=== PATIENT | male | born 1945 | race Caucasian/White ===

== ENCOUNTER 2019-04-15 07:00 | Inpatient (IN) | payer OTHER ==
[2019-04-15] MEDS ORDERED: LEVALBUTEROL 1.25 MG/3 ML NEB ONE (07:37)
[2019-04-15 07:50] LABS: Absolute Lymphocytes (CBC) 0.3 K/uL (0.7-4.9); Basophils % 0.2 % (0-1.3); Hematocrit 35.8 % (39.6-49.0); MPV 11.4 fL (7.6-11.3); RBC Red Blood Cell Count 3.47 M/uL (4.33-5.43)
[2019-04-15 08:03] LABS: BUN Blood Urea Nitrogen 14 mg/dL (7-18); Bicarbonate 27 mmol/L (21-32); Glucose Level 112 mg/dL (74-106); NT PRO-BNP 1660 pg/mL (<450); Potassium 3.6 mmol/L (3.5-5.1); Sodium Level 140 mmol/L (136-145); Troponin (Emerg Dept Use Only) < 0.02 ng/mL (0.0-0.045)
[2019-04-15] MEDS ORDERED: CEFTRIAXONE/SWI 1gm 1 GM/10 ML SYR ONE (08:17)
[2019-04-15] MEDS ORDERED: AZITHROMYCIN IV 500 MG in NA CHLORIDE 0.9% 250 ML IVPB ONE (09:00)
--- NOTE | 2019-04-15 09:56 | EKG ---
Test Date: 2019-04-15 Test Time: 07:06:29 In Flight Technician: LARISSA MEASUREMENT RESULTS: Intervals: Rate: 91 WY: 170 QRSD: 110 QT: 376 QTc: 462 Griffin: P: 75 WY: 170 QRS: 18 T: -17 INTERPRETIVE STATEMENTS: Normal sinus rhythm Inferior infarct, age undetermined T wave abnormality, consider lateral ischemia Abnormal ECG Compared to ECG 04/18/2016 04:13:22 T-wave abnormality now present Sinus tachycardia no longer present ST (T wave) deviation no longer present Myocardial infarct finding still present Possible ischemia still present Electronically Signed On 04-15-19 09:55:59 CDT by Enmanuel Pollard
--- NOTE | 2019-04-15 10:00 | ER ---
Nurse's Notes [facility] Name: Joshua Juarez Age: 74 yrs Sex: Male : 1945 Arrival Date: 04/15/2019 Time: 07:01 Bed 5 Private MD: Óscar Wen V Diagnosis: Dyspnea, unspecified;Pneumonia Presentation: 04/15 07:00 Presenting complaint: Patient states: SOB, cough, chest pain x 5 days ago. Pt also aa5 reports fever up to 101.7 F yesterday. 07:00 Acuity: MARISELA 2 aa5 07:00 Transition of care: patient was not received from another setting of care. Onset of aa5 symptoms was April 2019. Risk Assessment: Do you want to hurt yourself or someone else? Patient reports no desire to harm self or others. Initial Sepsis Screen: Does the patient meet any 2 criteria? No. Patient's initial sepsis screen is negative. Does the patient have a suspected source of infection? No. Patient's initial sepsis screen is negative. Care prior to arrival: None. 07:00 Method Of Arrival: Ambulatory aa5 Triage Assessment: 07:13 General: Appears in no apparent distress. Behavior is calm, cooperative, appropriate tw2 for age. Pain: Denies pain. EENT: No signs and/or symptoms were reported regarding the EENT system. Neuro: Level of Consciousness is awake, alert, obeys commands. Cardiovascular: Heart tones S1 S2 Patient's skin is warm and dry. 07:14 Respiratory: Reports shortness of breath at rest on exertion since 5 days now Onset: tw2 The symptoms/episode began/occurred 5 days ago, the patient has mild shortness of breath. GI: Abdomen is round non-distended, obese, Bowel sounds present X 4 quads. : No signs and/or symptoms were reported regarding the genitourinary system. Derm: No signs and/or symptoms reported regarding the dermatologic system. Skin is intact, is healthy with good turgor, Skin is dry. Musculoskeletal: Range of motion: intact in all extremities. Historical: - Allergies: 07:00 NKDA; aa5 - Home Meds: 07:17 amiodarone 200 mg Oral tab 1 tab 2 times per day [Active]; apixaban Oral 5 mg 2 times tw2 per day [Active]; aspirin 81 mg Oral TbEC 1 tab once daily [Active]; atorvastatin 20 mg Oral tab 1 tab once daily [Active]; buspirone 10 mg Oral tab 1 tab 3 times per day [Active]; Colace 100 mg Oral cap [Active]; colchicine 0.6mg tablet miscellaneous [Active]; digoxin 125 mcg Oral tab 1 tab once daily [Active]; Imdur 30 mg Oral Tb24 [Active]; lisinopril 5 mg Oral tab 1 tab once daily [Active]; metformin 500 mg Oral Tb24 1 tab once daily [Active]; metoprolol tartrate 100 mg Oral tab 1 tab once daily [Active]; [place] 10-325 mg Oral tab 1 tab every 6 hours [Active]; trazodone 100 mg Oral tab 1 tab nightly [Active]; venlafaxine 150 mg Oral cp24 [Active]; - PMHx: 07:00 Depression; Diabetes - NIDDM; Hyperlipidemia; Hypertension; Atrial Fib; aa5 - PSHx: 07:00 CABG; knee replacement; prostate sx; aa5 - Immunization history:: Flu vaccine is up to date. - Social history:: Smoking status: Patient/guardian denies using tobacco. - Ebola Screening: : No symptoms or risks identified at this time. - Family history:: not pertinent. - Hospitalizations: : No recent hospitalization is reported. Screenin:12 Abuse screen: Denies threats or abuse. Nutritional screening: No deficits noted. tw2 Tuberculosis screening: No symptoms or risk factors identified. Fall Risk None identified. Assessment: 07:15 Reassessment: see triage assessment. tw2 07:15 Cardiovascular: Rhythm is sinus rhythm. Respiratory: Airway is patent Respiratory tw2 effort is even, unlabored, Respiratory pattern is regular, symmetrical, Breath sounds are clear bilaterally. 07:43 Reassessment: Patient appears in no apparent distress at this time. No changes from tw2 previously documented assessment. Patient and/or family updated on plan of care and expected duration. Pain level reassessed. 09:43 Reassessment: Patient appears in no apparent distress at this time. No changes from tw2 previously documented assessment. Patient and/or family updated on plan of care and expected duration. Pain level reassessed. Vital Signs: 07:05 BP 125 / 82; Pulse 89; Resp 18 S; Temp 98.7(TE); Pulse Ox 97% on R/A; Weight 83.91 kg aa5 (R); Height 5 ft. 6 in. (167.64 cm) (R); Pain 6/10; 07:42 BP 116 / 70; Pulse 86; Resp 23; Pulse Ox 98% on 2 lpm NC; tw2 08:32 BP 112 / 95; Pulse 87; Resp 19; Pulse Ox 96% on 2 lpm NC; tw2 09:43 BP 124 / 93; Pulse 86; Resp 17; Pulse Ox 97% on R/A; tw2 09:56 Pulse Ox 92% ; rn 10:50 BP 127 / 86; Pulse 88; Resp 16; Pulse Ox 96% on R/A; aj 07:05 Body Mass Index 29.86 (83.91 kg, 167.64 cm) aa5 ED Course: 07:01 Patient arrived in ED. as 07:01 Óscar Wen MD is Private Physician. as 07:04 Arm band placed on. aa5 07:04 Patient placed in an exam room, on a stretcher. aa5 07:05 Sandro Logan MD is Attending Physician. rn 07:05 EKG done, by ED staff, reviewed by Sandro Logan MD. aa5 07:08 Placed in gown. Bed in low position. Call light in reach. nurse monitoring on. Pulse ox tw2 on. NIBP on. 07:10 Triage completed. aa5 07:12 Darlene Zayas RN is Primary Nurse. tw2 07:30 Initial lab(s) drawn, by nd, sent to lab. First set of blood cultures drawn Flu and/or tw2 RSV swab sent to lab. Strep swab sent to lab. Inserted saline lock: 20 gauge in right forearm, using aseptic technique. Blood collected. 07:36 XRAY CXR (1 view) In Process Unspecified. EDMS 09:58 Óscar Wen MD is Hospitalizing Provider. rn 09:59 Report given to GRAY Hogan. tw2 11:22 No provider procedures requiring assistance completed. Patient admitted, IV remains in iw place. Administered Medications: 07:25 Drug: Xopenex 1.25 mg Route: Inhalation; tw2 08:10 Drug: Rocephin - (cefTRIAXone) 1 grams {Note: IVP available only.} Route: IVPB; Infused tw2 Over: 5 mins; Site: right antecubital; 08:15 Follow up: Response: No adverse reaction; IV Status: Completed infusion tw2 08:30 Drug: Zithromax 500 mg Route: IVPB; Infused Over: 1 hrs; Site: right antecubital; tw2 09:42 Follow up: Response: No adverse reaction; IV Status: Completed infusion tw2 Outcome: 09:59 Decision to Hospitalize by Provider. rn 11:22 Admitted to Med/surg iw 11:22 Admitted to Med/surg accompanied by tech, via wheelchair, with oxygen. 11:22 Condition: good 11:22 Discharge instructions given to patient, family, Instructed on discharge instructions, follow up and referral plans. the need for admit, Demonstrated understanding of instructions. 11:23 Patient left the ED. iw Signatures: Dispatcher [employer] EDSamira Abrams RN Lyn Rubio Irene, RN RN iw Nieto, Roman, MD MD rn Calderon, Audri, RN RN aa5 Darlene Zayas RN RN tw2 Corrections: (The following items were deleted from the chart) 07:15 07:13 Cardiovascular: Heart tones S1 S2 Patient's skin is warm and dry. tw2 tw2
--- NOTE | 2019-04-15 10:00 | EDPHYS ---
Physician Documentation [facility] Name: Joshua Juarez Age: 74 yrs Sex: Male : 1945 Arrival Date: 04/15/2019 Time: 07:01 Bed 5 Private MD: Óscar Wen V ED Physician Sandro Logan HPI: 04/15 07:14 This 74 yrs old Male presents to ER via Ambulatory with complaints of rn Shortness Of Breath. 07:14 The patient has shortness of breath at rest, with light activity. rn 07:20 Onset: The symptoms/episode began/occurred 4 day(s) ago. Duration: The symptoms are rn continuous. The patient's shortness of breath is aggravated by exertion, light activity, supine position, talking, walking. Severity of symptoms: At their worst the symptoms were moderate in the emergency department the symptoms are unchanged. The patient has not experienced similar symptoms in the past. The patient has not recently seen a physician. Reports feeling sick for 3-4 days, + non-productive cough, fever to 101, left sided chest pain, no hemoptysis, no leg swelling.. Historical: - Allergies: 07:00 NKDA; aa5 - Home Meds: 07:17 amiodarone 200 mg Oral tab 1 tab 2 times per day [Active]; apixaban Oral 5 mg 2 times tw2 per day [Active]; aspirin 81 mg Oral TbEC 1 tab once daily [Active]; atorvastatin 20 mg Oral tab 1 tab once daily [Active]; buspirone 10 mg Oral tab 1 tab 3 times per day [Active]; Colace 100 mg Oral cap [Active]; colchicine 0.6mg tablet miscellaneous [Active]; digoxin 125 mcg Oral tab 1 tab once daily [Active]; Imdur 30 mg Oral Tb24 [Active]; lisinopril 5 mg Oral tab 1 tab once daily [Active]; metformin 500 mg Oral Tb24 1 tab once daily [Active]; metoprolol tartrate 100 mg Oral tab 1 tab once daily [Active]; [place] 10-325 mg Oral tab 1 tab every 6 hours [Active]; trazodone 100 mg Oral tab 1 tab nightly [Active]; venlafaxine 150 mg Oral cp24 [Active]; - PMHx: 07:00 Depression; Diabetes - NIDDM; Hyperlipidemia; Hypertension; Atrial Fib; aa5 - PSHx: 07:00 CABG; knee replacement; prostate sx; aa5 - Immunization history:: Flu vaccine is up to date. - Social history:: Smoking status: Patient/guardian denies using tobacco. - Ebola Screening: : No symptoms or risks identified at this time. - Family history:: not pertinent. - Hospitalizations: : No recent hospitalization is reported. ROS: 07:20 Constitutional: + fever and chills Eyes: Negative for injury, pain, redness, and buttermaker continuous churn, ENT: Negative for injury, pain, and discharge, Neck: Negative for injury, pain, and swelling, Cardiovascular: Negative for chest pain, palpitations, and edema, Respiratory: Negative for pleuritic chest pain Abdomen/GI: Negative for abdominal pain, nausea, vomiting, diarrhea, and constipation, MS/Extremity: Negative for injury and deformity, Skin: Negative for injury, rash, and discoloration, Neuro: Negative for headache, numbness, tingling, and seizure. Exam: 07:20 Constitutional: This is a well developed, well nourished patient who is awake, alert, rn mild tachypnea Head/Face: Normocephalic, atraumatic. ENT: dry MM, no stridor Neck: Trachea midline, no thyromegaly or masses palpated, and no cervical lymphadenopathy. Supple, full range of motion without nuchal rigidity, or vertebral point tenderness. No Meningismus. Cardiovascular: Regular rate, + moderate systolic murmur Respiratory: + diminished bilateral breath sounds Abdomen/GI: soft, non-tender Skin: Warm, dry MS/ Extremity: Pulses equal, no cyanosis. Neurovascular intact. Full, normal range of motion. Equal circumference. Neuro: Awake and alert, GCS 15, oriented to person, place, time, and situation. Vital Signs: 07:05 BP 125 / 82; Pulse 89; Resp 18 S; Temp 98.7(TE); Pulse Ox 97% on R/A; Weight 83.91 kg aa5 (R); Height 5 ft. 6 in. (167.64 cm) (R); Pain 6/10; 07:42 BP 116 / 70; Pulse 86; Resp 23; Pulse Ox 98% on 2 lpm NC; tw2 08:32 BP 112 / 95; Pulse 87; Resp 19; Pulse Ox 96% on 2 lpm NC; tw2 09:43 BP 124 / 93; Pulse 86; Resp 17; Pulse Ox 97% on R/A; tw2 09:56 Pulse Ox 92% ; rn 10:50 BP 127 / 86; Pulse 88; Resp 16; Pulse Ox 96% on R/A; aj 07:05 Body Mass Index 29.86 (83.91 kg, 167.64 cm) aa5 MDM: 07:08 Patient medically screened. rn 09:57 Differential diagnosis: Bronchitis pneumonia, Pneumothorax pulmonary edema, Sepsis. rn Data reviewed: vital signs, nurses notes, lab test result(s), EKG, radiologic studies, plain films, and as a result, I will admit patient. Counseling: I had a detailed discussion with the patient and/or guardian regarding: the historical points, exam findings, and any diagnostic results supporting the discharge/admit diagnosis, lab results, radiology results, the need for further work-up and treatment in the hospital. Response to treatment: the patient's symptoms have mildly improved after treatment. Admission orders: after a detailed discussion of the patient's condition and case, the admit orders are written by me. ED course: Pt with clinical pneumonia, reports fever to 101, cough, and dyspnea without chronic lung problems, admitted to Dr. Wen. Patient reports still sob with minimal exertion.. 04/15 07:18 Order name: Blood Culture Adult (2) rn 04/15 07:18 Order name: BMP; Complete Time: 08:13 rn 04/15 07:18 Order name: CBC with Diff; Complete Time: 08: rn 04/15 07:18 Order name: NT PRO-BNP; Complete Time: 08: rn 04/15 07:18 Order name: Troponin (emerg Dept Use Only); Complete Time: 08:13 rn 04/15 07:18 Order name: Flu; Complete Time: 08:13 rn 04/15 07:18 Order name: XRAY CXR (1 view) rn 04/15 07:18 Order name: EKG; Complete Time: 07:19 rn 04/15 07:18 Order name: Strep; Complete Time: 08:13 rn 04/15 07:19 Order name: Procalcitonin; Complete Time: 08:13 rn 04/15 08:07 Order name: Throat Culture EDMA 04/15 07:18 Order name: Cardiac monitoring; Complete Time: 07:20 rn 04/15 07:18 Order name: EKG - Nurse/Tech; Complete Time: 07:20 rn 04/15 07:18 Order name: IV Saline Lock; Complete Time: 07:41 rn 04/15 07:18 Order name: Labs collected and sent; Complete Time: 07:41 rn 04/15 07:18 Order name: O2 Per Protocol; Complete Time: 07:20 rn 04/15 07:18 Order name: O2 Sat Monitoring; Complete Time: 07:20 rn Administered Medications: 07:25 Drug: Xopenex 1.25 mg Route: Inhalation; tw2 08:10 Drug: Rocephin - (cefTRIAXone) 1 grams {Note: IVP available only.} Route: IVPB; Infused tw2 Over: 5 mins; Site: right antecubital; 08:15 Follow up: Response: No adverse reaction; IV Status: Completed infusion tw2 08:30 Drug: Zithromax 500 mg Route: IVPB; Infused Over: 1 hrs; Site: right antecubital; tw2 09:42 Follow up: Response: No adverse reaction; IV Status: Completed infusion tw2 Disposition: 04/15/19 09:59 Hospitalization ordered by Óscar Wen for Inpatient Admission. Preliminary diagnosis are Dyspnea, unspecified, Pneumonia. - Bed requested for Telemetry/MedSurg (Inpatient). - Status is Inpatient Admission. iw - Condition is Stable. - Problem is new. - Symptoms have improved. UTI on Admission? No Signatures: Dispatcher [employer] EDGabrielle Hull RN RN iw Sandro Logan MD MD rn Calderon, Audri, RN RN aa5 Darlene Zayas RN RN tw2 Mark Anthony Benz, GRAY RN ja1 Corrections: (The following items were deleted from the chart) 10:49 09:59 Hospitalization Ordered by Óscar Wen MD for Inpatient Admission. Preliminary [email or web address] diagnosis is Dyspnea, unspecified; Pneumonia. Bed requested for Telemetry/MedSurg (Inpatient). Status is Inpatient Admission. Condition is Stable. Problem is new. Symptoms have improved. UTI on Admission? No. rn 11:23 10:49 04/15/2019 09:59 Hospitalization Ordered by Óscar Wen MD for Inpatient iw Admission. Preliminary diagnosis is Dyspnea, unspecified; Pneumonia. Bed requested for Telemetry/MedSurg (Inpatient). Status is Inpatient Admission. Condition is Stable. Problem is new. Symptoms have improved. UTI on Admission? No. ja1
--- NOTE | 2019-04-15 11:38 | RAD REPORT ---
EXAM DESCRIPTION: RAD - Chest Single View - 04/15/2019 7:38 am CLINICAL HISTORY: Cough;Chest pain;Dyspnea Chest pain. COMPARISON: <Comparisons> FINDINGS: Portable technique limits examination quality. Large opacity is present in the inferior right lung compatible with pneumonia. The heart is moderatel y enlarged with changes of a prior CABG. No displaced fractures. IMPRESSION: Opacification in the inferior right hemithorax compatible with pneumonia.
[2019-04-15] MEDS ORDERED: ONDANSETRON 4 MG/2 ML VIAL IV PRN (11:59)
[2019-04-15] MEDS: IPRATROPIUM BROM 0.5MG/2.5ML NEB PRN ×2 (12:49→18:48)
[2019-04-15] MEDS: ALBUTEROL 2.5 MG/3 ML NEB SOL NEB PRN ×2 (12:49→18:48)
--- NOTE | 2019-04-15 17:05 | P.HP ---
Certification for Inpatient Patient admitted to: Inpatient With expected LOS: >2 Midnights Practitioner: I am a practitioner with admitting privileges, knowledge of patient current condition, hospital course, and medical plan of care. Services: Services provided to patient in accordance with Admission requirements found in Title 42 Section 412.3 of the Code of Federal Regulations Patient History Date of Service: 04/15/19 Reason for admission: COUGH History of Present Illness: MR. VALDERRAMA IS A CAD PATIENT SP CABG,WHO COMES TO MY OFFICE OFF AND ON BUT USUALLY GOES TO [place] FOR HIS CARE. HE HAS BEEN COUGHING FOR 4 DAYS AND HAS FEVER FOR ONE DAY. HE IS GENERALLY WEAK. HE DENIES CHEST PAIN. Allergies No Known Drug Allergies Allergy (Verified 03/21/16 08:42) Unknown Home medications list reviewed: Yes Home Medications: Metformin HCl [Glucophage*] 1 tab PO BID 03/21/16 Trazodone HCl [Desyrel] 200 mg PO BEDTIME 03/21/16 Venlafaxine HCl [Venlafaxine HCl ER] 300 mg PO BEDTIME 03/21/16 Amiodarone HCl 200 mg PO DAILY 04/15/19 Apixaban [Eliquis] 10 mg PO DAILY 04/15/19 Atorvastatin Calcium [Lipitor] 1 tab PO BEDTIME 04/15/19 Hydrocodone 7.5/APAP 325 [[place] 7.5/325 mg] 1 tab PO BID 04/15/19 Tamsulosin [Flomax] 0.4 mg PO DAILY 04/15/19 - Past Medical/Surgical History Has patient received pneumonia vaccine in the past: Yes Diabetic: Yes -: SD -: bells palsy -: NIDDM -: HTN -: depression -: anxiety -: neuropathy -: dislocation l shoulder -: fracture r collar bone -: bilateral knee replacement -: l ankle surgery -: l wrist surgery -: tonsillectomy -: r hand carpal tunnel surgery -: double bypass - Family History Mother -: Diabetes Brother -: Heart disease, Diabetes Sister -: Heart disease, Diabetes - Social History Smoking Status: Never smoker Alcohol use: No CD- Drugs: No Caffeine use: Yes Place of Residence: Home Review of Systems 10-point ROS is otherwise unremarkable General: Weakness, Malaise Respiratory: Cough Physical Examination - Vital Signs Temperature: 98.9 F Blood Pressure: 129/78 Pulse: 90 Respirations: 20 Pulse Ox (%): 97 - Physical Exam General: Alert, Mild distress, Obese HEENT: Atraumatic, PERRLA, Mucous membr. moist/pink, EOMI, Sclerae nonicteric Neck: Supple, 2+ carotid pulse no bruit, No LAD, Without JVD or thyroid abnormality Respiratory: Diminished, Crackles/rales (R BASAL) Cardiovascular: Regular rate/rhythm, Normal S1 S2 Gastrointestinal: Normal bowel sounds, No tenderness Musculoskeletal: No tenderness Integumentary: No rashes Neurological: Normal gait, Normal speech, Normal strength at 5/5 x4 extr, Normal tone, Normal affect Lymphatics: No axilla or inguinal lymphadenopathy - Studies Laboratory Data (last 24 hrs) 04/15/19 07:30: WBC 13.8 H, Hgb 11.7 L, Hct 35.8 L, Plt Count 131 L 04/15/19 07:30: Sodium 140, Potassium 3.6, BUN 14, Creatinine 0.75, Glucose 112 H Microbiology Data (last 24 hrs): 04/15/19 07:30 Nasopharnyx Influenza Type A Antigen Screen - Final 04/15/19 07:30 Nasopharnyx Influenza Type B Antigen Screen - Final 04/15/19 07:30 Throat Group A Streptococcus Rapid Screen - Final Assessment and Plan - Problems (Diagnosis) (1) Bacterial pneumonia Current Visit: Yes Status: Acute Plan: IV ROCEPHIN AND ZITHROMAX. NEBS COUGH MEDS. SPUTUM NOT PRODUCED. NO CULTURE CAN BE DONE. (2) CAD (coronary artery disease) Current Visit: Yes Status: Chronic Plan: HE GOES TO [place] FOR HIS CARE. STABLE CURRENTLY. NO ACUTE SS. Qualifiers: Coronary Disease-Associated Artery/Lesion type: bypass graft [place] vs. transplanted heart: [place] heart Associated angina: without angina Qualified Code(s): I25.810 - Atherosclerosis of coronary artery bypass graft(s) without angina pectoris (3) Diabetes Current Visit: Yes Status: Chronic Plan: AC HS CHECK A1C LDL. Qualifiers: Diabetes mellitus type: type 2 (4) A-fib Current Visit: Yes Status: Chronic Plan: ELIQUIS PO BID RATE CONTROLLED. Qualifiers: Atrial fibrillation type: chronic Qualified Code(s): I48.2 - Chronic atrial fibrillation - Advance Directives Does patient have a Living Will: No Does patient have a Durable POA for Healthcare: No - Code Status/Comfort Care Code Status Assessed: Yes Code Status: Full Code Critical Care: No
[2019-04-15] MEDS: ACETAMINOPHEN 500 MG TAB PO PRN (17:13)
[2019-04-15] MEDS: METFORMIN HCL 500 MG TAB PO SCH (17:30)
--- NOTE | 2019-04-15 20:45 | RAD REPORT ---
EXAM DESCRIPTION: CT - Chest For Pe Angio - 04/15/2019 8:28 pm CLINICAL HISTORY: Chest pain. PAIN COMPARISON: Chest For Pe Angio dated 04/11/2016Chest For Pe Angio dated 04/11/2016; Chest Single View da tim 04/15/2019 TECHNIQUE: CT angiogram of the pulmonary arteries was performed with MIP. All CT scans are performed using dose optimization technique as appropriate and may include automated exposure control or mA/KV adjustment according to patient size. FINDINGS: No evidence of pulmonary thromboembolism. No acute aortic finding demonstrated. A large area of lung consolidation is present in the right lower lobe. Mild areas of linear atelectas is are seen in the posterior left lower lobe. Small bilateral pleural effusions are present, slightly larger on the right. No concerning bony finding. IMPRESSION: No evidence of pulmonary thromboembolism. Large area of lung consolidation posterior right lower lobe compatible with pneumonia.
[2019-04-15] MEDS ORDERED: TRAZODONE 150 MG TAB PO SCH (21:00)
[2019-04-15] MEDS ORDERED: VENLAFAXINE HCL 300 MG PO SCH (21:00)
[2019-04-15] MEDS ORDERED: TRAZODONE 50 MG TABLET PO SCH (21:00)
[2019-04-15] MEDS: APIXABAN 5 MG TABLET PO SCH (21:21)
[2019-04-15] MEDS: ATORVASTATIN 40 MG TAB PO SCH (21:22)
[2019-04-15] MEDS: CEFTRIAXONE/SWI 1gm 1 GM/10 ML SYR IV SCH (21:22)
[2019-04-15] MEDS: TRAZODONE 150 MG TAB PO SCH (21:27)
[2019-04-15] MEDS ORDERED: CEFTRIAXONE 1 GM/NS 50 ML 1 GM/50 ML BAG IV SCH (22:00)
[2019-04-15] MEDS: HYDROCODONE/APAP 7.5/325 MG TAB PO SCH (22:10)
[2019-04-16] MEDS: IPRATROPIUM BROM 0.5MG/2.5ML NEB PRN ×4 (01:50→18:05)
[2019-04-16] MEDS: ALBUTEROL 2.5 MG/3 ML NEB SOL NEB PRN ×3 (01:50→13:55)
[2019-04-16] MEDS: ACETAMINOPHEN 500 MG TAB PO PRN ×2 (05:30→14:39)
[2019-04-16 05:53] LABS: Absolute Lymphocytes (CBC) 0.4 K/uL (0.7-4.9); Basophils % 0.1 % (0-1.3); Hematocrit 34.4 % (39.6-49.0); Lymphocytes % 2.8 % (15.3-44.8); MPV 10.9 fL (7.6-11.3); RBC Red Blood Cell Count 3.35 M/uL (4.33-5.43)
[2019-04-16] MEDS: TAMSULOSIN 0.4 MG SR CAP PO SCH (08:01)
[2019-04-16] MEDS: APIXABAN 5 MG TABLET PO SCH ×2 (08:01→21:28)
[2019-04-16] MEDS: HYDROCODONE/APAP 7.5/325 MG TAB PO SCH ×2 (08:02→21:28)
[2019-04-16] MEDS: CEFTRIAXONE/SWI 1gm 1 GM/10 ML SYR IV SCH (08:04)
[2019-04-16] MEDS: METFORMIN HCL 500 MG TAB PO SCH ×2 (08:05→16:25)
[2019-04-16] MEDS ORDERED: AMIODARONE HCL 200 MG TAB PO SCH (09:00)
[2019-04-16] MEDS ORDERED: AZITHROMYCIN IV 250 MG in NA CHLORIDE 0.9% 250 ML IVPB SCH (09:00)
--- NOTE | 2019-04-16 14:51 | P.PN ---
Subjective Date of Service: 04/16/19 Chief Complaint: COUGH, FATIGUE Subjective: No new changes Review of Systems 10-point ROS is otherwise unremarkable General: Weakness, Malaise Physical Examination - Vital Signs Temperature: 100.4 F Blood Pressure: 92/60 Pulse: 90 Respirations: 28 Pulse Ox (%): 94 - Physical Exam General: Alert, Mild distress, Obese HEENT: Atraumatic, PERRLA, EOMI Neck: Supple, JVD not distended Respiratory: Diminished, Crackles/rales Cardiovascular: Regular rate/rhythm, Normal S1 S2 Gastrointestinal: Normal bowel sounds, No tenderness Musculoskeletal: No tenderness Integumentary: No rashes Neurological: Normal speech, Normal tone, Normal affect Lymphatics: No axilla or inguinal lymphadenopathy - Studies Medications List Reviewed: Yes Assessment And Plan - Current Problems (Diagnosis) (1) Bacterial pneumonia Current Visit: Yes Status: Acute Plan: IV ROCEPHIN AND ZITHROMAX. NEBS COUGH MEDS. SPUTUM NOT PRODUCED. NO CULTURE CAN BE DONE. FEVER WHILE ON ROCEPHIN AND ZITHROMAX. WILL MAKE COVERAGE BROADER. CHANGE TO ZOSYN AND VANCOMYCIN HE IS NOT IMPROVING. SPUTUM CS PENDING. (2) CAD (coronary artery disease) Current Visit: Yes Status: Chronic Plan: HE GOES TO [place] FOR HIS CARE. STABLE CURRENTLY. NO ACUTE SS. Qualifiers: Coronary Disease-Associated Artery/Lesion type: bypass graft [place] vs. transplanted heart: [place] heart Associated angina: without angina Qualified Code(s): I25.810 - Atherosclerosis of coronary artery bypass graft(s) without angina pectoris (3) Diabetes Current Visit: Yes Status: Chronic Plan: AC HS CHECK A1C LDL. Qualifiers: Diabetes mellitus type: type 2 (4) A-fib Current Visit: Yes Status: Chronic Plan: ELIQUIS PO BID RATE CONTROLLED. Qualifiers: Atrial fibrillation type: chronic Qualified Code(s): I48.2 - Chronic atrial fibrillation (5) Hypotension Current Visit: Yes Status: Acute Plan: BORDERLINE. WILL FOLLOW PROTOCOL.
[2019-04-16] MEDS: NA CHLORIDE 0.9% 1,000 ML IV SCH (15:50)
[2019-04-16] MEDS ORDERED: VANCOMYCIN 2 GM in NA CHLORIDE 0.9% 500 ML IVPB ONE (16:00)
[2019-04-16] MEDS: PIPER/TAZO/NS 3.375gm 3.375 GM/100 ML BAG IV SCH (18:02)
[2019-04-16] MEDS ORDERED: METOPROLOL TARTRATE 5 MG/5 ML INJ IV STA (19:22)
[2019-04-16] MEDS ORDERED: AMIODARONE HCL 75 MG in D5W 100 ML IV STA ×2 (20:05→20:23)
[2019-04-16] MEDS ORDERED: AMIODARONE HCL 150 MG/3 ML INJ IV ONE ×3 (20:20→20:35)
[2019-04-16] MEDS ORDERED: D5W 100 ML IV ONE (20:21)
[2019-04-16] MEDS ORDERED: AMIODARONE HCL 900 MG in Dextrose 5%-Water 482 ML IV SCH ×2 (20:23→21:00)
[2019-04-16] MEDS ORDERED: VANCOMYCIN 1GM/D5W 200 ML IV SCH (21:00)
[2019-04-16] MEDS: VENLAFAXINE HCL XR 75 MG CAP PO SCH (21:28)
[2019-04-16] MEDS: TRAZODONE 50 MG TABLET PO SCH (21:28)
[2019-04-16] MEDS: TRAZODONE 150 MG TAB PO SCH (21:28)
[2019-04-16] MEDS: ATORVASTATIN 40 MG TAB PO SCH (21:29)
[2019-04-16] MEDS: FENTANYL CITR 100 MCG/2 ML IV PRN (22:30)
[2019-04-16] MEDS: GUAIFENESIN/DM 5 ML UCUP PO PRN (22:39)
[2019-04-17] MEDS: IPRATROPIUM BROM 0.5MG/2.5ML NEB PRN ×5 (00:14→22:00)
--- NOTE | 2019-04-17 00:54 | CON ---
Identification: A 74-year-old man. Chief Complaint: Shortness of breath. Reason For Cardiology Consult: Atrial fibrillation and flutter. History Of Present Illness: Mr. Juarez is a gentleman who had bypass surgery in 2016 for unstable angina. In the immediate postop period, there was AFib, but he has been in normal sinus rhythm for t he past several years, taking amiodarone 200 a day and Eliquis 5 mg b.i.d. He has underlying diabete s and hypertension. Not having chest pain. When he came to the hospital, he was found to have evide nced by CAT scan, chest x-ray, blood tests, and physical exam of pneumonia. His pneumonia appears to be in the inferior part of the right lung. It is a large pneumonia involving most of the inferior p art of the right lung, probably all the inferior lobes. He is being treated with antibiotics, seems to be getting better. When he took an albuterol treatment, he started to have fluttering. Telemetry was done and it showed atrial flutter. His admission EKG showed sinus rhythm. Physical Examination: General: He is 5 feet 6 inches, 185 pounds. Alert, oriented, pleasant, not in distress. Lungs: Not clear. The right lung base has no breath sounds. Heart: Within normal limits except for the heart rate about 150. Abdomen: Soft. Extremities: Normal. Impression: The patient has atrial flutter. We will give amiodarone. Continue Eliquis. If he is s till in atrial flutter tonight or tomorrow morning, we will do a cardioversion. The amiodarone will be intravenous and his baseline dose should probably be increased to 400 once a day, but we will run the drip at least 24 hours past the time he re-establishes sinus rhythm, and perhaps, we can treat his pneumonia without using albuterol. CRISTINE/ORACIO Voice ID: [id number] Report ID: [id number]
[2019-04-17] MEDS: PIPER/TAZO/NS 3.375gm 3.375 GM/100 ML BAG IV SCH ×3 (01:49→17:44)
[2019-04-17] MEDS: FENTANYL CITR 100 MCG/2 ML IV PRN ×2 (04:03→09:30)
[2019-04-17] MEDS ORDERED: MIDAZOLAM HCL 2 MG/2 ML INJ ONE (07:57)
[2019-04-17] MEDS ORDERED: FLUMAZENIL 0.1 MG/ML (5 mL VIAL) IV ONE (08:22)
[2019-04-17] MEDS ORDERED: IBUPROFEN 400 MG TAB PO ONE (09:26)
[2019-04-17] MEDS: METFORMIN HCL 500 MG TAB PO SCH ×3 (09:39→17:44)
[2019-04-17] MEDS: HYDROCODONE/APAP 7.5/325 MG TAB PO SCH ×2 (09:39→21:50)
[2019-04-17] MEDS: LIDOCAINE 5% PATCH TOP SCH (09:40)
[2019-04-17] MEDS: VANCOMYCIN 1.5 GM in NA CHLORIDE 0.9% 500 ML IVPB SCH (09:45)
[2019-04-17] MEDS: TAMSULOSIN 0.4 MG SR CAP PO SCH (09:52)
[2019-04-17] MEDS: APIXABAN 5 MG TABLET PO SCH ×2 (09:52→21:47)
--- NOTE | 2019-04-17 10:52 | EKG ---
Test Date: 2019-04-17 Test Time: 08:20:14 Steam Blocker: KIMBERLY MEASUREMENT RESULTS: Intervals: Rate: 105 PA: 170 QRSD: 106 QT: 352 QTc: 465 [place]: P: 43 PA: 170 QRS: 22 T: 34 INTERPRETIVE STATEMENTS: Sinus tachycardia Low voltage QRS Borderline ECG Compared to ECG 04/15/2019 07:06:29 Low QRS voltage now present Sinus rhythm no longer present Myocardial infarct finding no longer present T-wave abnormality no longer present Possible ischemia no longer present Electronically Signed On 04-17-19 10:52:12 CDT by Enmanuel Pollard
--- NOTE | 2019-04-17 11:44 | RAD REPORT ---
EXAM DESCRIPTION: RAD - Chest Single View - 04/17/2019 11:36 am CLINICAL HISTORY: Picc line placement COMPARISON: Chest Single View dated 04/15/2019; Chest Pa And Lat (2 Views) dated 07/02/2017; Abdomen 1 View (KUB) dated 06/23/2017; Chest Single View dated 04/18/2016 FINDINGS: Portable chest was obtained following placement of a right upper extremity PICC line. The catheter tip projects over the SVC near the junction with the right atrium.
--- NOTE | 2019-04-17 11:45 | RAD REPORT ---
EXAM DESCRIPTION: RAD - Thoracic Spine Ap/Lat - 04/17/2019 11:35 am CLINICAL HISTORY: Upper back pain Radiculopathy COMPARISON: No comparisons FINDINGS: Degenerative spondylosis is seen throughout the thoracic spine with disc thinning and ante rior/posterior osteophytes. An acute compression fracture is not seen. No significant malalignment.
--- NOTE | 2019-04-17 11:49 | RAD REPORT ---
EXAM DESCRIPTION: RAD - Lumbar Spine 3 Views - 04/17/2019 11:36 am CLINICAL HISTORY: Upper Back pain Radiculopathy COMPARISON: No comparisons FINDINGS: Vertebral body heights appear maintained. No compression fracture noted. Moderate degenera tive changes seen at L1-2 with vacuum disc degeneration evident. Mild degenerative anterolisthesis of L4 on 5 and L5 on S1 is seen. Facet hypertrophy is present lower lumbar levels. Aortic atherosclerosis. IMPRESSION: Moderate multilevel lumbar spondylosis. No acute finding suspected.
[2019-04-17] MEDS: LEVALBUTEROL 1.25 MG/3 ML NEB NEB SCH ×2 (14:11→14:27)
--- NOTE | 2019-04-17 15:43 | EKG ---
Test Date: 2019-04-16 Test Time: 18:42:29 Radiation Control Worker: MEASUREMENT RESULTS: Intervals: Rate: 160 [place]: QRSD: 90 QT: 306 QTc: 499 [place]: P: TN: QRS: 34 T: 80 INTERPRETIVE STATEMENTS: Atrial flutter with variable AV block Low voltage QRS Nonspecific ST and T wave abnormality Abnormal ECG Compared to ECG 04/15/2019 07:06:29 Low QRS voltage now present ST (T wave) deviation now present Sinus rhythm no longer present Myocardial infarct finding no longer present T-wave abnormality no longer present Possible ischemia no longer present Electronically Signed On 04-17-19 15:42:36 CDT by Enmanuel Pollard
[2019-04-17] MEDS: NA CHLORIDE 0.9% 1,000 ML IV SCH ×2 (17:40→17:45)
[2019-04-17] MEDS: LEVALBUTEROL 0.63 MG/3 ML NEB NEB PRN ×2 (18:00→22:00)
--- NOTE | 2019-04-17 19:29 | OP ---
Surgeon: Enmanuel Pollard MD Procedure: Direct current cardioversion. Indication: Atrial flutter, rapid response. Procedure In Detail: The patient was fasting. He has been on Eliquis 5 b.i.d. for months, went into atrial fib yesterday about 5 p.m., so he has been in atrial fib less than 24 hours. He was sedated with Versed 5 mg IV. Anterior-posterior paddles were used. A single shock of 200 joules was given. He emerged from that in sinus rhythm. He had some difficulty in respirations, so we reversed the Ve rsed with Romazicon 1 amp. No complications from the procedure. He is in sinus rhythm. CRISTINE/ORACIO Voice ID: [id number] Report ID: [id number]
[2019-04-17] MEDS ORDERED: AMIODARONE HCL 900 MG in Dextrose 5%-Water 482 ML IV SCH (20:00)
[2019-04-17] MEDS: VENLAFAXINE HCL XR 75 MG CAP PO SCH (21:47)
[2019-04-17] MEDS: ATORVASTATIN 40 MG TAB PO SCH (21:48)
[2019-04-17] MEDS: TRAZODONE 50 MG TABLET PO SCH (21:48)
[2019-04-17] MEDS: TRAZODONE 150 MG TAB PO SCH (21:48)
[2019-04-17] MEDS: TIZANIDINE 4 MG TABLET PO PRN (21:52)
[2019-04-18] MEDS: PIPER/TAZO/NS 3.375gm 3.375 GM/100 ML BAG IV SCH ×3 (02:15→16:57)
[2019-04-18] MEDS: LEVALBUTEROL 0.63 MG/3 ML NEB NEB PRN ×3 (03:50→20:24)
[2019-04-18] MEDS: IPRATROPIUM BROM 0.5MG/2.5ML NEB PRN ×3 (03:50→20:24)
[2019-04-18] MEDS: VANCOMYCIN 1.5 GM in NA CHLORIDE 0.9% 500 ML IVPB SCH ×2 (05:09→21:46)
[2019-04-18] MEDS: TIZANIDINE 4 MG TABLET PO PRN ×2 (05:10→20:43)
[2019-04-18] MEDS: NA CHLORIDE 0.9% 1,000 ML IV SCH ×2 (07:00→15:30)
[2019-04-18] MEDS: METFORMIN HCL 500 MG TAB PO SCH ×2 (08:00→16:58)
[2019-04-18] MEDS: HYDROCODONE/APAP 7.5/325 MG TAB PO SCH ×2 (08:54→20:38)
[2019-04-18] MEDS: TAMSULOSIN 0.4 MG SR CAP PO SCH (08:54)
[2019-04-18] MEDS: APIXABAN 5 MG TABLET PO SCH ×2 (08:55→20:37)
[2019-04-18] MEDS: LIDOCAINE 5% PATCH TOP SCH (08:55)
[2019-04-18] MEDS: AMIODARONE HCL 200 MG TAB PO SCH ×2 (12:33→20:36)
--- NOTE | 2019-04-18 12:44 | P.PN ---
Subjective Date of Service: 04/18/19 Chief Complaint: LOT BETTER Subjective: Improving DEREK IS STILL COUGHING BUT A LOT BETTER. HE HAS NO FEVER. HE HAS A FIB AND CONVERSION FOR IT YESTERDAY BY DR. JENSEN. HE IS STABLE. HE IS ON AMIODARONE AND ELIQUIS. Review of Systems 10-point ROS is otherwise unremarkable General: Weakness, Malaise Respiratory: Cough Physical Examination - Vital Signs Temperature: 97.4 F Blood Pressure: 94/71 Pulse: 80 Respirations: 31 Pulse Ox (%): 97 - Physical Exam General: Alert, Mild distress, Comatose HEENT: Atraumatic, PERRLA, EOMI Neck: Supple, JVD not distended Respiratory: Diminished, Expiratory wheezes Cardiovascular: Regular rate/rhythm, Normal S1 S2 Gastrointestinal: Normal bowel sounds, No tenderness Musculoskeletal: No tenderness Integumentary: No rashes Neurological: Normal speech, Normal tone, Normal affect Lymphatics: No axilla or inguinal lymphadenopathy - Studies Microbiology Data (last 24 hrs): 04/15/19 07:30 Throat Culture & Sensitivity - Final NORMAL UPPER RESPIRATORY TAYLOR GROWN. Medications List Reviewed: Yes Assessment And Plan - Current Problems (Diagnosis) (1) Bacterial pneumonia Current Visit: Yes Status: Acute Plan: IV ROCEPHIN AND ZITHROMAX. NEBS COUGH MEDS. SPUTUM NOT PRODUCED. NO CULTURE CAN BE DONE. FEVER WHILE ON ROCEPHIN AND ZITHROMAX. WILL MAKE COVERAGE BROADER. CHANGE TO ZOSYN AND VANCOMYCIN HE IS NOT IMPROVING. SPUTUM CS PENDING. CLINICALLY BETTER. (2) CAD (coronary artery disease) Current Visit: Yes Status: Chronic Plan: HE GOES TO CT FOR HIS CARE. STABLE CURRENTLY. NO ACUTE SS. STABLE. Qualifiers: Coronary Disease-Associated Artery/Lesion type: bypass graft [place] vs. transplanted heart: [place] heart Associated angina: without angina Qualified Code(s): I25.810 - Atherosclerosis of coronary artery bypass graft(s) without angina pectoris (3) Diabetes Current Visit: Yes Status: Chronic Plan: HS CHECK A1C LDL. HE SAYS HE DOES NOT HAVE IT. Qualifiers: Diabetes mellitus type: type 2 (4) A-fib Current Visit: Yes Status: Chronic Plan: ELIQUIS PO BID RATE CONTROLLED. STABLE FOR NOW. Qualifiers: Atrial fibrillation type: chronic Qualified Code(s): I48.2 - Chronic atrial fibrillation (5) Hypotension Current Visit: Yes Status: Acute Plan: BORDERLINE. WILL FOLLOW PROTOCOL.
--- NOTE | 2019-04-18 12:45 | P.PN ---
Subjective Date of Service: 04/18/19 Chief Complaint: HE IS BETTER. DEREK IS STILL COUGHING BUT A LOT BETTER. HE HAS NO FEVER. HE HAS A FIB AND CONVERSION FOR IT YESTERDAY BY DR. JENSEN. HE IS STABLE. HE IS ON AMIODARONE AND ELIQUIS. COUGH DRY. Review of Systems 10-point ROS is otherwise unremarkable General: Weakness, Malaise Respiratory: Cough Physical Examination - Vital Signs Temperature: 97.4 F Blood Pressure: 94/71 Pulse: 80 Respirations: 31 Pulse Ox (%): 97 - Physical Exam General: Alert, Mild distress, Obese HEENT: Atraumatic, PERRLA, EOMI Neck: Supple, JVD not distended Respiratory: Diminished, Expiratory wheezes Cardiovascular: Regular rate/rhythm, Normal S1 S2 Gastrointestinal: Normal bowel sounds, No tenderness Musculoskeletal: No tenderness Integumentary: No rashes Neurological: Normal speech, Normal tone, Normal affect Lymphatics: No axilla or inguinal lymphadenopathy - Studies Microbiology Data (last 24 hrs): 04/15/19 07:30 Throat Culture & Sensitivity - Final NORMAL UPPER RESPIRATORY TAYLOR GROWN. Medications List Reviewed: Yes Assessment And Plan - Current Problems (Diagnosis) (1) Bacterial pneumonia Current Visit: Yes Status: Acute Plan: IV ROCEPHIN AND ZITHROMAX. NEBS COUGH MEDS. SPUTUM NOT PRODUCED. NO CULTURE CAN BE DONE. FEVER WHILE ON ROCEPHIN AND ZITHROMAX. WILL MAKE COVERAGE BROADER. CHANGE TO ZOSYN AND VANCOMYCIN HE IS NOT IMPROVING. SPUTUM CS PENDING. CLINICALLY BETTER. WHEEZES CONTINUE. START SYMBICORT WILL AVOID STERIODS FOR NOW. (2) CAD (coronary artery disease) Current Visit: Yes Status: Chronic Plan: HE GOES TO [facility] FOR HIS CARE. STABLE CURRENTLY. NO ACUTE SS. STABLE. Qualifiers: Coronary Disease-Associated Artery/Lesion type: bypass graft [place] vs. transplanted heart: [place] heart Associated angina: without angina Qualified Code(s): I25.810 - Atherosclerosis of coronary artery bypass graft(s) without angina pectoris (3) Diabetes Current Visit: Yes Status: Chronic Plan: HS CHECK A1C LDL. HE SAYS HE DOES NOT HAVE IT. Qualifiers: Diabetes mellitus type: type 2 (4) A-fib Current Visit: Yes Status: Chronic Plan: ELIQUIS PO BID RATE CONTROLLED. STABLE FOR NOW. Qualifiers: Atrial fibrillation type: chronic Qualified Code(s): I48.2 - Chronic atrial fibrillation (5) Hypotension Current Visit: Yes Status: Acute Plan: BORDERLINE. WILL FOLLOW PROTOCOL.
--- NOTE | 2019-04-18 15:08 | EKG ---
Test Date: 2019-04-17 Test Time: 22:21:02 Automotive Center Manager: RT MEASUREMENT RESULTS: Intervals: Rate: 128 CT: 192 QRSD: 104 QT: 324 QTc: 473 [place]: P: -12 CT: 192 QRS: 20 T: -45 INTERPRETIVE STATEMENTS: Sinus tachycardia with premature atrial complexes Low voltage QRS Nonspecific T wave abnormality Abnormal ECG Compared to ECG 04/17/2019 08:20:14 Atrial premature complex(es) now present T-wave abnormality now present Electronically Signed On 04-18-19 15:05:38 CDT by Denys Moise
[2019-04-18] MEDS: ACETAMINOPHEN 500 MG TAB PO PRN (15:23)
[2019-04-18] MEDS: GUAIFENESIN/DM 5 ML UCUP PO PRN ×2 (15:23→23:11)
--- NOTE | 2019-04-18 16:07 | ECHO ---
HEIGHT: 5 ft 6 in WEIGHT: 194 lb 9.6 oz DATE OF STUDY: 04/18/[address]: Óscar Wen MD 2-DIMENSIONAL: YES M.MODE: YES DOPPLER: YES COLOR FLOW: YES TDS: YES PORTABLE: YES DEFINITY: BUBBLE STUDY: DIAGNOSIS: EDEMA, DYSPNEA CARDIAC HISTORY: CATHERIZATION: YES SURGERY: YES PROSTHETIC VALVE: NO PACEMAKER: NO MEASUREMENTS (cm) DIASTOLIC (NORMALS) SYSTOLIC (NORMALS) IVSd 1.0 (0.6-1.2) LA Diam 5.1 (1.9-4.0) LVEF 72% LVIDd 3.8 (3.5-5.7) LVIDs 2.3 (2.0-3.5) %FS 40% LVPWd 1.1 (0.6-1.2) Ao Diam 3.5 (2.0-3.7) 2 DIMENSIONAL ASSESSMENT: RIGHT ATRIUM: NORMAL LEFT ATRIUM: DILATED RIGHT VENTRICLE: NORMAL LEFT VENTRICLE: NORMAL TRICUSPID VALVE: NORMAL MITRAL VALVE: MITRAL ANNULAR CALCIFICATION PULMONIC VALVE: NORMAL AORTIC VALVE: SCLEROSIS PERICARDIAL EFFUSION: NONE AORTIC ROOT: NORMAL LEFT VENTRICULAR WALL MOTION: NORMAL DOPPLER/COLOR FLOW: MODERATE PULMONARY HYPERTENSION. RIGHT VENTRICULAR SYSTOLIC PRESSURE 57 mmHg. COMMENTS: LEFT ATRIAL ENLARGEMENT. MODERATE PULMONARY HYPERTENSION. AORTIC SCLEROSIS. NORMAL LEFT VENTRICULAR EJECTION FRACTION AND SIZE. MITRAL ANNULAR CALCIFICATION. AORTIC SCLEROSIS NO STENOSIS. TECHNOLOGIST: WILVER SHERIFF
--- NOTE | 2019-04-18 18:08 | PN ---
Date of Progress Note: 04/18/2019 Mr. Juarez had a cardioversion on 04/17/2019 because of atrial fibrillation. He remained in sinus rhythm, on IV amiodarone. He is also on Eliquis. He has a history of hypertension, diabetes, mckeon ry artery disease, status post CABG. He is improving as far as his pneumonia is concerned. We will stop his IV amiodarone and switch him to p.o. 200 mg twice a day for now. We will continue to monito r his rhythm. We will continue to follow. PEDRO/ORACIO Voice ID: [id number] Report ID: [id number]
[2019-04-18] MEDS: ATORVASTATIN 40 MG TAB PO SCH (20:37)
[2019-04-18] MEDS: DULERA 100/5 (MOMETASONE/FORMOTEROL) INHALER IH SCH (20:37)
[2019-04-18] MEDS: VENLAFAXINE HCL XR 75 MG CAP PO SCH (20:37)
[2019-04-18] MEDS ORDERED: MIRTAZAPINE 15 MG TAB PO PRN (22:30)
[2019-04-19] MEDS: PIPER/TAZO/NS 3.375gm 3.375 GM/100 ML BAG IV SCH ×3 (00:17→17:14)
[2019-04-19] MEDS: LEVALBUTEROL 0.63 MG/3 ML NEB NEB PRN ×4 (02:00→19:45)
[2019-04-19] MEDS: IPRATROPIUM BROM 0.5MG/2.5ML NEB PRN ×4 (02:00→19:45)
[2019-04-19] MEDS: NA CHLORIDE 0.9% 1,000 ML IV SCH ×3 (05:28→23:11)
[2019-04-19] MEDS: ACETAMINOPHEN 500 MG TAB PO PRN (06:00)
[2019-04-19] MEDS: TIZANIDINE 4 MG TABLET PO PRN ×2 (06:08→12:34)
[2019-04-19 07:38] LABS: Absolute Lymphocytes (CBC) 0.2 K/uL (0.7-4.9); Basophils % 0.1 % (0-1.3); Hematocrit 29.3 % (39.6-49.0); Lymphocytes % 2.8 % (15.3-44.8); MPV 9.8 fL (7.6-11.3); RBC Red Blood Cell Count 2.84 M/uL (4.33-5.43)
[2019-04-19 07:51] LABS: BUN Blood Urea Nitrogen 13 mg/dL (7-18); Bicarbonate 31 mmol/L (21-32); Glucose Level 99 mg/dL (74-106); Magnesium 2.3 mg/dL (1.8-2.4); Sodium Level 139 mmol/L (136-145)
[2019-04-19] MEDS: METFORMIN HCL 500 MG TAB PO SCH ×2 (08:00→17:00)
--- NOTE | 2019-04-19 09:09 | PN ---
Mr. Juarez is making good progress. His pneumonia is getting better. He is staying in sinus rhyth m. He has been on oral amiodarone for a day. We will continue that. I feel certain he is well enou gh to get out of ICU. CRISTINE/MODAngy Voice ID: [id number] Report ID: [id number]
[2019-04-19] MEDS: AMIODARONE HCL 200 MG TAB PO SCH ×2 (09:25→21:51)
[2019-04-19] MEDS: APIXABAN 5 MG TABLET PO SCH ×2 (09:26→21:51)
[2019-04-19] MEDS: HYDROCODONE/APAP 7.5/325 MG TAB PO SCH (09:26)
[2019-04-19] MEDS: TAMSULOSIN 0.4 MG SR CAP PO SCH (09:26)
[2019-04-19] MEDS: LIDOCAINE 5% PATCH TOP SCH (09:27)
[2019-04-19] MEDS: DULERA 100/5 (MOMETASONE/FORMOTEROL) INHALER IH SCH ×2 (09:27→21:53)
[2019-04-19] MEDS: VANCOMYCIN 1.5 GM in NA CHLORIDE 0.9% 500 ML IVPB SCH (17:15)
[2019-04-19] MEDS: HYDROCODONE/APAP 7.5/325 MG TAB PO PRN (18:00)
--- NOTE | 2019-04-19 21:17 | P.PN ---
Subjective Date of Service: 04/19/19 Chief Complaint: HE IS BETTER. Subjective: Improving DEREK IS STILL COUGHING BUT A LOT BETTER. HE HAS NO FEVER. HE HAS A FIB AND CONVERSION FOR IT YESTERDAY BY DR. JENSEN. HE IS STABLE. HE IS ON AMIODARONE AND ELIQUIS. COUGH DRY. DEREK IS A LOT BETTER, STILL WEAK AND WHEEZES SOME. Review of Systems 10-point ROS is otherwise unremarkable General: Weakness, Malaise Physical Examination - Vital Signs Temperature: 97 F Blood Pressure: 103/59 Pulse: 78 Respirations: 22 Pulse Ox (%): 91 - Physical Exam General: Mild distress, Obese HEENT: Atraumatic, PERRLA, EOMI Neck: Supple, JVD not distended Respiratory: Diminished, Expiratory wheezes Cardiovascular: Regular rate/rhythm, Normal S1 S2 Gastrointestinal: Normal bowel sounds, No tenderness Musculoskeletal: No tenderness Integumentary: No rashes Neurological: Normal speech, Normal tone, Normal affect Lymphatics: No axilla or inguinal lymphadenopathy - Studies Medications List Reviewed: Yes Assessment And Plan - Current Problems (Diagnosis) (1) Bacterial pneumonia Current Visit: Yes Status: Acute Plan: IV ROCEPHIN AND ZITHROMAX. NEBS COUGH MEDS. SPUTUM NOT PRODUCED. NO CULTURE CAN BE DONE. FEVER WHILE ON ROCEPHIN AND ZITHROMAX. WILL MAKE COVERAGE BROADER. CHANGE TO ZOSYN AND VANCOMYCIN HE IS NOT IMPROVING. SPUTUM CS PENDING. CLINICALLY BETTER. WHEEZES CONTINUE. START SYMBICORT WILL AVOID STERIODS FOR NOW. CONT ABX DC VANCOMYCIN , NO SPUTUM FOR MRSA YET. (2) CAD (coronary artery disease) Current Visit: Yes Status: Chronic Plan: HE GOES TO [facility] FOR [facility] CARE. STABLE CURRENTLY. NO ACUTE SS. STABLE. Qualifiers: Coronary Disease-Associated Artery/Lesion type: bypass graft [place] vs. transplanted heart: [place] heart Associated angina: without angina Qualified Code(s): I25.810 - Atherosclerosis of coronary artery bypass graft(s) without angina pectoris (3) Diabetes Current Visit: Yes Status: Chronic Plan: HS CHECK A1C LDL. HE SAYS HE DOES NOT HAVE IT. Qualifiers: Diabetes mellitus type: type 2 (4) A-fib Current Visit: Yes Status: Chronic Plan: ELIQUIS PO BID RATE CONTROLLED. STABLE FOR NOW. Qualifiers: Atrial fibrillation type: chronic Qualified Code(s): I48.2 - Chronic atrial fibrillation (5) Hypotension Current Visit: Yes Status: Acute Plan: BORDERLINE. WILL FOLLOW PROTOCOL.
[2019-04-19] MEDS: VENLAFAXINE HCL XR 75 MG CAP PO SCH (21:49)
[2019-04-19] MEDS: ATORVASTATIN 40 MG TAB PO SCH (21:50)
[2019-04-20] MEDS: PIPER/TAZO/NS 3.375gm 3.375 GM/100 ML BAG IV SCH ×3 (00:19→17:00)
[2019-04-20] MEDS ORDERED: METOPROLOL TARTRATE 5 MG/5 ML INJ IV STA ×2 (05:23→22:01)
[2019-04-20] MEDS: AMIODARONE HCL 200 MG TAB PO SCH (05:33)
[2019-04-20] MEDS: HYDROCODONE/APAP 7.5/325 MG TAB PO PRN (05:33)
[2019-04-20 06:02] LABS: Absolute Lymphocytes (CBC) 0.2 K/uL (0.7-4.9); Basophils % 0.4 % (0-1.3); Hematocrit 32.1 % (39.6-49.0); Lymphocytes % 2.4 % (15.3-44.8); MPV 9.8 fL (7.6-11.3); RBC Red Blood Cell Count 3.13 M/uL (4.33-5.43)
[2019-04-20 06:09] LABS: BUN Blood Urea Nitrogen 13 mg/dL (7-18); Bicarbonate 30 mmol/L (21-32); Glucose Level 118 mg/dL (74-106); Magnesium 2.5 mg/dL (1.8-2.4); Potassium 4.7 mmol/L (3.5-5.1); Sodium Level 139 mmol/L (136-145)
[2019-04-20] MEDS: LEVALBUTEROL 0.63 MG/3 ML NEB NEB PRN ×2 (07:12→16:15)
[2019-04-20] MEDS: IPRATROPIUM BROM 0.5MG/2.5ML NEB PRN ×2 (07:12→16:16)
--- NOTE | 2019-04-20 07:22 | EKG ---
Test Date: 2019-04-19 Test Time: 06:38:13 Outside Collector: RASHEED MEASUREMENT RESULTS: Intervals: Rate: 125 LA: QRSD: 110 QT: 352 QTc: 508 [place]: P: LA: QRS: 1 T: 17 INTERPRETIVE STATEMENTS: Atrial flutter with variable AV block Low voltage QRS Cannot rule out Inferior infarct, age undetermined Abnormal ECG Compared to ECG 04/17/2019 22:21:02 Myocardial infarct finding now present Sinus tachycardia no longer present Atrial premature complex(es) no longer present T-wave abnormality no longer present Electronically Signed On 04-20-19 07:20:52 CDT by Denys Moise
[2019-04-20] MEDS ORDERED: ALPRAZOLAM 0.5 MG TABLET PO PRN (07:31)
[2019-04-20] MEDS: TIZANIDINE 4 MG TABLET PO PRN (07:33)
[2019-04-20] MEDS: METFORMIN HCL 500 MG TAB PO SCH ×2 (08:00→16:45)
--- NOTE | 2019-04-20 08:19 | RAD REPORT ---
EXAM DESCRIPTION: RAD - Chest Single View - 04/20/2019 6:22 am CLINICAL HISTORY: DYSPNEA, FOLLOW UP Chest pain. COMPARISON: Chest Single View dated 04/17/2019; Chest Single View dated 04/15/2019; Chest Pa And Lat ( 2 Views) dated 07/02/2017; Abdomen 1 View (KUB) dated 06/23/2017 FINDINGS: Portable technique limits examination quality. Since the 04/17/2019 study, mild worsening in bilateral pulmonary opacities noted, particularly in th e left mid lung and right upper lobe. Right lower lobe pulmonary infiltrate appears mildly improved. The heart is moderately enlarged with changes of a prior CABG seen. Sternotomy wires present.
[2019-04-20 08:28] LABS: Blood Morphology Comment NOT SEEN (NOT SEEN); Platelet Estimate ADEQ
[2019-04-20] MEDS: DULERA 100/5 (MOMETASONE/FORMOTEROL) INHALER IH SCH ×2 (08:39→21:11)
[2019-04-20] MEDS: TAMSULOSIN 0.4 MG SR CAP PO SCH (08:39)
[2019-04-20] MEDS: LIDOCAINE 5% PATCH TOP SCH (08:39)
[2019-04-20] MEDS: APIXABAN 5 MG TABLET PO SCH ×2 (08:39→21:11)
[2019-04-20] MEDS ORDERED: FUROSEMIDE 40 MG/4 ML VIAL IV SCH (09:00)
[2019-04-20 09:39] LABS: Arterial Blood Carboxyhemoglob 1.1 % (0-1.5); Blood Gas Oxyhemoglobin 94.7 % (94-97); Blood O2 Saturation 96.5 % (92-98.5)
--- NOTE | 2019-04-20 10:05 | PN ---
Date of Progress Note: 04/20/2019 History Of Present Illness: Mr. Juarez was transferred from the ICU to telemetry yesterday after b eing treated for pneumonia, bronchitis and atrial fibrillation, status post cardioversion, on IV amio darone to normal rhythm. Earlier this morning went back into atrial fibrillation. He received IV Lo pressor, and this morning he is back in sinus rhythm, but continues to have extreme difficulty of karis athing with [id number]-ai-[id number] respiratory distress even on a face mask. His examination revealed ex piratory wheezing and rales in the bases of the lungs, pedal edema to the knees. I think he may bene fit from IV Lasix. I am going to give him 40 mg IV now and then b.i.d. I think we should probably h ave him stop the amiodarone that may be causing some pulmonary toxicity. He needs something for anxi ety and pain. I think after he improves, we should highly consider an ablation on him for his atrial fibrillation. Continue with Alyssa. I will discuss the case further with Dr. Wen. PEDRO/ORACIO Voice ID: [id number] Report ID: [id number]
--- NOTE | 2019-04-20 10:21 | RAD REPORT ---
EXAM DESCRIPTION: [place] Single View04/20/2019 10:08 am CLINICAL HISTORY: Shortness of breath COMPARISON: April 20, 2019 FINDINGS: Overall no significant change in the bilateral pulmonary opacities and cardiomegaly. Small pleural effusions are present. Post surgical changes involve the chest IMPRESSION: No significant change in the bilateral pulmonary opacities
[2019-04-20] MEDS: METHYLPREDNISOLONE 40 MG INJ IV SCH ×2 (10:29→10:35)
--- NOTE | 2019-04-20 10:50 | PN ---
Date of Progress Note: 04/20/2019 Subjective: Mr. Juarez was transferred from the ICU to telemetry yesterday after being treated for pneumonia, bronchitis and atrial fibrillation, status post cardioversion, on IV amiodarone to normal rhythm. Earlier this morning went back into atrial fibrillation. He received IV Lopressor, and thi s morning he is back in sinus rhythm, but continues to have extreme difficulty of breathing with mode uoob-ze-igldnv respiratory distress even on a face mask. His examination revealed expiratory wheezin g and rales in the bases of the lungs, pedal edema to the knees. I think he may benefit from IV Lasi x. I am going to give him 40 mg IV now and then b.i.d. I think we should probably have him stop the amiodarone that may be causing some pulmonary toxicity. He needs something for anxiety and pain. I think after he improves, we should highly consider an ablation on him for his atrial fibrillation. Continue with Alyssa. I will discuss the case further with Dr. Wen. PEDRO/ORACIO Voice ID: [id number] Report ID: [id number]
--- NOTE | 2019-04-20 13:07 | P.CNS ---
Date of Consult: 04/20/19 Reason for Consult: Respiratory failure pneumonia Chief Complaint: Agitation respiratory failure History of Present Illness: Patient is 74 years of age followed up at the [facility] he was very independent until 2 days prior to his admission according to the relatives he started complaining of worsening shortness of breath, nonproductive cough some chest discomfort and appeared in the hospital with a diagnosis of pneumonia his condition became worse patient a came here to the ICU became very agitated last night and delirious he is currently on BiPAP he does have sleep apnea at home non compliant no prior history of pulmonary complaints patient does not smoke history of coronary artery disease Allergies No Known Drug Allergies Allergy (Verified 03/21/16 08:42) Unknown Home Medications: Trazodone HCl [Desyrel] 200 mg PO BEDTIME 03/21/16 Venlafaxine HCl [Venlafaxine HCl ER] 300 mg PO BEDTIME 03/21/16 Amiodarone HCl 200 mg PO DAILY 04/15/19 Apixaban [Eliquis] 10 mg PO DAILY 04/15/19 Atorvastatin Calcium [Lipitor] 1 tab PO BEDTIME 04/15/19 Hydrocodone 7.5/APAP 325 [[place] 7.5/325 mg] 1 tab PO BID 04/15/19 Tamsulosin [Flomax] 0.4 mg PO DAILY 04/15/19 - Past Medical/Surgical History Diabetic: Yes -: [place] -: bells palsy -: NIDDM -: HTN -: depression -: anxiety -: neuropathy -: dislocation l shoulder -: fracture r collar bone -: bilateral knee replacement -: l ankle surgery -: l wrist surgery -: tonsillectomy -: r hand carpal tunnel surgery -: double bypass - Family History Mother Medical History: Diabetes Brother Medical History: Heart disease, Diabetes Sister Medical History: Heart disease, Diabetes - Social History Smoking Status: Unknown if ever smoked Alcohol use: No CD- Drugs: No Caffeine use: Yes Place of Residence: Home Review of Systems is unable to be obtained Physical Examination Temp Pulse Resp BP Pulse Ox 96.9 F 88 21 H 140/85 97 04/20/19 11:00 04/20/19 11:47 04/20/19 11:47 04/20/19 11:00 04/20/19 11:47 General: Unresponsive Respiratory: Clear to auscultation bilaterally Cardiovascular: No edema, Regular rate/rhythm Gastrointestinal: Normal bowel sounds, Soft and benign, Non-distended Musculoskeletal: No clubbing, No contractures Integumentary: No rashes, No breakdown - Problems (1) Respiratory failure Current Visit: Yes Status: Acute Plan: Patient is 74 years of age admitted with a right lower lobe pneumonia does have bilateral infiltrates hypoxic hypercapnic respiratory failure CT scan chest x- rays all reviewed white count is declining pro calcitonin level is normal cultures are negative echocardiogram shows normal left ventricular function does have pneumonia with a delirium was respiratory failure she is probably acute at baseline he is very functional and independent having some problem with short-term memory scheduled to see a neurologist at this time plan to Dc steroids all antidepressants including trazodone and statins. Hemodynamically stable oxygenation satisfactory use Haldol for agitation probably steroid induced agitation reduce dose of place Qualifiers: Chronicity: acute Respiratory failure complication: unspecified whether with hypoxia or hypercapnia Qualified Code(s): J96.00 - Acute respiratory failure, unspecified whether with hypoxia or hypercapnia
--- NOTE | 2019-04-20 14:53 | EKG ---
Test Date: 2019-04-20 Test Time: 03:56:07 Wood Floor Refinisher: RT-O MEASUREMENT RESULTS: Intervals: Rate: 125 [place]: QRSD: 112 QT: 352 QTc: 508 [place]: P: [place]: QRS: 20 T: 6 INTERPRETIVE STATEMENTS: Atrial fibrillation with rapid ventricular response Low voltage QRS Nonspecific T wave abnormality, probably digitalis effect Abnormal ECG Compared to ECG 04/19/2019 06:38:13 T-wave abnormality now present Atrial flutter no longer present Myocardial infarct finding no longer present Electronically Signed On 04-20-19 14:51:33 CDT by Denys Moise
[2019-04-20] MEDS ORDERED: WATER FOR INJ,STERILE 10 ML IM PRN (17:27)
[2019-04-20] MEDS: ZIPRASIDONE MESYLA 20 MG/VIAL IM PRN (18:04)
--- NOTE | 2019-04-20 18:14 | P.PN ---
Subjective Date of Service: 04/20/19 Chief Complaint: Agitation respiratory failure Patient seen and examined at bedside with RN. Chart reviewed. Case discussed with pulmonology. Hospitalist was consulted on the case. Patient refused to see his primary care provider here in the hospital. Overnight patient got agitated and became hypoxic and was having increased work of breathing. Review of Systems 10-point ROS is otherwise unremarkable Physical Examination - Vital Signs Temperature: 97.5 F Blood Pressure: 141/98 Pulse: 108 Respirations: 22 Pulse Ox (%): 97 - Physical Exam General: Demented, Mild distress, Confused, Other (Increase work of breathing) HEENT: Atraumatic, PERRLA, EOMI Neck: Supple, JVD not distended Respiratory: Normal air movement, Expiratory wheezes, Inspiratory wheezes Cardiovascular: Normal S1 S2, Systolic murmur, Diastolic murmur Gastrointestinal: Normal bowel sounds, No tenderness Musculoskeletal: No tenderness Integumentary: No rashes Neurological: Normal speech, Normal tone, Normal affect Lymphatics: No axilla or inguinal lymphadenopathy - Studies Microbiology Data (last 24 hrs): 04/15/19 07:55 Blood - Blood Aerobic Blood Culture - Final No growth in 5 days. 04/15/19 07:55 Blood - Blood Anaerobic Blood Culture - Final No growth in 5 days. 04/15/19 07:30 Blood - Blood Aerobic Blood Culture - Final No growth in 5 days. 04/15/19 07:30 Blood - Blood Anaerobic Blood Culture - Final No growth in 5 days. Medications List Reviewed: Yes Assessment And Plan - Current Problems (Diagnosis) (1) Bacterial pneumonia Current Visit: Yes Status: Acute Plan: Bilateral pneumonia on the chest x-ray with worsening x-ray this morning. Increased work of breathing worsening of the respiratory distress -currently on IV Zosyn will continue that here in the hospital -sputum cultures recollected -CT thorax pending -pulmonology consulted. Awaiting recommendations -will repeat CBC CMP sputum culture here in the hospital (2) Respiratory failure Current Visit: Yes Status: Acute Plan: Respiratory failure most likely secondary to bacterial pneumonia. -currently placed on BiPAP for increased work of the -will monitor patient closely and wean as tolerated -transfer the patient to the ICU for closer monitor Qualifiers: Chronicity: acute Respiratory failure complication: unspecified whether with hypoxia or hypercapnia Qualified Code(s): J96.00 - Acute respiratory failure, unspecified whether with hypoxia or hypercapnia (3) A-fib Current Visit: Yes Status: Chronic Plan: AFib with RVR initially currently status post cardioversion -initially patient was started on IV amiodarone. Was cardioverted. Now in sinus rhythm. Amiodarone was stopped due to possible pulmonary toxicity. Eliquis was continued. Cardiology is on the case recommends cardiac ablation when patient is stable -will follow up with cardiology for further recommendations at this time continue on cardiac tele Qualifiers: Atrial fibrillation type: chronic Qualified Code(s): I48.2 - Chronic atrial fibrillation (4) CAD (coronary artery disease) Current Visit: Yes Status: Chronic Qualifiers: Coronary Disease-Associated Artery/Lesion type: bypass graft [place] vs. transplanted heart: [place] heart Associated angina: without angina Qualified Code(s): I25.810 - Atherosclerosis of coronary artery bypass graft(s) without angina pectoris (5) Diabetes Current Visit: Yes Status: Chronic Qualifiers: Diabetes mellitus type: type 2 Discharge Plan: Home Plan to discharge in: Greater than 2 days - Code Status/Comfort Care Code Status Assessed: Yes Critical Care: No
[2019-04-20] MEDS ORDERED: TRAZODONE 50 MG TABLET PO SCH (21:00)
[2019-04-20] MEDS: HALOPERIDOL LACT 5 MG/ML INJ IV PRN (22:38)
[2019-04-21] MEDS: PIPER/TAZO/NS 3.375gm 3.375 GM/100 ML BAG IV SCH ×2 (01:21→08:31)
[2019-04-21] MEDS: HALOPERIDOL LACT 5 MG/ML INJ IV PRN ×3 (06:09→21:50)
[2019-04-21 06:11] LABS: Absolute Lymphocytes (CBC) 0.4 K/uL (0.7-4.9); Basophils % 0.8 % (0-1.3); Hematocrit 33.3 % (39.6-49.0); Lymphocytes % 3.2 % (15.3-44.8); MPV 9.5 fL (7.6-11.3); RBC Red Blood Cell Count 3.31 M/uL (4.33-5.43)
[2019-04-21 06:20] LABS: BUN Blood Urea Nitrogen 19 mg/dL (7-18); Bicarbonate 33 mmol/L (21-32); Glucose Level 109 mg/dL (74-106); Magnesium 2.7 mg/dL (1.8-2.4); Potassium 4.2 mmol/L (3.5-5.1); Sodium Level 141 mmol/L (136-145)
[2019-04-21 07:00] LABS: Blood Morphology Comment NOT SEEN (NOT SEEN); Platelet Estimate ADEQ; Urine White Blood Cell Casts OK
[2019-04-21] MEDS: METFORMIN HCL 500 MG TAB PO SCH ×2 (08:00→16:43)
[2019-04-21] MEDS: LEVALBUTEROL 0.63 MG/3 ML NEB NEB PRN ×2 (08:07→13:20)
[2019-04-21] MEDS: IPRATROPIUM BROM 0.5MG/2.5ML NEB PRN ×2 (08:07→13:20)
[2019-04-21] MEDS: FUROSEMIDE 40 MG/4 ML VIAL IV SCH (08:25)
[2019-04-21] MEDS: HYDROCODONE/APAP 7.5/325 MG TAB PO PRN ×2 (08:25→17:54)
[2019-04-21] MEDS: APIXABAN 5 MG TABLET PO SCH ×2 (08:25→21:18)
[2019-04-21] MEDS: METOPROLOL TAR 50 MG TAB PO SCH ×2 (08:25→21:00)
[2019-04-21] MEDS: TAMSULOSIN 0.4 MG SR CAP PO SCH (08:26)
[2019-04-21] MEDS: ZIPRASIDONE MESYLA 20 MG/VIAL IM PRN (08:26)
[2019-04-21] MEDS: DULERA 100/5 (MOMETASONE/FORMOTEROL) INHALER IH SCH ×2 (08:31→21:00)
[2019-04-21] MEDS: LIDOCAINE 5% PATCH TOP SCH (08:32)
[2019-04-21] MEDS ORDERED: ZIPRASIDONE MESYLA 20 MG/VIAL IM ONE (08:49)
[2019-04-21] MEDS ORDERED: WATER FOR INJ,STERILE 10 ML IM PRN (08:49)
[2019-04-21] MEDS: TIZANIDINE 4 MG TABLET PO PRN ×2 (09:10→17:53)
--- NOTE | 2019-04-21 09:21 | P.PN ---
Subjective Date of Service: 04/21/19 Chief Complaint: Agitation respiratory failure Subjective: Improving (Patient is more, is more alert responsive still requiring Haldol and you do not in addition to BiPAP) Patient is improving he is more alert responsive still requiring BiPAP and high concentrations of oxygen CT scan consistent with ARDS Review of Systems General: Weakness Respiratory: Shortness of Breath Physical Examination - Vital Signs Temperature: 97 F Blood Pressure: 166/104 Pulse: 106 Respirations: 22 Pulse Ox (%): 93 - Physical Exam General: Alert, In no apparent distress, Oriented x3 Respiratory: Diminished Cardiovascular: No edema, Regular rate/rhythm, Normal S1 S2 - Studies Microbiology Data (last 24 hrs): 04/15/19 07:55 Blood - Blood Aerobic Blood Culture - Final No growth in 5 days. 04/15/19 07:55 Blood - Blood Anaerobic Blood Culture - Final No growth in 5 days. 04/15/19 07:30 Blood - Blood Aerobic Blood Culture - Final No growth in 5 days. 04/15/19 07:30 Blood - Blood Anaerobic Blood Culture - Final No growth in 5 days. Medications List Reviewed: Yes Assessment & Plan - Problems (Diagnosis) (1) Respiratory failure Current Visit: Yes Status: Acute Plan: Patient's condition is stable he seems to be improving on 40% oxygen I have increased his EPAP to 12 cm titrate sat to 90% of also were requested adopt cough to start tube feeding chemistries reviewed with titrate sat to 90% repeat arterial blood gases another x-ray white count is mildly elevated recheck pro calcitonin blood pressure elevated patient started on Lasix continue maintain in negative fluid balance he has ARDS on CT scan I have also ordered the Solu- Medrol changed to levofloxacin for atypical coverage Dc Zosyn daily pro calcitonin Qualifiers: Chronicity: acute Respiratory failure complication: unspecified whether with hypoxia or hypercapnia Qualified Code(s): J96.00 - Acute respiratory failure, unspecified whether with hypoxia or hypercapnia
--- NOTE | 2019-04-21 09:53 | RAD REPORT ---
EXAM DESCRIPTION: CT - Thorax Hoang [place] - 04/21/2019 6:10 am CLINICAL HISTORY: The patient is 74 years old and is Male; SOB TECHNIQUE: Axial computed tomography images of the chest without intravenous contrast. Sagittal an d coronal reformatted images were created and reviewed. This CT exam was performed using one or mor e of the following dose reduction techniques: automated exposure control, adjustment of the mA and/ or kV according to patient size, and/or use of iterative reconstruction technique. COMPARISON: No relevant prior studies available. FINDINGS: LUNGS: Compressive atelectasis within the right lower lobe is noted. Scattered groundgla ss opacities with septal thickening throughout the lungs is present. PLEURAL SPACE: Bilateral pleural effusions are present, right greater than left. No pneumothor ax. HEART: The heart is enlarged. Calcification of the mitral annulus is noted. BONES/JOINTS: Median sternotomy wires are present. SOFT TISSUES: The soft tissues are normal. VASCULATURE: Unremarkable. No thoracic aortic aneurysm. LYMPH NODES: Unremarkable. No enlarged lymph nodes. IMPRESSION: 1. Cardiomegaly with scattered groundglass opacities and septal thickening suggestive of edema. Superimposed infection is within the differential. 2. Bilateral pleural effusions with the right lower lobe atelectasis/consolidation. Electronically signed by: Temitope Saldivar MD 04/21/2019 5:58 AM CDT Due to temporary technical issues with the PACS/Fluency reporting system, reports are being signed by the in house radiologist as a courtesy to ensure prompt reporting. The interpreting radiologist is f ully responsible for the content of the report.
--- NOTE | 2019-04-21 09:54 | RAD REPORT ---
EXAM DESCRIPTION: CT - Head Brain Wo Cont - 04/21/2019 6:11 am CLINICAL HISTORY: The patient is 74 years old and is Male; AMS TECHNIQUE: Axial computed tomography images of the head/brain without intravenous contrast. Sagitt al and coronal reformatted images were created and reviewed. This CT exam was performed using one o r more of the following dose reduction techniques: automated exposure control, adjustment of the mA and/or kV according to patient size, and/or use of iterative reconstruction technique. COMPARISON: No relevant prior studies available. FINDINGS: BRAIN: There is diffuse cerebral atrophy present, consistent with this patient's age. There is patchy hypoattenuation of the deep white matter which is non-specific, but most likely owing to chronic small vessel ischemic change in a patient of this age group. 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 No intracranial hemorrhage, mass effect, or midline shift i s seen. There are no extra-axial fluid collections. VENTRICLES: There is diffuse prominence of the ventricles, which is likely related to central at rophy. BONES/JOINTS: No acute fracture. SOFT TISSUES: Unremarkable. SINUSES: Unremarkable as visualized. No acute sinusitis. MASTOID AIR CELLS: Unremarkable as visualized. No mastoid effusion. TUBES, LINES AND DEVICES: A cavum septum lucidum et vergae is present. IMPRESSION: No acute intracranial findings. Chronic findings as detailed above. Electronically signed by: Temitope Saldivar MD 04/21/2019 5:55 AM CDT Due to temporary technical issues with the PACS/Fluency reporting system, reports are being signed by the in house radiologist as a courtesy to ensure prompt reporting. The interpreting radiologist is f ully responsible for the content of the report.
[2019-04-21] MEDS: METHYLPREDNISOLONE 40 MG INJ IV SCH ×2 (11:15→21:18)
[2019-04-21] MEDS: Levofloxacin500mg IV 500 MG/100 ML BAG IV SCH (11:15)
--- NOTE | 2019-04-21 11:45 | P.PN ---
Subjective Date of Service: 04/21/19 Chief Complaint: Agitation respiratory failure Patient seen and examined at bedside with RN. Chart reviewed. Case discussed with pulmonology. Patient overnight with increasing agitation was given a dose of Geodon. Continues to have shortness of breath and currently is confused and agitated Review of Systems 10-point ROS is otherwise unremarkable Physical Examination - Vital Signs Temperature: 97 F Blood Pressure: 98/74 Pulse: 73 Respirations: 26 Pulse Ox (%): 95 - Physical Exam General: Demented, Mild distress, Confused Neck: Supple, JVD not distended Respiratory: Normal air movement, Crackles/rales, Expiratory wheezes, Inspiratory wheezes Cardiovascular: Regular rate/rhythm, Normal S1 S2 Gastrointestinal: Normal bowel sounds, No tenderness Musculoskeletal: No tenderness Integumentary: No rashes Neurological: Normal speech, Normal tone, Normal affect Lymphatics: No axilla or inguinal lymphadenopathy - Studies Microbiology Data (last 24 hrs): 04/15/19 07:55 Blood - Blood Aerobic Blood Culture - Final No growth in 5 days. 04/15/19 07:55 Blood - Blood Anaerobic Blood Culture - Final No growth in 5 days. 04/15/19 07:30 Blood - Blood Aerobic Blood Culture - Final No growth in 5 days. 04/15/19 07:30 Blood - Blood Anaerobic Blood Culture - Final No growth in 5 days. Medications List Reviewed: Yes Assessment And Plan - Current Problems (Diagnosis) (1) Bacterial pneumonia Current Visit: Yes Status: Acute Plan: Bilateral pneumonia. Increased work of breathing worsening of the respiratory distress on the floor not transferred to the ICU -currently on IV Zosyn x-ray with worsening this morning -sputum cultures recollected pending at this time -CT thorax pending unable to do a yesterday due to patient's condition -pulmonology consulted. Awaiting recommendations (2) Respiratory failure Current Visit: Yes Status: Acute Plan: Respiratory failure most likely secondary to bacterial pneumonia. -currently placed on BiPAP for increased work of breathing -will monitor patient closely and wean as tolerated -x-ray this morning continues to show worsening maybe concern for ARDS Qualifiers: Chronicity: acute Respiratory failure complication: unspecified whether with hypoxia or hypercapnia Qualified Code(s): J96.00 - Acute respiratory failure, unspecified whether with hypoxia or hypercapnia (3) A-fib Current Visit: Yes Status: Chronic Plan: AFib with RVR initially currently status post cardioversion -initially patient was started on IV amiodarone. Was cardioverted. Now in sinus rhythm. Amiodarone was stopped due to possible pulmonary toxicity. Eliquis was continued. Cardiology is on the case recommends cardiac ablation when patient is stable -will follow up with cardiology for further recommendations at this time continue on cardiac tele Qualifiers: Atrial fibrillation type: chronic Qualified Code(s): I48.2 - Chronic atrial fibrillation (4) CAD (coronary artery disease) Current Visit: Yes Status: Chronic Qualifiers: Coronary Disease-Associated Artery/Lesion type: bypass graft [place] vs. transplanted heart: [place] heart Associated angina: without angina Qualified Code(s): I25.810 - Atherosclerosis of coronary artery bypass graft(s) without angina pectoris (5) Diabetes Current Visit: Yes Status: Chronic Qualifiers: Diabetes mellitus type: type 2 - Plan Pending clinical improvement at this time. Patient continues to be agitated and confused here in the hospital. Requiring Haldol and Geodon overnight and this morning. Continues to have worsening on the chest x-ray. Tolerating the BiPAP well however. Will continue to follow patient along with pulmonology. Will continue with IV antibiotics here in the hospital. Discharge Plan: Home Plan to discharge in: Greater than 2 days - Code Status/Comfort Care Code Status Assessed: Yes Critical Care: No
--- NOTE | 2019-04-21 11:46 | RAD REPORT ---
EXAM DESCRIPTION: RAD - Abdomen 1 View (KUB) - 04/21/2019 11:42 am CLINICAL HISTORY: dobhoff tube placement Pain COMPARISON: Abdomen 1 View (KUB) dated 06/23/2017 FINDINGS: The tip of the enteric tube is in the proximal duodenum.
[2019-04-21] MEDS ORDERED: VITAL HP 1,000 ML BOT RTH SCH (15:00)
[2019-04-22] MEDS: HALOPERIDOL LACT 5 MG/ML INJ IV PRN ×3 (01:48→21:31)
[2019-04-22 05:59] LABS: Absolute Lymphocytes (CBC) 0.3 K/uL (0.7-4.9); Basophils % 0.2 % (0-1.3); Hematocrit 31.5 % (39.6-49.0); Lymphocytes % 3.2 % (15.3-44.8); MPV 9.7 fL (7.6-11.3); RBC Red Blood Cell Count 3.16 M/uL (4.33-5.43)
[2019-04-22 06:12] LABS: BUN Blood Urea Nitrogen 29 mg/dL (7-18); Bicarbonate 35 mmol/L (21-32); Glucose Level 160 mg/dL (74-106); Magnesium 2.6 mg/dL (1.8-2.4); Potassium 3.7 mmol/L (3.5-5.1); Sodium Level 141 mmol/L (136-145)
--- NOTE | 2019-04-22 06:18 | PN ---
Date of Progress Note: 04/21/2019 Mr. Juarez had been admitted with pneumonia; atrial fibrillation, requiring cardioversion electrica lly. Did not tolerate IV amiodarone. May have pulmonary toxicity from amiodarone. Amiodarone has b een held. He has had few episodes of atrial fibrillation, treated with IV metoprolol. He yesterday showed signs of congestive heart failure, although he has a normal ejection fraction. Lasix was give n. Steroids were given. Antianxiety medications were given, which he reacted to. Today, he is much improved after Lasix and steroid. He continues his antibiotics for pneumonia. He has maintained no rmal sinus rhythm most of the day. He is back in the ICU with good O2 saturation, on nasal cannula. He is hypertensive. He is on Lasix 40 mg IV daily and I will continue this. He is on steroids for now. I would like him to get on metoprolol 50 mg 1 p.o. b.i.d. We will avoid other antiarrhythmics for now and consider ablation in the near future after he gets his pneumonia treated. He is on Eliqu is. We will continue to follow him. PEDRO/ORACIO Voice ID: [id number] Report ID: [id number]
[2019-04-22] MEDS: LEVALBUTEROL 0.63 MG/3 ML NEB NEB PRN ×2 (08:10→20:03)
[2019-04-22] MEDS: IPRATROPIUM BROM 0.5MG/2.5ML NEB PRN ×2 (08:10→20:03)
[2019-04-22] MEDS: METHYLPREDNISOLONE 40 MG INJ IV SCH ×2 (08:27→20:08)
[2019-04-22] MEDS: FUROSEMIDE 40 MG/4 ML VIAL IV SCH (08:27)
[2019-04-22] MEDS: TAMSULOSIN 0.4 MG SR CAP PO SCH (08:28)
[2019-04-22] MEDS: APIXABAN 5 MG TABLET PO SCH ×2 (08:29→20:08)
[2019-04-22] MEDS: LIDOCAINE 5% PATCH TOP SCH (08:29)
[2019-04-22] MEDS: METOPROLOL TAR 50 MG TAB PO SCH ×2 (08:29→20:08)
[2019-04-22] MEDS: DULERA 100/5 (MOMETASONE/FORMOTEROL) INHALER IH SCH (10:15)
[2019-04-22] MEDS: Levofloxacin500mg IV 500 MG/100 ML BAG IV SCH (10:19)
--- NOTE | 2019-04-22 10:40 | P.PN ---
Subjective Date of Service: 04/22/19 Chief Complaint: Agitation respiratory failure Condition stable still requiring BiPAP tolerating tube feeds Review of Systems is unable to be obtained Physical Examination - Vital Signs Temperature: 97.7 F Blood Pressure: 156/100 Pulse: 74 Respirations: 24 Pulse Ox (%): 93 - Physical Exam General: Alert, Oriented x2 Respiratory: Crackles/rales (Crackles bilaterally) Cardiovascular: No edema, Normal pulses Gastrointestinal: Normal bowel sounds - Studies Medications List Reviewed: Yes Assessment & Plan - Problems (Diagnosis) (1) Respiratory failure Current Visit: Yes Status: Acute Plan: Patient has ARDS possibly secondary to pneumonia he was on low-dose amiodarone at home 200 mg I doubt if that is the cause so far cultures and negative pro calcitonin level is negative will repeat his chest x-rays arterial blood gases labs reviewed continue with Lasix blood pressure is little elevated continue with steroids for now add amlodipine daily chest x-rays Qualifiers: Chronicity: acute Respiratory failure complication: unspecified whether with hypoxia or hypercapnia Qualified Code(s): J96.00 - Acute respiratory failure, unspecified whether with hypoxia or hypercapnia
[2019-04-22] MEDS: AMLODIPINE 5 MG TAB PO SCH (11:07)
--- NOTE | 2019-04-22 11:24 | RAD REPORT ---
EXAM DESCRIPTION: Kal Single View04/22/2019 11:07 am CLINICAL HISTORY: Shortness of breath COMPARISON: April 21 FINDINGS: A overall no significant change in diffuse bilateral pulmonary opacities. . The heart is mildly enlarged. Small right pleural effusion Postsurgical changes involve the chest. IMPRESSION: No significant change in the diffuse bilateral pulmonary opacities which may represent p ulmonary edema
[2019-04-22] MEDS: TIZANIDINE 4 MG TABLET PO PRN ×2 (11:42→21:30)
--- NOTE | 2019-04-22 12:01 | P.PN ---
Subjective Date of Service: 04/22/19 Chief Complaint: Agitation respiratory failure Patient seen and examined at bedside with RN. Chart reviewed. Case discussed with pulmonology. Overnight patient did well overall. Still continues to be on BiPAP. Family states that he is continuously anxious about little things and gets agitated Review of Systems 10-point ROS is otherwise unremarkable Physical Examination - Vital Signs Temperature: 97.7 F Blood Pressure: 116/110 Pulse: 77 Respirations: 18 Pulse Ox (%): 93 - Physical Exam General: Alert, Mild distress Respiratory: Normal air movement, Crackles/rales, Expiratory wheezes, Inspiratory wheezes Cardiovascular: Regular rate/rhythm, Normal S1 S2 Gastrointestinal: Normal bowel sounds, No tenderness Musculoskeletal: No tenderness Integumentary: No rashes Neurological: Normal speech, Normal tone, Normal affect Lymphatics: No axilla or inguinal lymphadenopathy - Studies Medications List Reviewed: Yes Assessment And Plan - Current Problems (Diagnosis) (1) Respiratory failure Current Visit: Yes Status: Acute Plan: Respiratory failure most likely secondary to bacterial pneumonia. Versus amiodarone toxicity -currently placed on BiPAP for increased work of breathing improving slowly -will monitor patient closely and wean as tolerated -concerning for ARDS Qualifiers: Chronicity: acute Respiratory failure complication: unspecified whether with hypoxia or hypercapnia Qualified Code(s): J96.00 - Acute respiratory failure, unspecified whether with hypoxia or hypercapnia (2) Bacterial pneumonia Current Visit: Yes Status: Acute Plan: Bilateral pneumonia. Increased work of breathing worsening of the respiratory distress on the floor not transferred to the ICU -currently on IV Levaquin x-ray with worsening this morning -sputum cultures recollected pending at this time -CT thorax pending unable to do a yesterday due to patient's condition -pulmonology consulted. Awaiting recommendations (3) A-fib Current Visit: Yes Status: Chronic Plan: AFib with RVR initially currently status post cardioversion -initially patient was started on IV amiodarone. Was cardioverted. Now in sinus rhythm. Amiodarone was stopped due to possible pulmonary toxicity. Eliquis was continued. Cardiology is on the case recommends cardiac ablation when patient is stable -will follow up with cardiology for further recommendations at this time continue on cardiac tele Qualifiers: Atrial fibrillation type: chronic Qualified Code(s): I48.2 - Chronic atrial fibrillation (4) CAD (coronary artery disease) Current Visit: Yes Status: Chronic Qualifiers: Coronary Disease-Associated Artery/Lesion type: bypass graft [place] vs. transplanted heart: [place] heart Associated angina: without angina Qualified Code(s): I25.810 - Atherosclerosis of coronary artery bypass graft(s) without angina pectoris (5) Diabetes Current Visit: Yes Status: Chronic Qualifiers: Diabetes mellitus type: type 2 - Plan Pending clinical improvement at this time. Patient continues to be agitated and confused here in the hospital. Requiring Haldol and Geodon overnight and this morning. Continues to have worsening on the chest x-ray. Tolerating the BiPAP well however improving slowly Will continue to follow patient along with pulmonology. Will continue with IV antibiotics here in the hospital. Discharge Plan: Home Plan to discharge in: Greater than 2 days - Code Status/Comfort Care Code Status Assessed: Yes Critical Care: Yes
[2019-04-22 13:01] LABS: Arterial Blood Carboxyhemoglob 1.3 % (0-1.5); Blood Gas Oxyhemoglobin 88.2 % (94-97); Blood O2 Saturation 89.7 % (92-98.5)
--- NOTE | 2019-04-22 14:42 | PN ---
Date of Progress Note: 04/22/2019 Mr. Juarez remains in the ICU, remains hypoxic, and having episodes of shortness of breath. Howeve r, he remains in sinus rhythm. He is on metoprolol 50 b.i.d., and Eliquis. As mentioned in previous notes, he is intolerant to amiodarone, may have caused him some pulmonary toxicity. We will have to refer him for an atrial fibrillation ablation once he is better as an outpatient. Meanwhile, contin ue his pulmonary treatment with antibiotics, and inhalers and we will continue on metoprolol. Mr. Kelly tthews have anxiety issues that needs to be addressed as well. PEDRO/ORACIO Voice ID: [id number] Report ID: [id number]
[2019-04-22] MEDS: HYDROCODONE/APAP 7.5/325 MG TAB PO PRN (15:44)
[2019-04-23] MEDS: HALOPERIDOL LACT 5 MG/ML INJ IV PRN ×2 (04:29→21:49)
[2019-04-23 05:59] LABS: Absolute Lymphocytes (CBC) 0.3 K/uL (0.7-4.9); Basophils % 0.1 % (0-1.3); Hematocrit 33.4 % (39.6-49.0); Lymphocytes % 2.7 % (15.3-44.8); MPV 9.8 fL (7.6-11.3); RBC Red Blood Cell Count 3.35 M/uL (4.33-5.43)
[2019-04-23 06:12] LABS: BUN Blood Urea Nitrogen 33 mg/dL (7-18); Bicarbonate 39 mmol/L (21-32); Glucose Level 145 mg/dL (74-106); Magnesium 2.7 mg/dL (1.8-2.4); Potassium 3.8 mmol/L (3.5-5.1); Sodium Level 141 mmol/L (136-145)
--- NOTE | 2019-04-23 08:06 | P.PN ---
Subjective Date of Service: 04/23/19 Chief Complaint: Respiratory failure ARDS Patient is improving he is alert responsive cooperative now off BiPAP Review of Systems General: Weakness Respiratory: Shortness of Breath Physical Examination - Vital Signs Temperature: 96.8 F Blood Pressure: 162/110 Pulse: 75 Respirations: 27 Pulse Ox (%): 91 - Physical Exam General: Alert, In no apparent distress, Oriented x3 Respiratory: Crackles/rales, Expiratory wheezes Cardiovascular: No edema, Regular rate/rhythm - Studies Medications List Reviewed: Yes Assessment & Plan - Problems (Diagnosis) (1) Respiratory failure Current Visit: Yes Status: Acute Plan: Patient admitted with respiratory failure he is doing much better off BiPAP chest x-ray shows some improvement so far all cultures are negative patient is in negative fluid balance continue with steroids antibiotics advance diet continue with diuretics better control of blood pressure Qualifiers: Chronicity: acute Respiratory failure complication: unspecified whether with hypoxia or hypercapnia Qualified Code(s): J96.00 - Acute respiratory failure, unspecified whether with hypoxia or hypercapnia
[2019-04-23] MEDS: IPRATROPIUM BROM 0.5MG/2.5ML NEB PRN ×2 (08:15→13:56)
[2019-04-23] MEDS: LEVALBUTEROL 0.63 MG/3 ML NEB NEB PRN ×2 (08:15→13:56)
[2019-04-23] MEDS: FUROSEMIDE 40 MG/4 ML VIAL IV SCH (08:30)
[2019-04-23] MEDS: AMLODIPINE 5 MG TAB PO SCH (08:31)
[2019-04-23] MEDS: METHYLPREDNISOLONE 40 MG INJ IV SCH ×2 (08:31→20:39)
[2019-04-23] MEDS: TAMSULOSIN 0.4 MG SR CAP PO SCH (08:32)
[2019-04-23] MEDS: APIXABAN 5 MG TABLET PO SCH ×2 (08:32→20:45)
[2019-04-23] MEDS: LIDOCAINE 5% PATCH TOP SCH (08:32)
[2019-04-23] MEDS: METOPROLOL TAR 50 MG TAB PO SCH ×2 (08:32→21:18)
[2019-04-23] MEDS: HYDROCODONE/APAP 7.5/325 MG TAB PO PRN ×2 (08:36→20:39)
--- NOTE | 2019-04-23 10:32 | PN ---
Date of Progress Note: 04/23/2019 Mr. Juarez remains in the ICU. Remains hypertensive at 162/110. He is still hypoxic, but is not o n BiPAP anymore. His last gases are 59 PO2, pCO2 47, and pH of 7.5. He remains in sinus rhythm. He is on Eliquis. He remains on antibiotics, steroids, inhalers, and Lasix IV. We will continue his p resent regimen as far as his pulmonary status is concerned. He is on metoprolol 50 b.i.d. and I thin k we need to increase his Norvasc dose to 10 mg daily. NB/MODL Voice ID: [id number] Report ID: [id number]
[2019-04-23] MEDS: Levofloxacin500mg IV 500 MG/100 ML BAG IV SCH (10:43)
--- NOTE | 2019-04-23 12:12 | P.PN ---
Subjective Date of Service: 04/23/19 Chief Complaint: Respiratory failure ARDS Patient seen and examined at bedside with RN. Chart reviewed. Case discussed with pulmonology. Overnight patient did well overall. Still continues to be on BiPAP. Appears to be Anxious at this time. Review of Systems 10-point ROS is otherwise unremarkable Physical Examination - Vital Signs Temperature: 96.8 F Blood Pressure: 137/97 Pulse: 84 Respirations: 30 Pulse Ox (%): 92 - Physical Exam General: Alert, Mild distress Respiratory: Normal air movement, Expiratory wheezes, Inspiratory wheezes Cardiovascular: Regular rate/rhythm, Normal S1 S2 Gastrointestinal: Normal bowel sounds, No tenderness Musculoskeletal: No tenderness Integumentary: No rashes Neurological: Normal speech, Normal tone, Normal affect Lymphatics: No axilla or inguinal lymphadenopathy - Studies Medications List Reviewed: Yes Assessment And Plan - Current Problems (Diagnosis) (1) Respiratory failure Current Visit: Yes Status: Acute Plan: Respiratory failure most likely secondary to bacterial pneumonia. Versus amiodarone toxicity -currently on BiPAP now all able to be weaned off for meals -will monitor patient closely and wean as tolerated -concerning for ARDS per pulmonology Qualifiers: Chronicity: acute Respiratory failure complication: unspecified whether with hypoxia or hypercapnia Qualified Code(s): J96.00 - Acute respiratory failure, unspecified whether with hypoxia or hypercapnia (2) Bacterial pneumonia Current Visit: Yes Status: Acute Plan: Bilateral pneumonia. Increased work of breathing worsening of the respiratory distress on the floor now transferred to the ICU -currently on IV Levaquin x-ray with worsening this morning -sputum cultures recollected negative at this time -CT thorax with right-sided lobar pneumonia -pulmonology consulted. Recommendations appreciated (3) A-fib Current Visit: Yes Status: Chronic Plan: AFib with RVR initially currently status post cardioversion -initially patient was started on IV amiodarone now on beta-angie -Was cardioverted. Was in sinus rhythm. Amiodarone was stopped due to possible pulmonary toxicity. Started on beta-angie -Eliquis was continued. Cardiology is on the case recommends cardiac ablation when patient is stable -will follow up with cardiology for further recommendations at this time continue on cardiac tele Qualifiers: Atrial fibrillation type: chronic Qualified Code(s): I48.2 - Chronic atrial fibrillation (4) CAD (coronary artery disease) Current Visit: Yes Status: Chronic Qualifiers: Coronary Disease-Associated Artery/Lesion type: bypass graft [place] vs. transplanted heart: [place] heart Associated angina: without angina Qualified Code(s): I25.810 - Atherosclerosis of coronary artery bypass graft(s) without angina pectoris (5) Diabetes Current Visit: Yes Status: Chronic Qualifiers: Diabetes mellitus type: type 2 - Plan Pending clinical improvement at this time. Currently getting weaned off of BiPAP tolerating well Will continue to follow patient along with pulmonology. Will continue with IV antibiotics here in the hospital. Discharge Plan: Home Plan to discharge in: Greater than 2 days - Code Status/Comfort Care Code Status Assessed: Yes Critical Care: Yes
--- NOTE | 2019-04-23 12:38 | RAD REPORT ---
EXAM DESCRIPTION: RAD - Chest Single View - 04/23/2019 6:39 am CLINICAL HISTORY: Respiratory failure Chest pain. COMPARISON: Chest Single View dated 04/22/2019; Abdomen 1 View (KUB) dated 04/21/2019; Chest Single Vi ew dated 04/20/2019; Chest Single View dated 04/20/2019 FINDINGS: Portable technique limits examination quality. Mild improvement is seen in bilateral pulmonary opacities since comparative study, particularly in th e right upper lobe. The heart is mildly prominent size with changes of a prior CABG seen. Enteric tub e descends into the stomach. IMPRESSION: Mild improvement in lung aeration since comparative study.
[2019-04-23] MEDS: TIZANIDINE 4 MG TABLET PO PRN ×2 (17:01→23:15)
[2019-04-24 05:11] LABS: MPV 9.8 fL (7.6-11.3)
[2019-04-24] MEDS: TIZANIDINE 4 MG TABLET PO PRN ×2 (05:15→21:40)
[2019-04-24 05:25] LABS: Absolute Lymphocytes (CBC) 0.3 K/uL (0.7-4.9); Basophils % 0.2 % (0-1.3); Hematocrit 35.7 % (39.6-49.0); Lymphocytes % 2.2 % (15.3-44.8); RBC Red Blood Cell Count 3.52 M/uL (4.33-5.43)
[2019-04-24 05:29] LABS: Magnesium 2.8 mg/dL (1.8-2.4); Potassium 4.1 mmol/L (3.5-5.1)
--- NOTE | 2019-04-24 08:16 | RAD REPORT ---
EXAM DESCRIPTION: [place] Single View04/24/2019 6:53 am CLINICAL HISTORY: Shortness of breath COMPARISON: April 23, 2019 FINDINGS: Mild worsening in left and no significant change in right pulmonary opacities. The heart remains enlarged. Small pleural effusions are present IMPRESSION: Mild worsening in left and no significant change in right pulmonary opacities
--- NOTE | 2019-04-24 08:53 | P.PN ---
Subjective Date of Service: 04/24/19 Chief Complaint: Respiratory failure ARDS Condition stable patient is alert responsive cooperative hypoxic still requiring BiPAP he has extensive bilateral pulmonary infiltrates left greater than the right Review of Systems General: Weakness Respiratory: Shortness of Breath Physical Examination - Vital Signs Temperature: 97 F Blood Pressure: 127/80 Pulse: 75 Respirations: 19 Pulse Ox (%): 91 - Physical Exam General: Alert, Oriented x3 Respiratory: Clear to auscultation bilaterally, Crackles/rales Cardiovascular: No edema, Regular rate/rhythm, Normal S1 S2 - Studies Medications List Reviewed: Yes Assessment & Plan - Problems (Diagnosis) (1) Respiratory failure Current Visit: Yes Status: Acute Plan: Patient has ARDS worsening pulmonary infiltrates requiring BiPAP in negative fluid balance Dc steroids cultures negative vital signs stable normal sinus rhythm requiring less than 50% oxygen on levofloxacin not eating much. Patient has adopt cough blood pressure is better controlled continue patient with Lasix L tach pro calcitonin level is declining labs reviewed bicarb is minimally elevated Qualifiers: Chronicity: acute Respiratory failure complication: unspecified whether with hypoxia or hypercapnia Qualified Code(s): J96.00 - Acute respiratory failure, unspecified whether with hypoxia or hypercapnia
[2019-04-24] MEDS: LIDOCAINE 5% PATCH TOP SCH (09:00)
[2019-04-24] MEDS: APIXABAN 5 MG TABLET PO SCH ×2 (09:38→20:16)
[2019-04-24] MEDS: TAMSULOSIN 0.4 MG SR CAP PO SCH (09:38)
[2019-04-24] MEDS: AMLODIPINE 10 MG TAB PO SCH (09:39)
[2019-04-24] MEDS: METOPROLOL TAR 50 MG TAB PO SCH ×2 (09:39→20:15)
[2019-04-24] MEDS: FUROSEMIDE 40 MG/4 ML VIAL IV SCH (09:45)
[2019-04-24] MEDS: Levofloxacin500mg IV 500 MG/100 ML BAG IV SCH (13:27)
--- NOTE | 2019-04-24 16:49 | P.PN ---
Subjective Date of Service: 04/24/19 Chief Complaint: Respiratory failure ARDS Patient seen and examined at bedside with RN. Chart reviewed. Case discussed with pulmonology. Still continues to be on BiPAP. Appears to be lethargic this AM. Increased Work of breathing. Review of Systems 10-point ROS is otherwise unremarkable Physical Examination - Vital Signs Temperature: 97 F Blood Pressure: 157/92 Pulse: 88 Respirations: 28 Pulse Ox (%): 94 - Physical Exam General: In no apparent distress, Other (Lethargic ) Neck: Supple, JVD not distended Respiratory: Normal air movement, Expiratory wheezes, Inspiratory wheezes Cardiovascular: Regular rate/rhythm, Normal S1 S2 Gastrointestinal: Normal bowel sounds, No tenderness Musculoskeletal: No tenderness Integumentary: No rashes Neurological: Normal speech, Normal tone, Normal affect Lymphatics: No axilla or inguinal lymphadenopathy - Studies Medications List Reviewed: Yes Assessment And Plan - Current Problems (Diagnosis) (1) Respiratory failure Current Visit: Yes Status: Acute Plan: Respiratory failure most likely secondary to bacterial pneumonia Versus amiodarone toxicity -currently on BiPAP not able to be weaned off at this time -will monitor patient closely and wean as tolerated -concerning for ARDS per pulmonology Qualifiers: Chronicity: acute Respiratory failure complication: unspecified whether with hypoxia or hypercapnia Qualified Code(s): J96.00 - Acute respiratory failure, unspecified whether with hypoxia or hypercapnia (2) Bacterial pneumonia Current Visit: Yes Status: Acute Plan: Bilateral pneumonia with minimal Improvement -currently on IV Levaquin x-ray -sputum cultures recollected negative at this time -CT thorax with right-sided lobar pneumonia -pulmonology consulted. Recommendations appreciated (3) A-fib Current Visit: Yes Status: Chronic Plan: AFib with RVR initially currently status post cardioversion -initially patient was started on IV amiodarone now on beta-angie -Was cardioverted. Amiodarone was stopped due to possible pulmonary toxicity. Started on beta-angie -Eliquis was continued. Cardiology is on the case recommends cardiac ablation when patient is stable -will follow up with cardiology for further recommendations at this time continue on cardiac tele Qualifiers: Atrial fibrillation type: chronic Qualified Code(s): I48.2 - Chronic atrial fibrillation (4) CAD (coronary artery disease) Current Visit: Yes Status: Chronic Qualifiers: Coronary Disease-Associated Artery/Lesion type: bypass graft [place] vs. transplanted heart: [place] heart Associated angina: without angina Qualified Code(s): I25.810 - Atherosclerosis of coronary artery bypass graft(s) without angina pectoris (5) Diabetes Current Visit: Yes Status: Chronic Qualifiers: Diabetes mellitus type: type 2 - Plan Pending clinical improvement at this time. Will continue to follow patient along with pulmonology. Will continue with IV antibiotics here in the hospital. Will need LTAC placement if unable to Wean off the oxygen Discharge Plan: Home Plan to discharge in: Greater than 2 days - Code Status/Comfort Care Code Status Assessed: Yes Critical Care: Yes
[2019-04-24 17:08] LABS: Arterial Blood Carboxyhemoglob 1.4 % (0-1.5); Blood Gas Oxyhemoglobin 87.5 % (94-97); Blood O2 Saturation 89.4 % (92-98.5)
--- NOTE | 2019-04-24 19:48 | PN ---
Mr. Juarez appears to be a little bit better than right now. He has some respiratory difficulty ab ove and beyond his congestive heart failure. He sounds like he has wheezes. His chest x-ray does no t look as if he has pulmonary edema. He does have some worsening left pulmonary opacities. I think we are dealing with pneumonia and the treatment he is getting seems to be helping at least over the l ast few days. I will continue to follow Mr. Juarez, while he is in the hospital. CRISTINE/ORACIO Voice ID: [id number] Report ID: [id number]
[2019-04-24] MEDS ORDERED: ZIPRASIDONE 20 MG CAP PO ONE (21:00)
[2019-04-25 05:36] LABS: Magnesium 2.8 mg/dL (1.8-2.4); Potassium 3.8 mmol/L (3.5-5.1)
[2019-04-25 05:43] LABS: Absolute Lymphocytes (CBC) 0.5 K/uL (0.7-4.9); Basophils % 0.1 % (0-1.3); Hematocrit 36.6 % (39.6-49.0); Lymphocytes % 4.6 % (15.3-44.8); MPV 10.2 fL (7.6-11.3); RBC Red Blood Cell Count 3.63 M/uL (4.33-5.43)
[2019-04-25] MEDS: IPRATROPIUM BROM 0.5MG/2.5ML NEB PRN ×2 (07:48→13:23)
[2019-04-25] MEDS: LEVALBUTEROL 0.63 MG/3 ML NEB NEB PRN ×2 (07:48→13:23)
--- NOTE | 2019-04-25 08:23 | RAD REPORT ---
EXAM DESCRIPTION: RAD - Chest Single View - 04/25/2019 6:13 am CLINICAL HISTORY: Respiratory failure Chest pain. COMPARISON: Chest Single View dated 04/24/2019; Chest Single View dated 04/23/2019; Chest Single View dated 04/22/2019; Abdomen 1 View (KUB) dated 04/21/2019 FINDINGS: Portable technique limits examination quality. Bilateral pulmonary opacities are present, mildly improved since comparative study. The heart is mild ly prominent with changes of a prior CABG noted. Enteric tube descends into the upper abdomen. IMPRESSION: Mild improvement in lung aeration since comparative study.
--- NOTE | 2019-04-25 08:37 | P.PN ---
Subjective Date of Service: 04/25/19 Chief Complaint: Respiratory failure ARDS Condition stable patient has been off the BiPAP for quite some time tolerating nasal cannula oxygen no fever chills he is very alert responsive cooperative Review of Systems General: Weakness Respiratory: Shortness of Breath Physical Examination - Vital Signs Temperature: 96.9 F Blood Pressure: 165/99 Pulse: 83 Respirations: 22 Pulse Ox (%): 98 - Physical Exam General: Alert, Oriented x3 Respiratory: Clear to auscultation bilaterally (Crackles bilaterally) Cardiovascular: No edema, Normal pulses - Studies Medications List Reviewed: Yes Assessment & Plan - Problems (Diagnosis) (1) Respiratory failure Current Visit: Yes Status: Acute Plan: Patient has ARDS he is gradually improving chest x-ray still shows some bilateral haziness left greater than the right patient is hypercapnic hypoxic pro calcitonin level is back to normal cultures are all negative change to p.o. levofloxacin clinically improving white count declining and low-dose prednisone transfer to the floor use BiPAP p.r.n. possible L tach he has a nasogastric tube for tube feeds change to p.o. Lasix at spironolactone stable to be transferred to the floor advance diet as tolerated spironolactone should help his blood pressure Qualifiers: Chronicity: acute Respiratory failure complication: unspecified whether with hypoxia or hypercapnia Qualified Code(s): J96.00 - Acute respiratory failure, unspecified whether with hypoxia or hypercapnia
[2019-04-25] MEDS: TAMSULOSIN 0.4 MG SR CAP PO SCH (09:00)
[2019-04-25] MEDS: predniSONE 10 MG TAB PO SCH ×2 (09:46→21:16)
[2019-04-25] MEDS: SPIRONOLACTONE 25 MG TABLET PO SCH ×2 (09:46→21:15)
[2019-04-25] MEDS: AMLODIPINE 10 MG TAB PO SCH (09:47)
[2019-04-25] MEDS: METOPROLOL TAR 50 MG TAB PO SCH ×2 (09:47→21:16)
[2019-04-25] MEDS: levoFLOXacin 500 MG TAB PO SCH (09:47)
[2019-04-25] MEDS: FUROSEMIDE 40 MG TABLET PO SCH (09:48)
[2019-04-25] MEDS: APIXABAN 5 MG TABLET PO SCH ×2 (09:48→21:16)
[2019-04-25] MEDS: LIDOCAINE 5% PATCH TOP SCH (09:49)
[2019-04-25] MEDS: TIZANIDINE 4 MG TABLET PO PRN ×2 (10:00→21:16)
--- NOTE | 2019-04-25 15:13 | P.PN ---
Subjective Date of Service: 04/25/19 Chief Complaint: Respiratory failure ARDS Patient seen and examined at bedside with RN. Chart reviewed. Case discussed with pulmonology. Currently weaned off to nasal cannula Does appear to be doing much better than before. Sitting up in chair. Review of Systems 10-point ROS is otherwise unremarkable Physical Examination - Vital Signs Temperature: 96.9 F Blood Pressure: 134/90 Pulse: 69 Respirations: 15 Pulse Ox (%): 96 - Physical Exam General: In no apparent distress HEENT: Atraumatic, PERRLA, EOMI Neck: Supple, JVD not distended Respiratory: Normal air movement, Expiratory wheezes, Inspiratory wheezes Cardiovascular: Regular rate/rhythm, Normal S1 S2 Gastrointestinal: Normal bowel sounds, No tenderness Musculoskeletal: No tenderness Integumentary: No rashes Neurological: Normal speech, Normal tone, Normal affect Lymphatics: No axilla or inguinal lymphadenopathy - Studies Medications List Reviewed: Yes Assessment And Plan - Current Problems (Diagnosis) (1) Respiratory failure Current Visit: Yes Status: Acute Plan: Respiratory failure most likely secondary to bacterial pneumonia Versus amiodarone toxicity -currently weaned off to nasal cannula -will monitor patient closely and wean as tolerated -concerning for ARDS per pulmonology Qualifiers: Chronicity: acute Respiratory failure complication: unspecified whether with hypoxia or hypercapnia Qualified Code(s): J96.00 - Acute respiratory failure, unspecified whether with hypoxia or hypercapnia (2) Bacterial pneumonia Current Visit: Yes Status: Acute Plan: Bilateral pneumonia with minimal Improvement -currently on p.o. Levaquin -sputum cultures recollected negative at this time -CT thorax with right-sided lobar pneumonia -pulmonology consulted. Recommendations appreciated (3) A-fib Current Visit: Yes Status: Chronic Plan: AFib with RVR initially currently status post cardioversion -initially patient was started on IV amiodarone now on beta-angie -Was cardioverted. Amiodarone was stopped due to possible pulmonary toxicity. Started on beta-angie -Eliquis was continued. Cardiology is on the case recommends cardiac ablation when patient is stable -will follow up with cardiology for further recommendations at this time continue on cardiac tele Qualifiers: Atrial fibrillation type: chronic Qualified Code(s): I48.2 - Chronic atrial fibrillation (4) CAD (coronary artery disease) Current Visit: Yes Status: Chronic Qualifiers: Coronary Disease-Associated Artery/Lesion type: bypass graft [place] vs. transplanted heart: [place] heart Associated angina: without angina Qualified Code(s): I25.810 - Atherosclerosis of coronary artery bypass graft(s) without angina pectoris (5) Diabetes Current Visit: Yes Status: Chronic Qualifiers: Diabetes mellitus type: type 2 - Plan Pending clinical improvement at this time. Will continue to follow patient along with pulmonology. Will continue with p.o. antibiotics here in the hospital. Will need LTAC placement if unable to Wean off the oxygen also family requested to transfer the patient to the [place] [facility] Discharge Plan: Other Plan to discharge in: Greater than 2 days Critical Care: Yes
--- NOTE | 2019-04-25 16:24 | RAD REPORT ---
EXAM DESCRIPTION: RAD - Barium Swallow Modified - 04/25/2019 4:01 pm CLINICAL HISTORY: Aspiration COMPARISON: None. TECHNIQUE: The patient was given liquid, semi-solid and solid forms of barium. Lateral view fluorosc opic imaging was performed in conjunction with speech pathology service. FINDINGS: Cineloop acquisitions: 31 Fluoro time: 5 minutes 23 seconds Laryngeal penetration: deep to the vocal cords, not cleared, with nectar (from residue). Also penetra tion with pureed is not fully cleared. Aspiration: with teaspoon thin liquid, delayed cough, trace aspiration with honey thick via teaspoon. Moderate to significant pharyngeal residue: vallecular and pyriform. Residue is not fully cleared; p enetrations/ aspiration ocurring from spill over of residue. Significant residue around NG tube. Ep iglottic inversion decreased. Recommond repeat MBSS without NG tube. IMPRESSION: Modified barium swallow as summarized above and fully detailed on speech pathology repor alphonso
[2019-04-25] MEDS: ACETAMINOPHEN 500 MG TAB PO PRN (23:32)
[2019-04-26] MEDS: HYDROCODONE/APAP 7.5/325 MG TAB PO PRN (03:52)
[2019-04-26 04:53] LABS: Absolute Lymphocytes (CBC) 0.4 K/uL (0.7-4.9); Basophils % 0.1 % (0-1.3); Hematocrit 35.6 % (39.6-49.0); Lymphocytes % 2.8 % (15.3-44.8); MPV 10.3 fL (7.6-11.3); RBC Red Blood Cell Count 3.53 M/uL (4.33-5.43)
[2019-04-26 05:06] LABS: BUN Blood Urea Nitrogen 37 mg/dL (7-18); Bicarbonate 37 mmol/L (21-32); Glucose Level 141 mg/dL (74-106); Magnesium 2.8 mg/dL (1.8-2.4); Potassium 3.6 mmol/L (3.5-5.1); Sodium Level 145 mmol/L (136-145)
[2019-04-26] MEDS: LEVALBUTEROL 0.63 MG/3 ML NEB NEB PRN (09:00)
[2019-04-26] MEDS: TAMSULOSIN 0.4 MG SR CAP PO SCH (09:00)
[2019-04-26] MEDS: METOPROLOL TAR 50 MG TAB PO SCH ×2 (09:42→20:29)
[2019-04-26] MEDS: FUROSEMIDE 40 MG TABLET PO SCH (09:42)
[2019-04-26] MEDS: SPIRONOLACTONE 25 MG TABLET PO SCH ×2 (09:42→20:30)
[2019-04-26] MEDS: AMLODIPINE 10 MG TAB PO SCH (09:43)
[2019-04-26] MEDS: APIXABAN 5 MG TABLET PO SCH ×2 (09:43→20:30)
[2019-04-26] MEDS: predniSONE 10 MG TAB PO SCH ×2 (09:43→20:31)
[2019-04-26] MEDS: levoFLOXacin 500 MG TAB PO SCH (09:43)
[2019-04-26] MEDS: LIDOCAINE 5% PATCH TOP SCH (09:44)
--- NOTE | 2019-04-26 10:41 | PN ---
He remains in sinus rhythm. His pulmonary problem, pneumonia, possible ARDS, seems to be improving g radually. I will follow him with his other doctor, Dr. Meraz and Dr. Parikh. Overall, the cardiac condition seems stable enough to expect improvement. SH/MODL Voice ID: [id number] Report ID: [id number]
[2019-04-26] MEDS ORDERED: IPRATROPIUM BROM 0.5MG/2.5ML NEB PRN (11:00)
--- NOTE | 2019-04-26 12:16 | P.PN ---
Subjective Date of Service: 04/26/19 Chief Complaint: Respiratory failure ARDS Patient seen and examined at bedside with RN. Chart reviewed. Case discussed with pulmonology. Currently weaned off to nasal cannula Does appear to be doing much better than before. Sitting up in chair. Family agreed to go to LTAC at this time. CM Notified Review of Systems 10-point ROS is otherwise unremarkable Physical Examination - Vital Signs Temperature: 96.7 F Blood Pressure: 129/82 Pulse: 84 Respirations: 19 Pulse Ox (%): 91 - Physical Exam General: Alert, Mild distress HEENT: Atraumatic, PERRLA, EOMI Respiratory: Normal air movement, Expiratory wheezes, Inspiratory wheezes Cardiovascular: Regular rate/rhythm, Normal S1 S2 Gastrointestinal: Normal bowel sounds, No tenderness Musculoskeletal: No tenderness Integumentary: No rashes Neurological: Normal tone, Normal affect Lymphatics: No axilla or inguinal lymphadenopathy - Studies Medications List Reviewed: Yes Assessment And Plan - Current Problems (Diagnosis) (1) Respiratory failure Current Visit: Yes Status: Acute Plan: Respiratory failure most likely secondary to bacterial pneumonia Versus amiodarone toxicity -currently weaned off to nasal cannula -will monitor patient closely and wean as tolerated -On PO abx, started on PO steriods. Qualifiers: Chronicity: acute Respiratory failure complication: unspecified whether with hypoxia or hypercapnia Qualified Code(s): J96.00 - Acute respiratory failure, unspecified whether with hypoxia or hypercapnia (2) Bacterial pneumonia Current Visit: Yes Status: Acute Plan: Bilateral pneumonia with minimal Improvement most likely 2.2 to aspiration PNA -currently on p.o. Levaquin will continue -sputum cultures recollected negative at this time -CT thorax with right-sided lobar pneumonia -pulmonology consulted. Recommendations appreciated (3) A-fib Current Visit: Yes Status: Chronic Plan: AFib with RVR initially currently status post cardioversion -initially patient was started on IV amiodarone now on beta-angie -Was cardioverted. Amiodarone was stopped due to possible pulmonary toxicity. Started on beta-angie -Eliquis was continued. Cardiology is on the case recommends cardiac ablation when patient is stable -will follow up with cardiology for further recommendations at this time continue on cardiac tele Qualifiers: Atrial fibrillation type: chronic Qualified Code(s): I48.2 - Chronic atrial fibrillation (4) CAD (coronary artery disease) Current Visit: Yes Status: Chronic Qualifiers: Coronary Disease-Associated Artery/Lesion type: bypass graft [place] vs. transplanted heart: [place] heart Associated angina: without angina Qualified Code(s): I25.810 - Atherosclerosis of coronary artery bypass graft(s) without angina pectoris (5) Diabetes Current Visit: Yes Status: Chronic Qualifiers: Diabetes mellitus type: type 2 - Plan Pending clinical improvement at this time. Will continue with p.o. antibiotics here in the hospital. LTAC consult placed. Choose [facility]. Will notify CM Discharge Plan: Home Plan to discharge in: Greater than 2 days - Code Status/Comfort Care Code Status Assessed: Yes Critical Care: No
--- NOTE | 2019-04-26 12:19 | P.PN ---
Subjective Date of Service: 04/26/19 Chief Complaint: Respiratory failure ARDS No change in patient's condition is still hypoxic on nasal cannula oxygen failed a swallow trial he denies any problems with dysphagia Review of Systems General: Weakness Respiratory: Shortness of Breath Physical Examination - Vital Signs Temperature: 96.7 F Blood Pressure: 129/82 Pulse: 84 Respirations: 19 Pulse Ox (%): 91 - Physical Exam General: Alert, In no apparent distress, Oriented x3 Respiratory: Crackles/rales Cardiovascular: No edema, Normal pulses - Studies Medications List Reviewed: Yes Assessment & Plan - Problems (Diagnosis) (1) Respiratory failure Current Visit: Yes Status: Acute Plan: Patient has ARDS is pro calcitonin level is declining chest x-ray shows shows bilateral haziness white count mildly elevated doubt sepsis was started on low- dose prednisone yesterday he patient is on p.o. levofloxacin cultures are negative aspect is white count is elevated from the low-dose steroids blood pressure now under control patient is in negative fluid balance can Dc amlodipine patient is on spironolactone and Lasix Lasix also Dc 8 Qualifiers: Qualified Code(s): J96.00 - Acute respiratory failure, unspecified whether with hypoxia or hypercapnia
[2019-04-26] MEDS: TIZANIDINE 4 MG TABLET PO PRN (20:29)
[2019-04-27] MEDS: HYDROCODONE/APAP 7.5/325 MG TAB PO PRN ×2 (01:44→17:56)
[2019-04-27] MEDS: APIXABAN 5 MG TABLET PO SCH ×2 (08:22→22:08)
[2019-04-27] MEDS: levoFLOXacin 500 MG TAB PO SCH (08:22)
[2019-04-27] MEDS: TAMSULOSIN 0.4 MG SR CAP PO SCH (08:22)
[2019-04-27] MEDS: METOPROLOL TAR 50 MG TAB PO SCH ×2 (08:23→22:06)
[2019-04-27] MEDS: predniSONE 10 MG TAB PO SCH ×2 (08:23→22:07)
[2019-04-27] MEDS: LIDOCAINE 5% PATCH TOP SCH (08:23)
[2019-04-27] MEDS: SPIRONOLACTONE 25 MG TABLET PO SCH ×2 (09:44→22:08)
--- NOTE | 2019-04-27 14:07 | RAD REPORT ---
EXAM DESCRIPTION: RAD - Barium Swallow Modified - 04/27/2019 1:32 pm CLINICAL HISTORY: Respiratory complications, aspiration, NG tube placement COMPARISON: None. TECHNIQUE: The patient was given liquid, semi-solid and solid forms of barium. Lateral view fluorosc opic imaging was performed in conjunction with speech pathology service. FINDINGS: Cineloop acquisitions: 15 Fluoro time: 3 minutes 47 seconds Flash penetration with thin and nectar, cleared durring swallow Aspiration with thin by straw at the end of the study, no cough Pharyngeal residue: Vallecular, pyriform, Trace amount of coating with thin, nectar, honey, pudding, and mechanical soft. Mild esophageal retention and retropulsion with puree. IMPRESSION: Modified barium swallow as summarized above and fully detailed on the speech pathology r eport.
--- NOTE | 2019-04-27 15:38 | P.PN ---
Subjective Date of Service: 04/27/19 Chief Complaint: Respiratory failure ARDS Patient seen and examined at bedside with RN. Chart reviewed and case discussed with nursing staff. Daughter at bedside. Currently weaned off to nasal cannula. Working well with PT Does appear to be doing much better than before. Review of Systems 10-point ROS is otherwise unremarkable Physical Examination - Vital Signs Temperature: 97.1 F Blood Pressure: 113/60 Pulse: 76 Respirations: 18 Pulse Ox (%): 94 - Physical Exam General: Alert, In no apparent distress HEENT: Atraumatic, PERRLA, EOMI Neck: Supple, JVD not distended Respiratory: Normal air movement, Expiratory wheezes, Inspiratory wheezes Cardiovascular: Regular rate/rhythm, Normal S1 S2 Gastrointestinal: Normal bowel sounds, No tenderness Musculoskeletal: No tenderness Integumentary: No rashes Neurological: Normal speech, Normal tone, Normal affect Lymphatics: No axilla or inguinal lymphadenopathy - Studies Medications List Reviewed: Yes Assessment And Plan - Current Problems (Diagnosis) (1) Respiratory failure Current Visit: Yes Status: Acute Plan: Respiratory failure most likely secondary to bacterial pneumonia Versus amiodarone toxicity -currently weaned off to nasal cannula -will monitor patient closely and wean as tolerated -On PO abx, PO steriods. Qualifiers: Chronicity: acute Respiratory failure complication: unspecified whether with hypoxia or hypercapnia Qualified Code(s): J96.00 - Acute respiratory failure, unspecified whether with hypoxia or hypercapnia (2) Bacterial pneumonia Current Visit: Yes Status: Acute Plan: Bilateral pneumonia with minimal Improvement most likely 2.2 to aspiration PNA -currently on p.o. Levaquin will continue -sputum cultures recollected negative at this time -CT thorax with right-sided lobar pneumonia -pulmonology consulted. Recommendations appreciated (3) A-fib Current Visit: Yes Status: Chronic Plan: AFib with RVR initially currently status post cardioversion -initially patient was started on IV amiodarone now on beta-angie -Was cardioverted. Amiodarone was stopped due to possible pulmonary toxicity. Started on beta-angie -Eliquis was continued. Cardiology is on the case recommends cardiac ablation when patient is stable -will follow up with cardiology for further recommendations. -Continue on cardiac tele Qualifiers: Atrial fibrillation type: chronic Qualified Code(s): I48.2 - Chronic atrial fibrillation (4) CAD (coronary artery disease) Current Visit: Yes Status: Chronic Qualifiers: Coronary Disease-Associated Artery/Lesion type: bypass graft [place] vs. transplanted heart: [place] heart Associated angina: without angina Qualified Code(s): I25.810 - Atherosclerosis of coronary artery bypass graft(s) without angina pectoris (5) Diabetes Current Visit: Yes Status: Chronic Qualifiers: Diabetes mellitus type: type 2 - Plan Pending clinical improvement at this time. Will continue with p.o. antibiotics here in the hospital. Transfer out of ICU. LTAC consult placed. Choose [facility]. We will touch base with CM regards to placement.
[2019-04-27] MEDS: ACETAMINOPHEN 500 MG TAB PO PRN (22:11)
[2019-04-28] MEDS: HYDROCODONE/APAP 7.5/325 MG TAB PO PRN ×3 (00:19→20:26)
[2019-04-28] MEDS: TIZANIDINE 4 MG TABLET PO PRN ×2 (03:00→20:26)
[2019-04-28] MEDS: LIDOCAINE 5% PATCH TOP SCH (09:56)
[2019-04-28] MEDS: METOPROLOL TAR 50 MG TAB PO SCH ×2 (09:57→20:27)
[2019-04-28] MEDS: SPIRONOLACTONE 25 MG TABLET PO SCH ×2 (09:58→20:26)
[2019-04-28] MEDS: predniSONE 10 MG TAB PO SCH ×2 (09:58→20:26)
[2019-04-28] MEDS: levoFLOXacin 500 MG TAB PO SCH (09:58)
[2019-04-28] MEDS: TAMSULOSIN 0.4 MG SR CAP PO SCH (09:58)
[2019-04-28] MEDS: APIXABAN 5 MG TABLET PO SCH ×2 (09:59→20:26)
[2019-04-28 10:56] LABS: Absolute Lymphocytes (CBC) 0.6 K/uL (0.7-4.9); Basophils % 0.1 % (0-1.3); Hematocrit 36.6 % (39.6-49.0); Lymphocytes % 3.8 % (15.3-44.8); MPV 10.9 fL (7.6-11.3); RBC Red Blood Cell Count 3.63 M/uL (4.33-5.43)
[2019-04-28 11:08] LABS: Albumin 2.4 g/dL (3.4-5.0); Potassium 3.6 mmol/L (3.5-5.1); Protein, Total 8.1 g/dL (6.4-8.2)
--- NOTE | 2019-04-28 12:53 | P.PN ---
Subjective Date of Service: 04/28/19 Chief Complaint: Respiratory failure ARDS Subjective: Improving Patient seen and examined at bedside with RN. Chart reviewed and case discussed with nursing staff. No family at bedside. Currently weaned off to nasal cannula. Working well with PT Patient doing much better today Review of Systems 10-point ROS is otherwise unremarkable Physical Examination - Vital Signs Temperature: 96.9 F Blood Pressure: 111/72 Pulse: 75 Respirations: 16 Pulse Ox (%): 94 - Physical Exam General: Alert, In no apparent distress, Oriented x3 HEENT: Atraumatic, PERRLA, EOMI Neck: Supple, JVD not distended Respiratory: Clear to auscultation bilaterally, Normal air movement Cardiovascular: Regular rate/rhythm, Normal S1 S2 Gastrointestinal: Normal bowel sounds, No tenderness Musculoskeletal: No tenderness Integumentary: No rashes Neurological: Normal speech, Normal tone, Normal affect Lymphatics: No axilla or inguinal lymphadenopathy - Studies Medications List Reviewed: Yes Assessment And Plan - Current Problems (Diagnosis) (1) Respiratory failure Current Visit: Yes Status: Acute Plan: Respiratory failure most likely secondary to bacterial pneumonia Versus amiodarone toxicity -currently weaned off to nasal cannula -will monitor patient closely and wean as tolerated -discontinue antibiotic, continue PO steriods. Qualifiers: Chronicity: acute Respiratory failure complication: unspecified whether with hypoxia or hypercapnia Qualified Code(s): J96.00 - Acute respiratory failure, unspecified whether with hypoxia or hypercapnia (2) Bacterial pneumonia Current Visit: Yes Status: Acute Plan: Bilateral pneumonia with minimal Improvement most likely 2.2 to aspiration PNA -completed course of antibiotics, discontinue per pulmonology. -sputum cultures recollected negative at this time -CT thorax with right-sided lobar pneumonia -pulmonology consulted. Recommendations appreciated (3) A-fib Current Visit: Yes Status: Chronic Plan: AFib with RVR initially currently status post cardioversion -initially patient was started on IV amiodarone now on beta-angie -Was cardioverted. Amiodarone was stopped due to possible pulmonary toxicity. Started on beta-angie -Eliquis was continued. Cardiology is on the case recommends cardiac ablation when patient is stable -will follow up with cardiology for further recommendations. -Continue on cardiac tele Qualifiers: Atrial fibrillation type: chronic Qualified Code(s): I48.2 - Chronic atrial fibrillation (4) CAD (coronary artery disease) Current Visit: Yes Status: Chronic Qualifiers: Coronary Disease-Associated Artery/Lesion type: bypass graft [place] vs. transplanted heart: [place] heart Associated angina: without angina Qualified Code(s): I25.810 - Atherosclerosis of coronary artery bypass graft(s) without angina pectoris (5) Diabetes Current Visit: Yes Status: Chronic Qualifiers: Diabetes mellitus type: type 2 - Plan Pending clinical improvement at this time. Patient improved, likely not Ltac appropriate at this time. Rehab consult placed. Patient will benefit from further physical therapy and rehab.
[2019-04-28 12:54] LABS: Blood Morphology Comment NOT SEEN (NOT SEEN); Hypersegmented Neutrophils PRESENT; Platelet Estimate ADEQ
[2019-04-28 15:23] VITALS: BMI 27.1
[2019-04-28] MEDS: ACETAMINOPHEN 500 MG TAB PO PRN (16:36)
[2019-04-28] MEDS: VENLAFAXINE HCL XR 75 MG CAP PO SCH (16:37)
[2019-04-29] MEDS: ALPRAZOLAM 0.25 MG TABLET PO PRN ×2 (00:39→20:59)
[2019-04-29 06:09] LABS: Absolute Lymphocytes (CBC) 0.6 K/uL (0.7-4.9); Basophils % 0.1 % (0-1.3); Lymphocytes % 4.5 % (15.3-44.8); MPV 11.1 fL (7.6-11.3); RBC Red Blood Cell Count 3.51 M/uL (4.33-5.43)
[2019-04-29 06:59] LABS: Albumin 2.4 g/dL (3.4-5.0); Bilirubin Total 1.2 mg/dL (0.2-1.0); Potassium 3.7 mmol/L (3.5-5.1); Protein, Total 7.8 g/dL (6.4-8.2)
[2019-04-29] MEDS: LIDOCAINE 5% PATCH TOP SCH (08:48)
[2019-04-29] MEDS: predniSONE 10 MG TAB PO SCH ×2 (08:49→20:59)
[2019-04-29] MEDS: APIXABAN 5 MG TABLET PO SCH ×2 (08:49→20:58)
[2019-04-29] MEDS: METOPROLOL TAR 50 MG TAB PO SCH ×2 (08:49→20:58)
[2019-04-29] MEDS: TAMSULOSIN 0.4 MG SR CAP PO SCH (08:49)
[2019-04-29] MEDS: SPIRONOLACTONE 25 MG TABLET PO SCH ×2 (08:49→20:58)
[2019-04-29] MEDS ORDERED: VENLAFAXINE HCL XR 75 MG CAP PO SCH (09:00)
--- NOTE | 2019-04-29 11:43 | P.PN ---
Subjective Date of Service: 04/29/19 (Hospitalist) Chief Complaint: ARDS Patient is doing much better he is very alert responsive cooperative little delirious from his hospital stay Review of Systems Unremarkable Physical Examination - Vital Signs Temperature: 97 F Blood Pressure: 103/69 Pulse: 64 Respirations: 18 Pulse Ox (%): 95 - Physical Exam General: Alert, Oriented x3 HEENT: Atraumatic Neck: Supple Respiratory: Clear to auscultation bilaterally - Studies Medications List Reviewed: Yes Assessment & Plan - Problems (Diagnosis) (1) Respiratory failure Current Visit: Yes Status: Acute Plan: Patient has improved significantly plan to ambulate physical therapy seen by diet vital signs are stable oxygenation satisfactory some aspiration noted check room air pulse ox ambulate [facility] transfer has been canceled will consider local rehab possible discharge tomorrow PA lateral chest x-ray Qualifiers: Chronicity: acute Respiratory failure complication: unspecified whether with hypoxia or hypercapnia Qualified Code(s): J96.00 - Acute respiratory failure, unspecified whether with hypoxia or hypercapnia
--- NOTE | 2019-04-29 12:23 | PN ---
Mr. Juarez is maintaining sinus rhythm. He looks and feels much better. Vital signs are really go od. I suspect his pneumonia is resolving. I expect he will be discharged home fairly soon. ANA Voice ID: [id number] Report ID: [id number]
--- NOTE | 2019-04-29 13:22 | RAD REPORT ---
EXAM DESCRIPTION: [place] Pa And Lat (2 Views)04/29/2019 1:07 pm CLINICAL HISTORY: Cough COMPARISON: April 25, 2019 FINDINGS: Moderate improvement in the bilateral pulmonary opacities. No other change is noted
[2019-04-29] MEDS: HYDROCODONE/APAP 7.5/325 MG TAB PO PRN (20:59)
[2019-04-29] MEDS: TIZANIDINE 4 MG TABLET PO PRN (20:59)
[2019-04-29] MEDS: VENLAFAXINE HCL XR 75 MG CAP PO SCH (20:59)
[2019-04-30] MEDS: predniSONE 10 MG TAB PO SCH ×2 (08:32→21:30)
[2019-04-30] MEDS: APIXABAN 5 MG TABLET PO SCH ×2 (08:33→21:29)
[2019-04-30] MEDS: METOPROLOL TAR 50 MG TAB PO SCH ×2 (08:33→21:29)
[2019-04-30] MEDS: SPIRONOLACTONE 25 MG TABLET PO SCH ×2 (08:33→21:29)
[2019-04-30] MEDS: TAMSULOSIN 0.4 MG SR CAP PO SCH (08:33)
[2019-04-30] MEDS: LIDOCAINE 5% PATCH TOP SCH (08:33)
--- NOTE | 2019-04-30 09:11 | P.PN ---
Subjective Date of Service: 04/30/19 (Hospitalist) Chief Complaint: ARDS Subjective: Improving Patient is doing much better is very alert responsive cooperative was to go home Review of Systems General: Weakness Respiratory: Shortness of Breath Physical Examination - Vital Signs Temperature: 98.4 F Blood Pressure: 104/56 Pulse: 72 Respirations: 18 Pulse Ox (%): 18 - Physical Exam General: Alert, In no apparent distress, Oriented x3 Respiratory: Clear to auscultation bilaterally Cardiovascular: No edema, Normal pulses - Studies Medications List Reviewed: Yes Assessment & Plan - Problems (Diagnosis) (1) Respiratory failure Current Visit: Yes Status: Resolved Plan: Patient is doing much better low-dose prednisone reduced to 10 mg once a day white count is declining room-air saturation is satisfactory 91% waiting for a rehab placement possible discharge tomorrow Qualifiers: Chronicity: acute Respiratory failure complication: unspecified whether with hypoxia or hypercapnia Qualified Code(s): J96.00 - Acute respiratory failure, unspecified whether with hypoxia or hypercapnia
[2019-04-30] MEDS: VENLAFAXINE HCL XR 75 MG CAP PO SCH (21:29)
[2019-04-30] MEDS: HYDROCODONE/APAP 7.5/325 MG TAB PO PRN (21:29)
[2019-04-30] MEDS: ALPRAZOLAM 0.25 MG TABLET PO PRN (22:36)
[2019-05-01] MEDS: LIDOCAINE 5% PATCH TOP SCH (08:45)
[2019-05-01] MEDS: METOPROLOL TAR 50 MG TAB PO SCH ×2 (08:45→20:01)
[2019-05-01] MEDS: SPIRONOLACTONE 25 MG TABLET PO SCH ×2 (08:49→20:01)
[2019-05-01] MEDS: predniSONE 10 MG TAB PO SCH (08:49)
[2019-05-01] MEDS: APIXABAN 5 MG TABLET PO SCH ×2 (08:49→20:01)
[2019-05-01] MEDS: TAMSULOSIN 0.4 MG SR CAP PO SCH (08:49)
[2019-05-01] MEDS: MAGIC MOUTHWASH 180 ML BTL PO PRN ×2 (12:08→20:15)
--- NOTE | 2019-05-01 15:50 | P.PN ---
Subjective Date of Service: 05/01/19 Chief Complaint: ARDS Patient seen and examined at bedside with RN. Chart reviewed. Case discussed with pulmonology. Patient doing much better than before. Currently has been denied with inpatient rehab. Working with physical therapy at this time Review of Systems 10-point ROS is otherwise unremarkable Physical Examination - Vital Signs Temperature: 97.0 F Blood Pressure: 95/56 Pulse: 59 Respirations: 20 Pulse Ox (%): 88 - Physical Exam General: Alert, In no apparent distress HEENT: Atraumatic, PERRLA, EOMI Neck: Supple, JVD not distended Respiratory: Clear to auscultation bilaterally, Normal air movement Cardiovascular: Regular rate/rhythm, Normal S1 S2 Gastrointestinal: Normal bowel sounds, No tenderness Musculoskeletal: No tenderness Integumentary: No rashes Neurological: Normal speech, Normal tone, Normal affect Lymphatics: No axilla or inguinal lymphadenopathy - Studies Medications List Reviewed: Yes Assessment And Plan - Current Problems (Diagnosis) (1) Respiratory failure Current Visit: Yes Status: Resolved Plan: Respiratory failure most likely secondary to bacterial pneumonia Versus amiodarone toxicity. Now resolved -currently weaned off to room air -finish the dosage of steroids and antibiotics here in the hospital Qualifiers: Chronicity: acute Respiratory failure complication: unspecified whether with hypoxia or hypercapnia Qualified Code(s): J96.00 - Acute respiratory failure, unspecified whether with hypoxia or hypercapnia (2) Bacterial pneumonia Current Visit: Yes Status: Acute Plan: Bilateral pneumonia with minimal Improvement most likely 2.2 to aspiration PNA -currently finished the course for p.o. Levaquin -sputum cultures recollected negative at this time -CT thorax with right-sided lobar pneumonia -pulmonology consulted. Recommendations appreciated (3) A-fib Current Visit: Yes Status: Chronic Plan: AFib with RVR initially currently status post cardioversion -initially patient was started on IV amiodarone now on beta-angie -Was cardioverted. Amiodarone was stopped due to possible pulmonary toxicity. Started on beta-angie -Eliquis was continued. Cardiology is on the case recommends cardiac ablation when patient is stable -will follow up with cardiology for further recommendations at this time continue on cardiac tele Qualifiers: Atrial fibrillation type: chronic Qualified Code(s): I48.2 - Chronic atrial fibrillation (4) CAD (coronary artery disease) Current Visit: Yes Status: Chronic Qualifiers: Coronary Disease-Associated Artery/Lesion type: bypass graft [place] vs. transplanted heart: [place] heart Associated angina: without angina Qualified Code(s): I25.810 - Atherosclerosis of coronary artery bypass graft(s) without angina pectoris (5) Diabetes Current Visit: Yes Status: Chronic Qualifiers: Diabetes mellitus type: type 2 - Plan Pending clinical improvement at this time. Patient has been denied with inpatient rehab. Will have him work with physical therapy and have a conversation with the family regarding disposition home. Patient will most likely need home health arranged for continuous physical therapy Discharge Plan: Home Plan to discharge in: Greater than 2 days - Code Status/Comfort Care Code Status Assessed: Yes Critical Care: No
[2019-05-01] MEDS: VENLAFAXINE HCL XR 75 MG CAP PO SCH (20:01)
[2019-05-02] MEDS: ACETAMINOPHEN 500 MG TAB PO PRN (05:20)
[2019-05-02 05:50] VITALS: O2SAT 91
[2019-05-02] MEDS: LIDOCAINE 5% PATCH TOP SCH (08:25)
[2019-05-02] MEDS: METOPROLOL TAR 50 MG TAB PO SCH (08:25)
[2019-05-02] MEDS: SPIRONOLACTONE 25 MG TABLET PO SCH (08:25)
[2019-05-02] MEDS: APIXABAN 5 MG TABLET PO SCH (08:25)
[2019-05-02] MEDS: MAGIC MOUTHWASH 180 ML BTL PO PRN (08:25)
[2019-05-02] MEDS: TAMSULOSIN 0.4 MG SR CAP PO SCH (08:26)
[2019-05-02] MEDS: TIZANIDINE 4 MG TABLET PO PRN (10:06)
--- NOTE | 2019-05-02 11:55 | RAD REPORT ---
EXAM DESCRIPTION: RAD - Barium Swallow Modified - 05/02/2019 11:37 am CLINICAL HISTORY: Dysphagia, difficulty swallowing COMPARISON: Modified barium swallow April 27 TECHNIQUE: The patient was given liquid, semi-solid and solid forms of barium. Lateral view fluorosc opic imaging was performed in conjunction with speech pathology service. FINDINGS: Cineloop acquisitions: 14 Fluoro time: 2 minutes 22 seconds LARYNGEAL PENETRATION: CLEARED W/ COSECUTIVE LARGE SIPS OF THIN BARIUM + BARIUM TABLET PHARYNGEAL RESIDUE: VALLECULAR: SEVERE, PYRIFORM: MILD BOTH W/ BARIUM COATED CHIKI CRACKER, CLEARED COMPLETELY ON CONSECUTIVE SWALLOW 1 SECOND SWALLOW DELAY IMPRESSION: Modified barium swallow as summarized above and fully detailed on speech pathology repor t
[2019-05-02 13:14] VITALS: TEMP 97.5
[2019-05-02 13:53] VITALS: BP 95/60
--- NOTE | 2019-05-02 16:52 | P.DS ---
Admission Date: 04/15/19 Discharge Date: 05/02/19 Disposition: ROUTINE DISCHARGE Discharge Condition: GOOD Reason for Admission: ARDS Consultations: With pulmonology - Problems (1) Respiratory failure Status: Resolved Qualifiers: Chronicity: acute Respiratory failure complication: unspecified whether with hypoxia or hypercapnia Qualified Code(s): J96.00 - Acute respiratory failure, unspecified whether with hypoxia or hypercapnia (2) Bacterial pneumonia Status: Acute (3) A-fib Status: Chronic Qualifiers: Atrial fibrillation type: chronic Qualified Code(s): I48.2 - Chronic atrial fibrillation (4) CAD (coronary artery disease) Status: Chronic Qualifiers: Coronary Disease-Associated Artery/Lesion type: bypass graft [place] vs. transplanted heart: [place] heart Associated angina: without angina Qualified Code(s): I25.810 - Atherosclerosis of coronary artery bypass graft(s) without angina pectoris (5) Diabetes Status: Chronic Qualifiers: Diabetes mellitus type: type 2 Brief History of Present Illness: MR. VALDERRAMA IS A CAD PATIENT SP CABG,WHO COMES TO MY OFFICE OFF AND ON BUT USUALLY GOES TO [place] FOR HIS CARE. HE HAS BEEN COUGHING FOR 4 DAYS AND HAS FEVER FOR ONE DAY. HE IS GENERALLY WEAK. HE DENIES CHEST PAIN. Hospital Course: Overall during the hospital stay patient remained stable Patient was initially admitted to the hospital for acute respiratory failure was found to have hypercapnia and hypoxic failure on x-ray was found to have pneumonia. Initially was started on IV antibiotics and was placed on BiPAP. Patient had marked improvement in his symptoms in the 1st 24 hr. Patient however continued to have elevated white count and temperature here in the hospital did have acute worsening of his respite as and was transferred to the ICU for further care. Patient was in the ICU continued on BiPAP. Patient's acute worsening was most likely secondary to aspiration pneumonia. At that time patient was started on IV antibiotics Zosyn and vanc was continued. Patient did have marked improvement while here in the hospital. Patient on top also had pulmonary edema noted on the chest x-ray and thus was given Lasix and again continued to have marked improvement. Patient then had physical therapy consulted who worked with patient here in the hospital and recommended the patient be transferred to inpatient rehab. Consultation was placed inpatient rehab accepted the patient however insurance denied the approval for inpatient rehab transfer. That time patient was so well with physical therapy that the decision was made to discharge the patient home. Patient continued on IV antibiotics and prednisone here in the hospital and did finish his total course of 14 days. Patient then was discharged home under stable condition and was given a prescription of spironolactone beta-angie and Eliquis to take home with. Amiodarone was discontinued due to the possibility of pulmonary toxicity. Family member at bedside and educated extensively and patient was also educated extensively. Able demonstrate understanding and thus patient was discharged Vital Signs/Physical Exam: Temp Pulse Resp BP Pulse Ox 97.5 F 51 18 95/60 91 05/02/19 12:00 05/02/19 12:00 05/02/19 12:00 05/02/19 13:53 05/02/19 12:00 General: Alert, In no apparent distress HEENT: Atraumatic, PERRLA, EOMI Neck: Supple, JVD not distended Respiratory: Clear to auscultation bilaterally, Normal air movement Cardiovascular: Regular rate/rhythm, Normal S1 S2 Gastrointestinal: Normal bowel sounds, No tenderness Musculoskeletal: No tenderness Integumentary: No rashes Neurological: Normal speech, Normal tone, Normal affect Lymphatics: No axilla or inguinal lymphadenopathy Laboratory Data at Discharge: WBC 12.9 K/uL (4.3-10.9) H 04/29/19 05:41 Hgb 11.8 g/dL (13.6-17.9) L 04/29/19 05:41 Hct 36.0 % (39.6-49.0) L 04/29/19 05:41 Plt Count 240 K/uL (152-406) 04/29/19 05:41 Sodium 141 mmol/L (136-145) 04/29/19 06:37 Potassium 3.7 mmol/L (3.5-5.1) 04/29/19 06:37 BUN 36 mg/dL (7-18) H 04/29/19 06:37 Creatinine 0.87 mg/dL (0.55-1.3) 04/29/19 06:37 Glucose 106 mg/dL (74-106) 04/29/19 06:37 Magnesium 2.8 mg/dL (1.8-2.4) H 04/26/19 04:34 Total Bilirubin 1.2 mg/dL (0.2-1.0) H 04/29/19 06:37 AST 85 U/L (15-37) H 04/29/19 06:37 ALT 117 U/L (12-78) H 04/29/19 06:37 Alkaline Phosphatase 158 U/L (45-117) H 04/29/19 06:37 Troponin I 0.06 ng/mL (0.0-0.045) H 04/20/19 11:24 Home Medications: Trazodone HCl [Desyrel] 200 mg PO BEDTIME 03/21/16 Venlafaxine HCl [Venlafaxine HCl ER] 300 mg PO BEDTIME 03/21/16 Apixaban [Eliquis] 10 mg PO DAILY 04/15/19 Atorvastatin Calcium [Lipitor] 1 tab PO BEDTIME 04/15/19 Hydrocodone 7.5/APAP 325 [[place] 7.5/325 mg*] 1 tab PO BID 04/15/19 Tamsulosin [Flomax*] 0.4 mg PO DAILY 04/15/19 Metoprolol Tartrate [Lopressor*] 50 mg PO BID #60 tab 05/02/19 Spironolactone [Aldactone*] 25 mg PO BID #60 tab 05/02/19 New Medications: Metoprolol Tartrate [Lopressor*] 50 mg PO BID #60 tab Spironolactone [Aldactone*] 25 mg PO BID #60 tab Diet: Regular Activity: Ad rosalba Followup: Blake Ramos MD [OUTSIDE PHYSICIAN] - 1 Week (call to schedule appointment)
== END 2019-05-02 14:58 | disposition home or self-care (01) | DRG 871 ==
LOC: ER 07:00 → ERHOLD 10:02 → 4TH 11:11 → 3RD-ICU 04-16 20:49 → 4TH 04-19 11:15 → 3RD-ICU 04-20 11:47 → 4TH 04-27 11:40
PROVIDERS: ADMIT Family Medicine; ATTEND Family Medicine
PROC: 02HV33Z Insertion of Infusion Device into Superior Vena Cava, Percutaneous Approach (ICD-10-PCS; 2019-04-16)
PROC: 5A2204Z Restoration of Cardiac Rhythm, Single (ICD-10-PCS; principal; 2019-04-17)
DX: A41.9 Sepsis, unspecified organism (principal); J15.9 Unspecified bacterial pneumonia; J96.02 Acute respiratory failure with hypercapnia; J96.01 Acute respiratory failure with hypoxia; G92 Toxic encephalopathy; J69.0 Pneumonitis due to inhalation of food and vomit; I48.92 Unspecified atrial flutter; I25.10 Atherosclerotic heart disease of native coronary artery without angina pectoris; E11.40 Type 2 diabetes mellitus with diabetic neuropathy, unspecified; I48.2 Chronic atrial fibrillation; Z91.19 Patient's noncompliance with other medical treatment and regimen; F32.9 Major depressive disorder, single episode, unspecified; F41.9 Anxiety disorder, unspecified; E66.9 Obesity, unspecified; G47.30 Sleep apnea, unspecified; Z68.27 Body mass index [BMI] 27.0-27.9, adult; I25.2 Old myocardial infarction; Z95.1 Presence of aortocoronary bypass graft
CPT/HCPCS: 36415; 70450; 71045; 71046; 71250; 71275; 72070; 72100; 74018; 74230; 80048; 80053; 80202; 82805; 82962; 83605; 83735; 83880; 84145; 84484; 85025; 87040; 87070; 87081; 87205; 87804; 92526; 92611; 93005; 93306; 94640; 94660; 94760; 96365; 96375; 97116; 97163; 97530; 99285; J0282; J0456; J0696; J1630; J1940; J2250; J2543; J2920; J3010; J3486; J7030; J7060; J7512; J7606; Q9967

== ENCOUNTER 2019-07-15 18:45 | Emergency (ER) | payer OTHER ==
--- NOTE | 2019-07-15 19:10 | RAD REPORT ---
EXAM DESCRIPTION: CT - [id number] - 07/15/2019 6:59 pm CLINICAL HISTORY: Trauma, head and neck injury. fall from standing;Pain COMPARISON: CT HEAD CSPINE MPR WO CONTRAST dated 08/25/2015; Facial Bones W/ Mpr dated 07/15/2019 TECHNIQUE: Axial 5 mm thick images of the head were obtained. Axial 2 mm thick images of the cervical spine were obtained with sagittal and coronal reconstruction images generated and reviewed. All CT scans are performed using dose optimization technique as appropriate and may include automated exposure control or mA/KV adjustment according to patient size. FINDINGS: CT HEAD WITHOUT CONTRAST: No acute hemorrhage, hydrocephalus or extra-axial collection is identified.Moderate generalized brain atrophy is present with advanced periventricular and deep white matter chronic microvascular ischemi c changes.No areas of brain edema or midline shift. The paranasal sinuses and left mastoid are clear. Evidence of previous right mastoidectomy seen. Flui d is present in the nasal cavity. Please refer is CT facial bones for further detail.The calvarium is intact. CT CERVICAL SPINE WITHOUT CONTRAST: No fracture or subluxation.No prevertebral soft tissues swelling is identified. IMPRESSION: No acute intracranial or cervical spine findings.
--- NOTE | 2019-07-15 19:13 | RAD REPORT ---
EXAM DESCRIPTION: CT - CTFB CLINICAL HISTORY: FACIAL PAIN Trauma to face with pain and swelling. COMPARISON: No comparisons TECHNIQUE: Axial 2 mm thick images of the face were obtained with sagittal and coronal reconstructio n images. All CT scans are performed using dose optimization technique as appropriate and may include automated exposure control or mA/KV adjustment according to patient size. FINDINGS: Moderately displaced nasal bone fracture. Fracture of the nasal spine as well.Buckling of the nasal septum is seen with moderate fluid within the nasal passages.The mandible is intact. The globes and orbital contents are grossly unremarkable.Mild fluid is seen in the ethmoid air cells and trace fluid in the right maxillary antrum. Evidence of previous right mastoidectomy noted. IMPRESSION: Nasal bone, nasal spine nasal septal fractures are suspected as detailed.
--- NOTE | 2019-07-15 19:16 | RAD REPORT ---
EXAM DESCRIPTION: RAD - Chest Single View - 07/15/2019 7:05 pm CLINICAL HISTORY: fall, facial injury Chest pain. COMPARISON: Chest Pa And Lat (2 Views) dated 04/29/2019; Chest Single View dated 04/25/2019; Chest Sin gle View dated 04/24/2019; Chest Single View dated 04/23/2019 FINDINGS: Portable technique limits examination quality. The lungs are emphysematous but grossly clear. The heart is mildly enlarged in size with sternotomy w ires present. No displaced fractures.
[2019-07-15 19:27] LABS: Absolute Lymphocytes (CBC) 0.6 K/uL (0.7-4.9); Basophils % 0.9 % (0-1.3); Hematocrit 35.4 % (39.6-49.0); Lymphocytes % 16.1 % (15.3-44.8); MPV 11.4 fL (7.6-11.3); RBC Red Blood Cell Count 3.53 M/uL (4.33-5.43)
[2019-07-15 19:31] LABS: Protime INR 1.24
[2019-07-15] MEDS ORDERED: CEPHALEXIN 250 MG CAP ONE (19:46)
[2019-07-15] MEDS ORDERED: DERMABOND SKIN ADHESIVE TOP ONE (19:46)
[2019-07-15] MEDS ORDERED: PHENYLEPHRINE 0.5% NOSE 15ML NAS ONE (19:47)
[2019-07-15] MEDS ORDERED: TETANUS & DIPHTHERIA TOX,ADULT 0.5 ML VIAL ONE (19:47)
[2019-07-15 19:48] LABS: ALT/SGPT 25 U/L (12-78); AST/SGOT 28 U/L (15-37); Albumin 3.3 g/dL (3.4-5.0); Alkaline Phosphatase 85 U/L (45-117); BUN Blood Urea Nitrogen 15 mg/dL (7-18); Bicarbonate 28 mmol/L (21-32); Bilirubin Direct 0.2 mg/dL (0-0.2); Bilirubin Total 0.5 mg/dL (0.2-1.0); Glucose Level 85 mg/dL (74-106); Magnesium 2.1 mg/dL (1.8-2.4); NT PRO-BNP 403 pg/mL (<450); Potassium 4.2 mmol/L (3.5-5.1); Protein, Total 7.2 g/dL (6.4-8.2); Sodium Level 140 mmol/L (136-145); Troponin (Emerg Dept Use Only) < 0.02 ng/mL (0.0-0.045)
[2019-07-15 19:59] LABS: Blood Morphology Comment NOT SEEN (NOT SEEN); Platelet Estimate DECR; Urine White Blood Cell Casts OK
[2019-07-15] MEDS ORDERED: SILVER NITRATE 1 APPL TOP ONE ×2 (22:01→22:02)
--- NOTE | 2019-07-15 22:51 | ER ---
Nurse's Notes [facility] Name: Joshua Juarez Age: 74 yrs Sex: Male : 1945 Arrival Date: 07/15/2019 Time: 18:48 Bed 4 Private MD: Diagnosis: Fracture of nasal bones;Concussion with loss of consciousness of 30 minutes or less Presentation: 07/15 18:53 Presenting complaint: EMS states: Pt slipped and fell and hit his head, positive LOC, jl7 is on blood thinners. Care prior to arrival: IV initiated. 18 GA, in the right antecubital area, Glucose check: 100. Mechanism of Injury: Fall from standing position. Trauma event details: Injury occurred in the [facility], Injury occurred: at home. Injury occurred: July 15, 2019 Injury occurred at: 18:20. 18:53 Acuity: MARISELA 2 jl7 18:53 Method Of Arrival: EMS: [facility] 7 19:33 Transition of care: patient was not received from another setting of care. Onset of ea symptoms was July 15, 2019. Risk Assessment: Do you want to hurt yourself or someone else? Patient reports no desire to harm self or others. Initial Sepsis Screen: Does the patient meet any 2 criteria? No. Patient's initial sepsis screen is negative. Does the patient have a suspected source of infection? No. Patient's initial sepsis screen is negative. Trauma Activation: Alert Physician: ED Physician; Name: ; Notified At: ; Arrived At: Physician: General Surgeon; Name: ; Notified At: ; Arrived At: Physician: Radiology; Name: ; Notified At: ; Arrived At: Physician: Respiratory; Name: ; Notified At: ; Arrived At: Physician: Lab; Name: ; Notified At: ; Arrived At: Historical: - Allergies: 18:59 NKDA; jl7 - Home Meds: 18:59 atorvastatin 20 mg Oral tab 1 tab once daily [Active]; omeprazole 20 mg Oral cpDR 2 jl7 caps once daily [Active]; venlafaxine 150 mg Oral cp24 [Active]; apixaban Oral 5 mg 2 times per day [Active]; metoprolol tartrate 100 mg Oral tab 1 tab once daily [Active]; trazodone 100 mg Oral tab 1 tab nightly [Active]; - PMHx: 18:59 Atrial Fib; Depression; Diabetes - NIDDM; Hyperlipidemia; Hypertension; jl7 - PSHx: 18:59 CABG; prostate sx; knee replacement; jl7 - Immunization history:: Adult Immunizations up to date. - Social history:: Smoking status: Patient/guardian denies using tobacco. - Immunization history: Last tetanus immunization: unknown. - Ebola Screening: : No symptoms or risks identified at this time. Screenin:50 Abuse screen: Denies threats or abuse. Denies injuries from another. Tuberculosis jl7 screening: No symptoms or risk factors identified. 19:37 Nutritional screening: No deficits noted. Fall Risk IV access (20 points). ea Primary Survey: 18:50 NO uncontrolled hemorrhage observed. A: Airway: patent. Breathing/Chest: Respiratory jl7 pattern: regular, Respiratory effort: spontaneous, unlabored, Chest inspection: symmetrical rise and fall of the chest. Circulation: Skin color: pink, Skin temperature: warm, dry. Disability Alert. Exposure/Environment: There is no evidence of uncontrolled external bleeding. Obvious injury(ies) are noted at this time: laceration to nose and upper lip, bleeding controlled. 19:15 Reassessment Airway Airway Patent Oxygen No O2 Breathing/Chest Respiratory pattern cc3 Regular Respiratory effort Spontaneous Unlabored Breath sounds Clear Chest inspection Symmetrical Circulation Heart tones Present Disability Alert. Secondary Survey: 19:32 Injury Description: Laceration sustained to apex of the nose and bridge of nose is 0.5 ea to 2.5 cm long, was sustained 30-60 minutes ago. Assessment: 19:36 General: Appears in no apparent distress. Behavior is appropriate for age. Pain: ea Complains of pain in apex of the nose and bridge of nose. Neuro: Level of Consciousness is awake, alert, obeys commands, Oriented to person, place, time, situation. Cardiovascular: Patient's skin is warm and dry. Respiratory: Airway is patent Respiratory effort is even, unlabored, Respiratory pattern is regular, symmetrical. GI: Abdomen is non-distended. Derm: Skin is pink, warm \T\ dry. Injury Description: Laceration sustained to apex of the nose and bridge of nose. 20:41 Reassessment: Patient and/or family updated on plan of care and expected duration. Pain ea level reassessed. Patient is alert, oriented x 3, equal unlabored respirations, skin warm/dry/pink. Patient states feeling better. 21:20 Reassessment: Patient appears in no apparent distress at this time. Patient and/or cc3 family updated on plan of care and expected duration. Pain level reassessed. Patient is alert, oriented x 3, equal unlabored respirations, skin warm/dry/pink. Patient said that his left ear hurts and feels like echoing, Dr. Ledesma informed. 23:08 Reassessment: Patient and/or family updated on plan of care and expected duration. Pain ea level reassessed. Patient is alert, oriented x 3, equal unlabored respirations, skin warm/dry/pink. Discharge instruction given to patient, verbalized the understanding of instruction. Pt left ED accompanied by family, pt tolerating well Patient states feeling better. Vital Signs: 18:50 BP 100 / 55; Pulse 74; Resp 16; Temp 98.2; Pulse Ox 97% on R/A; Weight 84.82 kg; Height iw 5 ft. 10 in. (177.80 cm); 19:46 BP 109 / 75; Pulse 68; Resp 18 S; Pulse Ox 100% on R/A; cc3 20:30 BP 105 / 87; Pulse 66; Resp 18; Pulse Ox 100% ; ea 21:30 BP 103 / 91; Pulse 71; Resp 16 S; Pulse Ox 97% on R/A; cc3 22:00 BP 127 / 99; Pulse 83; Resp 20 S; Pulse Ox 98% on R/A; cc3 22:30 BP 103 / 87; Pulse 69; Resp 20 S; Pulse Ox 97% on R/A; cc3 18:50 Body Mass Index 26.83 (84.82 kg, 177.80 cm) iw [place] Coma Score: 18:50 Eye Response: spontaneous(4). Verbal Response: oriented(5). Motor Response: obeys iw commands(6). Total: 15. 22:46 Eye Response: spontaneous(4). Verbal Response: oriented(5). Motor Response: obeys gs commands(6). Total: 15. Trauma Score (Adult): 18:50 Eye Response: spontaneous(1); Verbal Response: oriented(1); Motor Response: obeys iw commands(2); Systolic BP: > 89 mm Hg(4); Respiratory Rate: 10 to 29 per min(4); Ruddy Score: 15; Trauma Score: 12 ED Course: 18:48 Patient arrived in ED. em 18:48 Ayad Rosario MD is Attending Physician. kdr 18:49 Chandler Lei, GRAY is Primary Nurse. jl7 18:53 Patient has correct armband on for positive identification. Bed in low position. Call jl7 light in reach. Side rails up X2. 18:53 Patient maintains SpO2 saturation greater than 95% on room air. Thermoregulation: warm jl7 blanket given to patient. 18:54 Triage completed. jl7 18:58 Rojas Hansen, RN is Primary Nurse. bp 18:59 CT Head C Spine In Process Unspecified. EDMS 18:59 CT Facial Bones W/O Con In Process Unspecified. EDMS 19:03 XRAY Chest (1 view) In Process Unspecified. EDMS 19:05 Attending Physician role handed off by Ayad Rosario MD gs 19:05 Michael Ledesma MD is Attending Physician. gs 19:22 Inserted saline lock: 22 gauge in right hand, using aseptic technique. Blood collected. ea 19:33 Arm band placed on right wrist. Patient placed in an exam room, on a stretcher, on ea pulse oximetry. 22:49 Angelic Ruiz MD is Referral Physician. gs 23:00 IV discontinued, intact, bleeding controlled, No redness/swelling at site. Pressure ea dressing applied. 23:09 No provider procedures requiring assistance completed. ea Administered Medications: 19:53 Drug: Tetanus-Diphtheria Toxoid Adult 0.5 ml {[employer]: [employer]. Exp: ea 02/14/2021. Lot #: [id number]. } Route: IM; Site: right deltoid; 20:34 Follow up: Response: No adverse reaction ea 19:53 Drug: KeFLEX 1000 mg Route: PO; ea 20:35 Follow up: Response: No adverse reaction ea 19:54 Drug: Cameron-Synephrine [place] 0.5 % 2 sprays Route: Intranasal; Site: both nares; ea 20:00 Follow up: Response: No adverse reaction cc3 22:55 Drug: [place] 10 mg-325 mg 1 tabs {Note: RASS 0.} Route: PO; cc3 23:12 Follow up: Response: Medication administered at discharge.; RASS: Alert and Calm (0) ea Intake: 23:11 PO: 200ml (Water); Total: 200ml. ea Outcome: 22:50 Discharge ordered by MD. gs 23:10 Discharged to home via wheelchair, with family. ea 23:10 Condition: stable 23:11 Discharge instructions given to patient, family, Instructed on discharge instructions, ea follow up and referral plans. the need for admit, Demonstrated understanding of instructions, follow-up care, medications, Prescriptions given X 1. 23:11 Patient's length of stay in the Emergency Department was greater than 2 hours. ea 23:11 Patient left the ED. ea Signatures: Dispatcher [employer] EDMS Ayad Rosario MD MD kdr Munoz, Edgar, ACID TANK CLEANER ACID TANK CLEANER Gabrielle Adkins RN Chandler Reza RN RN jl7 Antunez, Elena, RN RN ea Starr, Gregory, MD MD gs Peltier, Brian RN RN Shelby Jordan cc3 Corrections: (The following items were deleted from the chart) 18:52 18:50 BP 100 / 55; Pulse 74bpm; Resp 16bpm; Pulse Ox 97% RA; Temp 98.2F; [facility] 18:55 Allergies: NKDA; [facility] 18:55 Home Meds: amiodarone 200 mg Oral tab 1 tab 2 times per day; [facility] 18:55 Home Meds: apixaban Oral 5 mg 2 times per day; [facility] 18:55 Home Meds: aspirin 81 mg Oral TbEC 1 tab once daily; [facility] 18:55 Home Meds: atorvastatin 20 mg Oral tab 1 tab once daily; [facility] 18:55 Home Meds: buspirone 10 mg Oral tab 1 tab 3 times per day; [facility] 18:55 Home Meds: Colace 100 mg Oral cap; [facility] 18:55 Home Meds: digoxin 125 mcg Oral tab 1 tab once daily; [facility] 18:55 Home Meds: Imdur 30 mg Oral Tb24; [facility] 18:55 Home Meds: lisinopril 5 mg Oral tab 1 tab once daily; [facility] 18:55 Home Meds: metformin 500 mg Oral Tb24 1 tab once daily; [facility] 18:55 Home Meds: metoprolol tartrate 100 mg Oral tab 1 tab once daily; [facility] 18:55 Home Meds: [place] 10-325 mg Oral tab 1 tab every 6 hours; [facility] 18:55 Home Meds: trazodone 100 mg Oral tab 1 tab nightly; [facility] 18:55 Home Meds: venlafaxine 150 mg Oral cp24; [facility] 18:55 PMHx: Atrial Fib; [facility] 18:55 PMHx: Depression; [facility] 18:55 PMHx: Diabetes - NIDDM; [facility] 18:55 PMHx: Hyperlipidemia; [facility] 18:55 PMHx: Hypertension; [facility] 18:55 PSHx: CABG; [facility] 18:55 PSHx: knee replacement; [facility] 18:55 PSHx: prostate sx; [facility] 21:18 Reassessment: Patient appears in no apparent distress at this time. Patient cc3 and/or family updated on plan of care and expected duration. Pain level reassessed. Patient is alert, oriented x 3, equal unlabored respirations, skin warm/dry/pink. Patient states feeling better. cc3
--- NOTE | 2019-07-15 22:51 | EDPHYS ---
Physician Documentation [facility] Name: Joshua Juarez Age: 74 yrs Sex: Male : 1945 Arrival Date: 07/15/2019 Time: 18:48 Bed 4 Private MD: ED Physician Michael Ledesma HPI: 07/15 18:52 This 74 yrs old Male presents to ER via Unassigned with complaints of Fall kdr Injury. 18:52 Details of fall: The patient fell from an upright position, while walking. Onset: The kdr symptoms/episode began/occurred suddenly, just prior to arrival. Associated injuries: The patient sustained injury to the head, contusion, hematoma, pain, swelling, tenderness, Facial. Severity of symptoms: At their worst the symptoms were mild, in the emergency department the symptoms are unchanged. The patient has experienced similar episodes in the past, a few times, The patient states that he has had prior falls and facial injuries. The patient has not recently seen a physician. 22:46 no syncope but + LOC brief. gs Historical: - Allergies: 18:59 NKDA; jl7 - Home Meds: 18:59 atorvastatin 20 mg Oral tab 1 tab once daily [Active]; omeprazole 20 mg Oral cpDR 2 jl7 caps once daily [Active]; venlafaxine 150 mg Oral cp24 [Active]; apixaban Oral 5 mg 2 times per day [Active]; metoprolol tartrate 100 mg Oral tab 1 tab once daily [Active]; trazodone 100 mg Oral tab 1 tab nightly [Active]; - PMHx: 18:59 Atrial Fib; Depression; Diabetes - NIDDM; Hyperlipidemia; Hypertension; jl7 - PSHx: 18:59 CABG; prostate sx; knee replacement; jl7 - Immunization history:: Adult Immunizations up to date. - Social history:: Smoking status: Patient/guardian denies using tobacco. - Immunization history: Last tetanus immunization: unknown. - Ebola Screening: : No symptoms or risks identified at this time. ROS: 18:52 Constitutional: Negative for fever, chills, and weight loss, Eyes: Negative for injury, kdr pain, redness, and discharge, Neck: Negative for injury, pain, and swelling, Cardiovascular: Negative for chest pain, palpitations, and edema, Respiratory: Negative for shortness of breath, cough, wheezing, and pleuritic chest pain, Abdomen/GI: Negative for abdominal pain, nausea, vomiting, diarrhea, and constipation, Back: Negative for injury and pain, : Negative for injury, bleeding, discharge, and swelling, MS/Extremity: Negative for injury and deformity, Skin: Negative for injury, rash, and discoloration, Neuro: Negative for headache, weakness, numbness, tingling, and seizure activity. Psych: Negative for depression, anxiety, suicide ideation, homicidal ideation, and hallucinations, Allergy/Immunology: Negative for hives, rash, and allergies, Endocrine: Negative for neck swelling, polydipsia, polyuria, polyphagia, and marked weight changes, Hematologic/Lymphatic: Negative for swollen nodes, abnormal bleeding, and unusual bruising. 18:52 ENT: Positive for nose bleed, Abrasion ot nose and possible septal deviation. 22:46 All other systems are negative. gs Exam: 18:52 Constitutional: This is a well developed, well nourished patient who is awake, alert, kdr and in no acute distress. Head/Face: Normocephalic, atraumatic. Eyes: Pupils equal round and reactive to light, extra-ocular motions intact. Lids and lashes normal. Conjunctiva and sclera are non-icteric and not injected. Cornea within normal limits. Periorbital areas with no swelling, redness, or edema. Neck: Trachea midline, no thyromegaly or masses palpated, and no cervical lymphadenopathy. Supple, full range of motion without nuchal rigidity, or vertebral point tenderness. No Meningismus. Chest/axilla: Normal chest wall appearance and motion. Nontender with no deformity. No lesions are appreciated. Cardiovascular: Regular rate and rhythm with a normal S1 and S2. No gallops, murmurs, or rubs. Normal PMI, no JVD. No pulse deficits. Respiratory: Lungs have equal breath sounds bilaterally, clear to auscultation and percussion. No rales, rhonchi or wheezes noted. No increased work of breathing, no retractions or nasal flaring. Abdomen/GI: Soft, non-tender, with normal bowel sounds. No distension or tympany. No guarding or rebound. No evidence of tenderness throughout. Back: No spinal tenderness. No costovertebral tenderness. Full range of motion. Skin: Warm, dry with normal turgor. Normal color with no rashes, no lesions, and no evidence of cellulitis. MS/ Extremity: Pulses equal, no cyanosis. Neurovascular intact. Full, normal range of motion. Neuro: Awake and alert, GCS 15, oriented to person, place, time, and situation. Cranial nerves II-XII grossly intact. Motor strength 5/5 in all extremities. Sensory grossly intact. Cerebellar exam normal. Normal gait. Psych: Awake, alert, with orientation to person, place and time. Behavior, mood, and affect are within normal limits. 18:52 ENT: Nose: External nose: abrasion is noted, contusion is noted, deformity is noted, laceration is present, swelling is noted, bridge of nose and apex of the nose, clotted blood, in both nares. 22:46 Neuro: Cranial nerves: CN II- XII are normal as tested, Cerebellar function: is grossly gs normal, Motor: moves all fours, Sensation: no obvious gross deficits. 22:53 ENT: no septal hematoma. Vital Signs: 18:50 BP 100 / 55; Pulse 74; Resp 16; Temp 98.2; Pulse Ox 97% on R/A; Weight 84.82 kg; Height iw 5 ft. 10 in. (177.80 cm); 19:46 BP 109 / 75; Pulse 68; Resp 18 S; Pulse Ox 100% on R/A; cc3 20:30 BP 105 / 87; Pulse 66; Resp 18; Pulse Ox 100% ; ea 21:30 BP 103 / 91; Pulse 71; Resp 16 S; Pulse Ox 97% on R/A; cc3 22:00 BP 127 / 99; Pulse 83; Resp 20 S; Pulse Ox 98% on R/A; cc3 22:30 BP 103 / 87; Pulse 69; Resp 20 S; Pulse Ox 97% on R/A; cc3 18:50 Body Mass Index 26.83 (84.82 kg, 177.80 cm) iw [place] Coma Score: 18:50 Eye Response: spontaneous(4). Verbal Response: oriented(5). Motor Response: obeys iw commands(6). Total: 15. 22:46 Eye Response: spontaneous(4). Verbal Response: oriented(5). Motor Response: obeys commands(6). Total: 15. Trauma Score (Adult): 18:50 Eye Response: spontaneous(1); Verbal Response: oriented(1); Motor Response: obeys iw commands(2); Systolic BP: > 89 mm Hg(4); Respiratory Rate: 10 to 29 per min(4); Ruddy Score: 15; Trauma Score: 12 Procedures: 22:46 Epistaxis treatment: A moderate amount of bleeding noted from right nare. Treated using Oxymetazoline sprays, cauterization, silver nitrate, anterior packing, sugicel, Bleeding stopped. Laceration: 22:46 Wound Repair of 1cm ( 0.4in ) subcutaneous laceration to bridge of nose. Distal gs neuro/vascular/tendon intact. Skin closed with 1-0 Adhesive skin closure using Dermabond. Patient tolerated well. MDM: 19:05 Patient medically screened. 22:46 Differential diagnosis: closed head injury, contusion, fracture. Data reviewed: vital gs signs, nurses notes, old medical records, lab test result(s), EKG. Response to treatment: the patient's symptoms have markedly improved after treatment, the patient's condition has returned to base line. 07/15 18:50 Order name: Basic Metabolic Panel; Complete Time: 20:22 kdr 07/15 18:50 Order name: CBC with Diff; Complete Time: 20:22 kdr 07/15 18:50 Order name: LFT's; Complete Time: 20:22 [facility] 07/15 18:50 Order name: Magnesium; Complete Time: 20:22 [facility] 07/15 18:50 Order name: NT PRO-BNP; Complete Time: 20:22 [facility] 07/15 18:50 Order name: PT-INR; Complete Time: 19:39 [facility] 07/15 18:50 Order name: Troponin (emerg Dept Use Only); Complete Time: 20:22 kdr 07/15 18:50 Order name: XRAY Chest (1 view); Complete Time: 19:33 kdr 07/15 18:50 Order name: CT Head C Spine; Complete Time: 19:33 [facility] 07/15 18:50 Order name: CT Facial Bones W/O Con; Complete Time: 19:33 [facility] 07/15 19:59 Order name: CBC Smear Scan; Complete Time: 20:23 EDMS 07/15 18:50 Order name: EKG; Complete Time: 18:51 [facility] 07/15 18:50 Order name: Cardiac monitoring; Complete Time: 19:22 [facility] 07/15 18:50 Order name: EKG - Nurse/Tech; Complete Time: 19:22 [facility] 07/15 18:50 Order name: IV Saline Lock; Complete Time: : [facility] 07/15 18:50 Order name: Labs collected and sent; Complete Time: 19: [facility] 07/15 18:50 Order name: O2 Per Protocol; Complete Time: : [facility] 07/15 18:50 Order name: O2 Sat Monitoring; Complete Time: : [facility] 07/15 19:41 Order name: Dermabond; Complete Time: 22:49 gs Administered Medications: 19:53 Drug: Tetanus-Diphtheria Toxoid Adult 0.5 ml {[employer] Super[employer]: [employer]. Exp: ea 02/14/2021. Lot #: [id number]. } Route: IM; Site: right deltoid; 20:34 Follow up: Response: No adverse reaction ea 19:53 Drug: KeFLEX 1000 mg Route: PO; ea 20:35 Follow up: Response: No adverse reaction ea 19:54 Drug: Cameron-Synephrine [place] 0.5 % 2 sprays Route: Intranasal; Site: both nares; ea 20:00 Follow up: Response: No adverse reaction cc3 22:55 Drug: [place] 10 mg-325 mg 1 tabs {Note: RASS 0.} Route: PO; cc3 23:12 Follow up: Response: Medication administered at discharge.; RASS: Alert and Calm (0) ea Disposition: 07/15/19 22:50 Discharged to Home. Impression: Fracture of nasal bones, Concussion with loss of consciousness of 30 minutes or less. - Condition is Stable. - Discharge Instructions: Concussion, Adult, [id number], Nasal Fracture, [id number]. - Prescriptions for Keflex 500 mg Oral Capsule - take 1 capsule by ORAL route every 12 hours for 5 days; 10 capsule. - Medication Reconciliation Form, Thank You Letter, Antibiotic Education, Prescription Opioid Use form. - Follow up: Private Physician; When: 1 - 2 days; Reason: Recheck today's complaints. Follow up: Angelic Ruiz MD; When: 2 - 3 days; Reason: Recheck today's complaints, Re-evaluation by your physician. Signatures: Dispatcher [employer] EDMS Rittger, AyadMD MD betty Irene RN RN Chandler Lei RN RN 7 Lesley Oleary RN Michael La ea, MD MD gs Cordel, Charlene cc3 Corrections: (The following items were deleted from the chart) 19: 18:55 Allergies: NKDA; [facility] 18:55 Home Meds: amiodarone 200 mg Oral tab 1 tab 2 times per day; [facility] 18:55 Home Meds: apixaban Oral 5 mg 2 times per day; [facility] 18:55 Home Meds: aspirin 81 mg Oral TbEC 1 tab once daily; [facility] 18:55 Home Meds: atorvastatin 20 mg Oral tab 1 tab once daily; [facility] 18:55 Home Meds: buspirone 10 mg Oral tab 1 tab 3 times per day; [facility] 18:55 Home Meds: Colace 100 mg Oral cap; [facility] 18:55 Home Meds: digoxin 125 mcg Oral tab 1 tab once daily; [facility] 18:55 Home Meds: Imdur 30 mg Oral Tb24; [facility] 18:55 Home Meds: lisinopril 5 mg Oral tab 1 tab once daily; [facility] 18:55 Home Meds: metformin 500 mg Oral Tb24 1 tab once daily; [facility] 18:55 Home Meds: metoprolol tartrate 100 mg Oral tab 1 tab once daily; [facility] 18:55 Home Meds: [place] 10-325 mg Oral tab 1 tab every 6 hours; [facility] 18:55 Home Meds: trazodone 100 mg Oral tab 1 tab nightly; [facility] 18:55 Home Meds: venlafaxine 150 mg Oral cp24; [facility] 18:55 PMHx: Atrial Fib; [facility] 18:55 PMHx: Depression; [facility] 18:55 PMHx: Diabetes - NIDDM; [facility] 18:55 PMHx: Hyperlipidemia; [facility] 18:55 PMHx: Hypertension; [facility] 19:01 18:55 PSHx: CABG; iw jl7 19:01 18:55 PSHx: knee replacement; iw jl7 19:01 18:55 PSHx: prostate sx; jl7 23:11 22:50 07/15/2019 22:50 Discharged to Home. Impression: Fracture of nasal bones; ea Concussion with loss of consciousness of 30 minutes or less. Condition is Stable. Forms are Medication Reconciliation Form, Thank You Letter, Antibiotic Education, Prescription Opioid Use. Follow up: Private Physician; When: 1 - 2 days; Reason: Recheck today's complaints. Follow up: Angelic Ruiz; When: 2 - 3 days; Reason: Recheck today's complaints, Re-evaluation by your physician. gs
[2019-07-15] MEDS ORDERED: HYDROCODONE/APAP 10/325 TAB ONE (22:57)
[2019-07-15 23:25] VITALS: BP 116/93; TEMP 98; O2SAT 98
--- NOTE | 2019-07-16 13:05 | EKG ---
Test Date: 2019-07-15 Test Time: 19:16:54 Customer Experience Manager: CLAYTON MEASUREMENT RESULTS: Intervals: Rate: 70 AK: 176 QRSD: 86 QT: 394 QTc: 425 [place]: P: 64 AK: 176 QRS: 24 T: 50 INTERPRETIVE STATEMENTS: Normal sinus rhythm Low voltage QRS Borderline ECG Compared to ECG 04/20/2019 03:56:07 Atrial fibrillation no longer present T-wave abnormality no longer present Electronically Signed On 07-16-19 13:03:32 CDT by Denys Moise
== END 2019-07-15 23:11 | disposition home or self-care (01) ==
LOC: ER 18:45
PROC: 0JQ10ZZ Repair Face Subcutaneous Tissue and Fascia, Open Approach (ICD-10-PCS; principal; 2019-07-15)
DX: S02.2XXA Fracture of nasal bones, initial encounter for closed fracture (principal); S01.21XA Laceration without foreign body of nose, initial encounter; S06.0X1A Concussion with loss of consciousness of 30 minutes or less, initial encounter; W19.XXXA Unspecified fall, initial encounter; Y93.01 Activity, walking, marching and hiking; Y92.9 Unspecified place or not applicable; Z23 Encounter for immunization; Z95.1 Presence of aortocoronary bypass graft; I10 Essential (primary) hypertension; E11.9 Type 2 diabetes mellitus without complications; F32.9 Major depressive disorder, single episode, unspecified; I48.91 Unspecified atrial fibrillation; E78.5 Hyperlipidemia, unspecified
CPT/HCPCS: 30901 ×2; 93005; 85025; 80048; 36415; 83735; 85610; 80076; 84484; 83880; 70450; 72125; 70486; 76377; 71045; 90471; 90714; 99285; 12011; G0168

== ENCOUNTER 2019-11-26 18:40 | Inpatient (IN) | payer OTHER ==
[2019-11-26] MEDS ORDERED: METOPROLOL TARTRATE 5 MG/5 ML INJ IV ONE (19:33)
[2019-11-26 20:12] LABS: Basophils % 0.6 % (0-1.3); Hematocrit 35.1 % (39.6-49.0); Lymphocytes % 12.6 % (15.3-44.8); MPV 10.9 fL (7.6-11.3); RBC Red Blood Cell Count 3.67 M/uL (4.33-5.43)
--- NOTE | 2019-11-26 20:18 | RAD REPORT ---
EXAM DESCRIPTION: CT - Head Brain Wo Cont - 11/26/2019 8:03 pm CLINICAL HISTORY: Visual disturbance COMPARISON: 2018 TECHNIQUE: Computed axial tomography of the head was obtained. IV contrast was not requested. All CT scans are performed using dose optimization technique as appropriate and may include automated exposure control or mA/KV adjustment according to patient size. FINDINGS: An intracranial bleed is not seen . The ventricles are normal in caliber. No extra-axial fluid collection is noted. 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 Mild to moderate low-density areas within periventricular, deep and subcortical white matter likely r epresent ischemic changes secondary to small vessel disease. Fluid within the sinuses/ mastoids is not seen. IMPRESSION: No acute intracranial abnormality is seen. If patient's symptoms persist MRI of the bra in would be recommended.
[2019-11-26 20:22] LABS: Protime INR 1.27
[2019-11-26] MEDS ORDERED: DIGOXIN 0.25 MG/ML AMP ONE (20:28)
[2019-11-26 20:33] LABS: Albumin 3.2 g/dL (3.4-5.0); Bilirubin Direct 0.2 mg/dL (0-0.2); Bilirubin Total 0.7 mg/dL (0.2-1.0); CKMB Creatine Kinase MB 1.6 ng/mL (0.3-3.6); Potassium 4.4 mmol/L (3.5-5.1); Protein, Total 7.9 g/dL (6.4-8.2); Troponin I 0.02 ng/mL (0.0-0.045)
--- NOTE | 2019-11-26 20:41 | RAD REPORT ---
EXAM DESCRIPTION: Kal Single View11/26/2019 7:22 pm CLINICAL HISTORY: Sepsis COMPARISON: None FINDINGS: The lungs appear clear of acute infiltrate. The heart is mildly to moderately enlarged. Postsurgical changes involve the chest. IMPRESSION: No acute abnormalities displayed
[2019-11-26] MEDS ORDERED: NA CHLORIDE 0.9% 500 ML ONE (20:46)
[2019-11-26] MEDS ORDERED: METOPROLOL TAR 25 MG TAB ONE (22:18)
--- NOTE | 2019-11-27 00:27 | P.HP ---
Certification for Inpatient Patient admitted to: Inpatient With expected LOS: >2 Midnights Practitioner: I am a practitioner with admitting privileges, knowledge of patient current condition, hospital course, and medical plan of care. Services: Services provided to patient in accordance with Admission requirements found in Title 42 Section 412.3 of the Code of Federal Regulations Patient History Date of Service: 11/27/19 Reason for admission: Atrial flutter History of Present Illness: 74-year-old gentleman with a history of coronary artery disease status post CABG , history of atrial fibrillation status post cardioversion 2 years ago, on Eliquis anticoagulation presented to the ED due to a complaint transient memory loss and confusion. He also reports seing flashes of light. He denied any palpitation or chest pain or shortness of breath. The patient was noted to be in atrial flutter in the ED. Initial troponin is negative. Chest x-ray demonstrated small bilateral pleural effusion. CTA thorax was negative for pulmonary embolism. Head CT negative for acute disease. His heart rate did not respond to IV digoxin and IV metoprolol given in the ED. Patient states that he stopped taking amiodarone 2 years ago when he was told it could be responsible for his diagnosis of COPD. Dr. Moise was informed who recommended admission to the hospitalist service for him to consult and evaluate for cardioversion in the morning. Allergies No Known Allergies Allergy (Verified 11/27/19 03:06) Home Medications: Trazodone HCl [Desyrel] 200 mg PO BEDTIME 03/21/16 Venlafaxine HCl [Venlafaxine HCl ER] 150 mg PO BID 03/21/16 Apixaban [Eliquis] 5 mg PO DAILY 04/15/19 Hydrocodone 7.5/APAP 325 [Orient 7.5/325 mg*] 1 tab PO BID PRN 04/15/19 Atorvastatin Calcium [Lipitor*] 1 tab PO DAILY 11/27/19 Metoprolol Tartrate [Lopressor*] 50 mg PO DAILY 11/27/19 Omeprazole [Prilosec] 20 mg PO DAILY 11/27/19 - Past Medical/Surgical History Diabetic: Yes -: RI -: bells palsy -: NIDDM -: HTN -: depression -: anxiety -: neuropathy -: dislocation l shoulder -: fracture r collar bone -: bilateral knee replacement -: l ankle surgery -: l wrist surgery -: tonsillectomy -: r hand carpal tunnel surgery -: double bypass - Family History Mother -: Diabetes Brother -: Heart disease, Diabetes Sister -: Heart disease, Diabetes Father History Unknown: Yes - Social History Smoking Status: Never smoker Alcohol use: No CD- Drugs: No Caffeine use: Yes Review of Systems Other: Except as documented, other systems reviewed and negative. Physical Examination - Physical Exam General: Alert, In no apparent distress, Oriented x3, Obese HEENT: Atraumatic, Normocephalic, PERRLA, Mucous membr. moist/pink, Sclerae nonicteric Neck: Supple, JVD not distended, No Thyromegaly Respiratory: Clear to auscultation bilaterally, Normal air movement Cardiovascular: No edema, Normal pulses, Other (Rapid heart rate), Irregular heart rate/rhythm Capillary refill: <2 Seconds Gastrointestinal: Normal bowel sounds, Soft and benign, Non-distended, No tenderness Musculoskeletal: No swelling, No erythema Integumentary: No rashes Neurological: Normal speech, Normal strength at 5/5 x4 extr, Other (Right facial droop from previous Martinez's palsy.) - Studies Laboratory Data (last 24 hrs) 11/26/19 19:35: PT 14.9 H, INR 1.27, APTT 35.8 11/26/19 19:35: WBC 7.6, Hgb 11.4 L, Hct 35.1 L, Plt Count 189 11/26/19 19:35: Sodium 139, Potassium 4.4, BUN 21 H, Creatinine 0.92, Glucose 88 , Total Bilirubin 0.7, AST 26, ALT 23, Alkaline Phosphatase 78, Troponin I 0.02 , Amylase 62, Lipase 139 Assessment and Plan - Problems (Diagnosis) (1) Atrial flutter Current Visit: Yes Status: Acute (2) Atrial fibrillation with rapid ventricular response Onset Date: 03/23/16 Current Visit: No Status: Acute (3) CAD (coronary artery disease) Current Visit: No Status: Chronic Qualifiers: Coronary Disease-Associated Artery/Lesion type: bypass graft Kaw vs. transplanted heart: [place] heart Associated angina: without angina Qualified Code(s): I25.810 - Atherosclerosis of coronary artery bypass graft(s) without angina pectoris (4) Diabetes Current Visit: No Status: Chronic Qualifiers: Diabetes mellitus type: type 2 (5) Transient memory loss Current Visit: Yes Status: Acute - Plan Admit to the ICU Oral metoprolol b.i.d. Obtain echocardiogram Trend troponin Cardiology consult. Continue Eliquis. Obtain MRI of the brain to rule out stroke. - Advance Directives Does patient have a Living Will: Yes Does patient have a Durable POA for Healthcare: No
--- NOTE | 2019-11-27 01:28 | ER ---
Nurse's Notes [facility] Name: Joshua Juarez Age: 74 yrs Sex: Male : 1945 Arrival Date: 11/26/2019 Time: 18:41 Bed 7 Private MD: Diagnosis: Atrial fibrillation and flutter Presentation: 11/26 18:50 Presenting complaint: Patient states: AN hour of memory loss. I called him at 1745, he ca1 sounded very confused. My sister said, He called her, and she said he sounded strange to him too. By the time I got home. He was so much better, no signs of a stroke. But he c/o of headache, neck pain and lightning bolts across his vision which he has had before. Reports of Urinary urgency and foul smelling urine for the past few days Child states: AN hour of memory loss. I called him at 1745, he sounded very confused. My sister said, He called her, and she said he sounded strange to him too. By the time I got home. He was so much better, no signs of a stroke. But he c/o of headache, neck pain and lightning bolts across his vision which he has had before. Reports of Urinary urgency and foul smelling urine for the past few days. Transition of care: patient was not received from another setting of care. Onset of symptoms was November 26, 2019. Risk Assessment: Do you want to hurt yourself or someone else? Patient reports no desire to harm self or others. Initial Sepsis Screen: Does the patient meet any 2 criteria? Altered Mental Status. HR > 90 bpm. Yes Does the patient have a suspected source of infection? Yes: Dysuria/Frequency/Urgency/UTI. Care prior to arrival: None. 18:50 Method Of Arrival: Ambulatory ca1 18:50 Acuity: MARISELA 2 ca1 19:35 Presenting complaint:. ca1 Historical: - Allergies: 19:06 No Known Allergies; ca1 - Home Meds: 20:04 atorvastatin 20 mg oral tab 1 tab once daily [Active]; omeprazole 20 mg Oral cpDR 1 cap lp1 once daily [Active]; venlafaxine 150 mg oral cp24 1 cap twice a day [Active]; Eliquis 5 mg oral tab 1 tab daily [Active]; metoprolol tartrate 50 mg Oral tab 1 tab once daily [Active]; trazodone 200 mg Oral tab daily [Active]; - PMHx: 19:06 Atrial Fib; Leaky Valve; Diabetes - NIDDM; Hypertension; CAD; ca1 - PSHx: 19:06 CABG; prostate sx; knee replacement; ca1 - Immunization history:: Adult Immunizations up to date, Pneumococcal vaccine is not up to date, Flu vaccine is not up to date. - Coronavirus screen:: The patient has NOT traveled to [place] in the past 14 days. The patient has NOT had contact with known/suspected case of Coronavirus?. - Social history:: Smoking status: Patient denies any tobacco usage or history of. - Ebola Screening: : Patient negative for fever greater than or equal to 101.5 degrees Fahrenheit, and additional compatible Ebola Virus Disease symptoms Patient denies exposure to infectious person Patient denies travel to an Ebola-affected area in the 21 days before illness onset No symptoms or risks identified at this time. Screenin:05 Abuse screen: Denies threats or abuse. Denies injuries from another. Nutritional lp1 screening: No deficits noted. Tuberculosis screening: No symptoms or risk factors identified. Fall Risk Total Mcneal Fall Scale indicates High Risk Score (45 or more points). Fall prevention measures have been instituted. Side Rails Up X 2 As available patient and family educated on Fall Prevention Program and Strategies. Assessment: 18:58 Reassessment: CODE SEPSIS. bp 19:20 General: Appears in no apparent distress. comfortable, Behavior is calm, cooperative, lp1 appropriate for age. Pain: Denies pain. Neuro: Level of Consciousness is awake, alert, obeys commands, Oriented to person, place, time, situation. Cardiovascular: Patient's skin is warm and dry. Respiratory: Respiratory effort is even, unlabored, Breath sounds are clear bilaterally. GI: Abdomen is non-distended. : Parent/caregiver report the patient having Foul urine, urinary frequency x 1 month. EENT: No signs and/or symptoms were reported regarding the EENT system. Derm: Skin is pink, warm \T\ dry. Musculoskeletal: No deficits noted. 20:08 Reassessment: Patient appears in no apparent distress at this time. Patient is alert, lp1 oriented x 3, equal unlabored respirations, skin warm/dry/pink. Patient returned from CT at this time Patient denies pain at this time. 21:00 Reassessment: Patient appears in no apparent distress at this time. Patient is alert, lp1 oriented x 3, equal unlabored respirations, skin warm/dry/pink. Patient denies pain at this time. 22:00 Reassessment: Patient appears in no apparent distress at this time. Patient and/or lp1 family updated on plan of care and expected duration. Pain level reassessed. Patient is alert, oriented x 3, equal unlabored respirations, skin warm/dry/pink. Patient and family aware of pending admission Patient denies pain at this time. 23:00 Reassessment: Patient appears in no apparent distress at this time. No changes from lp1 previously documented assessment. Waiting for room assignment. 23:47 Reassessment: Hospitalist at bedside. lp1 11/27 00:44 Reassessment: Patient appears in no apparent distress at this time. Patient and/or lp1 family updated on plan of care and expected duration. Pain level reassessed. Patient is alert, oriented x 3, equal unlabored respirations, skin warm/dry/pink. Patient's daughter at bedside; aware of admission, pending orders to floor. Vital Signs: 11/26 19:06 BP 156 / 93; Pulse 142; Resp 28 S; Temp 97.4(TE); Pulse Ox 95% on R/A; Weight 79.38 kg ca1 (R); Height 5 ft. 3 in. (160.02 cm) (R); 19:20 BP 117 / 90; Pulse 125; Resp 22; Pulse Ox 99% on R/A; lp1 19:35 BP 136 / 99; Pulse 143; Resp 22; Pulse Ox 96% on 2 lpm NC; lp1 19:45 BP 108 / 90; Pulse 142; Resp 20; Pulse Ox 97% on 2 lpm NC; lp1 19:50 BP 107 / 93; Pulse 141; Resp 24; Pulse Ox 95% on 2 lpm NC; lp1 19:55 BP 103 / 88; Pulse 141; Resp 20; Pulse Ox 94% on 2 lpm NC; lp1 20:09 BP 114 / 87; Pulse 140; Resp 15; Pulse Ox 95% on 2 lpm NC; lp1 21:00 BP 121 / 87; Pulse 140; Resp 20; Pulse Ox 93% on 2 lpm NC; lp1 22:00 BP 105 / 91; Pulse 139; Resp 22; Pulse Ox 94% on 2 lpm NC; lp1 23:00 BP 111 / 94; Pulse 132; Resp 21; Pulse Ox 94% on R/A; lp1 11/27 00:00 BP 100 / 73; Pulse 135; Resp 24; Pulse Ox 95% on R/A; lp1 00:45 BP 113 / 93; Pulse 130; Resp 20; Pulse Ox 93% on R/A; lp1 01:30 BP 110 / 88; Pulse 128; Resp 21; Pulse Ox 93% on R/A; lp1 11/26 19:06 Body Mass Index 31.00 (79.38 kg, 160.02 cm) ca1 NIH Stroke Scale Scores: 11/26 19:23 NIHSS Score: 0 snw ED Course: 18:41 Patient arrived in ED. as 18:54 Triage completed. ca1 18:58 Rojas Hansen, GRAY is Primary Nurse. bp 19:05 Luana Saab FNP-C is PHCP. snw 19:05 Melcohr Art MD is Attending Physician. snw 19:06 Arm band placed on right wrist. ca1 19:15 Patient has correct armband on for positive identification. Placed in gown. Bed in low lp1 position. Call light in reach. Side rails up X2. hall monitor on. Pulse ox on. NIBP on. 19:27 Chest Single View In Process Unspecified. EDMS 19:40 Inserted saline lock: 20 gauge in right forearm, using aseptic technique. Blood oe collected. 20:17 CT completed. Patient tolerated procedure well. Patient moved back from CT. bq 21:00 CT completed. Patient tolerated procedure well. Patient moved back from CT. mw3 21:45 Straight cath inserted, using sterile technique, 16 Fr. Specimen obtained. lp1 22:14 Brett Abbott is Hospitalizing Provider. snw 23:40 No provider procedures requiring assistance completed. Patient admitted, IV remains in lp1 place. 11/27 00:19 [facility] she said they are only taking psych patients at this time. mw2 00:31 Head Brain Wo Cont In Process Unspecified. EDMS 00:45 Chest For Pe Angio In Process Unspecified. EDMS Administered Medications: 11/26 19:35 Drug: Metoprolol 5 mg Route: IVP; Site: right antecubital; lp1 19:40 Drug: Metoprolol 5 mg Route: IVP; Site: right antecubital; lp1 19:50 Drug: Metoprolol 5 mg Route: IVP; Site: right antecubital; lp1 20:24 Follow up: Response: No change in condition lp1 20:30 Drug: Digoxin 0.125 mg Route: IVP; Site: right antecubital; aa1 21:30 Follow up: Response: No change in condition lp1 20:44 Drug: NS 0.9% 500 ml Route: IV; Rate: bolus; Site: right forearm; lp1 21:15 Follow up: IV Status: Completed infusion; IV Intake: 500ml lp1 22:20 Drug: Metoprolol 25 mg Route: PO; lp1 23:30 Follow up: Response: No adverse reaction lp1 Intake: 21:15 IV: 500ml; Total: 500ml. lp1 Outcome: 22:14 Decision to Hospitalize by Provider. snw 23:40 Condition: stable lp1 23:40 Instructed on the need for admit. 11/27 01:53 Admitted to [facility] via wheelchair, room 422, with chart, Report called to GRAY Marques lp1 02:13 Patient left the ED. lp1 NIH Stroke Scale - NIH Stroke Score Date: 11/26/2019 Time: : Total Score = 0 1a. Level of Consciousness (LOC) - 0(Alert) 1b. Level of Consciousness (LOC) (Year \T\ Age) - 0(Both) 1c. LOC Commands (Open \T\ Closes Eyes/Expanded Duty Dental Assistant) - 0(Both) 2. Best Gaze (Lateral Gaze Paresis) - 0(Normal) 3. Visual Field Loss - 0(No visual loss) 4. Facial Palsy - 0(Normal) 5a. Left Arm: Motor (10-second hold) - 0(No drift) 5b. Right Arm: Motor (10-second hold) - 0(No drift) 6a. Left Leg: Motor (5-second hold - always test supine) - 0(No drift) 6b. Right Leg: Motor (5-second hold - always test supine) - 0(No drift) 7. Limb Ataxia (finger/nose \T\ heel/schwartz - test with eyes open) - 0(Absent) 8. Sensory Loss (pinprick arms/legs/face) - 0(Normal) 9. Best Language: Aphasia (description/naming/reading) - 0(No aphasia) 10. Dysarthria (speech clarity - read or repeat words) - 0(Normal) 11. Extinction and Inattention (visual/tactile/auditory/spatial/personal) - 0(No abnormality) Initials: snw Signatures: Dispatcher [employer] EDMS Chela Jackson RN RN aa1 Luana Saab, ASIC ENGINEER-C ASIC ENGINEER-Csnw Radha Phan Amelia as Pena, Laura, RN RN lp1 Bruce Mendes Brian RN RN bp Renaldo Lowery mw2 Uzma Worley mw3 Elli Washburn RN RN ca1 Corrections: (The following items were deleted from the chart) 11/26 19:04 18:50 Presenting complaint: Patient states: AN hour of memory loss. I called ca1 him at 1745, he sounded very confused. My sister said, He called her, and she said he sounded strange to him too. By the time I got home. He was so much better, no signs of a stroke. But he c/o of headache, neck pain and lightning bolts across his vision. ca1 19:04 18:50 Initial Sepsis Screen: Does the patient meet any 2 criteria? No. ca1 Patient's initial sepsis screen is negative. Does the patient have a suspected source of infection? ca1 19:34 18:50 Presenting complaint: Patient states: AN hour of memory loss. I called ca1 him at 1745, he sounded very confused. My sister said, He called her, and she said he sounded strange to him too. By the time I got home. He was so much better, no signs of a stroke. But he c/o of headache, neck pain and lightning bolts across his vision which he has had before. Reports of Urinary urgency and foul smelling urine for the past few days ca1 20:24 20:08 Reassessment: Patient appears in no apparent distress at this time. lp1 Patient is alert, oriented x 3, equal unlabored respirations, skin warm/dry/pink. Patient returned from CT at this time lp1
--- NOTE | 2019-11-27 01:29 | EDPHYS ---
Physician Documentation [facility] Name: Joshua Juarez Age: 74 yrs Sex: Male : 1945 Arrival Date: 11/26/2019 Time: 18:41 Bed 7 Private MD: ED Physician Melchor Art HPI: 11/26 20:00 This 74 yrs old Male presents to ER via Ambulatory with complaints of Memory snw Loss. 20:00 The patient's problem is reported as memory loss, "lightening bolts" to eyes. Onset: snw The symptoms/episode began/occurred suddenly, and improved. Duration: This was a single incident. 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 Associated signs and symptoms: The patient has no apparent associated signs or symptoms. Severity of symptoms: At their worst the symptoms were moderate severe in the emergency department the symptoms have resolved. Patient's baseline: Neuro: alert and fully oriented, Motor: no deficits, Ambulation: walks without assistance. The patient has experienced a previous episode. It is unknown whether or not the patient has recently seen a physician. 20:02 It was not known that pt had tachycardia until arrival to ED. snw Historical: - Allergies: 19:06 No Known Allergies; ca1 - Home Meds: 20:04 atorvastatin 20 mg oral tab 1 tab once daily [Active]; omeprazole 20 mg Oral cpDR 1 cap lp1 once daily [Active]; venlafaxine 150 mg oral cp24 1 cap twice a day [Active]; Eliquis 5 mg oral tab 1 tab daily [Active]; metoprolol tartrate 50 mg Oral tab 1 tab once daily [Active]; trazodone 200 mg Oral tab daily [Active]; - PMHx: 19:06 Atrial Fib; Leaky Valve; Diabetes - NIDDM; Hypertension; CAD; ca1 - PSHx: 19:06 CABG; prostate sx; knee replacement; ca1 - Immunization history:: Adult Immunizations up to date, Pneumococcal vaccine is not up to date, Flu vaccine is not up to date. - Coronavirus screen:: The patient has NOT traveled to [place] in the past 14 days. The patient has NOT had contact with known/suspected case of Coronavirus?. - Social history:: Smoking status: Patient denies any tobacco usage or history of. - Ebola Screening: : Patient negative for fever greater than or equal to 101.5 degrees Fahrenheit, and additional compatible Ebola Virus Disease symptoms Patient denies exposure to infectious person Patient denies travel to an Ebola-affected area in the 21 days before illness onset No symptoms or risks identified at this time. ROS: 19:28 Constitutional: Negative for fever, chills, and weight loss, Eyes: Negative for injury, snw pain, redness, and discharge, ENT: Negative for injury, pain, and discharge, Neck: Negative for injury, pain, and swelling, Cardiovascular: Negative for chest pain, palpitations, and edema, Respiratory: Negative for shortness of breath, cough, wheezing, and pleuritic chest pain, Abdomen/GI: Negative for abdominal pain, nausea, vomiting, diarrhea, and constipation, Back: Negative for injury and pain, : Negative for injury, bleeding, discharge, and swelling, foul odor to urine, urgency MS/Extremity: Negative for injury and deformity, Skin: Negative for injury, rash, and discoloration, Neuro: Negative for headache, weakness, numbness, tingling, and seizure, Pt had lapse in memory, called his Daughter post having "lightening strikes" in eyes, Sight back to normal but pt does not recall calling his Daughter Psych: Negative for depression, anxiety, suicide ideation, homicidal ideation, and hallucinations. Exam: 19:23 Constitutional: This is a well developed, well nourished patient who is awake, alert, snw and in no acute distress. Head/Face: Normocephalic, atraumatic. Eyes: Pupils equal round and reactive to light, extra-ocular motions intact. Lids and lashes normal. Conjunctiva and sclera are non-icteric and not injected. Cornea within normal limits. Periorbital areas with no swelling, redness, or edema. ENT: Nares patent. No nasal discharge, no septal abnormalities noted. Tympanic membranes are normal and external auditory canals are clear. Oropharynx with no redness, swelling, or masses, exudates, or evidence of obstruction, uvula midline. Mucous membranes moist. Neck: Trachea midline, no thyromegaly or masses palpated, and no cervical lymphadenopathy. Supple, full range of motion without nuchal rigidity, or vertebral point tenderness. No Meningismus. Chest/axilla: Normal chest wall appearance and motion. Nontender with no deformity. No lesions are appreciated. 19:23 Respiratory: Lungs have equal breath sounds bilaterally, clear to auscultation and percussion. No rales, rhonchi or wheezes noted. No increased work of breathing, no retractions or nasal flaring. Abdomen/GI: Soft, non-tender, with normal bowel sounds. No distension or tympany. No guarding or rebound. No evidence of tenderness throughout. 19:23 Back: No spinal tenderness. No costovertebral tenderness. Full range of motion. Skin: Warm, dry with normal turgor. Normal color with no rashes, no lesions, and no evidence of cellulitis. MS/ Extremity: Pulses equal, no cyanosis. Neurovascular intact. Full, normal range of motion. Psych: Awake, alert, with orientation to person, place and time. Behavior, mood, and affect are within normal limits. 19:23 Cardiovascular: Rate: tachycardic, Rhythm: regular, Pulses: no pulse deficits are appreciated, Heart sounds: murmur, crescendo, Edema: is not appreciated. 19:23 ECG was reviewed by the Attending Physician. 19:23 Neuro: Orientation: is normal, Mentation: appropriate for stated age, able to follow commands, Memory: is normal, pt returned to baseline, had short interval of confusion/memory loss prior to arrival, Cranial nerves: grossly normal, Cerebellar function: is grossly normal, Motor: is normal, Babinski testing is normal, seizure activity, is not displayed by the patient. 19:23 Special observations: no evidence of discomfort, the patient smiles. 22:15 Radiologist reports: CT head negative for acute problem. Pt is back to norm. On Eliquis snw Vital Signs: 19:06 BP 156 / 93; Pulse 142; Resp 28 S; Temp 97.4(TE); Pulse Ox 95% on R/A; Weight 79.38 kg ca1 (R); Height 5 ft. 3 in. (160.02 cm) (R); 19:20 BP 117 / 90; Pulse 125; Resp 22; Pulse Ox 99% on R/A; lp1 19:35 BP 136 / 99; Pulse 143; Resp 22; Pulse Ox 96% on 2 lpm NC; lp1 19:45 BP 108 / 90; Pulse 142; Resp 20; Pulse Ox 97% on 2 lpm NC; lp1 19:50 BP 107 / 93; Pulse 141; Resp 24; Pulse Ox 95% on 2 lpm NC; lp1 19:55 BP 103 / 88; Pulse 141; Resp 20; Pulse Ox 94% on 2 lpm NC; lp1 20:09 BP 114 / 87; Pulse 140; Resp 15; Pulse Ox 95% on 2 lpm NC; lp1 21:00 BP 121 / 87; Pulse 140; Resp 20; Pulse Ox 93% on 2 lpm NC; lp1 22:00 BP 105 / 91; Pulse 139; Resp 22; Pulse Ox 94% on 2 lpm NC; lp1 23:00 BP 111 / 94; Pulse 132; Resp 21; Pulse Ox 94% on R/A; lp1 11/27 00:00 BP 100 / 73; Pulse 135; Resp 24; Pulse Ox 95% on R/A; lp1 00:45 BP 113 / 93; Pulse 130; Resp 20; Pulse Ox 93% on R/A; lp1 01:30 BP 110 / 88; Pulse 128; Resp 21; Pulse Ox 93% on R/A; lp1 11/26 19:06 Body Mass Index 31.00 (79.38 kg, 160.02 cm) ca1 NIH Stroke Scale Scores: 11/26 19: NIHSS Score: 0 snw MDM: 19:08 Patient medically screened. snw 22:12 Data reviewed: vital signs, nurses notes. Counseling: I had a detailed discussion with snw the patient and/or guardian regarding: the historical points, exam findings, and any diagnostic results supporting the discharge/admit diagnosis, the presence of at least one elevated blood pressure reading (>120/80) during this emergency department visit, lab results, radiology results, the need for further work-up and treatment in the hospital. Physician consultation: Denys Moise MD was called at 22:12, was contacted at 22:12, regarding consult, patient's condition, and will see patient in inpatient room, tomorrow, Wants more Metoprolol given and will eval in am. Physician consultation: Brett Abbott was called at 22:13, regarding admission, to the telemetry unit. Awaiting: CT scan results. 11/27 00:25 ED course: [facility] [address] [facility] contacted for transfer - at capacity except for psych at this snw time. Pt will be admitted here.. 11/26 19:07 Order name: T\\T\\S snw 11/26 19:07 Order name: Urine Culture snw 11/26 19:07 Order name: Amylase, Serum snw 11/26 19:07 Order name: Basic Metabolic Panel w 11/26 19:07 Order name: Blood Culture Adult (2) [facility] 11/26 19:07 Order name: CBC with Diff snw 11/26 19:07 Order name: Ckmb w 11/26 19:07 Order name: CPK w 11/26 19:07 Order name: Lactate w 11/26 19:07 Order name: LFT's [facility] 11/26 19:07 Order name: Lipase [facility] 11/26 19:07 Order name: Procalcitonin [facility] 11/26 19:07 Order name: Protime (+inr) [facility] 11/26 19:07 Order name: Ptt, Activated w 11/26 19:07 Order name: Troponin (emerg Dept Use Only) [facility] 11/26 19:07 Order name: Urine Microscopic Only [facility] 11/26 22:18 Order name: Urine Dipstick--Ancillary (enter results) [facility] 11/27 00:16 Order name: Glucose, Ancillary Testing; Complete Time: 00:22 EDMS 11/27 00:23 Order name: CBC with Automated Diff EDMS 11/27 00:24 Order name: Protime (+INR) EDMS 11/27 00:24 Order name: PTT, Activated Partial Thromb EDMS 11/27 00:24 Order name: Lactate EDMS 11/27 00:24 Order name: Basic Metabolic Panel EDMS 11/27 00:24 Order name: Liver (Hepatic) Function EDMS 11/27 00:24 Order name: Creatine Phosphokinase EDMS 11/27 00:24 Order name: CKMB Creatine Kinase MB EDMS 11/27 00:24 Order name: Troponin I EDMS 11/27 00:24 Order name: Amylase Level EDMS 11/27 00:24 Order name: Lipase EDMS 11/27 00:25 Order name: Procalcitonin EDMS 11/26 19:07 Order name: CT Head Brain wo Cont snw 11/26 19:07 Order name: CT Chest For PE Angio snw 11/26 19:07 Order name: Cath; Complete Time: 21:54 snw 11/26 19:07 Order name: Chest Single View XRAY snw 11/26 19:07 Order name: Accucheck; Complete Time: 20:02 snw 11/26 19:07 Order name: Cardiac monitoring; Complete Time: 19:14 snw 11/26 19:07 Order name: EKG - Nurse/Tech; Complete Time: 19:13 snw 11/26 19:07 Order name: IV Saline Lock - Large Bore; Complete Time: 20:02 snw 11/26 19:07 Order name: Labs collected and sent; Complete Time: 20:02 snw 11/26 19:07 Order name: O2 Per Protocol; Complete Time: 19:21 snw 11/26 19:07 Order name: O2 Sat Monitoring; Complete Time: 19:21 snw 11/26 19:07 Order name: Urine Dipstick-Ancillary (obtain specimen); Complete Time: 21:54 snw 11/26 19:17 Order name: Oxygen: 2L N/C; Complete Time: 20:01 snw 11/26 19:27 Order name: Chest Single View; Complete Time: 00:36 EDMS 11/26 19:27 Order name: Chest For Pe Angio EDMS 11/26 19:27 Order name: Head Brain Wo Cont; Complete Time: 00:36 EDMS 11/27 00:25 Order name: Type and Screen EDMS 11/27 00:33 Order name: Blood Culture EDMS 11/27 00:34 Order name: Blood Culture EDMS 11/27 00:54 Order name: Urine Culture EDMS EC/23 19:23 Rate is 142 beats/min. Rhythm is regular. AR interval is shortened. QRS interval is snw normal. QT interval is normal. Clinical impression: Atrial Flutter. Administered Medications: 19:35 Drug: Metoprolol 5 mg Route: IVP; Site: right antecubital; lp1 19:40 Drug: Metoprolol 5 mg Route: IVP; Site: right antecubital; lp1 19:50 Drug: Metoprolol 5 mg Route: IVP; Site: right antecubital; lp1 20:24 Follow up: Response: No change in condition lp1 20:30 Drug: Digoxin 0.125 mg Route: IVP; Site: right antecubital; aa1 21:30 Follow up: Response: No change in condition lp1 20:44 Drug: NS 0.9% 500 ml Route: IV; Rate: bolus; Site: right forearm; lp1 21:15 Follow up: IV Status: Completed infusion; IV Intake: 500ml lp1 22:20 Drug: Metoprolol 25 mg Route: PO; lp1 23:30 Follow up: Response: No adverse reaction lp1 Disposition: 11/27 04:03 Co-signature as Attending Physician, Melchor Art MD. pkl Disposition: 11/26/19 22:14 Hospitalization ordered by Brett Abbott for Inpatient Admission. Preliminary diagnosis is Atrial fibrillation and flutter. - Bed requested for Telemetry/MedSurg (Inpatient). - Status is Inpatient Admission. lp1 - Condition is Stable. - Problem is an acute exacerbation. - Symptoms are unchanged. NIH Stroke Scale - NIH Stroke Score Date: 11/26/2019 Time: 19: Total Score = 0 1a. Level of Consciousness (LOC) - 0(Alert) 1b. Level of Consciousness (LOC) (Year \\T\\ Age) - 0(Both) 1c. LOC Commands (Open \\T\\ Closes Eyes/Fuel Attendant) - 0(Both) 2. Best Gaze (Lateral Gaze Paresis) - 0(Normal) 3. Visual Field Loss - 0(No visual loss) 4. Facial Palsy - 0(Normal) 5a. Left Arm: Motor (10-second hold) - 0(No drift) 5b. Right Arm: Motor (10-second hold) - 0(No drift) 6a. Left Leg: Motor (5-second hold - always test supine) - 0(No drift) 6b. Right Leg: Motor (5-second hold - always test supine) - 0(No drift) 7. Limb Ataxia (finger/nose \\T\\ heel/schwartz - test with eyes open) - 0(Absent) 8. Sensory Loss (pinprick arms/legs/face) - 0(Normal) 9. Best Language: Aphasia (description/naming/reading) - 0(No aphasia) 10. Dysarthria (speech clarity - read or repeat words) - 0(Normal) 11. Extinction and Inattention (visual/tactile/auditory/spatial/personal) - 0(No abnormality) Initials: snw Signatures: Dispatcher [employer] EDChela Ramos RN RN aa1 Melchor Art MD MD pkl Luana Saab, STAMPING DIE MAKER BENCH-C STAMPING DIE MAKER BENCH-Csnw Carmen Mckeon RN RN lp1 Amrita Maher, RN RN cg Elli Washburn RN RN ca1 Corrections: (The following items were deleted from the chart) :11/26 22:14 Hospitalization Ordered by Brett Abbott for Inpatient Admission. cg Preliminary diagnosis is Atrial fibrillation and flutter. Bed requested for Telemetry/MedSurg (Inpatient). Status is Inpatient Admission. Condition is Stable. Problem is an acute exacerbation. Symptoms are unchanged. snw 11/27 02:13 01:11/26/2019 22:14 Hospitalization Ordered by Brett Abbott for Inpatient lp1 Admission. Preliminary diagnosis is Atrial fibrillation and flutter. Bed requested for Telemetry/MedSurg (Inpatient). Status is Inpatient Admission. Condition is Stable. Problem is an acute exacerbation. Symptoms are unchanged. cg
[2019-11-27 02:22] VITALS: BMI 29.0
[2019-11-27] MEDS ORDERED: ONDANSETRON 4 MG/2 ML VIAL IV PRN (02:25)
[2019-11-27] MEDS ORDERED: DILTIAZEM INJ 125 MG in NA CHLORIDE 0.9% 100 ML IVPB PRN (02:25)
[2019-11-27] MEDS ORDERED: ALBUTEROL 2.5 MG/3 ML NEB SOL NEB PRN ×2 (02:25→16:00)
[2019-11-27 04:00] LABS: Urine Blood NEGATIVE (NEG); Urine Glucose NEGATIVE (NEG); Urine Protein NEGATIVE (NEG)
[2019-11-27] MEDS: APIXABAN 5 MG TABLET PO SCH ×2 (05:18→20:57)
--- NOTE | 2019-11-27 08:12 | CON ---
Identification: 74-year-old man. Reason For Hospital Admission: Transient memory loss. Reason For Cardiology Consult: Atrial flutter. History Of Present Illness: Mr. Juarez has had intermittent atrial fibrillation and atrial flutter since he underwent open heart surgery. He had bypass surgery in 2016. I believe, he also had prost hetic aortic valve placed at the same time. The patient's admission EKG shows atrial flutter with va riable AV block, very low voltage. Outpatient Medications: Trazodone, venlafaxine, apixaban, hydrocodone, omeprazole, atorvastatin, and metoprolol. Allergies: HE HAS NO ALLERGIES. Social History: He uses no tobacco or alcohol. Physical Examination: Vital Signs: 5 feet 7 inches, 185 pounds. General: Alert, oriented, pleasant, not in distress. Lungs: Clear. Heart: Irregularly irregular. There is a systolic murmur consistent with aortic valve disease. He does have aortic sclerosis without any stenosis. Extremities: No edema. Impression: The patient has recurrent atrial fibrillation. He is protected from a stroke, but I thi nk we could switch him from Lopressor to Betapace. Now, he has been off amiodarone for 7 or 8 months and perhaps keep him in sinus rhythm. If not, he is completely asymptomatic while he is in atrial flutter, so we could pursue a program of rate control and anticoag ulation. CRISTINE/ORACIO Voice ID: [id number] Report ID: [id number]
[2019-11-27] MEDS: ASPIRIN 81 MG CHEWABLE TABLET PO SCH (08:44)
--- NOTE | 2019-11-27 08:53 | EKG ---
Test Date: 2019-11-26 Test Time: 21:49:08 Director Of Strategy & Mobile: WHIT MEASUREMENT RESULTS: Intervals: Rate: 140 OR: QRSD: 96 QT: 326 QTc: 497 [place]: P: OR: QRS: 11 T: -30 INTERPRETIVE STATEMENTS: Atrial flutter with 2:1 AV conduction Low voltage QRS Cannot rule out Inferior infarct, age undetermined Abnormal ECG Compared to ECG 11/26/2019 19:10:02 Myocardial infarct finding now present ST (T wave) deviation no longer present Electronically Signed On 11-27-19 08:52:31 KITCHEN STEWARDESS by Enmanuel Pollard
--- NOTE | 2019-11-27 08:54 | EKG ---
Test Date: 2019-11-26 Test Time: 19:10:02 Computer Tech: OPAL MEASUREMENT RESULTS: Intervals: Rate: 142 [place]: QRSD: 86 QT: 292 QTc: 449 [place]: P: [place]: QRS: 10 T: 29 INTERPRETIVE STATEMENTS: Atrial flutter with 2:1 AV conduction Low voltage QRS Nonspecific ST abnormality Abnormal ECG Compared to ECG 07/15/2019 19:16:54 ST (T wave) deviation now present Sinus rhythm no longer present Electronically Signed On 11-27-19 08:53:03 ENERGY AUDIT ADVISOR by Enmanuel Pollard
[2019-11-27] MEDS ORDERED: METOPROLOL TAR 50 MG TAB PO SCH (09:00)
[2019-11-27] MEDS ORDERED: HYDROCODONE/APAP 7.5/325 MG TAB PO PRN (09:05)
[2019-11-27] MEDS: VENLAFAXINE HCL XR 75 MG CAP PO SCH ×2 (09:30→20:56)
[2019-11-27] MEDS: PANTOPRAZOLE 40MG TABLET PO SCH (09:31)
[2019-11-27] MEDS ORDERED: LORAZEPAM 0.5 MG TABLET PO ONE (10:25)
--- NOTE | 2019-11-27 10:42 | RAD REPORT ---
EXAM DESCRIPTION: MRI - Brain Wo Cont - 11/27/2019 10:26 am CLINICAL HISTORY: Transient memory loss, rule out CVA Headache, drowsiness, CVA symptomology. COMPARISON: Head Brain Wo Cont dated 11/26/2019; Facial Bones W/ Mpr dated 07/15/2019; Head Brain Wo Cont dated 04/21/2019 TECHNIQUE: Multi-sequence, multiplanar MR imaging of the brain was performed without contrast. FINDINGS: No intracranial hemorrhage, hydrocephalus or extra-axial fluid collections.Moderate perive ntricular and deep white matter chronic microvascular ischemic changes are evident. No edema or shift of midline structures. No findings to suspect brain mass. DWI is negative for acute CVA. Midline structures are normally formed. Mastoid air cells and paranasal sinuses are clear. IMPRESSION: Negative for acute CVA or other acute intracranial abnormality
--- NOTE | 2019-11-27 11:00 | RAD REPORT ---
EXAM DESCRIPTION: CT - Chest For Pe Angio - 11/26/2019 10:11 pm CLINICAL HISTORY: The patient is 74 years old and is Male; tachycardia, confusion TECHNIQUE: Axial computed tomographic angiography images of the chest with intravenous contrast. T his CT exam was performed using one or more of the following dose reduction techniques: automated e xposure control, adjustment of the mA and/or kV according to patient size, and/or use of iterative re construction technique. MIP reconstructed images were created and reviewed. Oblique reformatted images were created and reviewed. DLP: 575 mGy*cm COMPARISON: CT chest without contrast dated 04/21/2019. FINDINGS: PULMONARY ARTERIES: Unremarkable. No pulmonary embolism. AORTA: No acute findings. No thoracic aortic aneurysm. LUNGS: Small opacity in the lingula. Diffuse interlobular septal thickening and scattered groundgl ass opacities. Sparing of the medial aspect of the left apical lung zone. PLEURAL SPACE: Bilateral pleural effusions and atelectasis. Scattered small calcified pleural plaq ues. No pneumothorax. HEART: Enlargement of the right atrium with reflux of contrast in the IVC and hepatic veins. Prior median sternotomy and CABG surgery. Advanced global cardiomegaly. Advanced calcificati on of the mitral annulus. No significant pericardial effusion. THYROID: Visualized thyroid is normal. BONES/JOINTS: Diffuse osteopenia and multilevel degenerative changes. Increase thoracic process. No acute fracture. No dislocation. SOFT TISSUES: Unremarkable. LYMPH NODES: Unremarkable. No enlarged lymph nodes. IMPRESSION: 1. No pulmonary embolism. 2. Prior median sternotomy with advanced cardiomegaly and calcification of the mitral annulus as we ll as interstitial edema. 3. Enlargement of the right atrium with reflux of contrast in the IVC and hepatic veins. Findings most suggestive of cardiac dysfunction. 4. Chronic lung changes and bilateral pleural effusions/atelectasis. Lingular atelectasis. 5. Diffuse osteopenia and multilevel degenerative changes Electronically signed by: Randy Dejesus DO 11/26/2019 9:56 PM HOSTEL MANAGER Due to temporary technical issues with the PACS/Fluency reporting system, reports are being signed by the in house radiologist as a courtesy to ensure prompt reporting. The interpreting radiologist is f ully responsible for the content of the report.
[2019-11-27] MEDS ORDERED: GLUCAGON 1 MG/VIAL IM PRN (15:26)
[2019-11-27] MEDS ORDERED: D50W 25 GM/50 ML SYRINGE/VIAL IV PRN (15:26)
[2019-11-27] MEDS: INSULIN -REGULAR HUMAN 50 UNIT/0.5 ML ML SQ SCH ×2 (16:30→20:25)
--- NOTE | 2019-11-27 16:55 | PN ---
Date of Progress Note: 11/27/2019 Subjective: Patient seen and examined. Chart reviewed and case discussed with RN and Dr. Pollard. Patient was started on Betapace today. Patient is also asking for anxiety medication as he is claustrophobic in the MRI machine. Code Status: Full. Medications: List reviewed. Physical Examination: Vital Signs: Temperature 97.7, heart rate 90, blood pressure 109/77, respirations 18, O2 94% on room air. General: Awake, alert, oriented x3. Elderly male, ill-appearing. CV: S2, S2. Irregularly irregular. Peripheral pulses present. Respiratory: Moving air well bilaterally. No wheezing or stridor. Gastrointestinal: Abdomen is soft, nontender, nondistended. Positive bowel sounds. No guarding or rigidity. Extremities: No clubbing, cyanosis, or edema. Neurologic: Cranial nerves 2 through 12 intact grossly. No focal neurological deficit. Strength is symmetric bilateral upper and lower extremities. Patient does have facial asymmetry due to history of Martinez palsy. Laboratory Data: Troponin level 0.02, 0.09, and 0.12. Assessment: 74-year-old male with: 1. Atrial fibrillation with rapid ventricular response. Continue with Eliquis. Patient has been switched to sotalol from metoprolol. Appreciate Dr. Pollard's input. We will need echocardiogram. 2. Troponin elevation likely secondary to atrial flutter, atrial fibrillation , doubt acute coronary syndrome. We will monitor echo and followup. 3. Acute confusion, possible transient ischemic attack. MRI of the brain done today shows no acute signs of cerebrovascular accident or other acute intracranial abnormality. Does show moderate periventricular and deep white matter chronic microvascular ischemic changes. . Cerebrovascular accident is ruled out. Patient had returned to his baseline shortly after arriving to the ER. We will consult Neurology. Patient has been on stroke prophylaxis with anticoagulation. Cont ASA, statin 4. Diabetes mellitus type 2 with hyperglycemia, non-insulin requiring. We will continue with sliding scale insulin. Monitor blood glucose levels. 5. History of Martinez palsy. 6. Coronary artery disease of [place] artery and [place] heart, status post coronary artery bypass graft without angina. Continue home medications as appropriate. 7. Essential hypertension, stable. Continue home medications as appropriate. 8. Depression with anxiety. Patient is on trazodone. 9. Diabetic neuropathy. 10. Osteoarthritis. Plan: Neuro eval. Continue with Betapace likely discharge in the next 24 to 48 hours depending on clinical improvement. /ORACIO Voice ID: [id number] Report ID: [id number]
[2019-11-27] MEDS: SOTALOL HCL 80 MG TAB PO SCH (17:15)
[2019-11-27] MEDS ORDERED: TRAZODONE 50 MG TABLET PO SCH (21:00)
[2019-11-27] MEDS ORDERED: ATORVASTATIN 20 MG TAB PO SCH (21:00)
--- NOTE | 2019-11-27 21:16 | CON ---
Reason For Consultation: Consultation called because of possible stroke or a transient ischemic dominique ck. History Of Present Illness: Mr. Juarez is a 74-year-old right-handed patient who is admi tted with symptoms of TIA. He is 74 years old and has atrial fibrillation and flutter, was at home when his daughter called him earlier, this was around 5:45 yesterday. Patient sounded disoriented, confused. Another child of patient spoke with him and he also sounded disoriented and confused. The patient himself felt he w as not himself. Once they were able to get him perhaps about an hour later his symptoms resolved and he came in to [facility] where he was evaluated for a potential stroke. It should be noted at some point patient had a smell of urine on him for a few days and it was not clear whether he had been taking care of himself. He was screened in the emergency room for infection including urinary tract infection. His white blood cell count was normal at 7.6. His urine screen was negative. His hemoglobin and hematocrit were 11.4 and 35.1, and his chemistries did show a normal creatinine with s lightly elevated BUN of 21 and normal liver function studies. His head CT scan showed no acute ische mao or hemorrhagic change. There was, however, btjo-hy-lfrmrzci small-vessel ischemic disease in the periventricular region. Brain MRI subsequently ruled out the presence of acute stroke and confirmed the presence of moderate periventricular small vessel ischemic disease. Subsequent echocardiogram a ctually was pending. His electrocardiogram did show atrial flutter with 2-1 AV conduction. The francisca ent was taking Eliquis 5 mg twice daily and in the hospital aspirin 81 mg was added to his regimen an d Lipitor 20 mg continued at night along with management of his diabetes mellitus and rate control wi . Past Medical History: As indicated, including thd-ovrkgog-okiklcdxr diabetes mellitus, coronary rose ry disease, hypertension, atrial fibrillation and flutter, reportedly leaky cardiac valve. Past Surgical History: Coronary artery bypass grafting, prostate surgery, knee surgery. Allergies: NO KNOWN DRUG ALLERGIES. Medications: At home, atorvastatin 20 mg at night, omeprazole 20 mg daily, venlafaxine 150 mg twice daily, Eliquis 5 mg daily, metoprolol 50 mg daily, trazodone 200 mg daily. Family History: Not contributory. Review of Systems: As indicated, there was an episode of confusion, otherwise no recent fevers or chills. No myalgias, arthralgias, rash, headache, weight change. No active psychiatric issues, gastrointestinal issues, o r other positives on a 10-point systems review. Physical Examination: Vital Signs: Blood pressure 120/76, pulse ranged from 90 up to 136, temperature 97.8, oxygen saturat ion 94% on room air, respiratory rate 16 to 20, weight 185 pounds, height 5 feet 7 inches. General: Mr. Juarez is sitting on a chair beside his bed. His daughter is in the room. He is in no acute distress. HEENT: He is normocephalic, atraumatic. Sclerae anicteric. Oropharynx is pink and moist. Neck: Supple. Chest: Clear. Heart: Irregularly irregular. Extremities: Showed mild edema in the lower extremities, but no clubbing or cyanosis. Neurologic: He is alert and oriented to situation, place, person, follows all commands appropriately . On cranial nerves; he has no focal deficits on 2 through 12. His motor examination in the upper a nd lower extremities show no deficits in terms of strength. He has symmetric equal 5/5. Sensory exa m is stocking-glove loss to light touch and temperature. Reflexes are depressed at 1+ at the biceps, triceps, patellae, 0 to heels. Coordination intact in the upper and lower extremities. Gait; he valente s good stance, stride, and arm swing. Some mild difficulty with tandem gait. Assessment: Mr. Juarez is a 74-year-old patient with a possible transient ischemic attack, who has history of atrial fibrillation and flutter. He was on Eliquis by himself and now aspirin is added t o his regimen. He does have dyslipidemia and hypertension along with diabetes mellitus and coronary artery disease. Plan: 1.Aspirin and Eliquis and some permissive hypertension during these next few days. 2.He should continue Lipitor 20 mg at night. 3.The patient should hydrate with 6 or 8 glasses of water daily. 4.He should have at least 30 minutes of some auxm-at-lieuqwlx aerobic activity daily. 5.Follow up with Dr. Coats in 1 month after his discharge from the hospital. DENISE/ORACIO Voice ID: [id number] Report ID: [id number]
[2019-11-28 04:26] LABS: Absolute Lymphocytes (CBC) 1.3 K/uL (0.7-4.9); Basophils % 0.6 % (0-1.3); Hematocrit 35.6 % (39.6-49.0); Lymphocytes % 21.7 % (15.3-44.8); MPV 11.1 fL (7.6-11.3); RBC Red Blood Cell Count 3.69 M/uL (4.33-5.43)
[2019-11-28 04:52] LABS: Albumin 2.8 g/dL (3.4-5.0); Bilirubin Total 0.7 mg/dL (0.2-1.0); Magnesium 2.3 mg/dL (1.8-2.4); Phosphorus 3.4 mg/dL (2.5-4.9); Potassium 4.5 mmol/L (3.5-5.1); Protein, Total 7.5 g/dL (6.4-8.2); Thyroid Stimulating Hormone 2.26 uIU/mL (0.360-3.740)
[2019-11-28] MEDS: SOTALOL HCL 80 MG TAB PO SCH (05:59)
[2019-11-28] MEDS: INSULIN -REGULAR HUMAN 50 UNIT/0.5 ML ML SQ SCH (07:27)
[2019-11-28] MEDS: PANTOPRAZOLE 40MG TABLET PO SCH (08:52)
[2019-11-28] MEDS: ASPIRIN 81 MG CHEWABLE TABLET PO SCH (08:52)
[2019-11-28] MEDS: APIXABAN 5 MG TABLET PO SCH (08:52)
[2019-11-28] MEDS: VENLAFAXINE HCL XR 75 MG CAP PO SCH (08:52)
[2019-11-28] MEDS ORDERED: FOLIC ACID 1 MG TABLET PO SCH (09:00)
[2019-11-28 09:02] VITALS: O2SAT 92
--- NOTE | 2019-11-28 10:50 | P.DS ---
Admission Date: 11/27/19 Discharge Date: 11/28/19 Primary Care Provider: [facility] Disposition: ROUTINE DISCHARGE Discharge Condition: GOOD Reason for Admission: Atrial flutter Consultations: Neurology-Dr. Coats Cardiology-Dr. Moise Procedures: MRI Brain: FINDINGS: No intracranial hemorrhage, hydrocephalus or extra-axial fluid collections.Moderate periventricular and deep white matter chronic microvascular ischemic changes are evident. No edema or shift of midline structures. No findings to suspect brain mass. DWI is negative for acute CVA. Midline structures are normally formed. Mastoid air cells and paranasal sinuses are clear. IMPRESSION: Negative for acute CVA or other acute intracranial abnormality CT Chest: FINDINGS: PULMONARY ARTERIES: Unremarkable. No pulmonary embolism. AORTA: No acute findings. No thoracic aortic aneurysm. LUNGS: Small opacity in the lingula. Diffuse interlobular septal thickening and scattered groundglass opacities. Sparing of the medial aspect of the left apical lung zone. PLEURAL SPACE: Bilateral pleural effusions and atelectasis. Scattered small calcified pleural plaques. No pneumothorax. HEART: Enlargement of the right atrium with reflux of contrast in the IVC and hepatic veins. Prior median sternotomy and CABG surgery. Advanced global cardiomegaly. Advanced calcification of the mitral annulus. No significant pericardial effusion. THYROID: Visualized thyroid is normal. BONES/JOINTS: Diffuse osteopenia and multilevel degenerative changes. Increase thoracic process. No acute fracture. No dislocation. SOFT TISSUES: Unremarkable. LYMPH NODES: Unremarkable. No enlarged lymph nodes. IMPRESSION: 1. No pulmonary embolism. 2. Prior median sternotomy with advanced cardiomegaly and calcification of the mitral annulus as well as interstitial edema. 3. Enlargement of the right atrium with reflux of contrast in the IVC and hepatic veins. Findings most suggestive of cardiac dysfunction. 4. Chronic lung changes and bilateral pleural effusions/atelectasis. Lingular atelectasis. 5. Diffuse osteopenia and multilevel degenerative changes Medical Problem list: Atrial fibrillation with RVR on chronic anti coagulation therapy Elevated troponin likely related to AFib Acute confusion likely TIA Diabetes mellitus type 2 non insulin dependent with hyperglycemia, diet controlled History of Martinez's palsy CAD with prior CABG Hypertension Hyperlipidemia Depression with anxiety Diabetic neuropathy Osteoarthritis Brief History of Present Illness: 74-year-old male with history of atrial fibrillation on chronic anti coagulation therapy, CAD with prior CABG, diabetes. Patient presented with acute confusion. Initial CT scan of the chest unremarkable. Patient in atrial fibrillation. Patient was admitted for further evaluation and treatment. Hospital Course: Patient presented with acute confusion. TIA was suspected. Patient found to have atrial fibrillation with RVR. Cardiology was consulted. Medications have been adjusted. Patient continued with Eliquis but at a higher dose at twice daily for chronic anti coagulation therapy. Patient previously on Eliquis 5 mg daily. Metoprolol was discontinued. This was switched to Betapace. Rate now better controlled. Blood pressure stable. At discharge metoprolol has been discontinued and Eliquis has been increased. At discharge he will continue with Betapace 80 mg 1 pill twice daily. At discharge he will continue with chronic anti coagulation therapy-Eliquis 5 mg 1 pill twice daily. At discharge patient will follow up with cardiology in 1-2 weeks to follow up this hospitalization. Education on atrial fibrillation and chronic anti coagulation therapy will be provided. Patient was seen and evaluated by Neurology for acute confusion. Patient has done well. MRI showed no acute stroke. Neurology suspected TIA. Neurology recommends to continue with Eliquis as recommended for atrial fibrillation. Aspirin 81 mg daily has been added. Patient may also continue with folic acid 1 mg daily and Lipitor 20 mg at bedtime. Patient may follow up with neurology in 2-4 weeks to follow up this hospitalization. Education on TIA will be provided. Patient with diabetes mellitus type 2 with hyperglycemia. Patient is non insulin dependent. This has remained stable. Diabetes is diet controlled. At discharge he will continue with current ADA diet. Recommend to maintain blood sugars less than 140 fasting and less than 200 after meals. If blood sugar remains elevated patient may require medication in the future. This can be addressed by his PCP. Patient with CAD and prior CABG. Patient seen by Cardiology. No intervention was required. Medications have been adjusted as recommended above. Patient will continue with aspirin and Lipitor. Patient with hypertension. Patient previously on metoprolol. Patient will no longer take metoprolol since the patient has been placed on Betapace. Recommend to maintain blood pressures less 150/80. Further adjustment can be done by cardiology or his PCP. At discharge he will no longer take metoprolol. Patient with diabetic neuropathy. At discharge he will continue with his current medication for pain. Patient with depression with anxiety. At discharge he will continue with trazodone 200 mg at bedtime and Effexor 150 mg 1 pill twice daily. Patient with GERD. At discharge he will continue with his medication of Prilosec 20 mg daily. Vital Signs/Physical Exam: Temp Pulse Resp BP Pulse Ox 97.3 F 103 H 16 110/78 92 11/28/19 08:00 11/28/19 08:00 11/28/19 08:00 11/28/19 08:00 11/28/19 08:00 General: Alert, In no apparent distress, Oriented x3, Cooperative HEENT: Atraumatic Neck: Supple Respiratory: Clear to auscultation bilaterally, Normal air movement Cardiovascular: Irregular heart rate/rhythm (Atrial fibrillation, rate controlled) Gastrointestinal: Normal bowel sounds, Soft and benign, Non-distended, No tenderness, No masses, No rebound, No guarding Musculoskeletal: No erythema, No tenderness, No warmth Integumentary: No tenderness/swelling, No erythema, No warmth, No cyanosis Neurological: Normal speech, Normal strength at 5/5 x4 extr, Normal tone, Normal affect Laboratory Data at Discharge: WBC 5.9 K/uL (4.3-10.9) D 11/28/19 03:37 Hgb 11.6 g/dL (13.6-17.9) L 11/28/19 03:37 Hct 35.6 % (39.6-49.0) L 11/28/19 03:37 Plt Count 191 K/uL (152-406) 11/28/19 03:37 PT 14.9 SECONDS (9.5-12.5) H 11/26/19 19:35 INR 1.27 11/26/19 19:35 APTT 35.8 SECONDS (24.3-36.9) 11/26/19 19:35 Sodium 142 mmol/L (136-145) 11/28/19 03:37 Potassium 4.5 mmol/L (3.5-5.1) 11/28/19 03:37 BUN 20 mg/dL (7-18) H 11/28/19 03:37 Creatinine 0.97 mg/dL (0.55-1.3) 11/28/19 03:37 Glucose 88 mg/dL (74-106) 11/28/19 03:37 Phosphorus 3.4 mg/dL (2.5-4.9) 11/28/19 03:37 Magnesium 2.3 mg/dL (1.8-2.4) 11/28/19 03:37 Total Bilirubin 0.7 mg/dL (0.2-1.0) 11/28/19 03:37 AST 29 U/L (15-37) 11/28/19 03:37 ALT 22 U/L (12-78) 11/28/19 03:37 Alkaline Phosphatase 75 U/L (45-117) 11/28/19 03:37 Troponin I 0.12 ng/mL (0.0-0.045) H 11/27/19 06:48 Amylase 62 U/L (25-115) 11/26/19 19:35 Lipase 139 U/L (73-393) 11/26/19 19:35 Home Medications: Trazodone HCl [Desyrel] 200 mg PO BEDTIME 03/21/16 Venlafaxine HCl [Venlafaxine HCl ER] 150 mg PO BID 03/21/16 Hydrocodone 7.5/APAP 325 [[place] 7.5/325 mg*] 1 tab PO BID PRN 04/15/19 Atorvastatin Calcium [Lipitor*] 1 tab PO DAILY 11/27/19 Omeprazole [Prilosec] 20 mg PO DAILY 11/27/19 Apixaban [Eliquis] 5 mg PO BID #60 tablet 11/28/19 Aspirin Chewable [Aspirin Chewable*] 81 mg PO DAILY #90 tab.chew 11/28/19 Folic Acid 1 mg PO DAILY #90 tablet 11/28/19 Sotalol HCl [Betapace*] 80 mg PO BID 6AM 6PM #60 tab 11/28/19 New Medications: Apixaban [Eliquis] 5 mg PO BID #60 tablet Aspirin Chewable [Aspirin Chewable*] 81 mg PO DAILY #90 tab.chew Folic Acid 1 mg PO DAILY #90 tablet Sotalol HCl [Betapace*] 80 mg PO BID 6AM 6PM #60 tab Patient Discharge Instructions: 1. Recommend follow up with his PCP in 1-2 weeks to follow up this hospitalization. 2. Patient presented with acute confusion. TIA was suspected. Patient found to have atrial fibrillation with RVR. Cardiology was consulted. Medications have been adjusted. Patient continued with Eliquis but at a higher dose at twice daily for chronic anti coagulation therapy. Patient previously on Eliquis 5 mg daily. Metoprolol was discontinued. This was switched to Betapace. Rate now better controlled. Blood pressure stable. At discharge metoprolol has been discontinued and Eliquis has been increased. At discharge he will continue with Betapace 80 mg 1 pill twice daily. At discharge he will continue with chronic anti coagulation therapy-Eliquis 5 mg 1 pill twice daily. At discharge patient will follow up with cardiology in 1-2 weeks to follow up this hospitalization. Education on atrial fibrillation and chronic anti coagulation therapy will be provided. 3. Patient was seen and evaluated by Neurology for acute confusion. Patient has done well. MRI showed no acute stroke. Neurology suspected TIA. Neurology recommends to continue with Eliquis as recommended for atrial fibrillation. Aspirin 81 mg daily has been added. Patient may also continue with folic acid 1 mg daily and Lipitor 20 mg at bedtime. Patient may follow up with neurology in 2-4 weeks to follow up this hospitalization. Education on TIA will be provided. 4. Patient with diabetes mellitus type 2 with hyperglycemia. Patient is non insulin dependent. This has remained stable. Diabetes is diet controlled. At discharge he will continue with current ADA diet. Recommend to maintain blood sugars less than 140 fasting and less than 200 after meals. If blood sugar remains elevated patient may require medication in the future. This can be addressed by his PCP. 5. Patient with CAD and prior CABG. Patient seen by Cardiology. No intervention was required. Medications have been adjusted as recommended above. Patient will continue with aspirin and Lipitor. 6. Patient with hypertension. Patient previously on metoprolol. Patient will no longer take metoprolol since the patient has been placed on Betapace. Recommend to maintain blood pressures less 150/80. Further adjustment can be done by cardiology or his PCP. At discharge he will no longer take metoprolol. 7. Patient with diabetic neuropathy. At discharge he will continue with his current medication for pain. 8. Patient with depression with anxiety. At discharge he will continue with trazodone 200 mg at bedtime and Effexor 150 mg 1 pill twice daily. 9. Patient with GERD. At discharge he will continue with his medication of Prilosec 20 mg daily. Diet: AHA Activity: Fall precautions Time spent managing pt's care (in minutes): 55
[2019-11-28 12:08] VITALS: BP 123/90; TEMP 98.3
--- NOTE | 2019-11-28 13:41 | PN ---
Date of Progress Note: 11/28/2019 Mr. Juarez was admitted for atrial flutter, initially rapid ventricular response. He is now on Bet apace 80 mg 1 p.o. b.i.d. and Eliquis. He had remained in atrial flutter. His rate, however, is in the 70s. He is asymptomatic. [facility]. His atrial flutter is chronic. It would be reaso nable to keep him on Betapace and Eliquis and send him home today. [facility] where they will make further decisions later depending on his symptoms. There is an echocardi ogram pending. We will see what that shows before he leaves. Continue present regimen for now. PEDRO/ORACIO Voice ID: [id number] Report ID: [id number]
--- NOTE | 2019-11-28 13:51 | ECHO ---
HEIGHT: 5 ft 7 in WEIGHT: 185 lb 1.6 oz DATE OF STUDY: 11/28/[address]: zhao hodges 2-DIMENSIONAL: YES M.MODE: YES DOPPLER: YES COLOR FLOW: YES TDS: PORTABLE: DEFINITY: BUBBLE STUDY: DIAGNOSIS: ATRIAL FLUTTER CARDIAC HISTORY: CATHERIZATION: YES SURGERY: YES PROSTHETIC VALVE: NO PACEMAKER: NO MEASUREMENTS (cm) DIASTOLIC (NORMALS) SYSTOLIC (NORMALS) IVSd 1.4 (0.6-1.2) LA Diam (1.9-4.0) LVEF 79% LVIDd 4.3 (3.5-5.7) LVIDs 2.3 (2.0-3.5) %FS 47% LVPWd 1.5 (0.6-1.2) Ao Diam 3.5 (2.0-3.7) 2 DIMENSIONAL ASSESSMENT: RIGHT ATRIUM: NORMAL LEFT ATRIUM: NORMAL RIGHT VENTRICLE: NORMAL LEFT VENTRICLE: LEFT VENTRICULAR HYPERTROPHY TRICUSPID VALVE: NORMAL MITRAL VALVE: MITRAL STENOSIS PULMONIC VALVE: NORMAL AORTIC VALVE: AORTIC STENOSIS PERICARDIAL EFFUSION: NONE AORTIC ROOT: NORMAL LEFT VENTRICULAR WALL MOTION: NORMAL DOPPLER/COLOR FLOW: MILD MITRAL STENOSIS 1.6 CENTIMETERS SQUARED. MILD AORTIC STENOSIS 1.8 CENTIMETERS SQUARED. COMMENTS: MILD MITRAL STENOSIS 1.6 CENTIMETERS SQUARED. MILD AORTIC STENOSIS 1.8 CENTIMETERS SQUARED. LEFT VENTRICULAR HYPERTROPHY. ATRIAL FIBRILLATION. NORMAL EJECTION FRACTION. TECHNOLOGIST: VINCENT PALACIOS
== END 2019-11-28 12:20 | disposition home or self-care (01) | DRG 69 ==
LOC: ER 18:40 → ERHOLD 11-27 00:38 → 4TH 11-27 02:08
PROVIDERS: ADMIT Internal Medicine; ATTEND Internal Medicine
DX: G45.9 Transient cerebral ischemic attack, unspecified (principal); I48.20 Chronic atrial fibrillation, unspecified; R79.89 Other specified abnormal findings of blood chemistry; E11.65 Type 2 diabetes mellitus with hyperglycemia; I25.10 Atherosclerotic heart disease of native coronary artery without angina pectoris; I10 Essential (primary) hypertension; E78.5 Hyperlipidemia, unspecified; F41.8 Other specified anxiety disorders; E11.40 Type 2 diabetes mellitus with diabetic neuropathy, unspecified; M19.90 Unspecified osteoarthritis, unspecified site; Z79.01 Long term (current) use of anticoagulants; Z95.1 Presence of aortocoronary bypass graft
CPT/HCPCS: 36415; 51702; 70450; 70551; 71045; 71275; 80048; 80053; 80076; 81003; 82150; 82550; 82553; 82947; 83605; 83690; 83735; 84100; 84145; 84439; 84443; 84484; 85025; 85610; 85730; 86850; 86900; 86901; 87040; 87086; 87088; 93005; 93306; 96361; 96374; 96375; 99285; J1160; J7040; Q9967

== ENCOUNTER 2019-12-06 08:55 | Day surgery (SDC) | payer OTHER ==
[2019-12-06] MEDS ORDERED: NA CHLORIDE 0.9% 500 ML ONE (09:48)
[2019-12-06] MEDS ORDERED: FLUMAZENIL 0.1 MG/ML (5 mL VIAL) IV ONE (10:02)
[2019-12-06] MEDS ORDERED: MIDAZOLAM HCL 5 MG/5 ML INJ ONE (10:03)
[2019-12-06] MEDS ORDERED: ATROPINE SULF 1 MG/10 ML SYR IV ONE (10:03)
[2019-12-06] MEDS ORDERED: MIDAZOLAM HCL 2 MG/2 ML INJ ONE ×2 (10:03→10:10)
[2019-12-06 12:06] VITALS: BP 100/81; TEMP 97.4; O2SAT 94
--- NOTE | 2019-12-06 18:09 | OP ---
Surgeon: Enmanuel Pollard MD Silverware Washer: family assistant, Stella Guajardo. Identification: A 74-year-old man. Procedure: Direct current cardioversion. Indication: Atrial flutter. Procedure In Detail: The patient gave informed consent. He was brought to the cardiac laborer bituminous paving in a fasting state. He had been on Eliquis and Betapace for several weeks. He was sedated with 5 mg of Versed. Anterior and posterior paddles were placed across his chest. A single shock of 70 joules wa s administered. This resulted in sinus rhythm. Complications: None. Blood Loss: None. SH/MODL Voice ID: [id number] Report ID: [id number]
--- NOTE | 2019-12-07 11:40 | EKG ---
Test Date: 2019-12-06 Test Time: 10:11:38 Hose Mender: KIMBERLY MEASUREMENT RESULTS: Intervals: Rate: 86 CA: 178 QRSD: 92 QT: 396 QTc: 473 [place]: P: 57 CA: 178 QRS: 21 T: 45 INTERPRETIVE STATEMENTS: Normal sinus rhythm Low voltage QRS Borderline ECG Compared to ECG 11/26/2019 21:49:08 Atrial flutter no longer present Myocardial infarct finding no longer present Electronically Signed On 12-07-19 11:37:06 ADJUNCT MATHEMATICS INSTRUCTOR by Denys Moise
== END 2019-12-06 12:05 | disposition home or self-care (01) ==
LOC: CCL 08:55
PROVIDERS: ATTEND Internal Medicine
PROC: 5A2204Z Restoration of Cardiac Rhythm, Single (ICD-10-PCS; principal; 2019-12-06)
DX: I48.91 Unspecified atrial fibrillation (principal); I35.0 Nonrheumatic aortic (valve) stenosis; I25.10 Atherosclerotic heart disease of native coronary artery without angina pectoris; E78.2 Mixed hyperlipidemia; E11.9 Type 2 diabetes mellitus without complications; Z95.1 Presence of aortocoronary bypass graft
CPT/HCPCS: 92960; 93005; J2250; J7040

== ENCOUNTER 2019-12-07 10:22 | Inpatient (IN) | payer OTHER ==
[2019-12-07 11:11] LABS: Absolute Lymphocytes (CBC) 0.7 K/uL (0.7-4.9); Basophils % 0.7 % (0-1.3); Hematocrit 33.8 % (39.6-49.0); Lymphocytes % 9.9 % (15.3-44.8); MPV 10.7 fL (7.6-11.3); RBC Red Blood Cell Count 3.54 M/uL (4.33-5.43)
[2019-12-07 11:15] LABS: Protime INR 1.97
[2019-12-07 11:28] LABS: Albumin 3.1 g/dL (3.4-5.0); Bilirubin Direct 0.4 mg/dL (0-0.2); Bilirubin Total 1.4 mg/dL (0.2-1.0); Magnesium 2.1 mg/dL (1.8-2.4); Potassium 4.1 mmol/L (3.5-5.1); Protein, Total 8.1 g/dL (6.4-8.2); Troponin (Emerg Dept Use Only) 0.02 ng/mL (0.0-0.045)
--- NOTE | 2019-12-07 11:39 | RAD REPORT ---
EXAM DESCRIPTION: RAD - Chest Single View - 12/07/2019 11:22 am CLINICAL HISTORY: CHEST PAIN COMPARISON: Chest Single View dated 11/26/2019 TECHNIQUE: AP portable chest image was obtained 12/07/2019 11:22 am . FINDINGS: Lung volumes are low accentuating lung parenchymal pattern. Mild failure or volume overloa d could easily be masked in this setting. Patient has cardiomegaly. Lung markings are slightly more p ronounced in the right upper lobe. No measurable pleural effusion and no pneumothorax. No acute bony abnormality seen. No acute aortic findings suspected. IMPRESSION: Limited shallow inspiration film. Mild failure or volume overload suspected. Lung markings are slightly more pronounced in the right upper lobe. Pneumonia is unlikely but patient can be monitored.
--- NOTE | 2019-12-07 12:06 | RAD REPORT ---
EXAM DESCRIPTION: CT - Chest For Pe Angio - 12/07/2019 11:53 am CLINICAL HISTORY: Shortness of breath COMPARISON: November 2019 TECHNIQUE: Dynamically enhanced axial 3 mm thick images of the chest were obtained during administra tion of <100> mL Isovue 370 IV contrast. Coronal and oblique reconstruction images were generated and reviewed. Exam utilizes a protocol for optimal evaluation of pulmonary arterial tree. Maximum intensity projections 3D imaging was utilized All CT scans are performed using dose optimization technique as appropriate and may include automated exposure control or mA/KV adjustment according to patient size. FINDINGS: A pulmonary embolus is not seen. A thoracic aortic aneurysm is not noted. Small to moderate bilateral pleural effusions. . A pericardial effusion is not seen. Mild to moderate bilateral pulmonary opacities IMPRESSION: Negative for a pulmonary embolism. Mild to moderate CHF
--- NOTE | 2019-12-07 12:20 | ER ---
Nurse's Notes [facility] Name: Joshua Juarez Age: 74 yrs Sex: Male : 1945 Arrival Date: 12/07/2019 Time: 10:26 Bed 13 Private MD: Diagnosis: Hypoxia;Unspecified combined systolic (congestive) and diastolic (congestive) heart failure Presentation: 12/06 10:30 Chief complaint: Patient states: had cardioversion done yesterday by Dr. Pollard in cath iw lab for Afib, has been SOB since then, feels like there's weight in his chest, no cough. Coronavirus screen: The patient has NOT traveled to a country currently being monitored by the [facility] within the last 14 days. Proceed with normal triage procedures. The patient has NOT had contact with any known and/or suspected case of coronavirus. Proceed with normal triage procedures. Ebola Screen: Patient negative for fever greater than or equal to 101.5 degrees Fahrenheit, and additional compatible Ebola Virus Disease symptoms Patient denies exposure to infectious person. Patient denies travel to an Ebola-affected area in the 21 days before illness onset. No symptoms or risks identified at this time. Initial Sepsis Screen: Does the patient meet any 2 criteria? No. Patient's initial sepsis screen is negative. Does the patient have a suspected source of infection? No. Patient's initial sepsis screen is negative. Risk Assessment: Do you want to hurt yourself or someone else? Patient reports no desire to harm self or others. 10:30 Method Of Arrival: Wheelchair iw 10:30 Acuity: MARISELA 2 iw Historical: - Allergies: 10:34 No Known Allergies; iw - Home Meds: 10:34 atorvastatin 20 mg Oral tab 1 tab once daily [Active]; Eliquis 5 mg Oral tab 1 tab iw daily [Active]; omeprazole 20 mg Oral cpDR 1 cap once daily [Active]; Betapace 80 mg oral tab 1 tab 2 times per day [Active]; venlafaxine 150 mg Oral cp24 1 cap twice a day [Active]; trazodone 200 mg Oral tab daily [Active]; - PMHx: 10:34 Atrial Fib; CAD; Diabetes - NIDDM; Hypertension; Leaky valve; iw - PSHx: 10:34 CABG; prostate sx; knee replacement; iw - Immunization history:: Adult Immunizations up to date. - Social history:: Smoking status: Patient denies any tobacco usage or history of. Screenin:00 Abuse screen: Denies threats or abuse. Nutritional screening: No deficits noted. em Tuberculosis screening: No symptoms or risk factors identified. Fall Risk None identified. Assessment: 11:00 General: Appears in no apparent distress. comfortable, Behavior is calm, cooperative, em Denies fever. Pain: Denies pain. Complains of pain in chest Pain does not radiate. Pain began. Neuro: Level of Consciousness is awake, alert, obeys commands, Oriented to person, place, time, situation, Appropriate for age. Cardiovascular: Reports shortness of breath, Denies chest pain, Capillary refill < 3 seconds Patient's skin is warm and dry. Respiratory: Reports shortness of breath at rest on exertion Airway is patent Respiratory effort is even, unlabored, Respiratory pattern is regular, symmetrical. GI: Abdomen is flat. Derm: Skin is intact, is healthy with good turgor, Skin is pink, warm \T\ dry. Musculoskeletal: Capillary refill < 3 seconds, Range of motion: intact in all extremities. 12:40 Reassessment: Patient appears in no apparent distress at this time. Patient and/or em family updated on plan of care and expected duration. Pain level reassessed. Patient is alert, oriented x 3, equal unlabored respirations, skin warm/dry/pink. pending room assignment. 13:35 Reassessment: Patient appears in no apparent distress at this time. Patient and/or em family updated on plan of care and expected duration. Pain level reassessed. Patient is alert, oriented x 3, equal unlabored respirations, skin warm/dry/pink. rates pain 6/10. Vital Signs: 10:30 BP 117 / 92; Pulse 85; Resp 16; Temp 98(TE); Pulse Ox 93% on R/A; Weight 83.01 kg; iw Height 5 ft. 6 in. (167.64 cm); Pain 7/10; 12:18 BP 121 / 84; Pulse 85; Resp 18; Pulse Ox 96% on 2 lpm NC; Pain 0/10; em 13:37 BP 103 / 71; Pulse 81; Resp 22; Pulse Ox 98% on 2 lpm NC; Pain 6/10; em 10:30 Body Mass Index 29.54 (83.01 kg, 167.64 cm) iw ED Course: 10:26 Patient arrived in ED. mr 10:33 Triage completed. iw 10:34 Arm band placed on. iw 10:37 Rosmery Salvador FNP-C is [facility]. kb 10:37 Ayad Rosario MD is Attending Physician. kb 10:46 Delano Cabrera, RN is Primary Nurse. em 10:53 Initial lab(s) drawn, by me, sent to lab. Inserted saline lock: 20 gauge in right 3 antecubital area, using aseptic technique. Blood collected. 11:00 Patient has correct armband on for positive identification. Bed in low position. Call em light in reach. Adult w/ patient. security monitor on. Pulse ox on. NIBP on. 11:00 Oxygen administration via nasal cannula \T\ 2L/min. em 11:05 EKG done, by ED staff, reviewed by Rosmery BOSCH. 3 11:45 XRAY Chest (1 view) In Process Unspecified. EDMS 12:06 CT Chest For PE Angio In Process Unspecified. EDMS 12:11 Flu Sent. 3 12:18 Jerel Overton MD is Hospitalizing Provider. kb 13:57 No provider procedures requiring assistance completed. Patient admitted, IV remains in em place. Administered Medications: 12:28 Drug: Lasix 20 mg Route: IVP; Site: right forearm; em 14:04 Follow up: Response: No adverse reaction; Marked relief of symptoms em Output: 14:05 Urine: 800ml (Voided); Total: 800ml. em Outcome: 12:19 Decision to Hospitalize by Provider. kb 13:57 Admitted to Tele accompanied by tech, family with patient, via wheelchair, room 428, em with oxygen, with chart, Report called to GRAY Domínguez 13:57 Condition: good 13:57 Instructed on the need for admit, Demonstrated understanding of instructions. 14:36 Patient left the ED. em Signatures: Dispatcher [employer] EDMS Rosmery Salvador FNP-C FNP-Ckb Melissa Sarah Delano Cabrera, RN RN Gabrielle Woods RN RN Anusha Ruiz [facility]
--- NOTE | 2019-12-07 12:20 | EDPHYS ---
Physician Documentation [facility] Name: Joshua Juarez Age: 74 yrs Sex: Male : 1945 Arrival Date: 12/07/2019 Time: 10:26 Bed 13 Private MD: ED Physician Ayad Rosario HPI: 12/06 11:45 This 74 yrs old Male presents to ER via Wheelchair with complaints of Chest kb Pain, Shortness Of Breath. 11:48 The patient has shortness of breath at rest. Onset: The symptoms/episode began/occurred kb yesterday. Duration: The symptoms are continuous. The patient's shortness of breath is aggravated by exertion. Associated signs and symptoms: The patient has no apparent associated signs or symptoms. Severity of symptoms: At their worst the symptoms were moderate in the emergency department the symptoms are unchanged. The patient has not experienced similar symptoms in the past. The patient has been recently seen by a physician:. Pt had scheduled cardioversion done yesterday by Dr Pollard for a.fib. States he was in a.fib for one week, was started on betapase without relief of symptoms. States shortness of breath started after cardioversion yesterday. Denies fever, cough, congestion. Pt has history of CHF, but has not been on any "fluid pills" since April. Pt does take eliquist daily . Historical: - Allergies: 10:34 No Known Allergies; iw - Home Meds: 10:34 atorvastatin 20 mg Oral tab 1 tab once daily [Active]; Eliquis 5 mg Oral tab 1 tab iw daily [Active]; omeprazole 20 mg Oral cpDR 1 cap once daily [Active]; Betapace 80 mg oral tab 1 tab 2 times per day [Active]; venlafaxine 150 mg Oral cp24 1 cap twice a day [Active]; trazodone 200 mg Oral tab daily [Active]; - PMHx: 10:34 Atrial Fib; CAD; Diabetes - NIDDM; Hypertension; Leaky valve; iw - PSHx: 10:34 CABG; prostate sx; knee replacement; iw - Immunization history:: Adult Immunizations up to date. - Social history:: Smoking status: Patient denies any tobacco usage or history of. ROS: 11:45 Constitutional: Negative for fever, chills, and weight loss, ENT: Negative for injury, kb pain, and discharge, Neck: Negative for injury, pain, and swelling, Cardiovascular: Negative for chest pain, palpitations, and edema, Abdomen/GI: Negative for abdominal pain, nausea, vomiting, diarrhea, and constipation, Back: Negative for injury and pain, MS/Extremity: Negative for injury and deformity, Skin: Negative for injury, rash, and discoloration, Neuro: Negative for headache, weakness, numbness, tingling, and seizure. 11:45 Respiratory: Positive for shortness of breath, at rest. Exam: 11:13 Constitutional: This is a well developed, well nourished patient who is awake, alert, kb and in no acute distress. Head/Face: Normocephalic, atraumatic. ENT: Nares patent. No nasal discharge, no septal abnormalities noted. Tympanic membranes are normal and external auditory canals are clear. Oropharynx with no redness, swelling, or masses, exudates, or evidence of obstruction, uvula midline. Mucous membranes moist. Neck: Trachea midline, no thyromegaly or masses palpated, and no cervical lymphadenopathy. Supple, full range of motion without nuchal rigidity, or vertebral point tenderness. No Meningismus. Chest/axilla: Normal chest wall appearance and motion. Nontender with no deformity. No lesions are appreciated. Abdomen/GI: Soft, non-tender, with normal bowel sounds. No distension or tympany. No guarding or rebound. No evidence of tenderness throughout. Skin: Warm, dry with normal turgor. Normal color with no rashes, no lesions, and no evidence of cellulitis. MS/ Extremity: Pulses equal, no cyanosis. Neurovascular intact. Full, normal range of motion. Neuro: Awake and alert, GCS 15, oriented to person, place, time, and situation. Cranial nerves II-XII grossly intact. Motor strength 5/5 in all extremities. Sensory grossly intact. Cerebellar exam normal. Normal gait. 11:13 ECG was reviewed by the Attending Physician. 11:13 Respiratory: mild respiratory distress is noted, Respirations: labored breathing, that is mild, Breath sounds: decreased breath sounds, that are mild, are located in both bases. 11:44 Cardiovascular: Rate: normal, Rhythm: regular, Pulses: no pulse deficits are kb appreciated, Heart sounds: murmur, Edema: pedal edema, 1+. Vital Signs: 10:30 BP 117 / 92; Pulse 85; Resp 16; Temp 98(TE); Pulse Ox 93% on R/A; Weight 83.01 kg; iw Height 5 ft. 6 in. (167.64 cm); Pain 7/10; 12:18 BP 121 / 84; Pulse 85; Resp 18; Pulse Ox 96% on 2 lpm NC; Pain 0/10; em 13:37 BP 103 / 71; Pulse 81; Resp 22; Pulse Ox 98% on 2 lpm NC; Pain 6/10; em 10:30 Body Mass Index 29.54 (83.01 kg, 167.64 cm) iw MDM: 10:37 Patient medically screened. kb 11:14 Data reviewed: vital signs, nurses notes. Data interpreted: Pulse oximetry: on room air kb is 88 %. Interpretation: hypoxia. ED course: During exam O2 sat was 88-92% on RA. Placed pt on 2L O2 via NC, O2 increased to 95-98% . 11:47 Differential diagnosis: CHF exacerbation, Chronic Obstructive Pulmonary Disease kb Myocardial Infarction pneumonia, Pulmonary Embolism. 12:12 Data reviewed: lab test result(s), EKG, radiologic studies. Counseling: I had a kb detailed discussion with the patient and/or guardian regarding: the historical points, exam findings, and any diagnostic results supporting the discharge/admit diagnosis, lab results, radiology results, the need for further work-up and treatment in the hospital. ED course: Will admit for CHF exacerbation and hypoxia. Pt and family agree with plan of care. 12:18 Physician consultation: Jerel Overton MD was contacted at 12:18, regarding admission, to the telemetry unit. patient's condition, and will see patient in ED, shortly. 12/06 10:37 Order name: Basic Metabolic Panel; Complete Time: 11:32 kb 12/06 10:37 Order name: CBC with Diff kb 12/06 10:37 Order name: LFT's; Complete Time: 11:32 kb 12/06 10:37 Order name: Magnesium; Complete Time: 11:32 kb 12/06 10:37 Order name: NT PRO-BNP; Complete Time: 11:32 kb 12/06 10:37 Order name: PT-INR kb 12/06 10:37 Order name: Troponin (emerg Dept Use Only); Complete Time: 11:32 kb 12/06 10:37 Order name: XRAY Chest (1 view); Complete Time: 12:06 kb 12/06 10:37 Order name: EKG; Complete Time: 10:39 kb 12/06 10:37 Order name: Cardiac monitoring; Complete Time: 11:12 kb 12/06 10:37 Order name: EKG - Nurse/Tech; Complete Time: 11:12 kb 12/06 11:32 Order name: CT Chest For PE Angio; Complete Time: 12:10 kb 12/06 11:47 Order name: Flu; Complete Time: 12:37 kb 12/06 10:37 Order name: IV Saline Lock; Complete Time: 11:12 kb 12/06 10:37 Order name: Labs collected and sent; Complete Time: 11:12 kb 12/06 10:37 Order name: O2 Per Protocol; Complete Time: 11:12 kb 12/06 10:37 Order name: O2 Sat Monitoring; Complete Time: 11:12 kb EC:13 Rate is 85 beats/min. Rhythm is regular. QRS [place] is Normal. LA interval is normal at kb 176 msec. QRS interval is normal at 90 msec. QT interval is normal at 390 msec. Administered Medications: 12:28 Drug: Lasix 20 mg Route: IVP; Site: right forearm; em 14:04 Follow up: Response: No adverse reaction; Marked relief of symptoms em Disposition: 17:16 Co-signature as Attending Physician, Ayad Rosario MD I agree with the assessment and kdr plan of care. Disposition: 12/07/19 12:19 Hospitalization ordered by Jerel Overton for Observation. Preliminary diagnosis are Hypoxia, Unspecified combined systolic (congestive) and diastolic (congestive) heart failure. - Bed requested for Telemetry/MedSurg (observation). - Status is Observation. em - Condition is Stable. - Problem is an acute exacerbation. - Symptoms are unchanged. Signatures: Dispatcher [employer] Rosmery Adams, PAUL-C PAUL-Ayad Gloria MD MD kdr Munoz, Edgar, RN RN em Williams, Irene, RN RN iw Martinez, Eric em1 Corrections: (The following items were deleted from the chart) 11:45 11:13 Constitutional: This is a well developed, well nourished patient who is awake, kb alert, and in no acute distress. Head/Face: Normocephalic, atraumatic. ENT: Nares patent. No nasal discharge, no septal abnormalities noted. Tympanic membranes are normal and external auditory canals are clear. Oropharynx with no redness, swelling, or masses, exudates, or evidence of obstruction, uvula midline. Mucous membranes moist. Neck: Trachea midline, no thyromegaly or masses palpated, and no cervical lymphadenopathy. Supple, full range of motion without nuchal rigidity, or vertebral point tenderness. No Meningismus. Chest/axilla: Normal chest wall appearance and motion. Nontender with no deformity. No lesions are appreciated. Cardiovascular: Regular rate and rhythm with a normal S1 and S2. No gallops, murmurs, or rubs. Normal PMI, no JVD. No pulse deficits. Abdomen/GI: Soft, non-tender, with normal bowel sounds. No distension or tympany. No guarding or rebound. No evidence of tenderness throughout. Skin: Warm, dry with normal turgor. Normal color with no rashes, no lesions, and no evidence of cellulitis. MS/ Extremity: Pulses equal, no cyanosis. Neurovascular intact. Full, normal range of motion. Neuro: Awake and alert, GCS 15, oriented to person, place, time, and situation. Cranial nerves II-XII grossly intact. Motor strength 5/5 in all extremities. Sensory grossly intact. Cerebellar exam normal. Normal gait. kb 13:05 12:19 Hospitalization Ordered by Jerel Overton MD for Observation. Preliminary diagnosis em1 is Hypoxia; Unspecified combined systolic (congestive) and diastolic (congestive) heart failure. Bed requested for Telemetry/MedSurg (observation). Status is Observation. Condition is Stable. Problem is an acute exacerbation. Symptoms are unchanged. kb 14:36 13:05 12/07/2019 12:19 Hospitalization Ordered by Jerel Overton MD for Observation. em Preliminary diagnosis is Hypoxia; Unspecified combined systolic (congestive) and diastolic (congestive) heart failure. Bed requested for Telemetry/MedSurg (observation). Status is Observation. Condition is Stable. Problem is an acute exacerbation. Symptoms are unchanged. em1
[2019-12-07] MEDS ORDERED: FUROSEMIDE 40 MG/4 ML VIAL ONE (12:26)
[2019-12-07] MEDS ORDERED: GLUCAGON 1 MG/VIAL IM PRN (14:25)
[2019-12-07] MEDS ORDERED: D50W 25 GM/50 ML SYRINGE/VIAL IV PRN (14:25)
[2019-12-07] MEDS ORDERED: ONDANSETRON 4 MG/2 ML VIAL IV PRN (14:25)
[2019-12-07 14:54] VITALS: BMI 29.5
[2019-12-07] MEDS: FUROSEMIDE 40 MG/4 ML VIAL IV SCH (16:24)
[2019-12-07] MEDS: INSULIN -REGULAR HUMAN 50 UNIT/0.5 ML ML SQ SCH ×2 (16:30→21:00)
--- NOTE | 2019-12-07 16:47 | EKG ---
Test Date: 2019-12-07 Test Time: 11:02:05 Manager Sales And Marketing: JUHI MEASUREMENT RESULTS: Intervals: Rate: 85 PA: 176 QRSD: 90 QT: 390 QTc: 464 [place]: P: 24 PA: 176 QRS: 34 T: 33 INTERPRETIVE STATEMENTS: Normal sinus rhythm Low voltage QRS Borderline ECG Compared to ECG 12/06/2019 10:11:38 No significant changes Electronically Signed On 12-07-19 16:47:21 SIMULATION SPECIALIST by Enmanuel Pollard
[2019-12-07] MEDS: SOTALOL HCL 80 MG TAB PO SCH (18:12)
[2019-12-07] MEDS: HYDROCODONE/APAP 7.5/325 MG TAB PO PRN (18:16)
[2019-12-07] MEDS: APIXABAN 5 MG TABLET PO SCH (19:54)
[2019-12-07] MEDS: TRAZODONE 50 MG TABLET PO SCH (19:54)
[2019-12-07] MEDS: VENLAFAXINE HCL XR 75 MG CAP PO SCH (19:54)
[2019-12-07] MEDS: TRAZODONE 150 MG TAB PO SCH (19:54)
[2019-12-07] MEDS ORDERED: HOME MED 1 EA UNK (Venlafaxine Hcl [Venlafaxine Hcl Er] 150 MG) PO SCH (21:00)
[2019-12-07] MEDS ORDERED: TRAZODONE HCL 200 MG PO SCH (21:00)
--- NOTE | 2019-12-08 00:08 | HP ---
Date of Admission: 12/07/2019 Code Status: Full. Chief Complaint: Shortness of breath. Consultants: Dr. Moise with Cardiology. History Of Present Illness: Patient is a 74-year-old male with past medical history of IA, Martinez palsy, non-insulin dependent diabetes, hypertension, atrial fibrillation with recent cardioversion in the [employer] 2 days prior to admission. Atrial fibrillation comes in with worsening shortness of breath. Patient reports unable to lie flat, having orthopnea and peripheral edema. Patient not able to catch his breath. The patient's symptoms are constant, moderate, progressively worsening. Denies any fevers, chills, cough, sputum production. Workup revealed a BNP of 1166. Influenza screen was negative. CT angio chest was done due to recent cardioversion and to rule out a clot. PE study was negative, however, did show [id number] CHF. Patient was then referred for admission. When seen in the ER, he was awake, alert, oriented x3, in some mild respiratory distress. Past Medical History: Hypertension, atrial fibrillation, depression, anxiety, neuropathy, history of IA, Martinez palsy, [id number] diabetes. Surgical History: Fracture of the right collar bone, bilateral knee replacements, left ankle surgery, left wrist surgery, tonsillectomy, right hand carpal tunnel surgery, double bypass. Allergies: NO KNOWN DRUG ALLERGIES. Medications: List reviewed. Social History: Patient denies any tobacco use, alcohol use, or illicit drug use. Has good social support. Family History: Mother has diabetes. Brother had heart disease and diabetes. Sister also had heart disease and diabetes. Review of Systems: Ten-point system reviewed, negative except as per HPI. Physical Examination: Vital Signs: Blood pressure 117/92, pulse 85, respirations 16, temperature 98, O2 93% on room air, BMI 29.5. General: Awake, alert, oriented x3. Elderly male, in some mild distress, ill- appearing. HEENT: Normocephalic, atraumatic. PERRLA. EOMI. Moist mucous membranes. Oropharynx is clear. Poor dentition. Conjunctivae are anicteric. Neck: Supple. Patient has jugular venous distention. Trachea midline. CV: S1, S2. No murmurs. Peripheral pulses present. Respiratory: Diminished breath sounds. Crackles heard. No wheezing or stridor. No use of accessory muscles. Gastrointestinal: Abdomen is soft, nontender, nondistended. Positive bowel sounds. No guarding or rigidity. Extremities: No clubbing or cyanosis. Patient has peripheral edema bilaterally. No calf tenderness. Neuro: Cranial nerves 2 through 12 intact grossly. No focal neurological deficits. Speech is normal. Patient does have slight facial asymmetry from Martinez palsy. Skin: No rashes. Normal skin turgor. Psych: Mood is okay. Affect is full. Insight and judgment are good. Laboratory Data: Sodium 138, potassium 4.1, chloride 106, CO2 of 27, BUN 17, creatinine 0.95, glucose 109, calcium 8.2, magnesium 2.1, troponin 0.02. WBC 7.5, H and H 11 and 33.8, platelets 161, neutrophils 75%. INR 1.97. Influenza screen is negative. Imaging Studies: CT angio chest negative for PE, [id number] CHF. Chest x -ray personally reviewed shows limited shallow inspiration failure of volume overload suspected. Lung markings are slightly more pronounced in the right upper lobe. Pneumonia is unlikely, but patient can be monitored. Assessment: 74-year-old male with: 1. Acute congestive heart failure. Patient likely has diastolic dysfunction. Echocardiogram from 11/28/2019 shows EF of 79%. 2. Mild aortic stenosis. 3. Hypertensive heart disease. 4. Essential hypertension. We will resume home medications as appropriate. 5. Depression and anxiety. We will continue home medications. 6. Atrial fibrillation, status post cardioversion. We will continue rate control and anticoagulation. 7. Martinez palsy. 8. Diabetes mellitus type 2 bng-xaklyvs-ndwlcuvis with hyperglycemia. We will continue sliding scale insulin. Monitor blood glucose levels. 9. History of myocardial infarction. 10. Deep vein thrombosis prophylaxis addressed. The patient is on chronic anticoagulation. Plan: We will admit the patient to [facility] as observation. We will start on CHF guidelines, beta-angie, RUSSELL inhibitor. Continue Lasix IV b.i.d. We will monitor I's and O's strictly, daily weights, free fluid restriction. /ORACIO Voice ID: [id number] [email or web address]
[2019-12-08] MEDS: ACETAMINOPHEN 500 MG TAB PO PRN ×2 (04:45→19:58)
[2019-12-08 05:04] LABS: Absolute Lymphocytes (CBC) 0.9 K/uL (0.7-4.9); Basophils % 0.9 % (0-1.3); Hematocrit 33.4 % (39.6-49.0); Lymphocytes % 12.9 % (15.3-44.8); MPV 10.9 fL (7.6-11.3); RBC Red Blood Cell Count 3.49 M/uL (4.33-5.43)
[2019-12-08 05:14] LABS: Albumin 3.1 g/dL (3.4-5.0); Bilirubin Total 1.3 mg/dL (0.2-1.0); Potassium 3.7 mmol/L (3.5-5.1)
[2019-12-08] MEDS: SOTALOL HCL 80 MG TAB PO SCH ×2 (05:36→17:10)
[2019-12-08] MEDS: INSULIN -REGULAR HUMAN 50 UNIT/0.5 ML ML SQ SCH ×4 (07:30→20:56)
[2019-12-08] MEDS: ATORVASTATIN 20 MG TAB PO SCH (07:51)
[2019-12-08] MEDS: PANTOPRAZOLE 40MG TABLET PO SCH (07:51)
[2019-12-08] MEDS: BISACODYL E.C. 5 MG TAB PO SCH (07:51)
[2019-12-08] MEDS: APIXABAN 5 MG TABLET PO SCH ×2 (07:51→19:59)
[2019-12-08] MEDS: DOCUSATE NA/SENNA CONC 1 TAB PO SCH (07:52)
[2019-12-08] MEDS: lisinopriL 10 MG TAB PO SCH (07:52)
[2019-12-08] MEDS: VENLAFAXINE HCL XR 75 MG CAP PO SCH ×2 (07:52→19:59)
[2019-12-08] MEDS: ASPIRIN 81 MG CHEWABLE TABLET PO SCH (07:52)
[2019-12-08] MEDS: FUROSEMIDE 40 MG/4 ML VIAL IV SCH ×2 (07:53→17:10)
[2019-12-08] MEDS ORDERED: POTASSIUM CL SA 10 MEQ TAB PO ONE (08:00)
[2019-12-08] MEDS ORDERED: HOME MED 1 EA UNK (Omeprazole [Prilosec] 20 MG) PO SCH (09:00)
[2019-12-08] MEDS ORDERED: SENNOSIDES PO SCH (09:00)
--- NOTE | 2019-12-08 12:09 | CON ---
History Of Present Illness: Mr. Juarez came to the hospital because of dyspnea. He was found to h ave mild pulmonary edema. Two days before his presentation, he underwent a cardioversion and seemed to be volume normal at that time. Patient has a history of bypass surgery, history of atrial fibrill ation, although he is maintaining sinus rhythm now. I believe he also has a history of heart failure with normal ejection fraction. Medications: Outpatient medications have been trazodone, venlafaxine, hydrocodone, omeprazole, atorv astatin, apixaban, aspirin, folic acid, sotalol, Benefiber, sennosides, and bisacodyl. Allergies: HE HAS NO ALLERGIES. Social History: He uses no tobacco. Physical Examination: Vital Signs: 5 feet 6 inches, 180 pounds. HEENT: Normal. Lungs: Clear. Heart: Regular rate and rhythm. Extremities: No edema. Impression: Patient has had a nice diuresis overnight. He can be discharged home. Regarding his me dications at home, I think he should stop aspirin, continue apixaban and sotalol and his other medici shayy, and add Lasix 40 mg per day to his home regimen and try to follow a 2 g sodium diet. We will see him in followup, but I believe he is stable to be discharged today, December 08, 2019. ANA Voice ID: [id number] Report ID: [id number]
--- NOTE | 2019-12-08 19:50 | PN ---
Date of Progress Note: 12/08/2019 Subjective: Patient is seen and examined. Chart reviewed and case discussed with RN. Patient's family at the bedside. Treatment plan explained. All questions answered. Patient is complaining of some shortness of breath. Medications: List reviewed. Physical Examination: Vital Signs: Temperature 97.5, heart rate 71, blood pressure 92/69, respirations 16, O2 of 98% on 2 L via nasal cannula. General: Awake, alert, oriented x3. Elderly male, in some mild respiratory distress. CV: S1, S2. Regular rate and rhythm. Peripheral pulses present. Respiratory: Diminished breath sounds and crackles heard. No wheezing or stridor. No use of accessory muscles. Gastrointestinal: Abdomen is soft, nontender, nondistended. Positive bowel sounds. No guarding or rigidity. Extremities: No clubbing, cyanosis. Patient has trace pedal edema. Neurologic: Nonfocal. Laboratory Data: Sodium 139, potassium 3.7, chloride 103, CO2 of 33, BUN 16, creatinine 1.05, glucose 86, calcium 8.5. WBC 7, H and H of 11 and 33.4, platelets 165, neutrophils 67%. Influenza screen is negative. Assessment: A 74-year-old male with: 1. Acute congestive heart failure, diastolic dysfunction. We will continue with diuretics. Monitor I's and O's, free fluid restriction, daily weights, improving. However, patient is still on supplemental oxygen. We will try to wean off as tolerated. Appreciate Dr. Pollard' input. 2. Mild aortic stenosis. 3. Hypertensive heart disease. 4. Essential hypertension. Patient currently hypotensive, may need to adjust medications. 5. Depression with anxiety, stable. Continue home medications. 6. Atrial fibrillation paroxysmal, status post recent cardioversion, now in sinus rhythm. We will continue with anticoagulation and rate control. 7. Martinez's palsy. 8. Diabetes mellitus type 2, zrt-qmtxdtq-kqbsuxarr with hyperglycemia. We will continue sliding scale insulin and monitor blood glucose levels. 9. History of myocardial infarction. 10. Deep venous thrombosis prophylaxis. Patient is on Eliquis. Plan: We will try to wean off O2. Check room air saturations. Discharge once clinically stable and off oxygen. SA/MODL Voice ID: [id number] Report ID: [id number] MTDD
[2019-12-08] MEDS: ENSURE HIGH PROTEIN 237 ML CAN PO SCH (19:59)
[2019-12-08] MEDS: TRAZODONE 150 MG TAB PO SCH (21:15)
[2019-12-08] MEDS: TRAZODONE 50 MG TABLET PO SCH (21:15)
[2019-12-09] MEDS: HYDROCODONE/APAP 7.5/325 MG TAB PO PRN (05:25)
[2019-12-09] MEDS: SOTALOL HCL 80 MG TAB PO SCH (05:25)
[2019-12-09 06:03] LABS: Potassium 3.6 mmol/L (3.5-5.1)
[2019-12-09] MEDS: INSULIN -REGULAR HUMAN 50 UNIT/0.5 ML ML SQ SCH ×2 (07:30→11:30)
[2019-12-09] MEDS ORDERED: POTASSIUM CL SA 10 MEQ TAB PO ONE (08:00)
[2019-12-09] MEDS: ENSURE HIGH PROTEIN 237 ML CAN PO SCH (09:00)
[2019-12-09] MEDS: FUROSEMIDE 40 MG/4 ML VIAL IV SCH (09:00)
[2019-12-09 09:05] VITALS: O2SAT 92
[2019-12-09] MEDS: PANTOPRAZOLE 40MG TABLET PO SCH (09:07)
[2019-12-09] MEDS: ATORVASTATIN 20 MG TAB PO SCH (09:07)
[2019-12-09] MEDS: APIXABAN 5 MG TABLET PO SCH (09:08)
[2019-12-09] MEDS: VENLAFAXINE HCL XR 75 MG CAP PO SCH (09:08)
[2019-12-09] MEDS: DOCUSATE NA/SENNA CONC 1 TAB PO SCH (09:08)
[2019-12-09] MEDS: lisinopriL 10 MG TAB PO SCH (09:08)
[2019-12-09] MEDS: BISACODYL E.C. 5 MG TAB PO SCH (09:08)
[2019-12-09] MEDS: ASPIRIN 81 MG CHEWABLE TABLET PO SCH (09:08)
[2019-12-09 11:09] VITALS: BP 107/76; TEMP 97.3
--- NOTE | 2019-12-09 12:15 | PN ---
Subjective: Mr. Juarez remains in sinus rhythm. He is not volume overloaded. I think he could be discharged home later today. CRISTINE/ORACIO Voice ID: [id number] Report ID: [id number]
--- NOTE | 2019-12-10 00:25 | DS ---
Date of Discharge: 12/09/2019 Director Of Acquisition Marketing: Dr. Pollard with Cardiology. Admitting Diagnoses: 1.Acute congestive heart failure, diastolic dysfunction. 2.Mild aortic stenosis. 3.Hypertensive heart disease. 4.Essential hypertension. 5.Depression, major depressive disorder. 6.Generalized anxiety disorder. 7.Atrial fibrillation status post cardioversion. 8.Martinez palsy. 9.Diabetes mellitus type 2 lpk-vddsbki-rorgtooqw with hyperglycemia. 10.History of myocardial infarction. Discharge Diagnoses: 1.Acute diastolic heart failure, improved. 2.Mild aortic stenosis. 3.Hypertensive heart disease. 4.Essential hypertension, stable. 5.Major depressive disorder. 6.Generalized anxiety disorder, stable. 7.Atrial fibrillation paroxysmal, now in sinus rhythm. 8.Martinez palsy. 9.Diabetes mellitus type 2, hir-nyublrr-xscorjzwv with hyperglycemia. 10.History of myocardial infarction. Hospital Course: Patient is a 74-year-old male, comes in with shortness of breath, found to have CHF exacerbation. Patient has diastolic dysfunction, had a recent echo, which showed normal EF. Patien t does have LVH and mild aortic stenosis. Patient was started on diuretics. He was seen by his card iologist, Dr. 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 Patient diuresed well. He was counseled regarding fluid restricti on and sodium restriction in his diet in order to avoid worsening congestive heart failure symptoms. He is to weigh himself daily at the same time with the same scale and to monitor his weight closely. If he gains more than 3 pounds, he is to take some extra dose of Lasix and call his physician. Eric steele, patient has negative fluid balance, seems to be back to his dry weight down from 183 to 179 anil nds. Daughter was at the bedside. Treatment plan was explained to her at length. Overall, patient did well. He did have a CT angiogram, which was negative for PE. Patient was then cleared for disch arge from Dr. Pollard's standpoint. He was requiring supplemental oxygen, was able to be weaned off. His room air saturations were 88, however, with continued diuresis, improved to goal of 95%. Medications: As per medication reconciliation list. Followup: Follow up with primary care physician in 2-3 days. Follow up with senior adults director, Dr. Edgardo butterfield in 2 weeks. Return to ER for worsening condition. Diet: Diabetic. Activity: Fall precautions. Physical Examination: General: Awake, alert, and oriented x3, elderly male. CV: S1, S2. Regular rate and rhythm. Respiratory: Moving air well bilaterally. Abdomen: Abdomen is soft, nontender, nondistended. Positive bowel sounds. Extremities: No clubbing, cyanosis. Trace pedal edema. Neurologic: Nonfocal. Total time spent discharging patient was 35 minutes. /ORACIO Voice ID: [id number] Report ID: [id number]
== END 2019-12-09 11:55 | disposition home or self-care (01) | DRG 291 ==
LOC: ER 10:22 → ERHOLD 12:36 → 4TH 13:57 → OBSVTOIN 12-08 10:54
PROVIDERS: ADMIT Family Medicine; ATTEND Family Medicine
DX: I11.0 Hypertensive heart disease with heart failure (principal); I50.31 Acute diastolic (congestive) heart failure; I35.0 Nonrheumatic aortic (valve) stenosis; F32.9 Major depressive disorder, single episode, unspecified; I48.0 Paroxysmal atrial fibrillation; G51.0 Bell's palsy; I25.10 Atherosclerotic heart disease of native coronary artery without angina pectoris; E11.65 Type 2 diabetes mellitus with hyperglycemia; I25.2 Old myocardial infarction; Z96.653 Presence of artificial knee joint, bilateral; Z95.1 Presence of aortocoronary bypass graft
CPT/HCPCS: 36415; 71045; 71275; 80048; 80053; 80076; 82947; 83735; 83880; 84484; 85025; 85610; 87804; 92526; 92610; 92960; 93005; 94760; 96374; 99285; G0378; J1940; J2250; J7040; Q9967

== ENCOUNTER 2020-01-26 19:46 | Emergency (ER) | payer OTHER ==
--- OUTSIDE RECORDS SUMMARY | 2020-01-26 19:48 | XMS REPORT ---
:1945 Author Organization [facility] t Address [address] [place] [address] Care Team Providers Name Role Phone Unavailable Unavailable Unavailable Payers Payer Name Policy Type Policy Number Effective Date Expiration D ate Problems This patient has no known problems. Allergies, Adverse Reactions, Alerts This patient has no known allergies or adverse reactions. Medications This patient has no known medications. Results Test Description Test Time Test Comments Text Results Atomic Results Result Comments CREATININE W ESTIMATED GFR 2020-01-04 12:01:00 Test Item Value Reference Range Comments BEDSIDE CREATININE (test code = CREATBED) 0.9 MG/DL 0.6-1. 3 GLOMERULAR FILTRATION RATE POC (test code = GFRBED) 87 ML/MIN ENTER BEDSIDE CREATININE RESULT: 0.90Serial Number: [id number] Name of User Performing Test: PACOSTA- CT ANGIO [id number] 10:46:00 Name: DANIEL VALDERRAMA [facility] : 1945 Age/S: 74 / M [address] [place] [address] Unit #: [id number] Loc: Jona [id number] Phys: Shalini Rosas MD Acct: [id number] Dis Date: Status: REG CLI PHONE #: [phone] Exam Date: 01/03/2020 0942 FAX #: [phone] Reason: ATRIAL FIBRILLATION EXAMS: CPTCODE: [id number] CT ANGIO CHEST [address] ang iogram with IV contrast (Pulmonary Vein Mapping) 01/03/2020. MEDICAL HISTORY: Atrial fibrillation. Comparison studies: None. Administered contrast: 100 cc of Isovue 300 intravenously. FINDINGS: Contiguous 2 mm axial images of the chest were obtained with IV contrast using the CT angiogram protocol with a 64-slice multidetector scanner.Images were obtained from the thoracic inlet through below the level of the adrenal glands. Particular attention was given to the left atrium and pulmonary veins. The acquired data was used to create multiplanar reformats and volume rendering reconstructions with the use of thework station. CT imaging performed at this location utilizes radiation dose optimization techniques which include one or more of the following: -Automated exposure control -Adjustment of the mA and/or kV according to patient size -Use of iterative reconstruction technique CT Radiation Dose DLP 2397 mGy-cm Pulmonary vein measurements (measureplane obtained 5 mm distal to vessel ostia): Right superior pulmonary vein (RSPV): 20 mm. Right inferior pulmonary vein (RIPV): 12 mm. Left superior pulmonary vein (LSPV): 20 mm. Left inferior pulmonary vein (LIPV): 11 mm. Ill-defined opacity in the lingula likely represents scarring. The remainder the visualized lungs are clear. Midline sternotomy wires are present. There are mild degenerative changes in the visualized thoracic spine. No mediastinal lymphadenopathy is present. There is enlargement of the left atrium. IMPRESSION: 1. Pulmonary vein measurements as above.. 2. Enlargement of left atrium.. Please note that vessels bifurcating at a distance equalto or greater than 5 mm from the expected outer margin of the left atrium are considered to have a common ostium. PAGE 1 Signed Report (CONT INUED) Name: DANIEL VALDERRAMA [facility] : 1945 Age/S: 74 / M [address] [place] [address] Unit #: [id number] Loc: SWAPNA Tenorio [address] Phys: Shalini Rosas MD Acct: [id number] Dis Date: Status: REG CLI PHONE #: [phone] Exam Date: 01/03/2020 0942 FAX #: [phone] Reason: ATRIAL FIBRILLATION EXAMS: CPT CODE: [id number] CT ANGIO CHEST 38035 <Continued> SL: [id number] at 1046 Reported and signed by: Rojas Verma M.D. CC: Shalini Rosas MD Technologist:Heber Ricks, RT(R)(CT) CTDI: DLP: Trnscb Date/Time: 01/03/2020 (9138) [id number] Orig Print D/T: S: 01/03/2020 (8317) PAGE 2 Signed Report
--- OUTSIDE RECORDS SUMMARY | 2020-01-26 19:48 | XMS REPORT | Summary of Care ---
:1945 Author Organization [facility] Address [address] [place] [address] Care Team Providers Name Role Phone Pcp, Does Not Have A Primary Care Provider Reason for Visit Reason Comments LAB WORK Encounter Details Date Type Department Care Team Description 01/01/2020 Topper Packer Visit [facility] [place] [address] [address] Other persistent Laboratory, Clear Draw, Clc-Bls Lab atrial fibrillation [facility] (Primary Dx) [address] [place] [phone] Allergies No Known Allergiesdocumented as of this encounter (statuses as of 01/01/2020) Medications Medication Sig Dispensed Refills Start Date End Date Status Venlafaxine 150 mg TR24 Take 300 mg by 0 Active mouth at bedtime. omeprazole (PRILOSEC) Take 20 mg by 0 Active 20 mg capsule mouth daily. lisinopril Take 2.5 mg by 0 Acti ve (PRINIVIL,ZESTRIL) 2.5 mouth daily. mg tablet metFORMIN (GLUCOPHAGE) Take 250 mg by 0 Active 500 mg tablet mouth daily. metoprolol tartrate Take 25 mg by 0 Active (LOPRESSOR) 50 mg mouth at bedtime. tablet traZODONE (DESYREL) 50 Take 50 mg by 0 Active mg tablet mouth at bedtime. traZODONE (DESYREL) 100 Take 200 mg by 0 Active mg tablet mouth at bedtime. prazosin (MINIPRES) 2 Take 2 mg by 0 Active mg capsule mouth at bedtime. lisinopril Take 10 mg by 0 Activ e (PRINIVIL,ZESTRIL) 10 mouth at bedtime. mg tablet HYDROcodone-acetaminoph Take 1 Tab by 0 Active en (NORCO) 10-325 mg mouth 2 (two) tablet times daily. documented as of this encounter (statuses as of 01/01/2020) Active Problems Problem Noted Date Benign hypertensive heart disease without heart failur e 11/10/2012 Type 2 diabetes mellitus without complications 013 Overview: ICD10 Diagnosis Term Configuration Engineer Utility Depression 11/10/2012 Migraine 11/10/2012 Undiagnosed cardiac murmurs 11/10/2012 Overview: Holosystolic 12/07. [facility], he reports having stress tests and cardiac work ups regularly documented as of this encounter (statuses as of 01/01/2020) Social History Tobacco Use Types Packs/Day Years Used Date Never Smoker Smokeless Tobacco: Never Used Alcohol Use Drinks/Week oz/Week Comments No 2 Standard drinks or equivalent 2.0 Sex Assigned at Date Recorded Not on file Job Start Date Occupation Industry Not on file Not on file Not on file Travel History Travel Start Travel End No recent travel history available. documented as of this encounter Last Filed Vital Signs Not on filedocumented in this encounter Plan of Treatment Date Type Specialty Care Team Description 12/21/2019 Anesthesia Event Cardiac Electrophysiology Jaden Maria, RN [address] [place] [address] 01/08/2020 Hospital Encounter Cardiac [place] [address] [address] [phone] 1, Clc Cardiac Proc Room Anesthesia, Clc Ep Lab Name Type Priority Associated Diagnoses Order S chedule CBC WITH DIFF LAB Routine Other persistent atrial Exp ected: 01/01/2020, fibrillation Expires: 2020 PROTHROMBIN TIME / INR LAB Routine Other persistent a trial Expected: 01/01/2020, fibrillation Expires: 2020 aPTT LAB Routine Other persistent atrial Expe cted: 01/01/2020, fibrillation Expires: 2020 COMP. METABOLIC PANEL LAB Routine Other persistent at rial Expected: 01/01/2020, (28914) fibrillation Expires: 2020 Type and Screen - LAB Routine Other persistent atrial Expected: 01/01/2020, fibrillation Expires: 2019 CBC WITH DIFFERENTIAL LAB Routine Other persistent at rial Ordered: 01/01/2020 fibrillation Health Maintenance Due Date Last Done Comments EYE EXAM 02/18/1955 URINE MICROALBUMIN 02/18/1954 DTaP,Tdap,and Td Vaccines (1 - Tdap) 02/18/1955 FOOT EXAM 02/18/1962 COLONOSCOPY 02/18/1994 Zoster Recombinant Vaccine (SHINGRIX) (1 of 2) 02/18/1994 Medicare Wellness Visit 02/18/2009 PNEUMOCOCCAL VACCINES 65+ (1 of 2 - PCV13) 02/18/2009 HgA1C 05/10/2013 11/10/2012 CREATININE (SERUM) 11/04/2013 11/04/2012 LDL-C 11/04/2013 11/04/2012 INFLUENZA VACCINE (#1) 2019 documented as of this encounter Results Not on filedocumented in this encounter Visit Diagnoses Diagnosis Other persistent atrial fibrillation - P rimary documented in this encounter Insurance Payer Benefit Plan / Subscriber ID Effective Phone Address T e Group [facility] [id number] 2019-Prese Medic are Adv HEALTHCARE - HEALTHCARE nt PPO MANAGED MEDICARE GOLD MEDICARE [phone] (Work) documented as of this encounter
--- OUTSIDE RECORDS SUMMARY | 2020-01-26 19:49 | XMS REPORT | Summary of Care ---
:1945 Author Organization [facility] Address [address] [place] [address] Care Team Providers Name Role Phone Pcp, Does Not Have A Primary Care Provider Encounter Details Date Type Department Care Team Description 11/27/2019 Orders Only [facility] Doctor Unassigned, No [address] [facility] [place] [phone] [place] [address] Allergies No Known Allergiesdocumented as of this encounter (statuses as of 01/02/2020) Medications Medication Sig Dispensed Refills Start Date [...] as of this encounter (statuses as of 01/02/2020) Active Problems Problem Noted Date Benign hypertensive heart disease without heart failur e 11/10/2012 Type 2 diabetes mellitus without complications 013 Overview: ICD10 Diagnosis Term Collections Assistant Utility Depression 11/10/2012 Migraine 11/10/2012 Undiagnosed cardiac murmurs 11/10/2012 Overview: Holosystolic 12/07. [facility], he reports having stress tests and cardiac work ups regularly documented as of this encounter (statuses as of 01/02/2020) Social History Tobacco Use Types Packs/Day Years [...] Anesthesia Event Cardiac Electrophysiology Jaden Maria, RN [address] [place] [address] 01/08/2020 Hospital Encounter Cardiac Electrophys[place] [address] [place] [address] [phone] 1, Clc Cardiac Proc Room Anesthesia, Clc Ep Lab Health Maintenance Due Date Last Done Comments EYE EXAM 02/18/1954 URINE MICROALBUMIN 02/18/1954 DTaP,Tdap,and Td Vaccines (1 - Tdap) 02/18/1955 FOOT EXAM 02/18/1962 COLONOSCOPY 02/18/1994 Zoster Recombinant Vaccine (SHINGRIX) (1 02/18/1994 of 2) Medicare Wellness Visit 02/18/2009 PNEUMOCOCCAL VACCINES 65+ (1 of 2 - PCV13) 02/18/2009 HgA1C 05/10/2013 11/10/2012 LDL-C 11/04/2013 11/04/2012 INFLUENZA VACCINE (#1) 2019 CREATININE (SERUM) 12/31/2020 01/01/2020, 11/04/2012 documented as of this encounter Procedures Procedure Name Priority Date/Time Associated Diagnosis Comme nts EXTERNAL PROVIDER Routine 11/27/2019 12:01 AM ELEVATOR REPAIRER RECORDS documented in this encounter Results Not on filedocumented in this encounter Insurance Payer Benefit Plan / Subscriber ID Effective Phone Address T ype Group Dates MEDICARE MEDICARE PART xxxxxxxxxx 2004-12/25 [phone] [employer]are A & B /2019 [id number] [place] [phone] [facility] [id number] Through Medicare HEALTHCARE - HEALTHCARE 2019 Adv PP O MANAGED MEDICARE MEDICARE [place] UNITED UNITED Through HMO/PPO/PO S [facility] 2019 [employer]ED [employer] documented as of this encounter
--- OUTSIDE RECORDS SUMMARY | 2020-01-26 19:49 | XMS REPORT | Summary of Care ---
:1945 Author Organization [facility] Address [address] [place] [address] Care Team Providers Name Role Phone Pcp, Does Not Have A Primary Care Provider Reason for Visit Reason Comments Results Encounter Details Date Type Department Care Team Description 01/08/2020 Telephone [facility] - Shalini José MD Results Heart Station, [facility] [address] [facility] [address] [address] [place] [address] [phone] Allergies No Known Allergiesdocumented as of this encounter (statuses as of 01/08/2020) Medications Medication Sig Dispensed Refills Start Date End Date Status Venlafaxine 150 mg TR24 Take 300 mg by 0 Active mouth at bedtime. omeprazole (PRILOSEC) 20 Take 20 mg by 0 Active mg capsule mouth daily. lisinopril Take 2.5 mg by 0 Acti ve (PRINIVIL,ZESTRIL) 2.5 mouth daily. mg tablet metFORMIN (GLUCOPHAGE) Take 250 mg by 0 Active 500 mg tablet mouth daily. metoprolol tartrate Take 25 mg by 0 Active (LOPRESSOR) 50 mg tablet mouth at bedtime. traZODONE (DESYREL) 50 Take 50 mg by 0 Active mg tablet mouth at bedtime. traZODONE (DESYREL) 100 Take 200 mg by 0 Active mg tablet mouth at bedtime. prazosin (MINIPRES) 2 mg Take 2 mg by 0 Active capsule mouth at bedtime. lisinopril Take 10 mg by 0 Activ e (PRINIVIL,ZESTRIL) 10 mg mouth at tablet bedtime. HYDROcodone-acetaminophe Take 1 Tab by 0 Active n (NORCO) 10-325 mg mouth 2 (two) tablet times daily. atorvastatin 40 mg Take 20 mg by 0 Active tablet mouth at bedtime. sotalol (BETAPACE) 120 Take 120 mg by 0 Active mg tablet mouth 2 (two) times daily. apixaban (ELIQUIS) 5 mg Take 5 mg by 0 Active tablet mouth 2 (two) times daily. furosemide 40 mg tablet Take 40 mg by 0 Active mouth 2 (two) times daily. aspirin 81 mg EC tablet Take 81 mg by 0 Active mouth daily. foLIC acid in Water Take 1 mg by 0 Active solution mouth daily. documented as of this encounter (statuses as of 01/08/2020) Active Problems Problem Noted Date Benign hypertensive heart disease without heart failur e 11/10/2012 Type 2 diabetes mellitus without complications 013 Overview: ICD10 Diagnosis Term Ela Teacher Utility Depression 11/10/2012 Migraine 11/10/2012 Undiagnosed cardiac murmurs 11/10/2012 Overview: Holosystolic 12/07. [facility], he reports having stress tests and cardiac work ups regularly documented as of this encounter (statuses as of 01/08/2020) Social History Tobacco Use Types Packs/Day Years [...] filedocumented in this encounter Plan of Treatment Health Maintenance Due Date Last Done Comments [...] 01/01/2020, 11/04/2012 documented as of this encounter Results Not on filedocumented in this encounter Insurance Payer Benefit Plan / Subscriber ID Effective Phone Address T e Group Dates [facility] [id number] 2019-Prese Medic are Adv HEALTHCARE - HEALTHCARE nt PPO MANAGED MEDICARE GOLD MEDICARE documented as of this encounter
--- OUTSIDE RECORDS SUMMARY | 2020-01-26 19:49 | XMS REPORT | Summary of Care ---
:[address] 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[place] [address] [facility] [address] [address] [place] [address] [phone] Allergies No Known Allergiesdocumented as of this encounter (statuses as of 01/05/2020) Medications Medication Sig Dispensed Refills Start Date [...] as of this encounter (statuses as of 01/05/2020) Active Problems Problem Noted Date Benign hypertensive heart disease without heart failur e 11/10/2012 Type 2 diabetes mellitus without complications 013 Overview: ICD10 Diagnosis Term Sociology Teacher Utility Depression 11/10/2012 Migraine 11/10/2012 Undiagnosed cardiac murmurs 11/10/2012 Overview: Holosystolic 12/07. [facility], he reports having stress tests and cardiac work ups regularly documented as of this encounter (statuses as of 01/05/2020) Social History Tobacco Use Types Packs/Day Years [...] Treatment Date Type Specialty Care Team Description 01/05/2020 Anesthesia Event Cardiac Electrophysiology Jaden Maria, RN [address] [place] [address] 01/08/2020 Hospital Encounter Cardiac Electrophys[place] [address] [address] [phone], Clc Cardiac Proc Room Anesthesia, Clc [...] Effective Phone Address T ype Group Dates [facility] [id number] 2019-Prese Medic are Adv HEALTHCARE - HEALTHCARE nt PPO MANAGED MEDICARE GOLD MEDICARE documented as of this encounter
--- OUTSIDE RECORDS SUMMARY | 2020-01-26 19:50 | XMS REPORT | Summary of Care ---
:1945 Author Organization [facility] - [facility] Address [address] [place] [address] Care Team Providers Name Role Phone Pcp, Does Not Have A Primary Care Provider Reason for Visit Reason Comments Results Encounter Details Date Type Department Care Team Description 01/09/2020 Telephone [facility] Medicine/Surgery Shalini Fields MD Results [facility] [address] [address] [place] [address] [phone] Allergies Active Allergy Reactions Severity Noted Date Comments Adhesive Other - See comments 01/08/2020 Coban - "causes blisters" documented as of this encounter (statuses as of 01/09/2020) Medications Medication Sig Dispensed Refills Start Date End Date Status sucralfate 1 gram Take 1 tablet 28 tablet 0 01/09/2020 020 Active tabletIndications: by mouth 2 Paroxysmal atrial (two) times fibrillation, S/P daily for 14 ablation of atrial days. fibrillation Venlafaxine 150 mg Take 300 mg by 0 Suspended TR24 mouth 2 (two) times daily. omeprazole (PRILOSEC) Take 20 mg by 0 Suspended 20 mg capsule mouth daily. metFORMIN Take 250 mg by 0 Suspe nded (GLUCOPHAGE) 500 mg mouth daily. tablet traZODONE (DESYREL) Take 200 mg by 0 Suspended 100 mg tablet mouth at bedtime. HYDROcodone-acetamino Take 1 Tab by 0 Suspended phen (NORCO) 10-325 mouth 2 (two) mg tablet times daily. atorvastatin 40 mg Take 20 mg by 0 Suspended tablet mouth at bedtime. sotalol (BETAPACE) Take 120 mg by 0 Suspended 120 mg tablet mouth 2 (two) times daily. apixaban (ELIQUIS) 5 Take 5 mg by 0 Suspended mg tablet mouth 2 (two) times daily. furosemide 40 mg Take 40 mg by 0 Suspended tablet mouth 2 (two) times daily. aspirin 81 mg EC Take 81 mg by 0 Suspended tablet mouth daily. foLIC acid in Water Take 1 mg by 0 Suspended solution mouth daily. foLIC acid 1 mg Take 1 mg by 0 S uspended tablet mouth daily. documented as of this encounter (statuses as of 01/09/2020) Active Problems Problem Noted Date S/P ablation of atrial fibrillation 01/08/2020 Overview: PVI by Dr. Rosas on 01/08/2020 Benign hypertensive heart disease without heart failur e 11/10/2012 Type 2 diabetes mellitus without complications 013 Overview: ICD10 Diagnosis Term Nursing Home Assistant Administrator Utility Depression 11/10/2012 Migraine 11/10/2012 Undiagnosed cardiac murmurs 11/10/2012 Overview: Holosystolic 12/07. [facility], he reports having stress tests and cardiac work ups regularly documented as of this encounter (statuses as of 01/09/2020) Social History Tobacco Use Types Packs/Day Years [...] 65+ (1 of 2 - PCV13) 02/18/2009 LDL-C 11/04/2013 11/04/2012 INFLUENZA VACCINE (#1) 2019 HgA1C 07/09/2020 01/08/2020, 11/10/2012 CREATININE (SERUM) 12/31/2020 01/01/2020, 11/04/2012 documented as of this encounter Implants Implanted Type Area Voip Technician Device Identifier Shelf Exp iration Model / Serial Date / Lot Metal Knee documented as of this encounter Results Not on filedocumented in this encounter Insurance Payer Benefit Plan / Subscriber ID Effective Phone Address T ype Group Dates [facility] [id number] 2019-Prese Medic are Adv HEALTHCARE - HEALTHCARE nt PPO MANAGED MEDICARE [facility] MEDICARE documented as of this encounter
--- OUTSIDE RECORDS SUMMARY | 2020-01-26 19:50 | XMS REPORT | Summary of Care ---
:1945 Author Organization [facility] - [facility] Address [address] [place] [address] Care Team Providers Name Role Phone Pcp, Does Not Have A Primary Care Provider Reason for Referral (Routine) Status Reason Specialty Diagnoses / Procedures Referred By R eferred To Contact Contact New Request Diagnoses Paroxysmal atrial fibrillation S/P ablation of atrial fibrillation Dimitrios Melchor, Pcp, Patient Does Procedures Discharge Follow-up: PCP PATIENT DOES NOT HAVE A PCP; 1 Week TIMBER FELLER [place] Have A [address] [facility] 590 [address] [place], [place] [address] Phone: 0000 (Routine) Status Reason Specialty Diagnoses / Referred By Referred To Procedures Contact Contact New Request IM-CLINICAL CARDIAC Diagnoses Paroxysmal atrial fibrillation S/P ablation of atrial fibrillation Hematpour, ELECTROPHYSIOLOGY Procedures Discharge Follow-Up: Specialty Service IM-CLINICAL CARDIAC ELECTROPHYSIOLOGY; 2 Weeks MD [facility] [address] [facility] [address] [place] [address] Reason for Visit (Routine) Status Reason Specialty Diagnoses / Referred By Referred To Procedures Contact Contact Closed Cardiac Diagnoses Persistent atrial fibrillation Hematpour, Clc-Electrophy Electrophysiology Procedures CONSULT CARDIAC EP/HEART RHYTHM CENTER EPS PVI/ A MAINOR Loya MD [facility] [address] [address] [facility]. [address] [phone] Phone: Fax: Encounter Details Date Type Department Care Team Description 01/08/2020 - Hospital Encounter [facility] [place]emat[place]zen[place], [place] [address] [facility] [address] [place], [place] [phone] Paroxysmal atrial 01/09/2020 Medicine/[place] [address] [facility] [place] [address] [place], [place] [id number] fibrillation CLC 4A 1, Clc Cardiac Proc Room [address] Anesthesia, [place] [address] Allergies Active Allergy Reactions Severity Noted Date Comments Adhesive Other - See comments 01/08/2020 Coban - "causes blisters" documented as of this encounter (statuses as of 01/09/2020) Medications Medication Sig Dispensed Refills Start Date End Date Status Venlafaxine 150 mg Take 300 mg 0 Active TR24 by mouth 2 (two) times daily. omeprazole Take 20 mg by 0 Activ e (PRILOSEC) 20 mg mouth daily. capsule metFORMIN Take 250 mg 0 Active (GLUCOPHAGE) 500 mg by mouth tablet daily. traZODONE (DESYREL) Take 200 mg 0 Active 100 mg tablet by mouth at bedtime. HYDROcodone-acetami Take 1 Tab by 0 Active nophen (NORCO) mouth 2 (two) 10-325 mg tablet times daily. atorvastatin 40 mg Take 20 mg by 0 Active tablet mouth at bedtime. sotalol (BETAPACE) Take 120 mg 0 Active 120 mg tablet by mouth 2 (two) times daily. apixaban (ELIQUIS) Take 5 mg by 0 Active 5 mg tablet mouth 2 (two) times daily. furosemide 40 mg Take 40 mg by 0 Active tablet mouth 2 (two) times daily. aspirin 81 mg EC Take 81 mg by 0 Active tablet mouth daily. foLIC acid in Water Take 1 mg by 0 Active solution mouth daily. foLIC acid 1 mg Take 1 mg by 0 A ctive tablet mouth daily. sucralfate 1 gram Take 1 tablet 28 tablet 0 01/09/2020 020 Active tabletIndications: by mouth 2 Paroxysmal atrial (two) times fibrillation, S/P daily for 14 ablation of atrial days. fibrillation lisinopril Take 2.5 mg 0 01/09/2020 Discon tinued (PRINIVIL,ZESTRIL) by mouth 2.5 mg tablet daily. metoprolol tartrate Take 25 mg by 0 2019 Discontinued (LOPRESSOR) 50 mg mouth at tablet bedtime. traZODONE (DESYREL) Take 50 mg by 0 2019 Discontinued 50 mg tablet mouth at bedtime. prazosin (MINIPRES) Take 2 mg by 0 020 Discontinued 2 mg capsule mouth at bedtime. lisinopril Take 10 mg by 0 01/09/2020 Disc ontinued (PRINIVIL,ZESTRIL) mouth at 10 mg tablet bedtime. documented as of this encounter (statuses as of 01/09/2020) Active Problems Problem Noted Date S/P ablation of atrial fibrillation 01/08/2020 Overview: PVI by Dr. Rosas on 01/08/2020 Benign hypertensive heart disease without heart failur e 11/10/2012 Type 2 diabetes mellitus without complications 013 Overview: ICD10 Diagnosis Term Ironing Pleater Utility Depression 11/10/2012 Migraine 11/10/2012 Undiagnosed cardiac murmurs 11/10/2012 Overview: Holosystolic 12/07. [facility], he reports having stress tests and cardiac work ups regularly documented as of this encounter (statuses as of 01/09/2020) Social History Tobacco Use Types Packs/Day Years Used Date Never Smoker Smokeless Tobacco: Never Used Tobacco Cessation: Counseling Given: Yes Alcohol Use Drinks/Week oz/Week Comments No 2 Standard drinks or equivalent 2.0 Sex Assigned at Date Recorded Not on file Job Start Date Occupation Industry Not on file Not on file Not on file Travel History Travel Start Travel End No recent travel history available. documented as of this encounter Last Filed Vital Signs Vital Sign Reading Time Taken Comments Blood Pressure 103/58 01/09/2020 7:44 AM CDT Pulse 67 01/09/2020 7:44 AM CDT Temperature 36.7 C (98.1 F) 01/09/2020 7:44 AM CDT Respiratory Rate 18 01/09/2020 7:44 AM CDT Oxygen Saturation 99% 01/09/2020 7:44 AM CDT Inhaled Oxygen Concentration - - Weight 82.6 kg (182 lb) 12/21/2019 10:09 AM CDT Height 162.6 cm (5' 4.02") 12/21/2019 12:04 PM CDT Body Mass Index 31.22 12/21/2019 10:09 AM CDT documented in this encounter Discharge Instructions AppointmentsLisa Vera - 01/09/2020 10:13 AM CDTYour follow up appointment with Dr.Khashayar Rosas is January at 11:15am. [address] [facility] [place]. [address] [facility],[phone] If you need cancel or make any changes call the clinic as soon as possible. AttachmentsThe following attachments cannot be sent through Care Everywhere. About Arrhythmias (Bahraini)Eating Heart-Healthy Foods (Bahraini)Catheter Ablation, Discharge Instructions for (Bahraini)Ablation, Having Catheter (Bahraini)documented in this encounter Progress Notes Dimitrios Melchor NP - 01/09/2020 7:32 AM CDT XpertMD Progress Note Dimitrios Melchor ACNP Subjective: Atrial fibrillation Patient seen & examined. Events reviewed. Objective: Vitals: 01/08/20 1652 01/08/20 2000 01/09/20 0000 01/09/20 0400 BP: 105/62 101/62 100/65 100/66 Pulse: 68 68 65 55 Resp: 18 Temp: 36.2 C (97.1 F) 36.7 C (98 F) 36.4 C (97.6 F) 36.6 C (97.8 F) TempSrc: Oral Oral Oral Oral SpO2: 95% 95% 96% 100% Weight: Height: General: awake, alert, no distress HEENT: NC, AT, PERRLA, EOMI, MMM, anicteric sclera Neck: no JVD/lymphadenopathy CV: RRR, no murmurs, rubs, gallops Lungs: clear to auscultation bilaterally Abdomen: soft, NT, ND, (+)BS Skin: no rashes - Cath site dressings C/D/I Extremities: no clubbing, cyanosis, edema Neuro: CN 2-12 intact, no focal deficits Psych: oriented x 3, normal affect Labs: Recent Results (from the past 48 hour(s)) Type and Screen - ONCE Routine Collection Time: 01/08/20 6:10 AM Result Value Ref Range ABO & RH A Positive IAT Negative CORONAVIRUS COVID-19 TESTING Collection Time: 01/08/20 6:35 AM Result Value Ref Range SARS-CoV-2 Not Detected Not Detected POCT GLUCOSE (AUTOMATED) Collection Time: 01/08/20 1:43 PM Result Value Ref Range POCT GLU 138 (H) 70 - 110 mg/dL POCT GLUCOSE (AUTOMATED) Collection Time: 01/08/20 4:46 PM Result Value Ref Range POCT GLU 175 (H) 70 - 110 mg/dL Glycosylated Hemoglobin (A1C) Collection Time: 01/08/20 5:58 PM Result Value Ref Range HGB A1C 5.7 4.0 - 6.0 % NGSP POCT GLUCOSE (AUTOMATED) Collection Time: 01/08/20 8:19 PM Result Value Ref Range POCT GLU 133 (H) 70 - 110 mg/dL Basic Metabolic Panel (NA, K, CL, CO2, GLUCOSE, BUN, CREATININE, CA) Collection Time: 01/09/20 3:36 AM Result Value Ref Range NA 137 135 - 145 mmol/L K 4.1 3.5 - 5.0 mmol/L CL 100 98 - 108 mmol/L CO2 TOTAL 28 23 - 31 mmol/L AGAP 9 2 - 16 BUN 24 (H) 7 - 23 mg/dL GLUCOSE 108 70 - 110 mg/dL CREATININE 0.84 0.60 - 1.25 mg/dL CALCIUM 7.8 (L) 8.6 - 10.6 mg/dL eGFR Calculation (Non-) 89.1 mL/min/1.73m2 eGFR Calculation () 108.0 mL/min/1.73m2 CBC WITH DIFFERENTIAL Collection Time: 01/09/20 3:36 AM Result Value Ref Range WBC 12.20 (H) 4.20 - 10.70 10*3/L RBC 3.52 (L) 4.26 - 5.52 10*6/L HGB 11.4 (L) 12.2 - 16.4 g/dL HCT 34.6 (L) 38.4 - 49.3 % MCV 98.3 (H) 81.7 - 95.6 fL MCH 32.4 26.1 - 32.7 pg MCHC 32.9 31.2 - 35.0 g/dL RDW-SD 58.5 (H) 38.5 - 51.6 fL RDW-CV 16.3 (H) 12.1 - 15.4 % PLT 130 (L) 150 - 328 10*3/L MPV 12.2 9.8 - 13.0 fL NRBC/100 WBC 0.0 0.0 - 10.0 /100 WBCs NRBC x10^3 <0.01 10*3/L GRAN MAT (NEUT) % 80.4 % IMM GRAN % 0.50 % LYMPH % 6.6 % MONO % 12.3 % EOS % 0.0 % BASO % 0.2 % GRAN MAT x10^3(ANC) 9.82 (H) 1.99 - 6.95 10*3/uL IMM GRAN x10^3 0.06 0.00 - 0.06 10*3/uL LYMPH x10^3 0.80 (L) 1.09 - 3.23 10*3/uL MONO x10^3 1.50 (H) 0.36 - 1.02 10*3/uL EOS x10^3 <0.03 (L) 0.06 - 0.53 10*3/uL BASO x10^3 <0.03 0.01 - 0.09 10*3/uL Current Facility-Administered Medications: acetaminophen (TYLENOL) tablet 650 mg, 650 mg, Oral, Q6HPRN, Dimitrios Melchor, KYRA, 650 mg at 01/09/20 0152 apixaban (ELIQUIS) tablet 5 mg, 5 mg, Oral, BID, Steve Ty, PAUL aspirin EC tablet 81 mg, 81 mg, Oral, DAILY, Steve Ty FNP atorvastatin (LIPITOR) tablet 20 mg, 20 mg, Oral, QHS, Steve Ty, PAUL, 20 mg at 01/08/20 2101 D10W IV infusion 250 mL, 25 mL, Intravenous, PRN, Dimitrios Melchor, TIMBER FELLER foLIC acid (FOLATE) tablet 1 mg, 1 mg, Oral, DAILY, Bocado, Marieflor, STRUCTURAL LAYOUT WORKER furosemide (LASIX) tablet 40 mg, 40 mg, Oral, BID, Bocado, Marieflor, STRUCTURAL LAYOUT WORKER, 40 mg at 01/08/202100 glucagon (GLUCAGEN DIAGNOSTIC KIT) injection 1 mg, 1 mg, Intramuscular, PRN, Dimitrios Melchor, KYRA HYDROcodone-acetaminophen (NORCO 5) 5-325 mg tablet 1 tablet, 1 tablet, Oral, Q6HPRN, Dimitrios Melchor, KYRA, 1 tablet at 01/08/20 1359 morpHINE injection 4 mg, 4 mg, Slow IV Push, Q4HPRN, Bocado, Marieflor, STRUCTURAL LAYOUT WORKER omeprazole (PRILOSEC) capsule 20 mg, 20 mg, Oral, DAILY, Bocado, Marieflor, STRUCTURAL LAYOUT WORKER ondansetron (ZOFRAN (PF)) injection 4 mg, 4 mg, Slow IV Push, Q6HPRN, Dimitrios Melchor, KYRA Sliding Scale Insulin - Aspart (NOVOLOG) + Fsbg Testing, , Subcutaneous, TID MEALS+HS, Radha Felton, RPH, Stopped at 01/08/202099 sotalol (BETAPACE) tablet 120 mg, 120 mg, Oral, Q12H, Bocado, Marieflor, STRUCTURAL LAYOUT WORKER, 120 mg at 01/08/202100 sucralfate (CARAFATE) 100 mg/mL suspension 1,000 mg, 1 g, Oral, BID, Bocado, Marieflor, STRUCTURAL LAYOUT WORKER, 1,000 mg at 01/08/202100 traZODone (DESYREL) tablet 200 mg, 200 mg, Oral, QHS, Bocado, Marieflor, STRUCTURAL LAYOUT WORKER, 200 mg at 01/08/202100 venlafaxine (EFFEXOR) tablet 150 mg, 150 mg, Oral, BID, Bocado, Marieflor, STRUCTURAL LAYOUT WORKER, 150 mg at 01/08/202100 Assessment: Joshua Juarez is a 74 year old male admitted with: Atrial fibrillation, status post ablation Hypertension Hyperlipidemia Diabetes mellitus Peripheral neuropathy Obstructive sleep apnea Hx of CAD, CABG 2015 Hx of TIA, November 2019 Chronic diastolic Congestive heart failure Mitral and aortic stenosis GERD PLAN: S/P ablation for persistent A-Fib Post procedural care Telemetry monitoring, assess for any rhythm changes status post ablation Follow labs, electrolytes Anticoagulation Pain control as needed Assess catheterization site for any bleeding, erythema, warmth, swelling, exudate Follow blood pressure trend, adjust medications as needed CPAP for sleep apnea Follow-up fluid volume status, intake and output, daily weight Assess for any increased oxygen demand, tachypnea, tachycardia Follow blood sugar trend, adjust medications as needed Will follow patient's status closely, likely discharge home tomorrow if cleared by electrophysiology Further interventions per patient's clinical course Dr. De Jesus was present during patient encounter, examined patient bedside, questions answered Plan discussed with patient 01/09/2020 Post-procedural care No bleeding, erythema, warmth, swelling, exudate at cath sites Post procedural care Mild leukocytosis likely reactive, no signs of infection Telemetry monitoring, assess for any rhythm changes status post ablation Follow blood pressure trend, adjust medications as needed Follow labs, electrolytes Anticoagulation Pain control as needed CPAP for sleep apnea No increased oxygen demand, tachypnea, tachycardia Blood sugar trend controlled Patient doing well, will discharge home today, cleared by cardiology for discharge Further interventions per patient's clinical course Dr. De Jesus was present during patient encounter, examined patient bedside, questions answered Plan discussed with patient Dimitrios Melchor NP 01/09/2020 7:33 AM documented in this encounter Plan of Treatment Name Type Priority Associated Diagnoses Order S chedule EKG-12 LEAD ROUTINE HEART STATION Routine TOMORRO W AM AT 0600 for 1 Occurrenc es starting 2019 until 0 CBC WITH DIFF LAB Routine ONCE for 1 Occurrences sta rting 01/09/2020 unti l 01/09/2020 CBC WITH DIFFERENTIAL LAB Routine Once f or 1 Occurrences sta rting 01/09/2020 unti l 01/09/2020 Health Maintenance Due Date Last Done Comments [...] of this encounter Implants Implanted Type Area Drafter Apprentice Device Identifier Shelf Exp iration Model / Serial Date / Lot Metal Knee documented as of this encounter Procedures Procedure Name Priority Date/Time Associated Diagnosis Comme nts POCT GLUCOSE Routine 01/09/2020 7:49 Results for this (AUTOMATED) AM CDT procedure are i n the results section. CBC WITH DIFFERENTIAL Routine 01/09/2020 3:36 Re sults for this AM CDT procedure are i n the results section. CBC WITH DIFFERENTIAL Routine 01/09/2020 3:36 Re sults for this AM CDT procedure are i n the results section. BASIC METABOLIC PANEL Routine 01/09/2020 3:36 Re sults for this (NA, K, CL, CO2, AM CDT procedure a re in GLUCOSE, BUN, the results CREATININE, CA) section. POCT GLUCOSE Routine 01/08/2020 8:19 Results for this (AUTOMATED) PM CDT procedure are i n the results section. GLYCOSYLATED Routine 01/08/2020 5:58 Results for this HEMOGLOBIN (A1C) PM CDT procedure a re in the results section. POCT GLUCOSE Routine 01/08/2020 4:46 Results for this (AUTOMATED) PM CDT procedure are i n the results section. POCT GLUCOSE Routine 01/08/2020 1:43 Results for this (AUTOMATED) PM CDT procedure are i n the results section. CATH PROCEDURE LOG Routine 01/08/2020 8:59 AM CDT CORONAVIRUS COVID-19 STAT 01/08/2020 6:35 Paroxysmal atria l Results for this TESTING AM CDT fibrillation procedure are i n the results section. EKG-12 LEAD Routine 01/08/2020 6:25 AM CDT HB ABO GROUPING Routine 01/08/2020 6:10 Paroxysmal atrial Res ults for this AM CDT fibrillation procedure are i n the results section. NOTICE OF PRIVACY Routine 01/08/2020 5:47 PRACTICES AM CDT CONSENT/REFUSAL FOR Routine 01/08/2020 5:47 DIAGNOSIS AND AM CDT TREATMENT ASSIGNMENT OF Routine 01/08/2020 5:47 BENEFITS AM CDT documented in this encounter Results POCT GLUCOSE (AUTOMATED) (01/09/2020 7:49 AM CDT) Pathologist [facility] [place] [facility] POCT GLU 118 (H) 70 - 110 mg/dL [facility] Specimen Blood Performing Organization Address City/State/Zipcode Phone Number [facility] CLIA: [id number], [address] [place], [place] [address] CBC WITH DIFFERENTIAL (01/09/2020 3:36 AM CDT) Pathologist [facility] WBC 12.20 (H) 4.20 - 10.70 [facility] 10*3/L [facility] RBC 3.52 (L) 4.26 - 5.52 [facility] 10*6/L [facility] HGB 11.4 (L) 12.2 - 16.4 [facility] g/dL [facility] HCT 34.6 (L) 38.4 - 49.3 % [facility] MCV 98.3 (H) 81.7 - 95.[address] [facility] MCH 32.4 26.1 - 32.7 pg [facility] MCHC 32.9 31.2 - 35.0 [facility] g/dL [facility] RDW-SD 58.5 (H) 38.5 - 51.[address] [facility] RDW-CV 16.3 (H) 12.1 - 15.4 % [facility] PLT 130 (L) 150 - 328 [facility] 10*3/L [facility] MPV 12.2 9.8 - 13.0 fL [facility] NRBC/100 WBC 0.0 0.0 - 10.0 /[address] [facility] [address] [facility] NRBC x10^3 <0.01 10*3/L [facility] GRAN MAT (NEUT) % 80.4 % [facility] IMM GRAN % 0.50 % [facility] LYMPH % 6.6 % [facility] MONO % 12.3 % [facility] EOS % 0.0 % [facility] BASO % 0.2 % [facility] GRAN MAT x10^3(ANC) 9.82 (H) 1.99 - 6.95 [facility] 10*3/uL [facility] IMM GRAN x10^3 0.06 0.00 - 0.06 [facility] 10*3/uL [facility] LYMPH x10^3 0.80 (L) 1.09 - 3.23 [facility] 10*3/uL [facility] MONO x10^3 1.50 (H) 0.36 - 1.02 [facility] 10*3/uL [facility] EOS x10^3 <0.03 (L) 0.06 - 0.53 [facility] 10*3/uL [facility] BASO x10^3 <0.03 0.01 - 0.09 [facility] 10*3/uL [facility] Specimen Blood - HAND, RIGHT Performing Organization Address City/State/Zipcode Phone Number [facility] CLIA: [id number], [address] [place] [address] [facility] [address] Basic Metabolic Panel (NA, K, CL, CO2, GLUCOSE, BUN, CREATININE, CA) (01/09/2020 3:36 AM CDT) [facility] NA 137 135 - 145 [facility] mmol/L [facility] K 4.1 3.5 - 5.0 [facility] mmol/L [facility] CL 100 98 - 108 mmol/L [facility] CO2 TOTAL 28 23 - 31 mmol/L [facility] AGAP 9 2 - 16 [facility] BUN 24 (H) 7 - 23 mg/dL [facility] GLUCOSE 108 70 - 110 mg/dL [facility] CREATININE 0.84 0.60 - 1.25 [facility] mg/dL [facility] CALCIUM 7.8 (L) 8.6 - 10.6 [facility] mg/dL [facility] eGFR Calculation 89.1 mL/min/1.73m2 [facility] (Non- [facility]) [place] eGFR Calculation 108.0 mL/min/1.73m2 [facility] () [facility] Specimen Blood - HAND, RIGHT Narrative Performed At Association of Glomerular Filtration Rate [facility] (GFR) and Staging of Kidney Disease* [place] + + --+ + | GFR (mL/min/1.73 m2) | With Kidney Damage | Without Kidney Damage + + --+ + | >90 | Stage one | Normal + + --+ + | 60-89 | Stage two | Decreased GFR + + --+ + | 30-59 | Stage three | Stage three + + --+ + | 15-29 | Stage four | Stage four + + --+ + | <15 (or dialysis) | Stage five | Stage five + + --+ + *Each stage assumes the associated GFR level has been in effect for at least three months. Stages 1 to 5, with or without kidney disease, indicate chronic kidney disease. Notes: Determination of stages one and two (with eGFR >59mL/min/1.73 m2) requires estimation of kidney damage for at least three months as defined by structural or functional abnormalities of the kidney, manifested by either: Pathological abnormalities or Markers of kidney damage (including abnormalities in the composition of the blood or urine or abnormalities in imaging tests). Performing Organization Address City/[facility] Phone Number [facility] CLIA: [id number], [address] [place], [place] [id number] [facility] POCT GLUCOSE (AUTOMATED) (01/08/2020 8:19 PM CDT) Pathologist [facility] POCT GLU 133 (H) 70 - 110 mg/dL [facility] Specimen Blood Performing Organization Address [facility]/Zipcode Phone Number [facility] CLIA: [id number], [address] [place], [place] [address] Glycosylated Hemoglobin (A1C) (01/08/2020 5:58 PM CDT) Pathologist [facility] HGB A1C 5.7 4.0 - 6.0 % NGSP [facility] Specimen Blood - ARM, RIGHT Performing Organization Address [facility] Cent[facility]ode Phone Number [facility] CLIA: [id number], [address] [place] [address] [phone] [facility] POCT GLUCOSE (AUTOMATED) (01/08/2020 4:46 PM CDT) Pathologist [facility] POCT GLU 175 (H) 70 - 110 mg/dL [facility] Specimen Blood Performing Organization Address City/[facility]/Zipcode Phone Number [facility] CLIA: [id number], [address] [place] [address] POCT GLUCOSE (AUTOMATED) (01/08/2020 1:43 PM CDT) Pathologist [facility] POCT GLU 138 (H) 70 - 110 mg/dL [facility] Specimen Blood Performing Organization Address [facility] Centercoak Phone Number [facility] CLIA: [id number], [address] [place] [address] CORONAVIRUS COVID-19 TESTING (01/08/2020 6:35 AM CDT) [facility] SARS-CoV-2 Not Detected Not Detected [facility] Specimen Swab - NASOPHARYNGEAL SWAB Narrative Performed At [facility] COVID-19 Assay is an isothermal [facility] nucleic acid amplification test intended for CAMPUS the qualitative detection of nucleic acid from SARS-CoV-2 viral RNA in nasopharyngeal (TIMBER FELLER) specimens. It is used under Emergency Use Authorization (EUA) by FDA. The limit of detection (LOD) of the assay is 125 Genome Equivalents/mL. A positive result is indicative of the presence of SARS-CoV-2 RNA. Clinical correlation with patient history and other diagnostic information is necessary to determine patient infection status. A negative (Not Detected) result does not preclude SARS-CoV-2 infection and should not be used as the sole basis for patient management decisions. Invalid: Please collect a new specimen for repeat patient testing if clinically indicated. Performing Organization Address City/[facility] Centercode Phone Number [facility] CLIA: [id number], [address] [place] [address] [facility] [address] Type and Screen - ONCE Routine (01/08/2020 6:10 AM CDT) [facility] ABO & RH A Positive LAB Comment: Performed at [facility] Laboratory Services [facility] Blood Bank [address] [place] [phone] Toll Free: [phone] CLIA No. [id number] IAT Negative LAB Comment: Performed at [facility] Laboratory Services - [facility] Blood Bank [address] [place] [phone] Toll Free: [phone] CLIA No. [id number] Specimen Blood - VENOUS Performing Organization Address City/State/Zipcode Phone Number [facility] documented in this encounter Visit Diagnoses Diagnosis Paroxysmal atrial fibrillation - Primary Atrial fibrillation S/P ablation of atrial fibrillation Other postprocedural status documented in this encounter Administered Medications Medication Order MAR Action Action Date Dose Rate Site acetaminophen (TYLENOL) tablet Given 01/09/2020 1:52 AM CDT 650 mg 650 mg 650 mg, Oral, Q6HPRN, Starting Wed01/08/20 at 1227, Until Discontinued, Routine, Pain (scale 1-3) apixaban (ELIQUIS) tablet 5 mg Given 01/09/2020 8:23 AM CDT 5 mg 5 mg, Oral, BID, First dose on Wed01/09/20 at 0800, Until Discontinued, Routine aspirin EC tablet 81 mg Given 01/09/2020 8:23 AM CDT 81 mg 81 mg, Oral, DAILY, First dose on Wed01/09/20 at 0900, Until Discontinued, Routine atorvastatin (LIPITOR) tablet 20 mg Given 01/08/2020 9:01 PM CDT 20 mg 20 mg, Oral, QHS, First dose on Wed01/08/20 at 2100, Until Discontinued, Routine D10W IV infusion 250 mL Intravenous, PRN, Starting Wed01/08/20 at 1722, Until D iscontinued, MAYRA foLIC acid (FOLATE) tablet 1 mg Given 01/09/2020 8:23 AM CDT 1 mg 1 mg, Oral, DAILY, First dose on Wed01/09/20 at 0900, Until Discontinued, Routine furosemide (LASIX) tablet 40 mg Given 01/09/2020 8:23 AM CDT 40 mg 40 mg, Oral, BID, First dose on Wed01/08/20 at 2000, Until Discontinued, Routine Given 01/08/2020 9:01 PM CDT 40 mg glucagon (GLUCAGEN DIAGNOSTIC KIT) injec tion 1 mg 1 mg, Intramuscular, PRN, Starting Wed at 1722, Until Discontinued, MAYRA, Blood Glucose < or = 70 mg/dL and patient is unable to swallow or has mental changes. HYDROcodone-acetaminophen (NORCO 5) 5-325 Given 2019 1:59 PM CDT 1 tablet mg tablet 1 tablet 1 tablet, Oral, Q6HPRN, Starting Wed01/08/20 at 1227, Until Wed01/10/20 at 1226, Routine, Pain (scale 4-6) omeprazole (PRILOSEC) capsule 20 mg Given 01/09/2020 8:23 AM CDT 20 mg 20 mg, Oral, DAILY, First dose on Wed01/09/20 at 0900, Until Discontinued, Routine ondansetron (ZOFRAN (PF)) injection 4 mg 4 mg, Slow IV Push, Q6HPRN, Starting Wed01/08/20 at 122 7, Until Discontinued, Routine, Nausea and Vomiting (N/V) Sliding Scale Insulin - Aspart Given 01/08/2020 5:55 PM CDT 1 U nits Abdomen-SC (NOVOLOG) + Fsbg Testing Subcutaneous, TID MEALS+HS, First dose on Wed01/08/20 at 1745, Until Discontinued, Routine sotalol (BETAPACE) tablet 120 mg Given 01/09/2020 8:23 AM CDT 120 mg 120 mg, Oral, Q12H, First dose on Wed01/08/20 at 2000, Until Discontinued, Routine, automobile club membership sales agent approving Restricted medication: JOSÉ MIGUELKETTYSHALINI MARTINEZ Given 01/08/2020 9:01 PM CDT 120 mg sucralfate (CARAFATE) 100 mg/mL suspension Given 01/08 8:22 AM CDT 1,000 mg 1,000 mg 1,000 mg (1 g), Oral, BID, First dose on Wed01/08/20 at 2000, Until Discontinued, Routine Given 01/08/2020 9:01 PM CDT 1,000 mg traZODone (DESYREL) tablet 200 mg Given 01/08/2020 9:01 PM CDT 200 mg 200 mg, Oral, QHS, First dose on Wed01/08/20 at 2100, Until Discontinued, Routine venlafaxine (EFFEXOR) tablet 150 mg Given 01/09/2020 8:23 AM CDT 150 mg 150 mg, Oral, BID, First dose on Wed01/08/20 at 2000, Until Discontinued Given 01/08/2020 9:01 PM CDT 150 mg Medication Order MAR Action Action Date Dose Rate Site apixaban (ELIQUIS) tablet 5 mg Given 01/08/2020 5:17 PM CDT 5 mg 5 mg, Oral, ONCE, 1 dose, 01/08/20 at 1800, Routine documented in this encounter Insurance Payer Benefit Plan / Subscriber ID Effective Phone Address T ype Group Dates [facility] [id number] 2019-Prese Medic are [facility] - HEALTHCARE nt PPO MANAGED MEDICARE GOLD MEDICARE [phone] [id number] (Work) documented as of this encounter
--- OUTSIDE RECORDS SUMMARY | 2020-01-26 19:51 | XMS REPORT | Summary of Care ---
:1945 Author Organization [facility] Address [address] [place] [address] Care Team Providers Name Role Phone Pcp, Does Not Have A Primary Care Provider Reason for Visit Reason Comments Lab Results Encounter Details Date Type Department Care Team Description 01/08/2020 Telephone ACCESS CENTER Shalini Rosas MD Lab Results [address] [facility] [address] [place] [address] [address] [address] [place], [place] [address] [phone] Allergies Active Allergy Reactions Severity Noted Date Comments Adhesive Other - See comments 01/08/2020 Coban - "causes blisters" documented as of this encounter (statuses as of 01/16/2020) Medications Medication Sig Dispensed Refills Start Date End Date Status Venlafaxine 150 mg Take 300 mg by 0 Active TR24 mouth 2 (two) times daily. omeprazole (PRILOSEC) Take 20 mg by 0 Active 20 mg capsule mouth daily. metFORMIN (GLUCOPHAGE) Take 250 mg by 0 Active 500 mg tablet mouth daily. traZODONE (DESYREL) Take 200 mg by 0 Active 100 mg tablet mouth at bedtime. HYDROcodone-acetaminop Take 1 Tab by 0 Active hen (NORCO) 10-325 mg mouth 2 (two) tablet times daily. atorvastatin 40 mg Take 20 mg by 0 Active tablet mouth at bedtime. sotalol (BETAPACE) 120 Take 120 mg by 0 Active mg tablet mouth 2 (two) times daily. apixaban (ELIQUIS) 5 Take 5 mg by 0 Active mg tablet mouth 2 (two) times daily. furosemide 40 mg Take 40 mg by 0 Active tablet mouth 2 (two) times daily. aspirin 81 mg EC Take 81 mg by 0 Active tablet mouth daily. foLIC acid in Water Take 1 mg by 0 Active solution mouth daily. foLIC acid 1 mg tablet Take 1 mg by 0 Active mouth daily. sucralfate 1 gram Take 1 tablet by 28 tablet 0 01/09/202001/03 Active tabletIndications: mouth 2 (two) Paroxysmal atrial times daily for fibrillation, S/P 14 days. ablation of atrial fibrillation documented as of this encounter (statuses as of 01/16/2020) Active Problems Problem Noted Date S/P ablation of atrial fibrillation 01/08/2020 Overview: PVI by Dr. 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 [facility], he reports having stress tests and cardiac work ups regularly documented as of this encounter (statuses as of 01/16/2020) Social History Tobacco Use Types Packs/Day Years [...] 02/18/1962 COLONOSCOPY 02/18/1994 Zoster Recombinant Vaccine (SHINGRIX) 02/18/1994 (1 of 2) Medicare Wellness Visit 02/18/2009 PNEUMOCOCCAL VACCINES 65+ (1 of 2 - 02/18/2009 PCV13) LDL-C 11/04/2013 11/04/2012 INFLUENZA VACCINE (#1) 2019 HgA1C 07/09/2020 01/08/2020, 11/10/2012 CREATININE (SERUM) 01/08/2021 01/09/2020, 01/01/2020, 11/04/2012 documented as of this encounter Implants Implanted Type Area Service Assistant Device Identifier Shelf Exp iration Model / Serial Date / Lot Metal Knee documented as of this encounter Results Not on filedocumented in this encounter Insurance Payer Benefit Plan / Subscriber ID Effective Phone Address T ype Group Dates [facility] [id number] 2019-Prese Medic are [facility] [employer] - HEALTHCARE nt PPO MANAGED MEDICARE [facility] MEDICARE documented as of this encounter
--- OUTSIDE RECORDS SUMMARY | 2020-01-26 19:51 | XMS REPORT | Summary of Care ---
:1945 Author Organization [facility] - Health Address [address] [place] [address] Care Team Providers Name Role Phone Pcp, Does Not Have A Primary Care Provider Encounter Details Date Type Department Care Team Description 01/23/2020 Orders Only [facility] Doctor Unassigned, No [address] [facility] Name [id number] [place] [address] Allergies Active Allergy Reactions Severity Noted Date Comments Adhesive Other - See comments 01/08/2020 Lalit - "causes blisters" documented as of this encounter (statuses as of 01/23/2020) Medications Medication Sig Dispensed Refills Start Date [...] Take 1 tablet by 28 tablet 0 01/09/20202 10/2019 Active tabletIndications: mouth 2 (two) Paroxysmal atrial times daily for fibrillation, S/P 14 days. ablation of atrial fibrillation documented as of this encounter (statuses as of 01/23/2020) Active Problems Problem Noted Date S/P ablation of atrial fibrillation 01/08/2020 Overview: PVI by Dr. Rosas on 01/08/2020 Benign hypertensive heart disease without heart failur e 11/10/2012 Type 2 diabetes mellitus without complications 013 Overview: ICD10 Diagnosis Term Fur Designer Utility Depression 11/10/2012 Migraine 11/10/2012 Undiagnosed cardiac murmurs 11/10/2012 Overview: Holosystolic 12/07. [facility], he reports having stress tests and cardiac work ups regularly documented as of this encounter (statuses as of 01/23/2020) Social History Tobacco Use Types Packs/Day Years [...] of this encounter Implants Implanted Type Area Pumper Gauger Device Identifier Shelf Exp iration Model / Serial Date / Lot Metal Knee documented as of this encounter Procedures Procedure Name Priority Date/Time Associated Diagnosis Comme nts EXTERNAL PROVIDER Routine 01/23/2020 12:01 AM CDT RECORDS documented in this encounter Results Not on filedocumented in this encounter Insurance Payer Benefit Plan / Subscriber ID Effective Phone Address T ype Group Dates [facility] [id number] 2019-Prese Medic are [facility] - HEALTHCARE nt PPO MANAGED MEDICARE [employer] [facility] [employer] [facility] MEDICARE documented as of this encounter
[2020-01-26] MEDS ORDERED: TETANUS & DIPHTHERIA TOX,ADULT 0.5 ML VIAL ONE (20:07)
[2020-01-26] MEDS ORDERED: HYDROCODONE/APAP 7.5/325 MG TAB ONE (20:07)
[2020-01-26] MEDS ORDERED: MORPHINE 2 MG/ML SYR ONE ×2 (20:40→22:58)
[2020-01-26 20:53] LABS: Absolute Lymphocytes (CBC) 1.2 K/uL (0.7-4.9); Hematocrit 35.1 % (39.6-49.0); Lymphocytes % 22.3 % (15.3-44.8); MPV 10.2 fL (7.6-11.3); RBC Red Blood Cell Count 3.59 M/uL (4.33-5.43)
[2020-01-26 20:57] LABS: Protime INR 1.49
[2020-01-26 21:10] LABS: Potassium 4.4 mmol/L (3.5-5.1)
[2020-01-26] MEDS ORDERED: MORPHINE 4 MG/ML SYR ONE (21:22)
[2020-01-26 21:47] LABS: Blood Morphology Comment NOT SEEN (NOT SEEN); Platelet Estimate ADEQ
[2020-01-26] MEDS ORDERED: LORAZEPAM 0.5 MG TABLET ONE (22:21)
--- NOTE | 2020-01-27 00:15 | ER ---
Nurse's Notes [facility] Name: Joshua Juarez Age: 74 yrs Sex: Male : 1945 Arrival Date: 01/26/2020 Time: 19:52 Bed 20 Private MD: Denys Moise S; Óscar Wen V Diagnosis: Toxic effect of coral snake venom Presentation: 01/25 19:53 Chief complaint: Patient states: I was bit on my Left middle finger by what i think was sg a coral snake, all I remember seeing is red and black bands on the snake but i think i might have been wrong and it was red and yellow bands, pt states pain to the left index finger, a tourniquet has been applied ETHANOL OPERATOR, and the patient rubbed coal oil on the bite. Coronavirus screen: Proceed with normal triage. Ebola Screen: Patient negative for fever greater than or equal to 101.5 degrees Fahrenheit, and additional compatible Ebola Virus Disease symptoms Patient denies exposure to infectious person. Patient denies travel to an Ebola-affected area in the 21 days before illness onset. No symptoms or risks identified at this time. Initial Sepsis Screen: Does the patient meet any 2 criteria? No. Patient's initial sepsis screen is negative. Does the patient have a suspected source of infection? Yes: Skin breakdown/wound. Risk Assessment: Do you want to hurt yourself or someone else? Patient reports no desire to harm self or others. Onset of symptoms was January 26, 2020. Care prior to arrival: None. Transition of care: patient was not received from another setting of care. 19:53 Method Of Arrival: Ambulatory sg 19:53 Acuity: MARISELA 3 sg 19:53 Note tourniquit that was applied ETHANOL OPERATOR has been loosened, the affected extremity has been sg elevated and the ERP has been notified. Triage Assessment: 19:57 Bite description: bite sustained to left middle finger is superficial, from animal, was sg sustained 30-60 minutes ago. by a snake, animal information:. General: Appears in no apparent distress. well groomed, well developed, well nourished, Behavior is calm, cooperative, appropriate for age. Pain: Complains of pain in left middle finger Quality of pain is described as aching. 20:00 Bite description: animal information: vaccination(s) is unknown. ea Historical: - Allergies: 19:56 No Known Allergies; sg - Home Meds: 01/26 01:23 atorvastatin 20 mg Oral tab 1 tab once daily [Active]; omeprazole 20 mg Oral cpDR 1 cap ea once daily [Active]; venlafaxine 150 mg Oral cp24 1 cap twice a day [Active]; Eliquis 5 mg Oral tab 1 tab 2 times per day [Active]; trazodone 100 mg oral tab [Active]; Betapace 120 mg oral tab 2 times per day [Active]; aspirin 81 mg Oral chew 1 tab once daily [Active]; Lasix 40 mg Oral tab [Active]; potassium chloride 20 mEq Oral TbTQ 1 tab once daily [Active]; hydrocodone-acetaminophen 7.5-325 mg oral tab 1 tab BID [Active]; - PMHx: 01/25 19:56 Atrial Fib; CAD; Diabetes - NIDDM; Hypertension; Leaky valve; sg - PSHx: 19:56 CABG; prostate sx; knee replacement; Cardiac Ablation(January 2020); sg - Immunization history:: Adult Immunizations up to date. - Social history:: Smoking status: Patient denies any tobacco usage or history of. Screenin:00 Abuse screen: Denies threats or abuse. Nutritional screening: No deficits noted. ea Tuberculosis screening: No symptoms or risk factors identified. Fall Risk None identified. Assessment: 20:00 General: Appears uncomfortable, Behavior is calm, cooperative, appropriate for age. ea Pain: Complains of pain in left middle finger. Neuro: Level of Consciousness is awake, alert, obeys commands, Oriented to person, place, time, situation. Cardiovascular: Patient's skin is warm and dry. Respiratory: Airway is patent Respiratory effort is even, unlabored, Respiratory pattern is regular, symmetrical. Derm: Skin is normal. 20:03 Reassessment: Reassessment: poison control notified, , recommendations are remove tourniquets, elevate extremity, wash area with soap and water, obtain initial labs of PT/INR,PLASMINOGEN lvl,PLT,CPK if UA is dark/tea colored, repeat these labs in 6 hrs, then draw at discharge, administer IVF of NS bolus followed by maintenance NS, administer opioids for pain control, avoid NSAID/MOTRIN. notified, primary nurse informed poison control notified. 21:15 Reassessment: Patient and/or family updated on plan of care and expected duration. Pain ea level reassessed. Patient is alert, oriented x 3, equal unlabored respirations, skin warm/dry/pink. Provider at bedside updating pt on plan of care. 22:15 Reassessment: Patient and/or family updated on plan of care and expected duration. Pain ea level reassessed. Pt complaining of pain to his left hand. Pt is restless and moaning. Provider notified. 23:50 Reassessment: Patient and/or family updated on plan of care and expected duration. Pain ea level reassessed. Patient is alert, oriented x 3, equal unlabored respirations, skin warm/dry/pink. Patient states feeling better. 01/26 00:29 Reassessment: Patient and/or family updated on plan of care and expected duration. Pain ea level reassessed. Patient is alert, oriented x 3, equal unlabored respirations, skin warm/dry/pink. Report called to Hiral at [facility]. 01:03 Reassessment: Patient and/or family updated on plan of care and expected duration. Pain ea level reassessed. Patient is alert, oriented x 3, equal unlabored respirations, skin warm/dry/pink. Awaiting on EMS for transportation. 01:47 Reassessment: Patient and/or family updated on plan of care and expected duration. Pain ea level reassessed. Patient is alert, oriented x 3, equal unlabored respirations, skin warm/dry/pink. Pt transferred to [facility] via [facility]. Pt left via stretcher, tolerating well. Vital Signs: 01/25 19:53 Pulse 67; Resp 18; Temp 97.7; Pulse Ox 99% on R/A; sg 20:26 BP 130 / 90; sg 21:00 BP 138 / 90; Pulse 78; Resp 18; Pulse Ox 98% ; ea 22:06 BP 113 / 87; Pulse 60; Resp 20; Pulse Ox 99% ; ea 23:49 Weight 81.65 kg; sg 23:50 BP 106 / 69; Pulse 69; Resp 20; Temp 97.6; Pulse Ox 98% ; ea 01/26 00:37 BP 116 / 86; Pulse 77; Resp 18; Pulse Ox 97% ; ea 01:15 BP 119 / 72; Pulse 72; Resp 18; Pulse Ox 95% on R/A; ea ED Course: 01/25 19:52 Patient arrived in ED. sg 19:52 Óscar Wen MD is Private Physician. sg 19:52 Denys Moise MD is Private Physician. sg 19:54 Ayad Rosario MD is Attending Physician. kdr 19:55 Triage completed. sg 19:55 Lesley Oleary, RN is Primary Nurse. ea 19:56 Arm band placed on. sg 20:00 Patient has correct armband on for positive identification. Bed in low position. Call ea light in reach. Side rails up X 1. 20:00 Inserted saline lock: 20 gauge in right antecubital area, using aseptic technique. ea Blood collected. 01/26 00:38 No provider procedures requiring assistance completed. Patient transferred, IV remains ea in place. 02:08 Primary Nurse role handed off by Lesley Oleary, RN ea Administered Medications: 01/25 20:06 Drug: Oxford (7.5 mg-325 mg) 1 tabs {Note: RASS 1.} Route: PO; ea 21:21 Follow up: Response: No adverse reaction ea 20:06 Drug: Tetanus-Diphtheria Toxoid Adult 0.5 ml {Biometrics Specialist: [employer]. Exp: ea 11/17/2021. Lot #: [id number]. } Route: IM; Site: right deltoid; 21:21 Follow up: Response: No adverse reaction ea 20:45 Drug: morphine 2 mg Route: IVP; Site: right antecubital; ea 21:21 Follow up: Response: No adverse reaction; Pain is unchanged, physician notified; RASS: ea Restless (+1) 21:20 Drug: morphine 4 mg {Note: RASS 1.} Route: IVP; Site: right antecubital; ea 22:50 Follow up: Response: No adverse reaction; Pain is unchanged, physician notified; RASS: ea Restless (+1) 22:24 Drug: Ativan 0.5 mg Route: PO; ea 01/26 00:31 Follow up: Response: No adverse reaction ea 01/25 22:58 Drug: morphine 2 mg Route: IVP; Site: right antecubital; ea 01/26 00:31 Follow up: Response: No adverse reaction; Pain is decreased; RASS: Alert and Calm (0) ea 01:46 Drug: morphine 2 mg {Note: RASS 0.} Route: IVP; Site: right antecubital; ea 01:46 Follow up: Response: No adverse reaction; RASS: Alert and Calm (0) ea Outcome: 00:15 ER care complete, transfer ordered by . kdr 00:44 Instructed on the need for transfer. ea 01:47 Transferred by ground EMS to [facility], Transfer form completed. ea 01:47 Condition: stable 01:52 Patient left the ED. ea 02:11 Patient left the ED. ea Signatures: Devyn Jones RN RN Ayad Martin MD MD kdr Antunez, Elena, RN RN frank Corrections: (The following items were deleted from the chart) 01/25 20:13 20:03 Reassessment: tim dumont 01/26 01:46 01:46 morphine 2 mg IVP in right antecubital frank ea
--- NOTE | 2020-01-27 00:15 | EDPHYS ---
Physician Documentation [facility] Name: Joshua Juarez Age: 74 yrs Sex: Male : 1945 Arrival Date: 01/26/2020 Time: 19:52 Bed 20 Private MD: Denys Moise S; Óscar Wen V ED Physician Ayad Rosario HPI: 01/25 21:09 This 74 yrs old Male presents to ER via Ambulatory with complaints of Snake kdr bite. 21:09 The patient was bitten on the palmar aspect of distal phalanx of left middle finger, by kdr a snake, at home, Possible devon snake. Onset: The symptoms/episode began/occurred suddenly, just prior to arrival. Animal information: Patient/Caregiver unable to provide information related to the animal. Secondary to the bite the patient reports pain. Associated signs and symptoms: The patient has no apparent associated signs or symptoms. Severity of symptoms: At their worst the symptoms were moderate, in the emergency department the symptoms are unchanged. The patient has not experienced similar symptoms in the past. The patient has not recently seen a physician. Historical: - Allergies: 19:56 No Known Allergies; sg - Home Meds: 01/26 01:23 atorvastatin 20 mg Oral tab 1 tab once daily [Active]; omeprazole 20 mg Oral cpDR 1 cap ea once daily [Active]; venlafaxine 150 mg Oral cp24 1 cap twice a day [Active]; Eliquis 5 mg Oral tab 1 tab 2 times per day [Active]; trazodone 100 mg oral tab [Active]; Betapace 120 mg oral tab 2 times per day [Active]; aspirin 81 mg Oral chew 1 tab once daily [Active]; Lasix 40 mg Oral tab [Active]; potassium chloride 20 mEq Oral TbTQ 1 tab once daily [Active]; hydrocodone-acetaminophen 7.5-325 mg oral tab 1 tab BID [Active]; - PMHx: 01/25 19:56 Atrial Fib; CAD; Diabetes - NIDDM; Hypertension; Leaky valve; sg - PSHx: 19:56 CABG; prostate sx; knee replacement; Cardiac Ablation(January 2020); sg - Immunization history:: Adult Immunizations up to date. - Social history:: Smoking status: Patient denies any tobacco usage or history of. ROS: 21:09 Constitutional: Negative for fever, chills, and weight loss, Eyes: Negative for injury, kdr pain, redness, and discharge, Neck: Negative for injury, pain, and swelling, Cardiovascular: Negative for chest pain, palpitations, and edema, Respiratory: Negative for shortness of breath, cough, wheezing, and pleuritic chest pain, Abdomen/GI: Negative for abdominal pain, nausea, vomiting, diarrhea, and constipation, Back: Negative for injury and pain, Skin: Negative for injury, rash, and discoloration, Neuro: Negative for headache, weakness, numbness, tingling, and seizure activity. Psych: Negative for depression, anxiety, suicide ideation, homicidal ideation, and hallucinations, Allergy/Immunology: Negative for hives, rash, and allergies, Endocrine: Negative for neck swelling, polydipsia, polyuria, polyphagia, and marked weight changes. 21:09 MS/extremity: Positive for pain, of the palmar aspect of distal phalanx of left middle finger. Exam: 23:46 Constitutional: This is a well developed, well nourished patient who is awake, alert, kdr and in no acute distress. Head/Face: Normocephalic, atraumatic. Eyes: Pupils equal round and reactive to light, extra-ocular motions intact. Lids and lashes normal. Conjunctiva and sclera are non-icteric and not injected. Cornea within normal limits. Periorbital areas with no swelling, redness, or edema. Neck: Trachea midline, no thyromegaly or masses palpated, and no cervical lymphadenopathy. Supple, full range of motion without nuchal rigidity, or vertebral point tenderness. No Meningismus. Chest/axilla: Normal chest wall appearance and motion. Nontender with no deformity. No lesions are appreciated. Cardiovascular: Regular rate and rhythm with a normal S1 and S2. No gallops, murmurs, or rubs. Normal PMI, no JVD. No pulse deficits. Respiratory: Lungs have equal breath sounds bilaterally, clear to auscultation and percussion. No rales, rhonchi or wheezes noted. No increased work of breathing, no retractions or nasal flaring. Abdomen/GI: Soft, non-tender, with normal bowel sounds. No distension or tympany. No guarding or rebound. No evidence of tenderness throughout. Back: No spinal tenderness. No costovertebral tenderness. Full range of motion. Skin: Warm, dry with normal turgor. Normal color with no rashes, no lesions, and no evidence of cellulitis. MS/ Extremity: Pulses equal, no cyanosis. Neurovascular intact. Full, normal range of motion. Neuro: Awake and alert, GCS 15, oriented to person, place, time, and situation. Cranial nerves II-XII grossly intact. Motor strength 5/5 in all extremities. Sensory grossly intact. Cerebellar exam normal. Normal gait. Psych: Awake, alert, with orientation to person, place and time. Behavior, mood, and affect are within normal limits. Vital Signs: 19:53 Pulse 67; Resp 18; Temp 97.7; Pulse Ox 99% on R/A; sg 20:26 BP 130 / 90; sg 21:00 BP 138 / 90; Pulse 78; Resp 18; Pulse Ox 98% ; ea 22:06 BP 113 / 87; Pulse 60; Resp 20; Pulse Ox 99% ; ea 23:49 Weight 81.65 kg; sg 23:50 BP 106 / 69; Pulse 69; Resp 20; Temp 97.6; Pulse Ox 98% ; ea 01/26 00:37 BP 116 / 86; Pulse 77; Resp 18; Pulse Ox 97% ; ea 01:15 BP 119 / 72; Pulse 72; Resp 18; Pulse Ox 95% on R/A; ea MDM: 01/25 22:06 Data reviewed: vital signs, nurses notes. Counseling: I had a detailed discussion with kdr the patient and/or guardian regarding: the historical points, exam findings, and any diagnostic results supporting the discharge/admit diagnosis, lab results. ED course: Checked on the patient about 45 minutes ago. Still having pain but no apparent redness or swelling in finger or hand. Pain is very localized to tip of finger. 01/26 00:15 Patient medically screened. 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 Exp: ea 11/17/2021. Lot #: [id number]. } Route: IM; Site: right deltoid; 21:21 Follow up: Response: No adverse reaction ea 20:45 Drug: morphine 2 mg Route: IVP; Site: right antecubital; ea 21:21 Follow up: Response: No adverse reaction; Pain is unchanged, physician notified; RASS: ea Restless (+1) 21:20 Drug: morphine 4 mg {Note: RASS 1.} Route: IVP; Site: right antecubital; ea 22:50 Follow up: Response: No adverse reaction; Pain is unchanged, physician notified; RASS: ea Restless (+1) 22:24 Drug: Ativan 0.5 mg Route: PO; ea 01/26 00:31 Follow up: Response: No adverse reaction ea 01/25 22:58 Drug: morphine 2 mg Route: IVP; Site: right antecubital; ea 01/26 00:31 Follow up: Response: No adverse reaction; Pain is decreased; RASS: Alert and Calm (0) ea 01:46 Drug: morphine 2 mg {Note: RASS 0.} Route: IVP; Site: right antecubital; ea 01:46 Follow up: Response: No adverse reaction; RASS: Alert and Calm (0) ea Disposition: 01/27/20 00:15 Transfer ordered to [facility]. Diagnosis is Toxic effect of coral snake venom. - Reason for transfer: Higher level of care. - Accepting physician is Ostermyer. - Condition is Fair. - Problem is new. - Symptoms have improved. Signatures: Dispatcher [employer] EDDevyn Levin RN Ayad Serrato MD MD kdr Antunez, Elena, RN RN ea Corrections: (The following items were deleted from the chart) 01:52 00:15 01/27/2020 00:15 Transfer ordered to [facility]. Diagnosis is Toxic ea effect of coral snake venom; Toxic effect of rattlesnake venom, undetermined. Reason for transfer: Higher level of care. Accepting physician is Ostermyer. Condition is Fair. Problem is new. Symptoms have improved. kdr 02:09 01:52 01/27/2020 00:15 Transfer ordered to [facility]. Diagnosis is Toxic kdr effect of coral snake venom; Toxic effect of rattlesnake venom, undetermined. Reason for transfer: Higher level of care. Accepting physician is Ostermyer. Condition is Fair. Problem is new. Symptoms have improved. ea 02:11 02:09 01/27/2020 00:15 Transfer ordered to [facility]. Diagnosis is Toxic ea effect of coral snake venom. Reason for transfer: Higher level of care. Accepting physician is Ostermyer. Condition is Fair. Problem is new. Symptoms have improved. kdr
[2020-01-27] MEDS ORDERED: MORPHINE 2 MG/ML SYR ONE (01:48)
[2020-01-27 02:04] VITALS: TEMP 97.6
[2020-01-27 02:06] VITALS: BP 119/72; O2SAT 95
== END 2020-01-27 02:11 | disposition short-term general hospital (02) ==
LOC: ER 19:46
DX: T63.021A Toxic effect of coral snake venom, accidental (unintentional), initial encounter (principal); Y92.009 Unspecified place in unspecified non-institutional (private) residence as the place of occurrence of the external cause; I10 Essential (primary) hypertension; E11.9 Type 2 diabetes mellitus without complications; I48.91 Unspecified atrial fibrillation; Z23 Encounter for immunization; Z79.02 Long term (current) use of antithrombotics/antiplatelets; Z79.82 Long term (current) use of aspirin; Z95.1 Presence of aortocoronary bypass graft
CPT/HCPCS: 85025; 80048; 36415; 82550; 85610; 90471; 90714; 96374; 99285; J2270 ×3

== ENCOUNTER 2020-06-14 12:20 | Emergency (ER) | payer OTHER ==
--- OUTSIDE RECORDS SUMMARY | 2020-06-14 12:33 | XMS REPORT | Continuity of Care Document ---
:1945 Author Organization [facility] t Address [address] [place] [address] Care Team Providers Name Role Phone Doctor Unassigned, Name Attending Clinician Unavailable Alison ABBOTT Attending Clinician Neal ABBOTT Attending Clinician Draw, Lab Attending Clinician Unavailable Neal ABBOTT Admitting Clinician Payers Payer Name Policy Type Policy Number Effective Date Expiration Date S ource Problems This patient has no known problems. Allergies, Adverse Reactions, Alerts This patient has no known allergies or adverse reactions. Medications This patient has no known medications. Procedures This patient has no known procedures. Encounters Start End Encounter Admission Attending Care Care Encounter Source Date/Time Date/Time Type Type Clinicians Facility Department ID 2020-01-23 2020-01-23 Orders Doctor CAMPOS [id number] 00:00:00 00:00:00 Only UnassRADHA [place] [id number] [place] [facility] [id number] [id number] 2020-01-08 2020-01-09 [facility] Shalini Rosas [facility] 1.2. 840.114 [id number] 09:16:00 12:45:00 Encounter Daniel De Jesus [facility] [id number] 10 [place] 4.2.7.2.686 [place] [id number] Hospital 109 ([facility]) 2020-01-09 2020-01-09 Telephone Nikoszenon [facility] [id number] 00:00:00 00:00:00 [facility] [id number] [place] 4.2.7.2.686 [place] [id number] Hospital 109 ([facility]) 2020-01-08 2020-01-[address] [facility] [id number] 00:00:00 00:00:00 [facility] [id number] [place] 4.2.7.2.686 [place] [phone] [facility] 039 ([facility]) 2020-01-08 2020-01-08 Telephone ANDRES Rosas [id number] 00:00:00 00:00:00 [facility] [id number] [facility] 4.2.7.2.686 [id number] [id number] 2020-01-05 2020-01-[address] [facility] [facility] [id number] 00:00:00 00:00:00 [facility] [id number] [place] 4.2.7.2.686 [place] [phone] Hospital 247 ([facility]) 2020-01-01 2020-01-01 Child Care Aide Heladio, [facility] [id number] 09:59:36 10:14:36 Visit [facility] [id number] [place] 4.2.7.2.686 [place] [phone] Medical [address] 2019-11-27 2019-11-27 Orders Doctor ANDRES [id number] 00:00:00 00:00:00 Only Unassigned, RADHA [id number] [place] [facility] [id number] [id number] Results Test Description Test Time Test Comments Results Result Comments Source CREATININE W ESTIMATED GFR 2020-01-04 12:01:00 Test Item Value Reference Range Interpretation Comme nts BEDSIDE CREATININE (test code = CREATBED) 0.9 MG/DL 0.6-1.3 N GLOMERULAR FILTRATION RATE POC (test code = GFRBED) 87 ML/MIN ENTER BEDSIDE CREATININE RESULT: 0.90Serial Number: [id number] Name of User Performing Test: PACOSTA- CT ANGIO [id number] 10:46:00 Name: DANIEL VALDERRAMA [facility] : 1945 Age/S: 74 / M [address] [place] [address] Blvd Unit #: [id number] Loc: Jona [id number] Phys: Shalini Rosas MD Acct: [id number] Dis Date: Status: REG CLI PHONE #: [phone] Exam Date: 01/03/2020941 FAX #: [phone] Reason: ATRIAL FIBRILLATION EXAMS: CPTCODE: [id number] CT ANGIO CHEST [address] ang iogram with IV contrast [...] Signed Report (CONT INUED) Name: DANIEL VALDERRAMA [facility] : 1945 Age/S: 74 / M [address] [place] [address] Blvd Unit #: [id number] Loc: [place] [address] Phys: Shalini Rosas MD Acct: [id number] Dis Date: Status: REG CLI PHONE #: [phone] Exam Date: 01/03/2020941 FAX #: [phone] Reason: ATRIAL FIBRILLATION EXAMS: CPT CODE: [id number] CT ANGIO CHEST 25931 <Continued> SL: [id number] at 1046 Reported and signed by: Rojas Verma M.D. CC: Shalini Rosas MD Technologist:RT Gamaliel(R)(CT) CTDI: DLP: Trnscb Date/Time: 01/03/2020 (1046) [id number] Orig Print D/T: S: 01/03/2020 (6179) PAGE 2 Signed Report
[2020-06-14] MEDS ORDERED: KETOROLAC 30 MG/ML INJ ONE (13:28)
[2020-06-14 13:30] LABS: Absolute Lymphocytes (CBC) 0.5 K/uL (0.7-4.9); Basophils % 0.3 % (0-1.3); Hematocrit 30.2 % (39.6-49.0); Lymphocytes % 7.8 % (15.3-44.8); MPV 9.8 fL (7.6-11.3); RBC Red Blood Cell Count 3.11 M/uL (4.33-5.43)
[2020-06-14 14:04] LABS: ALT/SGPT 15 U/L (12-78); AST/SGOT 18 U/L (15-37); Albumin 3.1 g/dL (3.4-5.0); Alkaline Phosphatase 125 U/L (45-117); BUN Blood Urea Nitrogen 16 mg/dL (7-18); Bicarbonate 30 mmol/L (21-32); Bilirubin Direct < 0.1 mg/dL (0-0.2); Bilirubin Total 0.2 mg/dL (0.2-1.0); Glucose Level 82 mg/dL (74-106); Lipase 139 U/L (73-393); Potassium 4.2 mmol/L (3.5-5.1); Protein, Total 7.7 g/dL (6.4-8.2); Sodium Level 139 mmol/L (136-145)
--- NOTE | 2020-06-14 14:32 | RAD REPORT ---
EXAM DESCRIPTION: CT - Abdomen Pelvis Wo Contrast - 06/14/2020 1:56 pm CLINICAL HISTORY: Abdominal pain COMPARISON: None TECHNIQUE: Computed axial tomography of the abdomen and pelvis was obtained. IV and oral contrast we re not requested. All CT scans are performed using dose optimization technique as appropriate and may include automated exposure control or mA/KV adjustment according to patient size. FINDINGS: The evaluation of solid organs, vessels and bowel is limited secondary to the lack of con trast administration. 4 millimeter calculus left kidney. No hydronephrosis. 1 millimeter calculus right kidney. No hydronep hrosis. The liver, spleen, pancreas, adrenals and kidneys appear grossly normal. Rectum is mildly distended with stool. Moderate amount of stool throughout colon. Small gallstone suspected There is no evidence of diverticulitis. IMPRESSION: Nonobstructing bilateral renal calculi Small gallstone suspected without cholecystitis Moderate amount stool within the colon
--- NOTE | 2020-06-14 15:02 | ER ---
Nurse's Notes [facility] Name: Joshua Juarez Age: 75 yrs Sex: Male : 1945 Arrival Date: 06/14/2020 Time: 12:23 Bed 8 Private MD: Diagnosis: Calculus of kidney-bilateral Presentation: 06/14 12:48 Chief complaint: Patient states: "It is my back around where my kidneys are. I have jd3 chronic problems, but I even had injections for it yesterday and it just wont go away.". Coronavirus screen: At this time, the client does not indicate any symptoms associated with coronavirus-19. Ebola Screen: Patient negative for fever greater than or equal to 101.5 degrees Fahrenheit, and additional compatible Ebola Virus Disease symptoms. Initial Sepsis Screen: Does the patient meet any 2 criteria? No. Patient's initial sepsis screen is negative. Does the patient have a suspected source of infection? No. Patient's initial sepsis screen is negative. Risk Assessment: Do you want to hurt yourself or someone else? Patient reports no desire to harm self or others. Onset of symptoms was June 14, 2020. 12:48 Method Of Arrival: Ambulatory jd3 12:48 Acuity: MARISELA 3 jd3 Historical: - Allergies: 12:50 No Known Allergies; jd3 - Home Meds: 12:50 potassium chloride 20 mEq Oral TbTQ 1 tab once daily [Active]; aspirin 81 mg Oral chew jd3 1 tab once daily [Active]; atorvastatin 20 mg Oral tab 1 tab once daily [Active]; Betapace 120 mg Oral tab 2 times per day [Active]; Eliquis 5 mg Oral tab 1 tab 2 times per day [Active]; hydrocodone-acetaminophen 7.5-325 mg Oral tab 1 tab BID [Active]; Lasix 40 mg Oral tab [Active]; metoprolol tartrate 50 mg Oral tab 1 tab once daily [Active]; omeprazole 20 mg Oral cpDR 1 cap once daily [Active]; venlafaxine 150 mg Oral cp24 1 cap twice a day [Active]; trazodone 100 mg Oral tab [Active]; - PMHx: 12:50 Hypertension; Leaky valve; Diabetes - NIDDM; CAD; Atrial Fib; jd3 - PSHx: 12:50 prostate sx; knee replacement; Cardiac Ablation; CABG; jd3 - Immunization history:: Adult Immunizations up to date. - Social history:: Smoking status: Patient/guardian denies using tobacco, but has a distant history of tobacco abuse, Patient/guardian denies using alcohol, street drugs, The patient lives with family, with spouse. - Family history:: not pertinent. Screenin:20 Abuse screen: Denies threats or abuse. Nutritional screening: No deficits noted. em Tuberculosis screening: No symptoms or risk factors identified. Fall Risk None identified. Assessment: 13:20 General: Appears in no apparent distress. comfortable, Behavior is calm, cooperative, em appropriate for age. Pain: Complains of pain in lumbar spine. Neuro: Level of Consciousness is awake, alert, obeys commands, Oriented to person, place, time, situation, Appropriate for age. Cardiovascular: Capillary refill < 3 seconds Patient's skin is warm and dry. Respiratory: Airway is patent Respiratory effort is even, unlabored. GI: Patient currently denies nausea, vomiting. Derm: Skin is intact, is healthy with good turgor, Skin is pink, warm \\T\\ dry. Musculoskeletal: Capillary refill < 3 seconds, Range of motion: intact in all extremities. 14:56 Reassessment: Patient appears in no apparent distress at this time. Patient and/or em family updated on plan of care and expected duration. Pain level reassessed. Patient is alert, oriented x 3, equal unlabored respirations, skin warm/dry/pink. Vital Signs: 12:51 BP 143 / 92; Pulse 95; Resp 17 S; Temp 99.3(TE); Pulse Ox 96% on R/A; Weight 78.02 kg jd3 (R); Height 5 ft. 7 in. (170.18 cm) (R); Pain 9/10; 14:27 BP 118 / 89; Pulse 80; Resp 17; Temp 97.7(O); Pulse Ox 100% on R/A; mh5 12:51 Body Mass Index 26.94 (78.02 kg, 170.18 cm) jd3 ED Course: 12:23 Patient arrived in ED. ds1 12:49 Triage completed. jd3 12:51 Arm band placed on. jd3 13:00 Mayte Acosta MD is Attending Physician. ma2 13:19 Delano Cabrera, RN is Primary Nurse. em 13:20 Initial lab(s) drawn, by id, sent to lab. Inserted saline lock: 22 gauge in right [facility] forearm, using aseptic technique. 13:21 Patient has correct armband on for positive identification. Bed in low position. Call [facility] light in reach. Side rails up X 1. Pillow given. youth nutritional monitor on. Pulse ox on. NIBP on. 13:22 Basic Metabolic Panel Sent. [facility] 13:22 CBC with Diff Sent. [facility] 13:22 Hepatic Function Sent. [facility] 13:22 Lipase Sent. [facility] 13:57 CT Abd/Pelvis - Without Contrast In Process Unspecified. EDME 15:00 Marifer Ann MD is Referral Physician. ma2 15:36 No provider procedures requiring assistance completed. IV discontinued, intact, em bleeding controlled, No redness/swelling at site. Pressure dressing applied. Administered Medications: 13:23 Drug: TORadol 30 mg Route: IVP; Site: right wrist; em 15:02 Follow up: Response: No adverse reaction; Marked relief of symptoms; Pain is decreased em Outcome: 15:01 Discharge ordered by . ma2 15:37 Discharged to home ambulatory. em 15:37 Condition: improved 15:37 Discharge instructions given to patient, Instructed on discharge instructions, follow up and referral plans. medication usage, Demonstrated understanding of instructions, follow-up care, medications, Prescriptions given X 4. 15:37 Patient left the ED. em Signatures: Dispatcher [employer] [facility] Delano Cabrera, GRAY CASTELLANO Jyoti Mathur Maria Tk Tinoco RN RN Mayte Horan MD MD ma2
--- NOTE | 2020-06-14 15:02 | EDPHYS ---
Physician Documentation [facility] Name: Joshua Juarez Age: 75 yrs Sex: Male : 1945 Arrival Date: 06/14/2020 Time: 12:23 Bed 8 Private MD: ED Physician Mayte Acosta HPI: 06/14 13:10 This 75 yrs old Male presents to ER via Ambulatory with complaints of Back ma2 Pain. 13:10 The patient presents with pain that is chronic, with no known mechanism of injury. The ma2 symptoms are located in the low back, L3 and lumbar spine. Onset: The symptoms/episode began/occurred gradually, 3 year(s) ago. The pain does not radiate. Associated signs and symptoms: Pertinent negatives: constipation, fever, hematuria, incontinence, nausea. Severity of symptoms: At their worst the symptoms were moderate, in the emergency department the symptoms are unchanged. The patient has experienced similar episodes in the past. Historical: - Allergies: 12:50 No Known Allergies; jd3 - Home Meds: 12:50 potassium chloride 20 mEq Oral TbTQ 1 tab once daily [Active]; aspirin 81 mg Oral chew jd3 1 tab once daily [Active]; atorvastatin 20 mg Oral tab 1 tab once daily [Active]; Betapace 120 mg Oral tab 2 times per day [Active]; Eliquis 5 mg Oral tab 1 tab 2 times per day [Active]; hydrocodone-acetaminophen 7.5-325 mg Oral tab 1 tab BID [Active]; Lasix 40 mg Oral tab [Active]; metoprolol tartrate 50 mg Oral tab 1 tab once daily [Active]; omeprazole 20 mg Oral cpDR 1 cap once daily [Active]; venlafaxine 150 mg Oral cp24 1 cap twice a day [Active]; trazodone 100 mg Oral tab [Active]; - PMHx: 12:50 Hypertension; Leaky valve; Diabetes - NIDDM; CAD; Atrial Fib; jd3 - PSHx: 12:50 prostate sx; knee replacement; Cardiac Ablation; CABG; jd3 - Immunization history:: Adult Immunizations up to date. - Social history:: Smoking status: Patient/guardian denies using tobacco, but has a distant history of tobacco abuse, Patient/guardian denies using alcohol, street drugs, The patient lives with family, with spouse. - Family history:: not pertinent. ROS: 13:10 Constitutional: Negative for fever, chills, and weight loss. ma2 13:10 All other systems are negative. Exam: 13:10 Constitutional: This is a well developed, well nourished patient who is awake, alert, ma2 and in no acute distress. Head/Face: Normocephalic, atraumatic. Eyes: Pupils equal round and reactive to light, extra-ocular motions intact. Lids and lashes normal. Conjunctiva and sclera are non-icteric and not injected. Cornea within normal limits. Periorbital areas with no swelling, redness, or edema. ENT: Nares patent. No nasal discharge, no septal abnormalities noted. Tympanic membranes are normal and external auditory canals are clear. Oropharynx with no redness, swelling, or masses, exudates, or evidence of obstruction, uvula midline. Mucous membranes moist. Neck: Trachea midline, no thyromegaly or masses palpated, and no cervical lymphadenopathy. Supple, full range of motion without nuchal rigidity, or vertebral point tenderness. No Meningismus. Chest/axilla: Normal chest wall appearance and motion. Nontender with no deformity. No lesions are appreciated. Cardiovascular: Regular rate and rhythm with a normal S1 and S2. No gallops, murmurs, or rubs. Normal PMI, no JVD. No pulse deficits. Respiratory: Lungs have equal breath sounds bilaterally, clear to auscultation and percussion. No rales, rhonchi or wheezes noted. No increased work of breathing, no retractions or nasal flaring. Abdomen/GI: Soft, non-tender, with normal bowel sounds. No distension or tympany. No guarding or rebound. No evidence of tenderness throughout. Back: No spinal tenderness. No costovertebral tenderness. Full range of motion. Skin: Warm, dry with normal turgor. Normal color with no rashes, no lesions, and no evidence of cellulitis. MS/ Extremity: Pulses equal, no cyanosis. Neurovascular intact. Full, normal range of motion. Neuro: Awake and alert, GCS 15, oriented to person, place, time, and situation. Cranial nerves II-XII grossly intact. Motor strength 5/5 in all extremities. Sensory grossly intact. Cerebellar exam normal. Normal gait. Psych: Awake, alert, with orientation to person, place and time. Behavior, mood, and affect are within normal limits. Vital Signs: 12:51 BP 143 / 92; Pulse 95; Resp 17 S; Temp 99.3(TE); Pulse Ox 96% on R/A; Weight 78.02 kg jd3 (R); Height 5 ft. 7 in. (170.18 cm) (R); Pain 9/10; 14:27 BP 118 / 89; Pulse 80; Resp 17; Temp 97.7(O); Pulse Ox 100% on R/A; mh5 12:51 Body Mass Index 26.94 (78.02 kg, 170.18 cm) jd3 MDM: 13:00 Patient medically screened. [facility] 13:10 Differential diagnosis: Fatigue Fracture spinal injury, sprain, vertebral fracture. nd2 15:00 Data reviewed: vital signs, nurses notes. Counseling: I had a detailed discussion with [facility] the patient and/or guardian regarding: the historical points, exam findings, and any diagnostic results supporting the discharge/admit diagnosis, the presence of at least one elevated blood pressure reading (>120/80) during this emergency department visit, the need for outpatient follow up. Response to treatment: the patient's symptoms have markedly improved after treatment. 06/14 13:06 Order name: Basic Metabolic Panel; Complete Time: 14:16 [facility] 06/14 13:06 Order name: CBC with Diff; Complete Time: 14:00 [facility] 06/14 13:06 Order name: Hepatic Function; Complete Time: 14:16 [facility] 06/14 13:06 Order name: Lipase; Complete Time: 14:16 [facility] 06/14 13:06 Order name: CT Abd/Pelvis - Without Contrast; Complete Time: 14:59 [facility] 06/14 15:16 Order name: Urine Dipstick--Ancillary (enter results) bd 06/14 13:06 Order name: IV Saline Lock; Complete Time: 13:22 [facility] 06/14 13:06 Order name: Labs collected and sent; Complete Time: 13:22 [facility] 06/14 13:06 Order name: Urine Dipstick-Ancillary (obtain specimen); Complete Time: 15:02 [facility] Administered Medications: 13:23 Drug: TORadol 30 mg Route: IVP; Site: right wrist; em 15:02 Follow up: Response: No adverse reaction; Marked relief of symptoms; Pain is decreased em Disposition: 06/14/20 15:01 Discharged to Home. Impression: Calculus of kidney - bilateral . - Condition is Stable. - Discharge Instructions: Kidney Stones. - Prescriptions for Diclofenac Sodium 75 mg Oral Tablet Sustained Release - take 1 tablet by ORAL route 2 times per day; 30 tablet. Medrol (Josh) 4 mg Oral Tablets, Dose Pack - take 1 tablet by ORAL route as directed - follow package instructions; 1 packet. Cyclobenzaprine 10 mg Oral Tablet - take 1 tablet by ORAL route every 8 hours As needed; 30 tablet. Flomax 0.4 mg Oral Capsule, Sust. Release 24 hr - take 1 capsule by ORAL route once daily 1/2 hour following the same meal each day; 30 capsule. - Medication Reconciliation Form, Thank You Letter, Antibiotic Education, Prescription Opioid Use form. - Follow up: Marifer Ann MD; When: Tomorrow; Reason: Continuance of care. Signatures: Dispatcher [employer] Delano Juan RN RN em Davies, Jonathon, RN RN jMayte Scanlon MD MD ma2 Corrections: (The following items were deleted from the chart) 15:37 15:01 06/14/2020 15:01 Discharged to Home. Impression: Calculus of kidney - bilateral . em Condition is Stable. Prescriptions for Diclofenac Sodium 75 mg Oral Tablet Sustained Release - take 1 tablet by ORAL route 2 times per day; 30 tablet, Medrol (Josh) 4 mg Oral Tablets, Dose Pack - take 1 tablet by ORAL route as directed - follow package instructions; 1 packet, Cyclobenzaprine 10 mg Oral Tablet - take 1 tablet by ORAL route every 8 hours As needed; 30 tablet. and Forms are Medication Reconciliation Form, Thank You Letter, Antibiotic Education, Prescription Opioid Use. Follow up: Marifer Ann; When: Tomorrow; Reason: Continuance of care. ma2
[2020-06-14 15:23] LABS: Urine Blood NEGATIVE (NEG); Urine Glucose NEGATIVE (NEG); Urine Protein NEGATIVE (NEG); Urine Specific Gravity 1.015 (1.005-1.030); Urine pH 6.5 (5.0-7.0)
== END 2020-06-14 15:37 | disposition home or self-care (01) ==
LOC: ER 12:20
DX: N20.0 Calculus of kidney (principal); I10 Essential (primary) hypertension; E11.9 Type 2 diabetes mellitus without complications; I48.91 Unspecified atrial fibrillation; Z95.1 Presence of aortocoronary bypass graft; Z79.01 Long term (current) use of anticoagulants; Z79.82 Long term (current) use of aspirin
CPT/HCPCS: 36415; 74176; 80048; 80076; 81003; 83690; 85025; 96374; 99284

== ENCOUNTER 2021-01-17 08:37 | Day surgery (SDC) | payer OTHER ==
--- NOTE | 2021-01-16 16:35 | RAD REPORT ---
EXAM DESCRIPTION: Kal Cole And Dusty (2 Views)01/16/2021 4:27 pm CLINICAL HISTORY: Preop for temporal artery biopsy COMPARISON: 2019 FINDINGS: The lungs appear clear of acute infiltrate. The heart is mildly enlarged. Postsurgical changes involve the chest. IMPRESSION: No acute abnormalities displayed
[2021-01-17] MEDS ORDERED: NA CHLORIDE 0.9% 1,000 ML ONE (09:10)
[2021-01-17] MEDS ORDERED: CEFAZOLIN/SWI 1gm 1 GM/10 ML SYR ONE (09:10)
[2021-01-17 09:26] VITALS: TEMP 97.5
[2021-01-17] MEDS ORDERED: LIDOCAINE 2% MPF 5 ML VIAL ONE (10:29)
[2021-01-17] MEDS ORDERED: propofoL 200 MG/20 ML VIAL IV ONE ×3 (10:29→11:04)
[2021-01-17] MEDS ORDERED: FENTANYL CITR 100 MCG/2 ML ONE (10:29)
[2021-01-17] MEDS ORDERED: BUPIVACAINE 0.5% PF 10 ML VIAL ONE (10:30)
[2021-01-17] MEDS ORDERED: LIDOCAINE 1% MPF 30 ML VIAL ONE (10:30)
[2021-01-17] MEDS ORDERED: Mastisol Adhesive Liq ONE (10:35)
[2021-01-17 12:21] VITALS: O2SAT 95
[2021-01-17 12:22] VITALS: BP 100/61
--- NOTE | 2021-01-17 21:48 | OP ---
Date of Procedure: 01/17/2021 Surgeon: Michael Bower MD Physical Science Aide: MARIA A Garibay Preoperative Diagnosis: Vision change, rule out left temporal arteritis. Postoperative Diagnosis: Vision change, rule out left temporal arteritis. Procedure: Left temporal artery biopsy and utilization of Doppler device. Estimated Blood Loss: Minimal. Specimen: Branch of the left temporal artery. Findings: As above. Anesthesia: MAC. Complications: None. The patient tolerated the procedure in stable condition and taken to Recovery in good general condition. Procedure In Detail: The patient was brought to the OR and placed in supine position. MAC anesthesi a was begun. The patient was prepped and draped in the usual sterile fashion. Marcaine 0.5% infiltr ated locally. Then, Doppler device was used to isolate a branch of the temporal artery anterior and superior to the left ureter. Then, a 4 cm incision was made, subcutaneous tissue divided. The branc h of the temporal artery identified with sharp and blunt dissection. Proximal and distal control obt ained and then a 4 cm segment of temporal artery excised, sent to pathology, and both ends tied off w ith 4-0 silk ties. Wound was irrigated. Bleeding was controlled with cautery. A 4-0 chromic was us ed to approximate the subcutaneous tissue and close the skin. Sterile dressing was applied. The pat ient was awakened and taken to Recovery in good general condition. Discharge Note: The patient will go to Day Surgery and home when stable. Disposition: Home. Condition: Stable. Discharge Instructions: Resume home medications and diet. Activity as tolerated. No heavy lifting. Remove outer dressing in 2 days. Shower. Keep wound clean and dry. Keep Steri-Strips on at all t imes. Follow up in my office in 2 weeks. Call for appointment. Follow up with Dr. Chew in 1 week. Call for appointment and keep Steri-Strips on all times. Tylenol No. 3 one tablet p.o. q.4 p.r.n. /MODL Voice ID: [id number] Report ID: [id number]
== END 2021-01-17 12:00 | disposition home or self-care (01) ==
LOC: OR 08:37
PROVIDERS: ATTEND Surgery
PROC: 03BT0ZX Excision of Left Temporal Artery, Open Approach, Diagnostic (ICD-10-PCS; principal; 2021-01-17 10:00)
DX: H53.9 Unspecified visual disturbance (principal); Z20.822 Contact with and (suspected) exposure to COVID-19
CPT/HCPCS: 93005; 80048; 36415; 82947; 88305; 71046; 37609; U0003; J2704 ×2; J3010; J0690; J7030

== ENCOUNTER 2021-03-14 13:04 | Emergency (ER) | payer OTHER ==
[2021-03-14 14:05] LABS: Absolute Lymphocytes (CBC) 0.6 K/uL (0.7-4.9); Basophils % 0.4 % (0-1.3); Hematocrit 32.6 % (39.6-49.0); Lymphocytes % 8.4 % (15.3-44.8); MPV 10.8 fL (7.6-11.3); RBC Red Blood Cell Count 3.43 M/uL (4.33-5.43)
[2021-03-14 14:18] LABS: Protime INR 1.03
[2021-03-14] MEDS ORDERED: BENZONATATE 100 MG CAP PO ONE (14:18)
[2021-03-14] MEDS ORDERED: ALBUTEROL 2.5 MG/3 ML NEB SOL ONE (14:18)
[2021-03-14] MEDS ORDERED: IPRATROPIUM BROM 0.5MG/2.5ML ONE (14:19)
[2021-03-14 14:25] LABS: ALT/SGPT 25 U/L (12-78); AST/SGOT 29 U/L (15-37); Albumin 3.1 g/dL (3.4-5.0); Alkaline Phosphatase 85 U/L (45-117); BUN Blood Urea Nitrogen 14 mg/dL (7-18); Bicarbonate 27 mmol/L (21-32); Bilirubin Direct 0.2 mg/dL (0-0.2); Bilirubin Total 0.6 mg/dL (0.2-1.0); Glucose Level 100 mg/dL (74-106); Magnesium 2.3 mg/dL (1.8-2.4); NT PRO-BNP 780 pg/mL (<450); Potassium 3.8 mmol/L (3.5-5.1); Protein, Total 7.1 g/dL (6.4-8.2); Sodium Level 141 mmol/L (136-145); Troponin (Emerg Dept Use Only) < 0.02 ng/mL (0.0-0.045)
--- NOTE | 2021-03-14 14:26 | RAD REPORT ---
EXAM DESCRIPTION: RAD - Chest Single View - 03/14/2021 2:17 pm CLINICAL HISTORY: COUGH Chest pain. COMPARISON: Chest Pa And Lat (2 Views) dated 01/16/2021; Chest Single View dated 12/07/2019; Chest Sing le View dated 11/26/2019; Chest Single View dated 07/15/2019 FINDINGS: Portable technique limits examination quality. Mild interstitial pulmonary edema seen. The heart is moderately enlarged with changes of a prior CABG . Trace bilateral pleural effusions. IMPRESSION: Mild to moderate CHF.
[2021-03-14] MEDS ORDERED: FUROSEMIDE 40 MG/4 ML VIAL ONE (15:26)
--- NOTE | 2021-03-14 16:37 | ER ---
Nurse's Notes [facility] Name: Joshua Juarez Age: 76 yrs Sex: Male : 1945 Arrival Date: 03/14/2021 Time: 13:05 Bed 5 Private MD: Óscar Wen V Diagnosis: Unspecified combined systolic (congestive) and diastolic (congestive) heart failure Presentation: 03/14 13:10 Chief complaint: Patient states: Pt stated, "I got a cold starting four days ago and kg its just gotten worse. I'm SOB and have been coughing up stuff.". Coronavirus screen: Client denies travel out of the [place] in the last 14 days. At this time, unable to obtain information related to travel outside the [place] Client presents with at least one sign or symptom that may indicate coronavirus-19. Standard/surgical mask placed on the client. Ebola Screen: Patient negative for fever greater than or equal to 101.5 degrees Fahrenheit, and additional compatible Ebola Virus Disease symptoms Patient denies exposure to infectious person. Patient denies travel to an Ebola-affected area in the 21 days before illness onset. Initial Sepsis Screen: Does the patient meet any 2 criteria? RR > 20 per min. HR > 90 bpm. Yes Does the patient have a suspected source of infection? No. Patient's initial sepsis screen is negative. Risk Assessment: Do you want to hurt yourself or someone else? Patient reports no desire to harm self or others. Onset of symptoms was March 10, 2021. 13:10 Method Of Arrival: Ambulatory kg 13:10 Acuity: MARISELA 3 kg Historical: - Allergies: 13:15 No Known Allergies; kg - PMHx: 13:15 Atrial Fib; CAD; Diabetes - NIDDM; Hypertension; Leaky valve; ojsé's palsy; kg - PSHx: 13:15 CABG; Right ankle surgery; Right wrist surgery; kg - Immunization history:: Adult Immunizations up to date, Client reports receiving the 2nd dose of the Covid vaccine. - Social history:: Smoking status: Patient denies any tobacco usage or history of. Patient uses alcohol, occasionally. Screenin:00 Abuse screen: Denies threats or abuse. Denies injuries from another. Nutritional ld1 screening: No deficits noted. Tuberculosis screening: No symptoms or risk factors identified. Fall Risk IV access (20 points). Assessment: 14:00 General: Appears in no apparent distress. uncomfortable, Behavior is calm, cooperative, ld1 appropriate for age. Pain: Denies pain. Neuro: Level of Consciousness is awake, alert, obeys commands, Oriented to person, place, time, situation, Appropriate for age. Cardiovascular:. Cardiovascular: Reports shortness of breath, Capillary refill < 3 seconds Patient's skin is warm and dry. Rhythm is sinus rhythm. Respiratory: Reports shortness of breath cough that is Airway is patent Respiratory effort is even, unlabored, Respiratory pattern is regular, symmetrical, Breath sounds are clear bilaterally. GI: Abdomen is round non-distended. : No signs and/or symptoms were reported regarding the genitourinary system. EENT: No signs and/or symptoms were reported regarding the EENT system. Derm: No signs and/or symptoms reported regarding the dermatologic system. Musculoskeletal: No signs and/or symptoms reported regarding the musculoskeletal system. 15:35 Reassessment: Patient appears in no apparent distress at this time. No changes from ld1 previously documented assessment. Patient is alert, oriented x 3, equal unlabored respirations, skin warm/dry/pink. 16:29 Reassessment: Ambulated around ER department, pt tolerated well. Denies concerns. ld1 Denies pain. RR 22. SPO2 96. 16:52 Reassessment: Patient appears in no apparent distress at this time. No changes from ld1 previously documented assessment. Patient is alert, oriented x 3, equal unlabored respirations, skin warm/dry/pink. Patient denies pain at this time. Vital Signs: 13:10 BP 135 / 92; Pulse 107; Resp 28; Temp 98.5; Pulse Ox 95% on R/A; Weight 83.91 kg (M); kg Height 5 ft. 4 in. (162.56 cm); Pain 8/10; 14:00 BP 125 / 77; Pulse 95; Resp 18; Pulse Ox 99% on R/A; Weight 83.9 kg; Pain 0/10; ld1 15:35 BP 112 / 64; Pulse 100; Resp 18; Pulse Ox 100% on R/A; ld1 16:29 BP 112 / 85; Pulse 101; Resp 18; Pulse Ox 95% on R/A; ld1 14:00 Body Mass Index 31.75 (83.90 kg, 162.56 cm) ld1 ED Course: 13:05 Patient arrived in ED. am2 13:06 Óscar Wen MD is Private Physician. am2 13:13 Triage completed. kg 13:27 Abraham Quinteros PA is PHCP. cp 13:27 Ayad Rosario MD is Attending Physician. cp 13:44 Rowena Navas, GRAY is Primary Nurse. ld1 14:00 Patient has correct armband on for positive identification. Placed in gown. Bed in low ld1 position. Call light in reach. Side rails up X2. surveillance monitor on. Pulse ox on. NIBP on. Door closed. Noise minimized. Warm blanket given. 14:00 No provider procedures requiring assistance completed. Inserted saline lock: 20 gauge ld1 in right antecubital area, using aseptic technique. Blood collected. 14:17 XRAY Chest (1 view) In Process Unspecified. EDMS Administered Medications: 14:10 Drug: Tessalon Perle (benzonatate) 200 mg Route: PO; aa5 15:09 Follow up: Response: No adverse reaction ld1 14:10 Drug: Albuterol 2.5 mg Route: Inhalation; aa5 15:04 Follow up: Response: No adverse reaction ld1 14:10 Drug: AtroVENT (ipratropium) Aerosol 0.5 mg Route: Inhalation; aa5 15:04 Follow up: Response: No adverse reaction ld1 15:08 Drug: Lasix (furosemide) 40 mg Route: IVP; Site: right antecubital; ld1 16:01 Follow up: Response: No adverse reaction ld1 Outcome: 16:37 Discharge ordered by . cp 16:53 Patient left the ED. ld1 Signatures: Dispatcher [employer] EDMS Jeny Luo RN RN aa5 Abraham Quinteros PA PA cp Samira Lowe am2 Rowena Navas, GRAY RN ld1 Anni Singletary RN RN kg
--- NOTE | 2021-03-14 16:37 | EDPHYS ---
Physician Documentation [facility] Name: Joshua Juarez Age: 76 yrs Sex: Male : 1945 Arrival Date: 03/14/2021 Time: 13:05 Bed 5 Private MD: Óscar Wen V ED Physician Ayad Rosario HPI: 03/14 13:45 This 76 yrs old Male presents to ER via Ambulatory with complaints of cp Shortness Of Breath, Productive Cough. 13:45 The patient has shortness of breath with light activity. cp 13:45 Onset: The symptoms/episode began/occurred 4 day(s) ago. cp 13:45 Duration: The symptoms are continuous, and are steadily getting worse. Associated signs cp and symptoms: Pertinent positives: productive cough, Pertinent negatives: chest pain, diaphoresis, dizziness, fever, vomiting. 13:45 Severity of symptoms: in the emergency department the symptoms are unchanged despite cp home interventions. Historical: - Allergies: 13:15 No Known Allergies; kg - PMHx: 13:15 Atrial Fib; CAD; Diabetes - NIDDM; Hypertension; Leaky valve; josé's palsy; kg - PSHx: 13:15 CABG; Right ankle surgery; Right wrist surgery; kg - Immunization history:: Adult Immunizations up to date, Client reports receiving the 2nd dose of the Covid vaccine. - Social history:: Smoking status: Patient denies any tobacco usage or history of. Patient uses alcohol, occasionally. ROS: 13:50 Constitutional: Negative for body aches, chills, fever, poor PO intake. cp 13:50 Eyes: Negative for injury, pain, redness, and discharge. cp 13:50 ENT: Negative for drainage from ear(s), ear pain, sore throat, difficulty swallowing, difficulty handling secretions. 13:50 Cardiovascular: Positive for edema, Negative for chest pain, palpitations. 13:50 Respiratory: Positive for cough, "sounds productive", shortness of breath, Negative for wheezing. 13:50 Abdomen/GI: Negative for abdominal pain, nausea, vomiting, and diarrhea. 13:50 Back: Negative for pain at rest, pain with movement. 13:50 Neuro: Negative for altered mental status, headache, weakness. 13:50 All other systems are negative. Exam: 13:55 Constitutional: The patient appears in no acute distress, alert, awake, cp non-diaphoretic, non-toxic, well developed, well nourished. 13:55 Head/Face: Normocephalic, atraumatic. cp 13:55 Eyes: Periorbital structures: appear normal, Conjunctiva: normal, no exudate, no injection, Sclera: no appreciated abnormality, Lids and lashes: appear normal, bilaterally. 13:55 ENT: External ear(s): are unremarkable, Nose: is normal, Mouth: Lips: moist, Oral mucosa: moist, Posterior pharynx: Airway: no evidence of obstruction, patent, Tonsils: are normal in appearance, erythema, is not appreciated, exudate, is not appreciated. 13:55 Neck: ROM/movement: is normal, is supple, without pain, no range of motions limitations. 13:55 Chest/axilla: Inspection: normal, Palpation: is normal, no crepitus, no tenderness. 13:55 Cardiovascular: Rate: tachycardic, Rhythm: regular, Edema: ankle edema, that is very mild, JVD: is not appreciated. 13:55 Respiratory: the patient does not display signs of respiratory distress, Respirations: normal, no use of accessory muscles, no retractions, no splinting, no tachypnea, Breath sounds: bronchial sounds, that are mild, are heard diffusely, stridor, is not appreciated, wheezing: is not appreciated. 13:55 Abdomen/GI: Inspection: abdomen appears normal, Bowel sounds: active, all quadrants, Palpation: abdomen is soft and non-tender, in all quadrants. 13:55 Back: pain, is absent, ROM is normal. 13:55 Skin: no rash present. 13:55 Neuro: Orientation: to person, place \\T\\ time. Mentation: is normal, Motor: moves all fours, strength is normal. 14:10 ECG was reviewed by the Attending Physician. cp Vital Signs: 13:10 BP 135 / 92; Pulse 107; Resp 28; Temp 98.5; Pulse Ox 95% on R/A; Weight 83.91 kg (M); kg Height 5 ft. 4 in. (162.56 cm); Pain 8/10; 14:00 BP 125 / 77; Pulse 95; Resp 18; Pulse Ox 99% on R/A; Weight 83.9 kg; Pain 0/10; ld1 15:35 BP 112 / 64; Pulse 100; Resp 18; Pulse Ox 100% on R/A; ld1 16:29 BP 112 / 85; Pulse 101; Resp 18; Pulse Ox 95% on R/A; ld1 14:00 Body Mass Index 31.75 (83.90 kg, 162.56 cm) ld1 MDM: 13:39 Patient medically screened. cp 14:00 Differential diagnosis: Bronchitis CHF exacerbation, Chronic Obstructive Pulmonary cp Disease Myocardial Infarction pneumonia, Pneumothorax pulmonary edema, Pulmonary Embolism reactive airway disease, Unstable Angina. 16:35 Data reviewed: vital signs, nurses notes, lab test result(s), EKG, radiologic studies, cp plain films. 16:35 Test interpretation: by ED physician or midlevel provider: ECG, plain radiologic cp studies. 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 Response to treatment: Patient reports symptoms improved and requests discharge to home vs admission for CHF. 03/14 13:41 Order name: Basic Metabolic Panel cp 03/14 13:41 Order name: CBC with Diff; Complete Time: 14:35 03/14 14:36 Interpretation: Normal except: RBC 3.43; HGB 11.0; HCT 32.6; PLT 102; RDW 18.0; NURIS% cp 76.2; LYM% 8.4; MN% 13.8; LYMA 0.6. 03/14 13:41 Order name: LFT's cp 03/14 13:41 Order name: Magnesium; Complete Time: 14:35 cp 03/14 13:41 Order name: NT PRO-BNP; Complete Time: 14:35 cp 03/14 14:36 Interpretation: Abnormal: NT PRO-BNP 780. cp 03/14 13:41 Order name: PT-INR; Complete Time: 14:37 cp 03/14 13:41 Order name: Troponin (emerg Dept Use Only); Complete Time: 14:35 cp 03/14 13:41 Order name: XRAY Chest (1 view); Complete Time: 14:35 cp 06/11 13:41 Order name: Influenza Screen (a \\T\\ B); Complete Time: 14:35 03/14 13:41 Order name: Basic Metabolic Panel; Complete Time: 14:35 ED[facility] 03/14 14:37 Interpretation: Normal except: CL 108; CA 8.2. 03/14 13:41 Order name: Liver (Hepatic) Function; Complete Time: 14:35 EDMS 11 14:36 Interpretation: Normal except: ALB 3.1; GLOB 4.0; A/G 0.8. 03/14 14:58 Order name: SARS-COV-2 RT PCR ED[facility] 03/14 13:41 Order name: EKG; Complete Time: 13:41 03/14 13:41 Order name: Cardiac monitoring; Complete Time: 13:55 03/14 13:41 Order name: EKG - Nurse/Tech; Complete Time: 14:10 03/14 13:41 Order name: IV Saline Lock; Complete Time: 13:55 03/14 13:41 Order name: Labs collected and sent; Complete Time: 13:55 03/14 13:41 Order name: O2 Per Protocol; Complete Time: 13:55 03/14 13:41 Order name: O2 Sat Monitoring; Complete Time: 13:55 03/14 14:58 Order name: Misc. Order: ambulate pt and check O2 sat; Complete Time: 16:01 aa5 EC:10 Rate is 96 beats/min. Rhythm is regular. MI interval is normal. QRS interval is cp prolonged at 102 msec. QT interval is normal. T waves are Inverted in lead aVR. Interpreted by me. Reviewed by me. Administered Medications: 14:10 Drug: Tessalon Perle (benzonatate) 200 mg Route: PO; aa5 15:09 Follow up: Response: No adverse reaction ld1 14:10 Drug: Albuterol 2.5 mg Route: Inhalation; aa5 15:04 Follow up: Response: No adverse reaction ld1 14:10 Drug: AtroVENT (ipratropium) Aerosol 0.5 mg Route: Inhalation; aa5 15:04 Follow up: Response: No adverse reaction ld1 15:08 Drug: Lasix (furosemide) 40 mg Route: IVP; Site: right antecubital; ld1 16:01 Follow up: Response: No adverse reaction ld1 Disposition: 03/14/21 16:37 Discharged to Home. Impression: Unspecified combined systolic (congestive) and diastolic (congestive) heart failure. - Condition is Stable. - Discharge Instructions: Heart Failure. - Medication Reconciliation Form, Thank You Letter, Antibiotic Education, Prescription Opioid Use form. - Follow up: Private Physician; When: 2 - 3 days; Reason: Recheck today's complaints. - Problem is an acute exacerbation. - Symptoms have improved. - Notes: Increase Furosemide to 1 tablet every 12 hours for next 3 days Addendum: 03/17/2021 07:08 Co-signature as Attending Physician, Ayad Rosario MD I agree with the assessment and k dr plan of care. Signatures: Dispatcher [employer] [facility] Ayad Rosario MD MD kdr Jeny Luo RN RN aa5 Abraham Quinteros PA PA cp Rowena Navas RN RN ld1 Anni Singletary RN RN kg Corrections: (The following items were deleted from the chart) 03/14 14:05 13:41 CORONAVIRUS+MR.LAB.BRZ ordered. EDMS EDMS 14:22 14:14 Chest Pa And Lat (2 Views)+RAD.RAD.BRZ ordered. EDNH EDMS 14:37 14:36 Normal except: CL 108. cp cp 16:53 16:37 03/14/2021 16:37 Discharged to Home. Impression: Unspecified combined systolic ld1 (congestive) and diastolic (congestive) heart failure. Condition is Stable. Forms are Medication Reconciliation Form, Thank You Letter, Antibiotic Education, Prescription Opioid Use. Follow up: Private Physician; When: 2 - 3 days; Reason: Recheck today's complaints. Problem is an acute exacerbation. Symptoms have improved. cp 03/15 02:55 03/14 13:45 Associated signs and symptoms: Pertinent negatives: chest pain, cp diaphoresis, dizziness, fever, vomiting, cp
[2021-03-14 17:59] VITALS: TEMP 98.5
[2021-03-14 18:05] VITALS: BP 112/85; O2SAT 95
== END 2021-03-14 16:53 | disposition home or self-care (01) ==
LOC: ER 13:04
DX: I11.0 Hypertensive heart disease with heart failure (principal); I50.40 Unspecified combined systolic (congestive) and diastolic (congestive) heart failure; Z20.822 Contact with and (suspected) exposure to COVID-19; I48.91 Unspecified atrial fibrillation; I25.10 Atherosclerotic heart disease of native coronary artery without angina pectoris; E11.9 Type 2 diabetes mellitus without complications; Z95.1 Presence of aortocoronary bypass graft
CPT/HCPCS: 93005; 85025; 80048; 36415; 83735; 85610; 80076; 84484; 83880; 87804 ×2; 71045; 96374; 99285; U0003; J1940

== ENCOUNTER 2021-11-05 12:13 | Observation (INO) | payer OTHER ==
--- OUTSIDE RECORDS SUMMARY | 2021-11-05 12:20 | XMS REPORT | Continuity of Care Document ---
:1945 Author Organization [facility] t Address [address] [place] [address] Care Team Providers Name Role Phone Behzad Ashley Primary Care Physician Matt CASTELLANO, L Attending Clinician Unavailable MILVIA Attending Clinician Unavailable MILVIA Attending Clinician Unavailable Elías Woods DO Attending Clinician Pob, Lab Main Attending Clinician Unavailable Miley ABBOTT S Attending Clinician William TRENT Attending Clinician Unavailable Doctor Unassigned, Name Attending Clinician Unavailable Alison ABBOTT Attending Clinician Neal ABBOTT Attending Clinician 1, Cardiac Proc Room Attending Clinician Unavailable Anesthesia, Ep Lab Attending Clinician Unavailable ALISON Attending Clinician Unavailable Alison Attending Clinician Unavailable Draw, Lab Attending Clinician Unavailable MILVIA Admitting Clinician Unavailable Neal ABBOTT Admitting Clinician Payers Payer Name Policy Type Policy Number Effective Date Expiration Date S ource Problems Condition Condition Condition Status Onset Resolution Last Treating Co mments Source Name Details Category Date Date Treatment Clinician Date Syncope Syncope Disease Active Univers and and 11-03 ity of collapse collapse 00:00: [place] [facility] S/P S/P Disease [facility] Form[facility] ity of of atrial of atrial 00:00: g of this [place] fibrillati fibrillati 00 note Me dical on on might be Branch different from the original. PVI by Dr. Rosas on 01/08/2020 Benign Benign Disease Active Univers hypertensi hypertensi 11-10 it y of ve heart ve heart 00:00: [place] disease disease 00 Medical without without Branch heart heart failure failure Type 2 Type 2 Disease Active Overview: [facility] s diabetes diabetes 11-10 Formattin ity of mellitus mellitus 00:00: g of this [place] without without 00 note Medical complicati complicati might be Branch ons ons different from the original. 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 Holosysto lic 12/07. [facility] , he reports having stress tests and cardiac work ups regularly Allergies, Adverse Reactions, Alerts Allergy Allergy Status Severity Reaction(s) Onset Inactive Treating Comm ents Source Name Type Date Date Clinician ADHESIVE Drug Active Other-Cmnt Univ ers Class 4-06 ity of 00:00: [place] [facility] Adhesive Drug Active Other - See [place] - [place] Allergy comments 01-07 "causes ity of 00:00: blisters" [facility] NO KNOWN Drug Active Univers ALLERGIE Class ity of S [facility] Social History Social Habit Start Date Stop Date Quantity Comments Source Exposure to Not sure [facility] SARS-CoV-2 (event) Medica l Branch Education 2021-11-03 2021-11-03 14 [facility] 00:00:00 00:00:00 [facility] Branch Alcohol intake 2021-11-03 2021-11-03 .29 /d [facility] 00:00:00 00:00:00 Medical Branch Sex Ass[facility] At [birth year] [place] [facility] [place] [facility]:00 Medical Branch Smoking Status Start Date Stop Date Source Never smoker [facility] Branch Medications Ordered Filled Start Stop Current Ordering Indication Dosage Frequency Signature Comments Components Source Medication Medication Date Date Medication? Clinician (SIG) Name Name Venlafaxine Yes 300mg Take 300 U nivers 150 mg TR24 2-01 mg by ity of 15:35: mouth 2 [place] [address] (two) Medical times Branch daily. omeprazole 0 Yes 20mg Take 20 mg U nivers (PRILOSEC) 2-01 by mouth ity o f 20 mg 15:35: daily. [address] Branch metFORMIN 0 Yes 250mg Take 250 Uni vers (GLUCOPHAGE 2-01 mg by ity of ) 500 mg 15:35: mouth [place] tablet 44 daily. Medical Branch traZODONE Yes 200mg Take 200 Uni vers (DESYREL) 2-01 mg by ity of 100 mg 15:35: mouth at [place] tablet 44 bedtime. Medical Branch HYDROcodone Yes 1{tbl} Take 1 Tab Univers -acetaminop 2-01 by mouth 2 it y of hen (NORCO) 15:35: (two) [place] 10-325 mg 44 times Medical tablet daily. Branch atorvastati Yes 20mg Take 20 mg Univers n 40 mg 2-01 by mouth ity of tablet 15:35: at [place] 44 bedtime. Medical Branch aspirin 81 Yes 81mg Take 81 mg U nivers mg EC 2-01 by mouth ity of tablet 15:35: daily. [address] Branch foLIC acid 0 Yes 1mg Take 1 mg [place] 1 mg tablet 2-01 by mouth ity of 15:35: daily. [place] [address] Medical Branch Venlafaxine 0 Yes 300mg Take 300 U nivers 150 mg TR24 2-01 mg by ity of 15:35: mouth 2 [place] [address] (two) Medical times Branch daily. omeprazole 0 Yes 20mg Take 20 mg U nivers (PRILOSEC) 2-01 by mouth ity o f 20 mg 15:35: daily. [place] capsule 44 Medical Branch metFORMIN Yes 250mg Take 250 Uni vers (GLUCOPHAGE 2-01 mg by ity of ) 500 mg 15:35: mouth [place] tablet 44 daily. Medical Branch traZODONE Yes 200mg Take 200 Uni vers (DESYREL) 2-01 mg by ity of 100 mg 15:35: mouth at [place] tablet 44 bedtime. Medical Branch HYDROcodone Yes 1{tbl} Take 1 Tab Univers -acetaminop 11-04 by mouth 2 it y of hen (NORCO) 15:35: (two) [place] 10-325 mg 44 times Medical tablet daily. Branch atorvastati Yes 20mg Take 20 mg Univers n 40 mg 01 by mouth ity of tablet 15:35: at [place] [address] bedtime. Medical Branch aspirin 81 Yes 81mg Take 81 mg U nivers mg EC 11-04 by mouth ity of tablet 15:35: daily. [address] Branch foLIC acid Yes 1mg Take 1 mg [place] 1 mg tablet 01 by mouth ity of 15:35: daily. [address] Branch omeprazole Yes 20mg 20 mg, Unive rs (PRILOSEC) 11-04 Oral, ity of capsule 20 15:00: DAILY, [place] mg 00 First dose Medical on [facility] 11/04/21 at 0900, Until Discontinu ed, Routine aspirin EC Yes 81mg 81 mg, Unive rs tablet 81 11-04 Oral, ity of mg 15:00: DAILY, [place] 00 First dose Medical on [facility] 11/04/21 at 0900, Until Discontinu ed, Routine sotalol 2021- No 120mg Take 120 Univ ers (BETAPACE) 11-04 mg by ity of 120 mg 13:46: 00:00 mouth 2 [place] tablet 44 :00 (two) Medical times Branch daily. apixaban 2021- No 5mg Take 5 mg Uni vers (ELIQUIS) 5 11-04- by mouth 2 i ty of mg tablet 13:46: 00:00 (two) [place] 44 :00 times Medical daily. Branch furosemide 2021- No 40mg Take 40 mg Univers 40 mg 11-04 by mouth 2 ity of tablet 13:46: 00:00 (two) [place] 44 :00 times Medical daily. [place] foLIC acid 1mg Take 1 mg U nivers in Water 11-04 by mouth ity of solution 13:46: 00:00 daily. [place] 44 :00 [facility] NaCl 0.9% No 1000mL at 100 Uni vers (NS) IV 11-04 mL/hr, IV ity of infusion 07:30: 16:47 Infusion, [place] 1,000 mL 00 :51 CONTINUOUS Medic al , Starting Branch on Wed11/04/21 at 0130, Until Wed11/04/21 at 1047, Routine venlafaxine Yes 300mg 300 mg, [place] XR (EFFEXOR 2-01 Oral, QHS, it y of XR) 24 hr 03:00: First dose [place] capsule 300 00 on [facility] Medica l mg 11/03/21 at [place] 2100, Until Discontinu ed traZODone Yes 200mg 200 mg, Univ ers (DESYREL) 2- Oral, QHS, ity of tablet 200 03:00: First dose [place] mg 00 on Wed [facility] 11/03/21 at [place] 2100, Until Discontinu ed, Routine atorvastati Yes 20mg 20 mg, Univ ers n (LIPITOR) 2-01 Oral, QHS, it y of tablet 20 03:00: First dose [place] mg 00 on [facility] 11/03/21 at [place] 2100, Until Discontinu ed, Routine furosemide 0 Yes 40mg Take 1 Unive rs 40 mg 2-01 tablet by ity of tablet 00:00: mouth [place] 00 daily. [facility] Branch furosemide 0 Yes 40mg Take 1 Unive rs 40 mg 2-01 tablet by ity of tablet 00:00: mouth [place] 00 daily. [facility] Branch enoxaparin Yes 40mg 40 mg, Unive rs (LOVENOX) 11-03 Subcutaneo ity of injection 23:00: us, DAILY, [place] 40 mg 00 First dose Medical on Wed [place] 11/03/21 at 1700, Until Discontinu ed, Routine gabapentin 2021-0 Yes 400mg 400 mg, Uni vers (NEURONTIN) 11-03 Oral, TID, it y of capsule 400 20:00: First dose [place] mg 00 on Wed Medical 11/03/21 at Branch 1400, Until Discontinu ed, Routine NaCl 0.9% 2021- No 1000mL at 100 Uni vers (NS) IV 11-03 02-01 mL/hr, IV ity of infusion 19:45: 05:44 Infusion, [place] 1,000 mL 00 :00 CONTINUOUS Medic al , Starting Branch on Wed11/03/21 at 1345, Until Wed11/03/21 at 2344, Routine ondansetron 2021-0 Yes 4mg 4 mg, Slow Univers (ZOFRAN 11-03 IV Push, ity of (PF)) 19:39: Q6HPRN, [place] injection 4 37 Starting Medi reid mg on Wed Branch 11/03/21 at 1339, Until Discontinu ed, Routine, Nausea and Vomiting (N/V) acetaminoph 0 Yes 650mg 650 mg, [place] en 11-03 Oral, ity of (TYLENOL) 19:39: Q6HPRN, [place] tablet 650 26 Starting Medic al mg on Wed Branch 11/03/21 at 1339, Until Discontinu ed, Routine, Pain (scale 1-3) HYDROcodone 2021-0 Yes 1{tbl} 1 tablet, Univers -acetaminop 11-03 Oral, ity of hen (NORCO) 19:36: Q6HPRN, [place] 10-325 mg 09 Starting Medica l tablet 1 on Wed Branch tablet 11/03/21 at 1336, Until Discontinu ed, Routine, Pain (scale 4-6), Pain (scale 7-10) NaCl 0.9% 2021- No 1000mL at 999 Uni vers (NS) bolus 11-03 mL/hr, ity of infusion 17:30: 17:09 1,000 mL, [place] 1,000 mL 00 :00 IV Medical Infusion, Branch ONCE, 1 dose, On Wed11/03/21 at 1130, [place] NaCl 0.9% 2021- No 1000mL at 999 Uni vers (NS) bolus 11-03 mL/hr, ity of infusion 17:15: 17:09 1,000 mL, [place] 1,000 mL 00 :00 IV Medical Infusion, Branch ONCE, 1 dose, On Wed11/03/21 at 1115, [place] NaCl 0.9% 0 2021- No 1000mL at 999 Uni vers (NS) bolus 11-03-31 mL/hr, ity of infusion 16:15: 16:52 1,000 mL, [place] 1,000 mL 00 :00 IV Medical Infusion, Branch ONCE, 1 dose, On Wed11/03/21 at 1015, [place] foLIC acid 2020-0 Yes 1mg Take 1 mg [place] in [place] 4-07 by mouth ity of solution 19:27: daily. Medical Branch foLIC acid 2020-0 Yes 1mg Take 1 mg [place] 1 mg tablet 4-07 by mouth ity of 19:27: daily. Medical Branch Venlafaxine 2020-0 Yes 300mg Take 300 U nivers 150 mg TR24 4-07 mg by ity of 19:27: mouth 2 [place] 07 (two) Medical times Branch daily. omeprazole 2020-0 Yes 20mg Take 20 mg U nivers (PRILOSEC) 4-07 by mouth ity o f 20 mg 19:27: daily. [place] capsule Medical Branch metFORMIN 2020-0 Yes 250mg Take 250 Uni vers (GLUCOPHAGE 4-07 mg by ity of ) 500 mg 19:27: mouth [place] tablet 07 daily. Medical Branch traZODONE 2020-0 Yes 200mg Take 200 Uni vers (DESYREL) 4-07 mg by ity of 100 mg 19:27: mouth at [place] tablet 07 bedtime. Medical Branch HYDROcodone 2020-0 Yes 1{tbl} Take 1 Tab Univers -acetaminop 4-07 by mouth 2 it y of hen (NORCO) 19:27: (two) [place] 10-325 mg 07 times Medical tablet daily. Branch atorvastati 2020-0 Yes 20mg Take 20 mg Univers n 40 mg 4-07 by mouth ity of tablet 19:27: at [place] 07 bedtime. Medical Branch sotalol 2020-0 Yes 120mg Take 120 Unive rs (BETAPACE) 4-07 mg by ity of 120 mg 19:27: mouth 2 [place] tablet 07 (two) Medical times Branch daily. apixaban 2020-0 Yes 5mg Take 5 mg Univ ers (ELIQUIS) 5 4-07 by mouth 2 it y of mg tablet 19:27: (two) times Medical daily. Branch furosemide 2020-0 Yes 40mg Take 40 mg U nivers 40 mg 4-07 by mouth 2 ity of tablet 19:27: (two) [place] 07 times Medical daily. Branch aspirin 81 2020-0 Yes 81mg Take 81 mg U nivers mg EC 4-07 by mouth ity of tablet 19:27: daily. [place] [address] Medical Branch foLIC acid 2020-0 Yes 1mg Take 1 mg [place] in [place] 4-07 by mouth ity of solution 19:27: daily. [address] Branch foLIC acid 2020-0 Yes 1mg Take 1 mg [place] 1 mg tablet 4-07 by mouth ity of 19:27: daily. [place] [address] Medical Branch Venlafaxine 2020-0 Yes 300mg Take 300 U nivers 150 mg TR24 4-07 mg by ity of 19:27: mouth 2 07 (two) Medical times Branch daily. omeprazole 2020-0 Yes 20mg Take 20 mg U nivers (PRILOSEC) 4-07 by mouth ity o f 20 mg 19:27: daily. [place] [address] Medical Branch metFORMIN 2020-0 Yes 250mg Take 250 Uni vers (GLUCOPHAGE 4-07 mg by ity of ) 500 mg 19:27: mouth [place] tablet 07 daily. Medical Branch traZODONE 2020-0 Yes 200mg Take 200 Uni vers (DESYREL) 4-07 mg by ity of 100 mg 19:27: mouth at [place] tablet 07 bedtime. Medical Branch HYDROcodone 2020-0 Yes 1{tbl} Take 1 Tab Univers -acetaminop 4-07 by mouth 2 it y of hen (NORCO) 19:27: (two) [place] 10-325 mg 07 times Medical tablet daily. Branch atorvastati 2020-0 Yes 20mg Take 20 mg Univers n 40 mg 4-07 by mouth ity of tablet 19:27: at [place] 07 bedtime. Medical Branch sotalol 2020-0 Yes 120mg Take 120 Unive rs (BETAPACE) 4-07 mg by ity of 120 mg 19:27: mouth 2 [place] tablet 07 (two) Medical times Branch daily. apixaban 2020-0 Yes 5mg Take 5 mg Univ ers (ELIQUIS) 5 4-07 by mouth 2 it y of mg tablet 19:27: (two) [place] 07 times Medical daily. Branch furosemide 2020-0 Yes 40mg Take 40 mg U nivers 40 mg 4-07 by mouth 2 ity of tablet 19:27: (two) [place] 07 times Medical daily. Branch aspirin 81 2020-0 Yes 81mg Take 81 mg U nivers mg EC 4-07 by mouth ity of tablet 19:27: daily. [place] [address] Medical Branch foLIC acid 2020-0 Yes 1mg Take 1 mg [place] in [place] 4-07 by mouth ity of solution 19:27: daily. [place] [address] Medical Branch foLIC acid 2020-0 Yes 1mg Take 1 mg [place] 1 mg tablet 4-07 by mouth ity of 19:27: daily. [place] [address] Medical Branch Venlafaxine 2020-0 Yes 300mg Take 300 U nivers 150 mg TR24 4-07 mg by ity of 19:27: mouth 2 07 (two) Medical times Branch daily. omeprazole 2020-0 Yes 20mg Take 20 mg U nivers (PRILOSEC) 4-07 by mouth ity o f 20 mg 19:27: daily. [place] [address] Medical Branch metFORMIN 2020-0 Yes 250mg Take 250 Uni vers (GLUCOPHAGE 4-07 mg by ity of ) 500 mg 19:27: mouth [place] tablet 07 daily. Medical Branch traZODONE 2020-0 Yes 200mg Take 200 Uni vers (DESYREL) 4-07 mg by ity of 100 mg 19:27: mouth at [place] tablet 07 bedtime. Medical Branch HYDROcodone 2020-0 Yes 1{tbl} Take 1 Tab Univers -acetaminop 4-07 by mouth 2 it y of hen (NORCO) 19:27: (two) [place] 10-325 mg 07 times Medical tablet daily. Branch atorvastati 2020-0 Yes 20mg Take 20 mg Univers n 40 mg 4-07 by mouth ity of tablet 19:27: at [place] 07 bedtime. Medical Branch sotalol 2020-0 Yes 120mg Take 120 Unive rs (BETAPACE) 4-07 mg by ity of 120 mg 19:27: mouth 2 [place] tablet 07 (two) Medical times Branch daily. apixaban 2020-0 Yes 5mg Take 5 mg Univ ers (ELIQUIS) 5 4-07 by mouth 2 it y of mg tablet 19:27: (two) times Medical daily. Branch furosemide 2019-0 Yes 40mg Take 40 mg U nivers 40 mg 01-08 by mouth 2 ity of tablet 19:27: (two) times Medical daily. Branch aspirin 81 2020-0 Yes 81mg Take 81 mg U nivers mg EC 01-08 by mouth ity of tablet 19:27: daily. Medical Branch lisinopril 2020- No 2.5mg Take 2.5 U nivers (PRINIVIL,Z 01-08- mg by ity of ESTRIL) 2.5 14:50: 00:00 mouth [place] mg tablet 10 :00 daily. Medical Branch metoprolol 2020- No 25mg Take 25 mg Univers tartrate 01-08 by mouth ity of (LOPRESSOR) 14:50: 00:00 at [place] 50 mg 10 :00 bedtime. Medical tablet Branch traZODONE 2020- No 50mg Take 50 mg U nivers (DESYREL) 01-08 by mouth ity o f 50 mg 14:50: 00:00 at [place] tablet 10 :00 bedtime. Medical Branch prazosin 2020- No 2mg Take 2 mg Uni vers (MINIPRES) 01-08 by mouth ity of 2 mg 14:50: 00:00 at [place] capsule 10 :00 bedtime. Medical Branch lisinopril 2020- No 10mg Take 10 mg Univers (PRINIVIL,Z 01-08- by mouth ity of ESTRIL) 10 14:50: 00:00 at [place] mg tablet 10 :00 bedtime. Medica l Branch Venlafaxine 2019-0 Yes 300mg Take 300 U nivers 150 mg TR24 4-07 mg by ity of 14:50: mouth 2 07 (two) Medical times Branch daily. omeprazole 2019-0 Yes 20mg Take 20 mg U nivers (PRILOSEC) 01-08 by mouth ity o f 20 mg 14:50: daily. [place] capsule 07 Medical Branch metFORMIN 2019-0 Yes 250mg Take 250 Uni vers (GLUCOPHAGE 4-07 mg by ity of ) 500 mg 14:50: mouth [place] tablet 07 daily. Medical Branch traZODONE 2020-0 Yes 200mg Take 200 Uni vers (DESYREL) 4-07 mg by ity of 100 mg 14:50: mouth at [place] tablet 07 bedtime. Medical Branch HYDROcodone 2020-0 Yes 1{tbl} Take 1 Tab Univers -acetaminop 4-07 by mouth 2 it y of hen (NORCO) 14:50: (two) [place] 10-325 mg 07 times Medical tablet daily. Branch atorvastati 2020-0 Yes 20mg Take 20 mg Univers n 40 mg 4-07 by mouth ity of tablet 14:50: at 07 bedtime. Medical Branch sotalol 2020-0 Yes 120mg Take 120 Unive rs (BETAPACE) 4-07 mg by ity of 120 mg 14:50: mouth 2 [place] tablet 07 (two) Medical times [place] daily. apixaban 2020-0 Yes 5mg Take 5 mg Univ ers (ELIQUIS) 5 4-07 by mouth 2 it y of mg tablet 14:50: (two) times Medical daily. Branch furosemide 2020-0 Yes 40mg Take 40 mg U nivers 40 mg 4-07 by mouth 2 ity of tablet 14:50: (two) [place] 07 times Medical daily. Branch aspirin 81 2020-0 Yes 81mg Take 81 mg U nivers mg EC 4-07 by mouth ity of tablet 14:50: daily. [place] [address] Medical Branch foLIC acid 2020-0 Yes 1mg Take 1 mg [place] in [place] 4-07 by mouth ity of solution 14:50: daily. [place] [address] Medical Branch foLIC acid 2020-0 Yes 1mg Take 1 mg [place] 1 mg tablet 4-07 by mouth ity of 14:50: daily. [place] [address] Medical Branch Venlafaxine 2020-0 Yes 300mg Take 300 U nivers 150 mg TR24 4-07 mg by ity of 14:27: mouth 2 07 (two) Medical times [place] daily. omeprazole 2020-0 Yes 20mg Take 20 mg U nivers (PRILOSEC) 4-07 by mouth ity o f 20 mg 14:27: daily. [place] [address] Medical Branch metFORMIN 2020-0 Yes 250mg Take 250 Uni vers (GLUCOPHAGE 4-07 mg by ity of ) 500 mg 14:27: mouth [place] tablet 07 daily. Medical Branch traZODONE 2020-0 Yes 200mg Take 200 Uni vers (DESYREL) 4-07 mg by ity of 100 mg 14:27: mouth at [place] tablet 07 bedtime. Medical Branch HYDROcodone 2020-0 Yes 1{tbl} Take 1 Tab Univers -acetaminop 4-07 by mouth 2 it y of hen (NORCO) 14:27: (two) [place] 10-325 mg 07 times Medical tablet daily. Branch atorvastati 2020-0 Yes 20mg Take 20 mg Univers n 40 mg 4-07 by mouth ity of tablet 14:27: at [place] 07 bedtime. Medical Branch sotalol 2020-0 Yes 120mg Take 120 Unive rs (BETAPACE) 4-07 mg by ity of 120 mg 14:27: mouth 2 [place] tablet 07 (two) Medical times [place] daily. apixaban 2020-0 Yes 5mg Take 5 mg Univ ers (ELIQUIS) 5 4-07 by mouth 2 it y of mg tablet 14:27: (two) times Medical daily. Branch furosemide 2020-0 Yes 40mg Take 40 mg U nivers 40 mg 4-07 by mouth 2 ity of tablet 14:27: (two) [place] 07 times Medical daily. Branch aspirin 81 2020-0 Yes 81mg Take 81 mg U nivers mg EC 4-07 by mouth ity of tablet 14:27: daily. [place] [address] Medical Branch foLIC acid 2020-0 Yes 1mg Take 1 mg [place] in [place] 4-07 by mouth ity of solution 14:27: daily. [place] [address] Medical Branch foLIC acid 2020-0 Yes 1mg Take 1 mg [place] 1 mg tablet 4-07 by mouth ity of 14:27: daily. [place] [address] Medical Branch Venlafaxine 2020-0 Yes 300mg Take 300 U nivers 150 mg TR24 4-07 mg by ity of 14:27: mouth 2 07 (two) Medical times Branch daily. omeprazole 2020-0 Yes 20mg Take 20 mg U nivers (PRILOSEC) 4-07 by mouth ity o f 20 mg 14:27: daily. [place] [address] Medical Branch metFORMIN 2020-0 Yes 250mg Take 250 Uni vers (GLUCOPHAGE 4-07 mg by ity of ) 500 mg 14:27: mouth [place] tablet 07 daily. Medical Branch traZODONE 2020-0 Yes 200mg Take 200 Uni vers (DESYREL) 4-07 mg by ity of 100 mg 14:27: mouth at [place] tablet 07 bedtime. Medical Branch HYDROcodone 2020-0 Yes 1{tbl} Take 1 Tab Univers -acetaminop 4-07 by mouth 2 it y of hen (NORCO) 14:27: (two) [place] 10-325 mg 07 times Medical tablet daily. Branch atorvastati 2020-0 Yes 20mg Take 20 mg Univers n 40 mg 4-07 by mouth ity of tablet 14:27: at [place] 07 bedtime. Medical Branch sotalol 2020-0 Yes 120mg Take 120 Unive rs (BETAPACE) 4-07 mg by ity of 120 mg 14:27: mouth 2 [place] tablet 07 (two) Medical times Branch daily. apixaban 2020-0 Yes 5mg Take 5 mg Univ ers (ELIQUIS) 5 -07 by mouth 2 it y of mg tablet 14:27: (two) [place] 07 times Medical daily. Branch furosemide 2020-0 Yes 40mg Take 40 mg U nivers 40 mg -07 by mouth 2 ity of tablet 14:27: (two) [place] 07 times Medical daily. Branch aspirin 81 2020-0 Yes 81mg Take 81 mg U nivers mg EC -07 by mouth ity of tablet 14:27: daily. [address] foLIC acid 2020-0 Yes 1mg Take 1 mg [place] 07 by mouth ity of solution 14:27: daily. [address] foLIC acid 2020-0 Yes 1mg Take 1 mg [place] 1 mg tablet 07 by mouth ity of 14:27: daily. [address] foLIC acid 2020-0 Yes 1mg 1 mg, Univer s (FOLATE) 4-07 Oral, ity of tablet 1 mg 14:00: DAILY, [place] First dose Medical on [facility] 01/09/20 at 0900, Until Discontinu ed, Routine omeprazole 2020-0 Yes 20mg 20 mg, Unive rs (PRILOSEC) 4-07 Oral, ity of capsule 20 14:00: DAILY, [place] mg 00 First dose Medical on [facility] 01/09/20 at 0900, Until Discontinu ed, Routine aspirin EC 2020-0 Yes 81mg 81 mg, Unive rs tablet 81 -07 Oral, ity of mg 14:00: DAILY, [place] 00 First dose Medical on [facility] 01/09/20 at 0900, Until Discontinu ed, Routine apixaban 2020-0 Yes 5mg 5 mg, Univers (ELIQUIS) 01-08 Oral, BID, ity of tablet 5 mg 13:00: First dose [place] 00 on [facility] 01/09/20 at Branch 0800, Until Discontinu ed, Routine traZODone 2020-0 Yes 200mg 200 mg, Univ ers (DESYREL) 4- Oral, QHS, ity of tablet 200 02:00: First dose [place] mg 00 on [facility] 01/08/20 at Branch 2100, Until Discontinu ed, Routine atorvastati 2020-0 Yes 20mg 20 mg, Univ ers n (LIPITOR) - Oral, QHS, it y of tablet 20 02:00: First dose [place] mg 00 on [facility] 01/08/20 at Branch 2100, Until Discontinu ed, Routine sotalol 2020-0 Yes 120mg 120 mg, Univer s (BETAPACE) 01-08 Oral, ity of tablet 120 01:00: Q12H, [place] mg 00 First dose Medical on [facility] 01/08/20 at 2000, Until Discontinu ed, Routine
science faculty member approving Restricted medication : HEMATSHALINI LUIS sucralfate 2020-0 Yes 1g 1,000 mg Uni vers (CARAFATE) 01-08 (1 g), ity of 100 mg/mL 01:00: Oral, BID, [place] suspension 00 First dose Med ical 1,000 mg on [facility] 01/08/20 at 2000, Until Discontinu ed, Routine venlafaxine 2020-0 Yes 150mg 150 mg, [place] (EFFEXOR) 01-08 Oral, BID, ity of tablet 150 01:00: First dose [place] mg 00 on [facility] 01/08/20 at Branch 2000, Until Discontinu ed furosemide 2020-0 Yes 40mg 40 mg, Unive rs (LASIX) - Oral, BID, ity of tablet 40 01:00: First dose [place] mg 00 on [facility] 01/08/20 at Branch 2000, Until Discontinu ed, Routine sucralfate 2020-0 2020- No [id number] 1g Take 1 Univers 1 gram 01-08 tablet by ity of tablet 00:00: 04:59 mouth 2 [place] 00 :00 (two) Medical times [place] daily for 14 days. sucralfate 2020-0 2020- No [id number] 1g Take 1 Univers 1 gram 01-08- tablet by ity of tablet 00:00: 04:59 mouth 2 [place] 00 :00 (two) Medical times [place] daily for 14 days. sucralfate 2020-0 2020- No [id number] 1g Take 1 Univers 1 gram 01-08-22 tablet by ity of tablet 00:00: 04:59 mouth 2 [place] 00 :00 (two) Medical times [place] daily for 14 days. sucralfate 2020-0 2020- No [id number] 1g Take 1 Univers 1 gram 01-08 tablet by ity of tablet 00:00: 04:59 mouth 2 [place] 00 :00 (two) Medical times [place] daily for 14 days. apixaban 2019-0 2020- No 5mg 5 mg, Univers (ELIQUIS) 01-07 04-06 Oral, ity of tablet 5 mg 23:00: 22:17 ONCE, 1 [place] 00 :00 dose, [facility] Medical 01/08/20 at Branch 1800, Routine Sliding 2020-0 Yes Subcutaneo Univ ers Scale 4-06 us, TID ity of Insulin - 22:45: MEALS+HS, [place] Aspart 00 First dose Medical (NOVOLOG) + on Wed [place] [facility] 01/08/20 at Testing 1745, Until Discontinu ed, Routine glucagon 2020-0 Yes 1mg 1 mg, Univers (GLUCAGEN - Intramuscu ity of DIAGNOSTIC 22:22: [place], PRN, [place] KIT) 56 Starting Medical injection 1 Mon 01/08/20 Br anch mg at 1722, Until Discontinu ed, [place], Blood Glucose < or = 70 mg/dL and patient is unable to swallow or has mental changes. D10W IV 2020-0 Yes 25mL Intravenou Univ ers infusion 4-06 s, PRN, ity of 250 mL 22:22: Starting [place] 56 Mon 01/08/20 Medical at 1722, Branch Until Discontinu ed, MAYRA ondansetron 2020-0 Yes 4mg 4 mg, Slow Univers (ZOFRAN 4- IV Push, ity of (PF)) 17:27: Q6HPRN, [place] injection 4 43 Starting Medi reid mg 01/08/20 Branch at 1227, Until Discontinu ed, Routine, Nausea and Vomiting (N/V) HYDROcodone 2020-0 2020- No 1{tbl} 1 tablet, Univers -acetaminop 4-06 04-08 Oral, ity of hen (NORCO 17:27: 17:26 Q6HPRN, [place] as 5) 5-325 mg 18 :18 Starting Medi reid tablet 1 Mon 01/08/20 Branc h tablet at 1227, Until Wed01/10/20 at 1226, Routine, Pain (scale 4-6) acetaminoph 2020-0 Yes 650mg 650 mg, Un kevon en 4-06 Oral, ity of (TYLENOL) 17:27: Q6HPRN, [place] tablet 650 17 Starting Medic al mg 01/08/20 Branch at 1227, Until Discontinu ed, Routine, Pain (scale 1-3) morpHINE 2020-0 Yes 4mg 4 mg, Slow Uni vers injection 4 4-06 IV Push, ity of mg 16:16: Q4HPRN, [place] 21 Starting Medical 01/08/20 Branch at 1116, Until Discontinu ed, Routine, Pain (scale 7-10), Chest pain lisinopril 2020-0 Yes 2.5mg Take 2.5 Un kevon (PRINIVIL,Z 4-06 mg by ity of ESTRIL) 2.5 12:11: mouth [place] mg tablet 11 daily. Medical Branch metoprolol 2020-0 Yes 25mg Take 25 mg U nivers tartrate 4-06 by mouth ity of (LOPRESSOR) 12:11: at [place] 50 mg 11 bedtime. Medical tablet Branch traZODONE 2020-0 Yes 50mg Take 50 mg Un kevon (DESYREL) 4-06 by mouth ity of 50 mg 12:11: at [place] tablet 11 bedtime. Medical Branch prazosin 2020-0 Yes 2mg Take 2 mg Univ ers (MINIPRES) 4-06 by mouth ity o f 2 mg 12:11: at [place] capsule 11 bedtime. Medical Branch lisinopril 2020-0 Yes 10mg Take 10 mg U nivers (PRINIVIL,Z 4-06 by mouth ity of ESTRIL) 10 12:11: at [place] mg tablet 11 bedtime. Medica l Branch Venlafaxine 2020-0 Yes 300mg Take 300 U nivers 150 mg TR24 4-06 mg by ity of 11:34: mouth at [place] 13 bedtime. Medical Branch omeprazole 2020-0 Yes 20mg Take 20 mg U nivers (PRILOSEC) 4-06 by mouth ity o f 20 mg 11:34: daily. [place] capsule 13 Medical Branch metFORMIN 2020-0 Yes 250mg Take 250 Uni vers (GLUCOPHAGE 4-06 mg by ity of ) 500 mg 11:34: mouth [place] tablet 13 daily. Medical Branch traZODONE 2020-0 Yes 200mg Take 200 Uni vers (DESYREL) 4-06 mg by ity of 100 mg 11:34: mouth at [place] tablet 13 bedtime. Medical Branch HYDROcodone 2020-0 Yes 1{tbl} Take 1 Tab Univers -acetaminop 4-06 by mouth 2 it y of hen (NORCO) 11:34: (two) [place] 10-325 mg 13 times Medical tablet daily. Branch atorvastati 2020-0 Yes 20mg Take 20 mg Univers n 40 mg 4-06 by mouth ity of tablet 11:34: at [place] 13 bedtime. Medical Branch sotalol 2020-0 Yes 120mg Take 120 Unive rs (BETAPACE) 4-06 mg by ity of 120 mg 11:34: mouth 2 [place] tablet 13 (two) Medical times Branch daily. apixaban 2020-0 Yes 5mg Take 5 mg Univ ers (ELIQUIS) 5 4-06 by mouth 2 it y of mg tablet 11:34: (two) [place] 13 times Medical daily. Branch furosemide 2020-0 Yes 40mg Take 40 mg U nivers 40 mg 4-06 by mouth 2 ity of tablet 11:34: (two) [place] 13 times Medical daily. Branch aspirin 81 2020-0 Yes 81mg Take 81 mg U nivers mg EC 4-06 by mouth ity of tablet 11:34: daily. [place] 13 Medical Branch foLIC acid 2020-0 Yes 1mg Take 1 mg Un kevon in [place] 4-06 by mouth ity of solution 11:34: daily. [place] [address] Medical Branch Venlafaxine 2020-0 Yes 300mg Take 300 U nivers 150 mg TR24 3-19 mg by ity of 17:52: mouth at [place] 25 bedtime. Medical Branch omeprazole 2020-0 Yes 20mg Take 20 mg U nivers (PRILOSEC) 3-19 by mouth ity o f 20 mg 17:52: daily. [place] capsule 25 Medical Branch lisinopril 2020-0 Yes 2.5mg Take 2.5 Un kevon (PRINIVIL,Z 3-19 mg by ity of ESTRIL) 2.5 17:52: mouth [place] mg tablet 25 daily. Medical Branch metFORMIN 2020-0 Yes 250mg Take 250 Uni vers (GLUCOPHAGE 3-19 mg by ity of ) 500 mg 17:52: mouth [place] tablet 25 daily. Medical Branch metoprolol 2020-0 Yes 25mg Take 25 mg U nivers tartrate 3-19 by mouth ity of (LOPRESSOR) 17:52: at [place] 50 mg 25 bedtime. Medical tablet Branch traZODONE 2020-0 Yes 50mg Take 50 mg Un kevon (DESYREL) 3-19 by mouth ity of 50 mg 17:52: at [place] tablet 25 bedtime. Medical Branch traZODONE 2020-0 Yes 200mg Take 200 Uni vers (DESYREL) 3-19 mg by ity of 100 mg 17:52: mouth at [place] tablet 25 bedtime. Medical Branch prazosin 2020-0 Yes 2mg Take 2 mg Univ ers (MINIPRES) 3-19 by mouth ity o f 2 mg 17:52: at [place] capsule 25 bedtime. Medical Branch lisinopril 2020-0 Yes 10mg Take 10 mg U nivers (PRINIVIL,Z 3-19 by mouth ity of ESTRIL) 10 17:52: at [place] mg tablet 25 bedtime. Medica l Branch Venlafaxine 2020-0 Yes 300mg Take 300 U nivers 150 mg TR24 3-19 mg by ity of 17:52: mouth at [place] 25 bedtime. Medical Branch omeprazole 2020-0 Yes 20mg Take 20 mg U nivers (PRILOSEC) 3-19 by mouth ity o f 20 mg 17:52: daily. [place] capsule 25 Medical Branch lisinopril 2020-0 Yes 2.5mg Take 2.5 Un kevon (PRINIVIL,Z 3-19 mg by ity of ESTRIL) 2.5 17:52: mouth [place] mg tablet 25 daily. Medical Branch metFORMIN 2020-0 Yes 250mg Take 250 Uni vers (GLUCOPHAGE 3-19 mg by ity of ) 500 mg 17:52: mouth [place] tablet 25 daily. Medical Branch metoprolol 2020-0 Yes 25mg Take 25 mg U nivers tartrate 3-19 by mouth ity of (LOPRESSOR) 17:52: at [place] 50 mg 25 bedtime. Medical tablet Branch traZODONE 2020-0 Yes 50mg Take 50 mg Un kevon (DESYREL) 3-19 by mouth ity of 50 mg 17:52: at [place] tablet 25 bedtime. Medical Branch traZODONE 2020-0 Yes 200mg Take 200 Uni vers (DESYREL) 3-19 mg by ity of 100 mg 17:52: mouth at [place] tablet 25 bedtime. Medical Branch prazosin 2020-0 Yes 2mg Take 2 mg Univ ers (MINIPRES) 3-19 by mouth ity o f 2 mg 17:52: at [place] capsule 25 bedtime. Medical Branch lisinopril 2020-0 Yes 10mg Take 10 mg U nivers (PRINIVIL,Z 3-19 by mouth ity of ESTRIL) 10 17:52: at [place] mg tablet 25 bedtime. Medica l Branch Venlafaxine 2020-0 Yes 300mg Take 300 U nivers 150 mg TR24 3-19 mg by ity of 17:52: mouth at [place] 25 bedtime. Medical Branch omeprazole 2020-0 Yes 20mg Take 20 mg U nivers (PRILOSEC) 3-19 by mouth ity o f 20 mg 17:52: daily. [place] capsule 25 Medical Branch lisinopril 2020-0 Yes 2.5mg Take 2.5 Un kevon (PRINIVIL,Z 3-19 mg by ity of ESTRIL) 2.5 17:52: mouth [place] mg tablet 25 daily. Medical Branch metFORMIN 2020-0 Yes 250mg Take 250 Uni vers (GLUCOPHAGE 3-19 mg by ity of ) 500 mg 17:52: mouth [place] tablet 25 daily. Medical Branch metoprolol 2020-0 Yes 25mg Take 25 mg U nivers tartrate 3-19 by mouth ity of (LOPRESSOR) 17:52: at [place] 50 mg 25 bedtime. Medical tablet Branch traZODONE 2020-0 Yes 50mg Take 50 mg Un kevon (DESYREL) 3-19 by mouth ity of 50 mg 17:52: at [place] tablet 25 bedtime. Medical Branch traZODONE Yes 200mg Take 200 Uni vers (DESYREL) 3-19 mg by ity of 100 mg 17:52: mouth at [place] tablet 25 bedtime. Medical Branch prazosin Yes 2mg Take 2 mg Univ ers (MINIPRES) 3-19 by mouth ity o f 2 mg 17:52: at [place] capsule 25 bedtime. Medical Branch lisinopril Yes 10mg Take 10 mg U nivers (PRINIVIL,Z 3-19 by mouth ity of ESTRIL) 10 17:52: at [place] mg tablet 25 bedtime. Medica l Branch HYDROcodone Yes 1{tbl} Take 1 Tab Univers -acetaminop 4-01 by mouth 2 it y of hen (NORCO) 16:19: (two) [place] 10-325 mg 58 times Medical tablet daily. Branch HYDROcodone Yes 1{tbl} Take 1 Tab Univers -acetaminop 4-01 by mouth 2 it y of hen (NORCO) 16:19: (two) [place] 10-325 mg 58 times Medical tablet daily. Branch HYDROcodone Yes 1{tbl} Take 1 Tab Univers -acetaminop 4-01 by mouth 2 it y of hen (NORCO) 16:19: (two) [place] 10-325 mg 58 times Medical tablet daily. Branch Vital Signs Vital Name Observation Time Observation Value Comments Source Systolic blood 2021-11-04 13:51:00 101 mm[Hg] Univer sity of pressure [facility] Diastolic blood 2021-11-04 13:51:00 60 mm[Hg] Unive rsity of pressure [facility] Heart rate 2021-11-04 13:51:00 104 /min [facility] Body temperature 2021-11-04 13:51:00 36.56 Charleen [facility] 2021-11-04 13:51:00 18 /min [facility] Oxygen saturation in 2021-11-04 13:51:00 93 /min [facility] Arterial blood by [facility] Pulse oximetry Branch Body height 2021-11-03 18:52:00 162.6 cm [facility] Body weight 2021-11-03 18:52:00 82.555 kg [facility] [place] [facility] BMI 2021-11-03 18:52:00 31.24 kg/m2 [facility] [place] [facility] Systolic blood 2020-01-09 12:44:00 103 mm[Hg] Univer sity of pressure [place] [facility] Diastolic blood 2020-01-09 12:44:00 58 mm[Hg] Unive rsity of pressure [facility] Branch Heart rate 2020-01-09 12:44:00 67 /min [facility] [place] [facility] Body temperature 2020-01-09 12:44:00 36.72 Charleen [facility] ers[facility] [place] [facility] Respiratory rate 2020-01-09 12:44:00 18 /min Univ ers[facility] [place] [facility] Oxygen saturation in 2020-01-09 12:44:00 99 /min University of Arterial blood by [facility] Pulse oximetry Branch Body height 2019-12-21 17:04:00 162.6 cm [facility] [place] [facility] Body weight 2019-12-21 15:09:00 82.555 kg [facility] [place] [facility] BMI 2019-12-21 15:09:00 31.22 kg/m2 [facility] [place] [facility] Systolic blood 2020-01-09 12:44:00 103 mm[Hg] Univer sity of pressure [place] [facility] Diastolic blood 2020-01-09 12:44:00 58 mm[Hg] Unive rsity of pressure [place] [facility] Heart rate 2020-01-09 12:44:00 67 /min [facility] [place] [facility] Body temperature 2020-01-09 12:44:00 36.72 Charleen [facility] [place] [facility] Respiratory rate 2020-01-09 12:44:00 18 /min Univ ers[facility] [place] [facility] Oxygen saturation in 2020-01-09 12:44:00 99 /min University of Arterial blood by [facility] reid Pulse oximetry Branch Body height 2019-12-21 17:04:00 162.6 cm [facility] [place] [facility] Body weight 2019-12-21 15:09:00 82.555 kg [facility] [place] [facility] BMI 2019-12-21 15:09:00 31.22 kg/m2 [facility] [place] [facility] Procedures Procedure Date / Time Performing Clinician Source Performed BASIC METABOLIC PANEL 2021-11-04 09:15:00 Weston Steel [facility] [place] (NA, K, CL, CO2, GLUCOSE, Medica l Branch BUN, CREATININE, CA) CBC WITH DIFF 2021-11-04 09:15:00 Weston Steel [place] o f [facility] XR CHEST 1 VW 2021-11-03 15:42:00 Radha Woods [facility] LACTIC ACID WHOLE BLOOD 2021-11-03 15:23:00 Radha Woods [facility] Medical [place] MAGNESIUM 2021-11-03 15:10:00 Radha Woods [facility] TROPONIN I 2021-11-03 15:10:00 Radha Woods [facility] COMP. METABOLIC PANEL 2021-11-03 15:10:[address] [facility] ([id number]) Medical Branch CBC WITH DIFF 2021-11-03 15:10:00 Radha Woods [facility] COVID-19 (ID NOW RAPID 2021-11-03 15:10:00 Radha Woods [facility] TESTING) Medical Branch LAB ONLY COVID 2021-11-03 15:10:00 Radha Woods [facility] INTERPRETATION [facility] HB ECG ROUTINE & RHYTHM 2021-11-03 14:36:45 Radha Woods [facility] EMERGENCY DEPARTMENT 2021-11-03 06:01:00 Doctor Unassigned, [facility] DOCUMENTS [facility] ASSIGNMENT OF BENEFITS 2021-10-29 17:35:26 Doctor Unassigned, [facility] Name Medical [place] EXTERNAL PROVIDER RECORDS 2020-01-23 05:01:00 Doctor Unassjt, [facility] Name Medical Branch POCT GLUCOSE (AUTOMATED) 2020-01-09 12:49:00 Neal [facility] BASIC METABOLIC PANEL 2020-01-09 08:36:[address] [facility] (NA, K, CL, CO2, GLUCOSE, Medica l Branch BUN, CREATININE, CA) CBC WITH DIFFERENTIAL 2020-01-09 08:36:00 Dimitrios Melchor [facility] POCT GLUCOSE (AUTOMATED) 2020-01-09 01:19:00 Neal, Daniel [facility] GLYCOSYLATED HEMOGLOBIN 2020-01-08 22:58:00 Dimitrios Melchor [facility] (A1C) [facility] POCT GLUCOSE (AUTOMATED) 2020-01-08 21:46:00 Daniel De Jesus [facility] POCT GLUCOSE (AUTOMATED) 2020-01-08 18:43:00 Daniel De Jesus [facility] CATH PROCEDURE LOG 2020-01-08 13:59:00 Doctor Megha, [facility] Name [facility] CORONAVIRUS COVID-19 2020-01-08 11:35:00 HematShalini luis Un [facility] TESTING [facility] EKG-12 LEAD 2020-01-08 11:25:07 Shalini Rosas [facility] HB ABO GROUPING 2020-01-08 11:10:00 HematShalini luis [facility] NOTICE OF PRIVACY 2020-01-08 10:47:53 Doctor Megha [facility] PRACTICES [facility] CONSENT/REFUSAL FOR 2020-01-08 10:47:30 Doctor Megha [facility] DIAGNOSIS AND TREATMENT [facility] ASSIGNMENT OF BENEFITS 2020-01-08 10:47:07 Doctor Cleveland [facility] Name [facility] EXTERNAL PROVIDER RECORDS 2019-11-27 06:01:00 Doctor Cleveland [facility] Name [facility] Encounters Start End Encounter Admission Attending Care Care Encounter Source Date/Time Date/Time Type Type Clinicians Facility Department ID 2021-11-05 2021-11-05 Transition ZAIDA Gutierrez 1.2.840.114 [id number] Univers 00:00:00 00:00:00 of Care Jovita LAKHANI 350.1.13.10 i ty of [place] [phone] [place] [address] Branch 2021-11-03 2021-11-04 Outpatient X [employer] [facility] [id number] Univers 08:32:00 15:35:00 [facility] [facility] 2021-11-03 2021-11-04 Emergency Radha Woods [facility] 1.2.8 40.114 [id number] Univers 08:32:00 15:35:00 Weston Steel [facility] [id number] ity of [place]2.[place] [facility] [phone] [address] ([facility]) 2021-10-29 2021-10-29 Certified Vehicle Fire Investigator Amor Escobedo Lab Main [facility] 1.2.8 40.114 [id number] Univers 11:30:00 11:45:00 Visit Joe Trent William LLOYD 350.1.13.1 0 ity of [facility] 4.2.[place].2.[place] [facility]GENC[facility]AYNA [id number] T[address] 2021-10-29 2021-10-29 Outpatient R [facility] [id number] Univers 11:30:00 11:30:00 [id number] ity [facility] 2021-10-29 2021-10-29 Outpatient R MILEY [facility] [id number] Univers 11:30:00 11:30:00 JOE ity [facility] 2021-10-29 2021-10-29 Orders Doctor ANDRES 1.2.840.114 [id number] Univers 00:00:00 00:00:00 Only Unassigned, RADHA 350.1.13.10 ity of [facility] 4.2.7.2.686 [place] [phone] [address] 2020-01-23 2020-01-23 Orders Doctor ANDRES 1.2.840.114 [id number] 00:00:00 00:00:00 Only Unassigned, RADHA 350.1.13.10 [facility] 4.2.7.2.686 [id number] 009 2020-01-23 2020-01-23 Orders Doctor ANDRES 1.2.840.114 [id number] Univers 00:00:00 00:00:00 Only Unassigned, RADHA 350.1.13.10 ity of [facility] 4.2.7.2.686 [place] [phone] [address] 2020-01-08 2020-01-09 [facility] Shalini Rosas [facility] 1.2. 840.114 [id number] 09:16:00 12:45:00 Encounter Daniel De Jesus [facility] 350.1.13. 10 [place] 4.2.7.2.686 [place] [id number] [place] [address] ([facility]) 2020-01-08 2020-01-09 [facility] NikosShalini yarbrough [facility] 1.2. 840.114 [id number] [place] [facility] 09:16:00 12:45:00 Encounter Daniel De Jesus [facility] 350.1.13. 10 ity of 1, [facility] Cardiac Proc Room [place] 4.2.7.2 .686 [facility] [place] [id number] ([facility]) 2020-01-09 2020-01-09 [facility]phone [facility] 1.2.840.114 [id number] 00:00:00 00:00:00 [facility] 350.1.13.10 [place] 4.2.7.2.686 [place] [phone] [place] [address] ([facility]) 2020-01-09 2020-01-09 Telephone [facility] 1.2.840.114 [id number] [facility] 00:00:00 00:00:00 [facility] 350.1.13.10 ity of [place] 4.2.7.2.686 [facility] [id number] [address] ([facility]) 2020-01-08 2020-01-08 Outpatient R ALISON [facility] EPL [id number] Univers 10:30:00 10:30:00 [facility] 2020-01-08 2020-01-08 [facility] 1.2.840.114 [id number] 00:00:00 00:00:00 Khashayar Health 350.1.13.10 [place] 4.2.7.2.686 [place] [id number] [facility] 039 ([facility]) 2020-01-08 2020-01-08 Telephone ANDRES Rosas 1.2.840.114 [id number] 00:00:00 00:00:00 Khradhar RADHA 350.1.13.10 HOSPITAL 4.2.7.2.686 [id number] 019 2020-01-08 2020-01-08 Telephone ANDRES Rosas 1.2.840.114 [id number] Univers 00:00:00 00:00:00 Khashayar RADHA 350.1.13.10 ity of HOSPITAL 4.2.7.2.686 [place] [id number] [place] [address] Branch 2020-01-08 2020-01-08 Telephone Alison [facility] 1.2.840.114 [id number] Univers 00:00:00 00:00:00 Khashayar Health 350.1.13.10 ity [place]2.[place] [phone] [place] [address] Branch ([facility]) 2020-01-05 2020-01-05 Telephone Alison [facility] 1.2.840.114 [id number] 00:00:00 00:00:00 Khashayar Health 350.1.13.10 [place] 4.2.7.2.686 [place] [id number] [place] [address] ([facility]) 2020-01-05 2020-01-05 Telephone Alison [facility] 1.2.840.114 [id number] Univers 00:00:00 00:00:00 Khashayar Health 350.1.13.10 ity of [place] [id number] [address] ([facility]) 2020-01-03 2020-01-03 Outpatient Hematpour, [facility] [id number] [facility] 09:00:00 09:00:00 Shalini [id number] Winnie hearn [facility] 2020-01-01 2020-01-01 Outpatient R HEMATPOUR, [facility] [id number] [facility] 12:00:00 12:00:00 KHASHAYAR ity of [facility] 2020-01-01 2020-01-01 Certified Vehicle Fire Investigator Draw, [facility] 1.2.840.114 [id number] 09:59:36 10:14:36 Visit [facility] Health 350.1.13.10 [place] 4.2.7.2.686 [place] [id number] Medical [facility] 2020-01-01 2020-01-01 Certified Vehicle Fire Investigator Draw, [facility] 1.2.8 40.114 [id number] Univers 09:59:36 10:14:36 Visit Shalini Rosas 350.1.13. 10 ity of [place] 4.2.7.2.686 [place] [id number] [facility] 353 Branch Office Building 2019-11-27 2019-11-27 Orders Doctor CAMPOS 1.2.840.114 [id number] 00:00:00 00:00:00 Only Unassigned, RADHA 350.1.13.10 [facility] 4.2.7.2.686 [id number] [id number] 2019-11-27 2019-11-27 Orders Doctor CAMPOS 1.2.840.114 [id number] Univers 00:00:00 00:00:00 Only Unassigned, RADHA 350.1.13.10 ity of [facility] 4.2.7.2.686 [place] [phone] [address] Results Test Description Test Time Test Comments Results Result Comments Source Basic Metabolic Panel (NA, K, CL, CO2, GLUCOSE, BUN, 2021-11 10:19:35 CREATININE, CA) Test Item Value Reference Range Interpretation Comme nts NA (test code = 2537225562) 138 mmol/L 135-145 K (test code = 0450327528) 5.0 mmol/L 3.5-5.0 CL (test code = 1162012898) 110 mmol/L 98-108 H CO2 TOTAL (test code = 3898972039) 23 mmol/L 23-31 AGAP (test code = 9853960801) 2-16 BUN (test code = 1975402373) 18 mg/dL 7-23 GLUCOSE (test code = 4033836750) 119 mg/dL 70-110 H CREATININE (test code = 0.95 mg/dL 0.60-1.25 4304181390) CALCIUM (test code = 2500173458) 8.1 mg/dL 8.6-10.6 L eGFR (test code = 7285623173) mL/min/1.73m2 KURT (test code = KURT) Association of Glomerular Filtration Rate (GFR) and Staging of Kidney Disease* + +-------- + ------+| GFR (mL/min/1.73 m2) ?| With Kidney Damage ?| ?Without Kidney Damage+ +-- + +| ?>90 ?| ?Stage one ?| ? Normal ?+ +------- + -------+| ?60-89 ?| ?Stage two ?| ? Decreased GFR ? + +-------- + ------+| ?30-59 ?| ?Stage three ?| ? Stage three ? + +-------- + ------+| ?15-29 ?| ?Stage four ? | ? Stage four ?+ +------- + -------+| ?<15 (or dialysis) ? ?| ?Stage five ? | ? Stage five ?+ +------- + -------+ *Each stage assumes the associated GFR level has been in effect for at least three months. ?Stages 1 to 5, with or without kidney disease, indicate chronic kidney disease. Notes: Determination of stages one and two (with eGFR >59mL/min/1.73 m2) requires estimation of kidney damage for at least three months as defined by structural or functional abnormalities of the kidney, manifested by either:Pathological abnormalities or Markers of kidney damage (including abnormalities in the composition of the blood or urine or abnormalities in imaging tests). Lab Interpretation (test code = Abnormal 71184-1) [facility] with [id number] 09:57:16 Test Item Value Reference Range Interpretation Comments WBC (test code = See_Comment [Automated 2490-2) message] The sy stem which generated this result transmitted reference range : 4.20 - 10.70 10*3/?L. The reference range was not used to interpret this result as normal/abnormal . RBC (test code = See_Comment L [Automated 159-8) message] The sy stem which generated this result transmitted reference range : 4.26 - 5.52 10*6/?L. The reference range was not used to interpret this result as normal/abnormal . HGB (test code = 11.4 g/dL 12.2-16.4 L 718-7) HCT (test code = 33.9 % 38.4-49.3 L 4544-3) MCV (test code = 104.6 fL 81.7-95.6 H 787-2) MCH (test code = 35.2 pg 26.1-32.7 H 785-6) MCHC (test code = 33.6 g/dL 31.2-35.0 786-4) RDW-SD (test code = 51.8 fL 38.5-51.6 H 35215-6) RDW-CV (test code = 13.4 % 12.1-15.4 788-0) PLT (test code = See_Comment L [Automated 777-3) message] The sy stem which generated this result transmitted reference range : 150 - 328 10*3/ ?L. The reference r kwame was not used to interpret this result as normal/abnormal . MPV (test code = 12.0 fL 9.8-13.0 02667-1) NRBC/100 WBC (test See_Comment [Automat ed code = 4954168274) message] The system which generated this result transmitted reference range : 0.0 - 10.0 /100 WBCs. The refer ence range was not u sed to interpret th is result as normal/abnormal . NRBC x10^3 (test code <0.01 See_Comment [Auto mated = 4498872404) message] The s ystem which generated this result transmitted reference range : 10*3/?L. The reference range was not used to interpret this result as normal/abnormal . GRAN MAT (NEUT) % 88.9 % (test code = 770-8) IMM GRAN % (test code 0.30 % = 7317684728) LYMPH % (test code = 4.5 % 736-9) MONO % (test code = 6.2 % 5905-5) EOS % (test code = 0.0 % 713-8) BASO % (test code = 0.1 % 706-2) GRAN MAT x10^3(ANC) 9.21 10*3/uL 1.99-6.95 H (test code = 6664351283) IMM GRAN x10^3 (test 0.03 10*3/uL 0.00-0.06 code = 6507722233) LYMPH x10^3 (test code 0.47 10*3/uL 1.09-3.23 L = 731-0) MONO x10^3 (test code 0.64 10*3/uL 0.36-1.02 = 742-7) EOS x10^3 (test code = <0.03 0.06-0.53 L 711-2) BASO x10^3 (test code <0.03 0.01-0.09 = 704-7) Lab Interpretation Abnormal (test code = 34104-8) [id number] 15:55:53 Test Item Value Reference Interpretation Comments Range TROPONIN I (test 0.010 ng/mL See_Comment [Automated code = 2491269070) message] The system which generated this result transmitted reference range : <=0.034. The reference range was not used to interpret this result as normal/abnormal . KURT (test code = Reference (Normal) KURT) Range (defined by the 99th percentile reference limit): <= 0.034 ng/mL Note: Cardiac troponin begins to rise 3-4 hours after the onset of ischemia. Repeat in 4-6 hours if the sample was drawn within 3-4 hours of the onset of the symptom and found normal. Diagnosis of myocardial injury is made with acute changes in cTn concentrations with at least one serial sample above the 99th percentile upper reference limit (URL), taken together with the patient's clinical presentation. Biotin has been reported to cause a negative bias, interpret results relative to patient's use of biotin. Lab Interpretation Normal (test code = 03526-1) [facility] 15:45:08 Test Item Value Reference Range Interpretation Comments MAGNESIUM (test code = 6616029268) 2.1 mg/dL 1.7-2.4 Lab Interpretation (test code = Normal 46135-4) [facility] Area[facility]. METABOLIC PANEL (56786)2021-11-03 15:44:48 Test Item Value Reference Range Interpretation Comments NA (test code = 137 mmol/L 135-145 6392468907) K (test code = 3.6 mmol/L 3.5-5.0 1825072253) CL (test code = 105 mmol/L 98-108 9101353238) CO2 TOTAL (test code = 23 mmol/L - 2430376749) AGAP (test code = 2-16 7522846293) BUN (test code = 23 mg/dL 7-23 5154330956) GLUCOSE (test code = 118 mg/dL 70-110 H 1185238667) CREATININE (test code = 1.21 mg/dL 0.60-1.25 7615335492) TOTAL BILI (test code = 0.6 mg/dL 0.1-1.2 4000465217) CALCIUM (test code = 8.3 mg/dL 8.6-10.6 L 5796565991) T PROTEIN (test code = 6.7 g/dL 6.3-8.2 7784520862) ALBUMIN (test code = 3.6 g/dL 3.5-5.0 1322270176) ALK PHOS (test code = 111 U/L 34-122 8458102638) ALTv (test code = 19 U/L 5-50 1742-6) AST(SGOT) (test code = 38 U/L 13-40 1794593845) eGFR (test code = mL/min/1.73m2 9250633862) KURT (test code = KURT) Association of Glomerular Filtration Rate (GFR) and Staging of Kidney Disease* + --+ --+ ------+| GFR (mL/min/1.73 m2) ?| With Kidney Damage ?| ?Without Kidney Damage+ --------+ --------+ +| ?>90 ?| ?Stage one ?| ? Normal ?+ ---+ ---+ -------+| ?60-89 ?| ?Stage two ?| ? Decreased GFR ? + --+ --+ ------+| ?30-59 ?| ?Stage three ?| ? Stage three ? + --+ --+ ------+| ?15-29 ?| ?Stage four ? | ? Stage four ?+ ---+ ---+ -------+| ?<15 (or dialysis) ? ?| ?Stage five ? | ? Stage five ?+ ---+ ---+ -------+ *Each stage assumes the associated GFR level has been in effect for at least three months. ?Stages 1 to 5, with or without kidney disease, indicate chronic kidney disease. Notes: Determination of stages one and two (with eGFR >59mL/min/1.73 m2) requires estimation of kidney damage for at least three months as defined by structural or functional abnormalities of the kidney, manifested by either:Pathological abnormalities or Markers of kidney damage (including abnormalities in the composition of the blood or urine or abnormalities in imaging tests). Lab Interpretation Abnormal (test code = 09870-6) [facility] WITH [id number] 15:32:28 Test Item Value Reference Range Interpretation Comments WBC (test code = See_Comment [Automated 6690-2) message] The sy stem which generated this result transmitted reference range : 4.20 - 10.70 10*3/?L. The reference range was not used to interpret this result as normal/abnormal . RBC (test code = See_Comment L [Automated 789-8) message] The sy stem which generated this result transmitted reference range : 4.26 - 5.52 10*6/?L. The reference range was not used to interpret this result as normal/abnormal . HGB (test code = 12.7 g/dL 12.2-16.4 718-7) HCT (test code = 38.3 % 38.4-49.3 L 4544-3) MCV (test code = 101.9 fL 81.7-95.6 H 787-2) MCH (test code = 33.8 pg 26.1-32.7 H 785-6) MCHC (test code = 33.2 g/dL 31.2-35.0 786-4) RDW-SD (test code = 49.5 fL 38.5-51.6 37314-2) RDW-CV (test code = 13.2 % 12.1-15.4 788-0) PLT (test code = See_Comment L [Automated 777-3) message] The sy stem which generated this result transmitted reference range : 150 - 328 10*3/ ?L. The reference r kwame was not used to interpret this result as normal/abnormal . MPV (test code = 12.6 fL 9.8-13.0 30261-1) NRBC/100 WBC (test See_Comment [Automat ed code = 5012194821) message] The system which generated this result transmitted reference range : 0.0 - 10.0 /100 WBCs. The refer ence range was not u sed to interpret th is result as normal/abnormal . NRBC x10^3 (test code <0.01 See_Comment [Auto mated = 2664602301) message] The s ystem which generated this result transmitted reference range : 10*3/?L. The reference range was not used to interpret this result as normal/abnormal . GRAN MAT (NEUT) % 83.9 % (test code = 770-8) IMM GRAN % (test code 0.40 % = 9764260281) LYMPH % (test code = 10.4 % 736-9) MONO % (test code = 3.4 % 5905-5) EOS % (test code = 1.8 % 713-8) BASO % (test code = 0.1 % 706-2) GRAN MAT x10^3(ANC) 6.61 10*3/uL 1.99-6.95 (test code = 2621028570) IMM GRAN x10^3 (test 0.03 10*3/uL 0.00-0.06 code = 3709402499) LYMPH x10^3 (test code 0.82 10*3/uL 1.09-3.23 L = 731-0) MONO x10^3 (test code 0.27 10*3/uL 0.36-1.02 L = 742-7) EOS x10^3 (test code = 0.14 10*3/uL 0.06-0.53 711-2) BASO x10^3 (test code <0.03 0.01-0.09 = 704-7) Lab Interpretation Abnormal (test code = 96953-1) [facility] Area[facility] Whole [id number] 15:31:12 Test Item Value Reference Range Interpretation Comments LACTIC ACID (test code = 1.63 mmol/L 0.50-2.20 1636638715) Lab Interpretation (test code = Normal 23424-8) [facility] GLUCOSE (AUTOMATED)2020-01-09 13:09:00 Test Item Value Reference Range Interpretation Comments POCT GLU (test code = 0975303797) 118 mg/dL 70-110 H Lab Interpretation (test code = Abnormal 50055-2) [facility] Metabolic Panel (NA, K, CL, CO2, GLUCOSE, BUN, CREATININE, CA)2020-01-09 08:57:00 Test Item Value Reference Range Interpretation Comments NA (test code = 137 mmol/L 135-145 3792309387) K (test code = 4.1 mmol/L 3.5-5 0346423785) CL (test code = 100 mmol/L 98-108 9897165357) CO2 TOTAL (test code = 28 mmol/L 23-31 5434474493) AGAP (test code = 2-16 0862201281) BUN (test code = 24 mg/dL 7-23 H 9565942350) GLUCOSE (test code = 108 mg/dL 70-110 5606501245) CREATININE (test code = 0.84 mg/dL 0.6-1.25 2977476609) CALCIUM (test code = 7.8 mg/dL 8.6-10.6 L 6154826080) eGFR Calculation mL/min/1.73m2 (Non-) (test code = 2645152302) eGFR Calculation mL/min/1.73m2 () (test code = 9706622011) KURT (test code = KURT) Association of Glomerular Filtration Rate (GFR) and Staging of Kidney Disease* + --+ --+ ------+| GFR (mL/min/1.73 m2) ?| With Kidney Damage ?| ?Without Kidney Damage+ --------+ --------+ +| ?>90 ?| ?Stage one ?| ? Normal ?+ ---+ ---+ -------+| ?60-89 ?| ?Stage two ?| ? Decreased GFR ? + --+ --+ ------+| ?30-59 ?| ?Stage three ?| ? Stage three ? + --+ --+ ------+| ?15-29 ?| ?Stage four ? | ? Stage four ?+ ---+ ---+ -------+| ?<15 (or dialysis) ? ?| ?Stage five ? | ? Stage five ?+ ---+ ---+ -------+ *Each stage assumes the associated GFR level has been in effect for at least three months. ?Stages 1 to 5, with or without kidney disease, indicate chronic kidney disease. Notes: Determination of stages one and two (with eGFR >59mL/min/1.73 m2) requires estimation of kidney damage for at least three months as defined by structural or functional abnormalities of the kidney, manifested by either:Pathological abnormalities or Markers of kidney damage (including abnormalities in the composition of the blood or urine or abnormalities in imaging tests). Lab Interpretation Abnormal (test code = 04007-5) [facility] WITH [id number] 08:44:00 Test Item Value Reference Range Interpretation Comments WBC (test code = See_Comment H [Automated 6690-2) message] The sy stem which generated this result transmitted reference range : 4.20 - 10.70 10*3/?L. The reference range was not used to interpret this result as normal/abnormal . RBC (test code = See_Comment L [Automated 789-8) message] The sy stem which generated this result transmitted reference range : 4.26 - 5.52 10*6/?L. The reference range was not used to interpret this result as normal/abnormal . HGB (test code = 11.4 g/dL 12.2-16.4 L 718-7) HCT (test code = 34.6 % 38.4-49.3 L 4544-3) MCV (test code = 98.3 fL 81.7-95.6 H 787-2) MCH (test code = 32.4 pg 26.1-32.7 785-6) MCHC (test code = 32.9 g/dL 31.2-35 786-4) RDW-SD (test code = 58.5 fL 38.5-51.6 H 89336-0) RDW-CV (test code = 16.3 % 12.1-15.4 H 788-0) PLT (test code = See_Comment L [Automated 777-3) message] The sy stem which generated this result transmitted reference range : 150 - 328 10*3/ ?L. The reference r kwame was not used to interpret this result as normal/abnormal . MPV (test code = 12.2 fL 9.8-13 66005-0) NRBC/100 WBC (test See_Comment [Automat ed code = 7816210477) message] The system which generated this result transmitted reference range : 0.0 - 10.0 /100 WBCs. The refer ence range was not u sed to interpret th is result as normal/abnormal . NRBC x10^3 (test code <0.01 See_Comment [Auto mated = 8741720800) message] The s ystem which generated this result transmitted reference range : 10*3/?L. The reference range was not used to interpret this result as normal/abnormal . GRAN MAT (NEUT) % 80.4 % (test code = 770-8) IMM GRAN % (test code 0.50 % = 8374975523) LYMPH % (test code = 6.6 % 736-9) MONO % (test code = 12.3 % 5905-5) EOS % (test code = 0.0 % 713-8) BASO % (test code = 0.2 % 706-2) GRAN MAT x10^3(ANC) 9.82 10*3/uL 1.99-6.95 H (test code = 8729549732) IMM GRAN x10^3 (test 0.06 10*3/uL 0-0.06 code = 6959440816) LYMPH x10^3 (test code 0.80 10*3/uL 1.09-3.23 L = 731-0) MONO x10^3 (test code 1.50 10*3/uL 0.36-1.02 H = 742-7) EOS x10^3 (test code = <0.03 0.06-0.53 L 711-2) BASO x10^3 (test code <0.03 0.01-0.09 = 704-7) Lab Interpretation Abnormal (test code = 59661-2) [facility] GLUCOSE (AUTOMATED)2020-01-09 01:32:00 Test Item Value Reference Range Interpretation Comments POCT GLU (test code = 1769681675) 133 mg/dL 70-110 H Lab Interpretation (test code = Abnormal 22533-6) [facility] Area[facility]cosylated Hemoglobin (A1C)2020-01-08 23:30:00 Test Item Value Reference Range Interpretation Comments HGB A1C (test code = See_Comment [Autom ated message] 4548-4) The system [employer] generated this result transmitted ref erence range: 4.0 - 6. 0 % NGSP. The refer ence range was not u sed to interpret this result as normal/abnor mal. Lab Interpretation (test Normal code = 42933-0) [facility] GLUCOSE (AUTOMATED)2020-01-08 21:48:00 Test Item Value Reference Range Interpretation Comments POCT GLU (test code = 5538018483) 175 mg/dL 70-110 H Lab Interpretation (test code = Abnormal 73302-5) [facility])2020-01-08 18:45:00 Test Item Value Reference Range Interpretation Comments POCT GLU (test code = 6485646319) 138 mg/dL 70-110 H Lab Interpretation (test code = Abnormal 61076-7) [facility] AreaCORONAVIRUS COVID-19 [id number] 12:07:00 Test Item Value Reference Range Interpretation Comments SARS-CoV-2 (test code = Not Detected Not Detected 90980-3) KURT (test code = KURT) ID NOW COVID-19 Assay is an isothermal nucleic acid amplification test intended for the qualitative detection of nucleic acid from SARS-CoV-2 viral RNA in nasopharyngeal ([employer]ER) specimens. It is used under Emergency Use Authorization (EUA) by FDA. The limit of detection (LOD) of the assay is 125 Genome Equivalents/mL. A positive result is indicative of the presence of SARS-CoV-2 RNA. ?Clinical correlation with patient history and other diagnostic information is necessary to determine patient infection status. A negative (Not Detected) result does not preclude SARS-CoV-2 infection and should not be used as the sole basis for patient management decisions. ? Invalid: Please collect a new specimen for repeat patient testing if clinically indicated. Lab Interpretation Normal (test code = 27213-1) [facility] Area[facility] and Screen - ONCE [id number] 11:55:02 Test Item Value Reference Range Interpretation Comments ABO & RH (test code A Positive Performe d at [facility] = 20) Laboratory Serv [facility] [address] [place], [place] [address] 4Toll Free: [phone] 266CLIA No. [id number] IAT (test code = Negative Performed a t [facility] 1185) Laboratory [facility] [address] [place], [place] [address] 4Toll Free: [phone] 266CLIA No. [id number] [facility] AreaCREATININE W ESTIMATED [id number] 12:01:00 Test Item Value Reference Range Interpretation Comments BEDSIDE CREATININE (test code = 0.9 MG/DL 0.6-1.3 N CREATBED) GLOMERULAR FILTRATION RATE POC 87 ML/MIN (test code = GFRBED) ENTER BEDSIDE CREATININE RESULT: 0.90Serial Number: [id number] Name of User Performing Test: PACOSTA- CT ANGIO [id number] 10:46:00 Name: DANIEL VALDERRAMA [facility] [place] : 1945 Age/S: 74 / M [address] [place] [address] Unit #: [id number] Loc: Jona [id number] Phys: Shalini Rosas MD Acct: [id number] Dis Date: Status: REG CLI PHONE #: [phone] Exam Date: 01/03/2020 0942 FAX #: [phone] Reason: ATRIAL FIBRILLATION EXAMS: CPTCODE: [id number] CT ANGIO CHEST [address] ang iogram with IV contrast [...] Signed Report (CONT INUED) Name: DANIEL VALDERRAMA [facility] [place] : 1945 Age/S: 74 / M [address] [place] [address] Blvd Unit #: [id number] Loc: [place] [address] Phys: Shalini Rosas MD Acct: [id number] Dis Date: Status: REG CLI PHONE #: [phone] Exam Date: 01/03/2020 09 FAX #: [phone] Reason: ATRIAL FIBRILLATION EXAMS: CPT CODE: [id number] CT ANGIO CHEST 27588 <Continued> SL: [id number] at 1046 Reported and signed by: Rojas Verma M.D. CC: Shalini Rosas MD Technologist:Heber Ricks, RT(R)(CT) CTDI: DLP: Trnscb Date/Time: 01/03/2020 (1046) [id number] Orig Print D/T: S: 01/03/2020 (3635) PAGE 2 Signed Report
[2021-11-05 14:59] LABS: Protime INR 1.02
[2021-11-05] MEDS ORDERED: FUROSEMIDE 40 MG/4 ML VIAL ONE (14:59)
[2021-11-05 15:00] LABS: Absolute Lymphocytes (CBC) 0.6 K/uL (0.7-4.9); Hematocrit 34.3 % (39.6-49.0); Lymphocytes % 6.2 % (15.3-44.8); MPV 10.2 fL (7.6-11.3); RBC Red Blood Cell Count 3.38 M/uL (4.33-5.43)
--- NOTE | 2021-11-05 15:28 | RAD REPORT ---
EXAM DESCRIPTION: RAD - Chest Single View - 11/05/2021 3:09 pm CLINICAL HISTORY: CONGESTION COMPARISON: Portable March 2021 TECHNIQUE: AP portable chest image was obtained 11/05/2021 3:09 pm . FINDINGS: Lung volumes are low. Patient has extensive baseline interstitial lung disease. Increased bibasilar opacification is present more so on the right. Findings are suspicious for pneumonia superi mposed on chronic lung disease. A significant failure or volume overload component is doubtful. Heart size is prominent but not clearly different. Upper lobe vasculature within normal limits. Sternotomy wires are in place. No acute bony abnormality seen. No acute aortic findings suspected. IMPRESSION: Probable right lung base pneumonia superimposed on chronic interstitial lung disease. Patchy left base pneumonia is possible as well low less suspicious.
[2021-11-05 15:34] LABS: Albumin 2.9 g/dL (3.4-5.0); Bilirubin Direct 0.1 mg/dL (0-0.2); Bilirubin Total 0.6 mg/dL (0.2-1.0); Potassium 3.8 mmol/L (3.5-5.1); Protein, Total 7.1 g/dL (6.4-8.2); Troponin High Sensitivity 58.2 pg/mL (<58.9)
[2021-11-05] MEDS ORDERED: CEFTRIAXONE 1000 MG/VIAL ONE (15:46)
[2021-11-05] MEDS ORDERED: AZITHROMYCIN 500 MG INJ IVPB ONE (15:46)
[2021-11-05] MEDS ORDERED: NA CHLORIDE 0.9% 250 ML ONE (15:46)
[2021-11-05] MEDS ORDERED: NA CHLORIDE 0.9% 100 ML IV ONE (15:47)
--- NOTE | 2021-11-05 15:47 | ER ---
Nurse's Notes [facility] [place] [place] Name: Joshua Juarez Age: 76 yrs Sex: Male : 1945 Arrival Date: 11/05/2021 Time: 12:17 Bed 16 Private MD: Diagnosis: Hypoxemia;Other pneumonia, unspecified organism;Acute pulmonary edema Presentation: 11/05 12:38 Chief complaint: Patient states: Patient went to see pain management for follow up to [facility] recent back surgery when it was noted that the patient was sob while walking so daughter had then check his SpO2 and it was 86% on room air, patient not on home O2, patient has hx of CHF-patient had 8 lb weight gain between 10/28/21-11/05/2021, patient recently discharged from [facility] in [place] after complications from a back surgery and dehydration. Coronavirus screen: Vaccine status: Patient reports receiving the 2nd dose of the covid vaccine. Ebola Screen: Patient negative for fever greater than or equal to 101.5 degrees Fahrenheit, and additional compatible Ebola Virus Disease symptoms Patient denies exposure to infectious person. Patient denies travel to an Ebola-affected area in the 21 days before illness onset. Initial Sepsis Screen: Does the patient meet any 2 criteria? No. Patient's initial sepsis screen is negative. Does the patient have a suspected source of infection? No. Patient's initial sepsis screen is negative. Risk Assessment: Do you want to hurt yourself or someone else? Patient reports no desire to harm self or others. 12:38 Method Of Arrival: Ambulatory [facility] 12:38 Acuity: MARISELA 3 [facility] 12:44 Onset of symptoms is unknown. [facility] Triage Assessment: 12:42 General: Appears in no apparent distress. Behavior is calm. Pain: Complains of pain in [facility] chest. Historical: - Allergies: 12:42 No Known Allergies; [facility] - Home Meds: 16:52 aspirin 81 mg Oral chew 1 tab once daily [Active]; atorvastatin 20 mg Oral tab 1 tab ic1 once daily [Active]; hydrocodone-acetaminophen 7.5-325 mg Oral tab 1 tab TID [Active]; Lasix 40 mg Oral tab once daily [Active]; omeprazole 20 mg Oral cpDR 1 cap 2 times per day [Active]; potassium chloride 20 mEq Oral TbTQ 1 tab once daily [Active]; trazodone 200 Oral tab 1 tab nightly [Active]; venlafaxine 150 mg Oral cp24 2 cap nightly [Active]; folic acid 1 mg Oral tab once daily [Active]; lisinopril 1 mg/mL Oral soln 2.5 mL once daily [Active]; vitamin A08-laonf acid 500-400 mcg oral tab every morning [Active]; Daily Multivitamin oral tab every morning [Active]; ferrous gluconate 324 mg (36 mg iron) Oral tab twice a day [Active]; gabapentin 400 mg oral tab three times a day [Active]; docusate sodium 100 mg Oral tab 2 tabs nightly [Active]; doxazosin 2 mg oral tab nightly [Active]; - PMHx: 12:42 Atrial Fib; Martinez's Palsy; CAD; Diabetes - NIDDM; Hypertension; Leaky valve; jg9 - Immunization history:: Client reports receiving the 2nd dose of the Covid vaccine, Pneumococcal vaccine is up to date, Flu vaccine is up to date. - Social history:: Smoking status: Patient denies any tobacco usage or history of. - Family history:: not pertinent. Screenin:43 Abuse screen: Denies threats or abuse. Denies injuries from another. Nutritional jg9 screening: No deficits noted. Tuberculosis screening: No symptoms or risk factors identified. Fall Risk None identified. Assessment: 14:35 General: Appears in no apparent distress. comfortable, Behavior is calm, cooperative. ic1 Pain: Denies pain. Neuro: Level of Consciousness is awake, alert, obeys commands, Oriented to person, place, time, situation. Cardiovascular: Reports shortness of breath, Denies chest pain. Respiratory: Reports shortness of breath since surgery x 3 days ago. GI: No deficits noted. : No deficits noted. EENT: No deficits noted. Derm: No deficits noted. Musculoskeletal: No deficits noted. 15:12 Reassessment: Pt reports sob and difficulty catching his breath after recent procedure ic1 that was performed a few days ago. Denies cp or dizziness. Also states he gained 8lbs since last MD visit in October. 15:38 Reassessment: Pt EKG completed by this RN and given to ED provider. ic1 16:22 Reassessment: Hospitalist at pt's bedside updating on plan of care. ic1 17:35 Reassessment: Attempted to call report x 2 attempts. Nurse refused. Requested to give ic1 report to rn discharge, refused. ER Charge nurse notified. 18:25 Reassessment: Patient appears in no apparent distress at this time. Patient is alert, ic1 oriented x 3, equal unlabored respirations, skin warm/dry/pink. Patient denies pain at this time. Vital Signs: 12:38 BP 113 / 83; Pulse 96; Resp 20 S; Temp 99.0(TE); Pulse Ox 96% on R/A; Weight 88.45 kg; jg9 Height 5 ft. 5 in. (165.10 cm) (R); 15:13 BP 122 / 81; Pulse 96; Resp 16; Pulse Ox 100% on 2 lpm NC; ic1 16:23 BP 122 / 90; Pulse 91; Resp 18; Pulse Ox 100% on 2 lpm NC; ic1 17:12 BP 121 / 85; Pulse 101; Resp 18; Pulse Ox 100% on 2 lpm NC; ic1 18:25 BP 122 / 99; Pulse 94; Resp 18; Pulse Ox 100% on 2 lpm NC; ic1 12:38 Body Mass Index 32.45 (88.45 kg, 165.10 cm) jg9 ED Course: 12:17 Patient arrived in ED. mr 12:42 Triage completed. jg9 12:43 Arm band placed on right wrist. jg9 13:52 Dasha Haines, GRAY is Primary Nurse. ic1 13:54 Mayte Acosta MD is Attending Physician. ma2 15:09 XRAY Chest (1 view) In Process Unspecified. EDMS 15:11 Basic Metabolic Panel Sent. ic1 15:11 CBC with Diff Sent. ic1 15:11 LFT's Sent. ic1 15:11 Magnesium Sent. ic1 15:11 NT PRO-BNP Sent. ic1 15:11 Troponin HS Sent. ic1 15:13 Patient has correct armband on for positive identification. Bed in low position. Call ic1 light in reach. Side rails up X2. Adult w/ patient. 15:38 Door closed. Warm blanket given. ic1 15:46 John Logan MD is Hospitalizing Provider. ma2 Administered Medications: 15:25 Drug: Lasix (furosemide) 20 mg Route: IVP; Infused Over: 2 mins; Site: left antecubital;ic1 15:51 Drug: Rocephin (cefTRIAXone) 1 grams Route: IV; Rate: calculated rate; Site: left ap3 forearm; 16:17 Follow up: IV Status: Completed infusion; IV Intake: 100ml ic1 16:42 Dru mg of (AZITHromycin 500 mg, NS 0.9% 250 ml) Route: IVPB; Infused Over: 1 hrs; ic1 Site: left antecubital; Delivery: Primary tubing; Intake: 16:17 IV: 100ml; Total: 100ml. ic1 Outcome: 15:47 Decision to Hospitalize by Provider. ma2 18:39 Admitted to Med/surg room 219, with oxygen, Report called to GRAY Sutton ic1 18:39 Condition: stable 18:39 Discharge instructions given to patient, family, Instructed on the need for admit, Demonstrated understanding of 19:26 Patient left the ED. sv1 Signatures: Dispatcher [employer] EDNH TyrelMelissa Mohammad, MD MD ma2 Samira Echeverria RN RN ap3 Josephine Iglesias RN RN jg9 Devyn Walton RN RN sv1 Dasha Haines RN RN ic1 Corrections: (The following items were deleted from the chart) 18:34 18:25 Pulse 94bpm; Resp 18bpm; Pulse Ox 100% 2 lpm Nasal Cannula; ic1 ic1
--- NOTE | 2021-11-05 15:47 | EDPHYS ---
Physician Documentation [facility] Name: Joshua Juarez Age: 76 yrs Sex: Male : 1945 Arrival Date: 11/05/2021 Time: 12:17 Bed 16 Private MD: ED Physician Mayte Acosta HPI: 11/05 14:20 This 76 yrs old Male presents to ER via Ambulatory with complaints of Low O2 86. ma2 14:20 The patient has shortness of breath at rest. Onset: The symptoms/episode began/occurred ma2 gradually, 1 day(s) ago. Associated signs and symptoms: Pertinent negatives: diaphoresis, dizziness, hemoptysis, nausea. Severity of symptoms: At their worst the symptoms were moderate in the emergency department the symptoms are unchanged. The patient has experienced similar episodes in the past. Historical: - Allergies: 12:42 No Known Allergies; jg9 - Home Meds: 16:52 aspirin 81 mg Oral chew 1 tab once daily [Active]; atorvastatin 20 mg Oral tab 1 tab ic1 once daily [Active]; hydrocodone-acetaminophen 7.5-325 mg Oral tab 1 tab TID [Active]; Lasix 40 mg Oral tab once daily [Active]; omeprazole 20 mg Oral cpDR 1 cap 2 times per day [Active]; potassium chloride 20 mEq Oral TbTQ 1 tab once daily [Active]; trazodone 200 Oral tab 1 tab nightly [Active]; venlafaxine 150 mg Oral cp24 2 cap nightly [Active]; folic acid 1 mg Oral tab once daily [Active]; lisinopril 1 mg/mL Oral soln 2.5 mL once daily [Active]; vitamin A11-qlabu acid 500-400 mcg oral tab every morning [Active]; Daily Multivitamin oral tab every morning [Active]; ferrous gluconate 324 mg (36 mg iron) Oral tab twice a day [Active]; gabapentin 400 mg oral tab three times a day [Active]; docusate sodium 100 mg Oral tab 2 tabs nightly [Active]; doxazosin 2 mg oral tab nightly [Active]; - PMHx: 12:42 Atrial Fib; Martinez's Palsy; CAD; Diabetes - NIDDM; Hypertension; Leaky valve; jg9 - Immunization history:: Client reports receiving the 2nd dose of the Covid vaccine, Pneumococcal vaccine is up to date, Flu vaccine is up to date. - Social history:: Smoking status: Patient denies any tobacco usage or history of. - Family history:: not pertinent. ROS: 14:20 Constitutional: Negative for fever, chills, and weight loss. ma2 14:20 All other systems are negative. Exam: 14:20 Constitutional: This is a well developed, well nourished patient who is awake, alert, ma2 and in no acute distress. Neck: Trachea midline, no thyromegaly or masses palpated, and no cervical lymphadenopathy. Supple, full range of motion without nuchal rigidity, or vertebral point tenderness. No Meningismus. Chest/axilla: Normal chest wall appearance and motion. Nontender with no deformity. No lesions are appreciated. Cardiovascular: Regular rate and rhythm with a normal S1 and S2. No gallops, murmurs, or rubs. Normal PMI, no JVD. No pulse deficits. Respiratory: Patient lungs have equal breath sounds bilaterally, clear to auscultation and percussion. No rales, rhonchi or wheezes noted. No increased work of breathing, no retractions or nasal flaring. Abdomen/GI: Soft, non-tender, with normal bowel sounds. No distension or tympany. No guarding or rebound. No evidence of tenderness throughout. MS/ Extremity: Pulses equal, no cyanosis. Neurovascular intact. Full, normal range of motion. Neuro: Awake and alert, GCS 15, oriented to person, place, time, and situation. Cranial nerves II-XII grossly intact. Motor strength 5/5 in all extremities. Sensory grossly intact. Cerebellar exam normal. Normal gait. Vital Signs: 12:38 BP 113 / 83; Pulse 96; Resp 20 S; Temp 99.0(TE); Pulse Ox 96% on R/A; Weight 88.45 kg; jg9 Height 5 ft. 5 in. (165.10 cm) (R); 15:13 BP 122 / 81; Pulse 96; Resp 16; Pulse Ox 100% on 2 lpm NC; ic1 16:23 BP 122 / 90; Pulse 91; Resp 18; Pulse Ox 100% on 2 lpm NC; ic1 17:12 BP 121 / 85; Pulse 101; Resp 18; Pulse Ox 100% on 2 lpm NC; ic1 18:25 BP 122 / 99; Pulse 94; Resp 18; Pulse Ox 100% on 2 lpm NC; ic1 12:38 Body Mass Index 32.45 (88.45 kg, 165.10 cm) jg9 MDM: 13:54 Patient medically screened. ma2 15:45 Differential diagnosis: Patient has hypoxemia, shortness of breath pulmonary edema, ma2 there is also possible early pneumonia, will admit as patient does not have oxygen at home discussed with John Mays. Data reviewed: vital signs, nurses notes. Counseling: I had a detailed discussion with the patient and/or guardian regarding: the historical points, exam findings, and any diagnostic results supporting the discharge/admit diagnosis, the presence of at least one elevated blood pressure reading (>120/80) during this emergency department visit, the need to transfer to another facility. Response to treatment: the patient's symptoms have markedly improved after treatment. 11/05 13:58 Order name: Basic Metabolic Panel [facility] 11/05 13:58 Order name: CBC with Diff; Complete Time: 15:30 [facility] 11/05 13:58 Order name: LFT's [facility] 11/05 13:58 Order name: Magnesium [facility] 11/05 13:58 Order name: NT PRO-BNP [facility] 11/05 13:58 Order name: PT-INR; Complete Time: 15:30 [facility] 11/05 13:58 Order name: Troponin HS [facility] 11/05 13:58 Order name: SARS-COV-2 RT PCR (Document "Date of Onset" if Symptomatic) [facility] 11/05 16:41 Order name: Procalcitonin [facility] 11/05 16:48 Order name: Basic Metabolic Panel [facility] 11/05 16:48 Order name: Basic Metabolic Panel [facility] 11/05 16:48 Order name: CBC with Automated Diff [facility] 11/05 16:48 Order name: CBC with Automated Diff [facility] 11/05 16:48 Order name: Magnesium [facility] 11/05 13:58 Order name: XRAY Chest (1 view); Complete Time: 15:30 [facility] 11/05 13:58 Order name: EKG; Complete Time: 13:59 [facility] 11/05 13:58 Order name: Cardiac monitoring; Complete Time: 15:11 [facility] 11/05 13:58 Order name: EKG - Nurse/Tech; Complete Time: 15:38 [facility] 11/05 13:58 Order name: IV Saline Lock; Complete Time: 15:11 [facility] 11/05 13:58 Order name: Labs collected and sent; Complete Time: 15:11 [facility] 11/05 13:58 Order name: O2 Per Protocol; Complete Time: 14:40 [facility] 11/05 13:58 Order name: O2 Sat Monitoring; Complete Time: 14:40 [facility] 11/05 16:40 Order name: Chest Angio [facility] 11/05 16:48 Order name: Heart Healthy [facility] 11/05 16:48 Order name: Magnesium EDPR Administered Medications: 15:25 Drug: Lasix (furosemide) 20 mg Route: IVP; Infused Over: 2 mins; Site: left antecubital;ic1 15:51 Drug: Rocephin (cefTRIAXone) 1 grams Route: IV; Rate: calculated rate; Site: left ap3 forearm; 16:17 Follow up: IV Status: Completed infusion; IV Intake: 100ml ic1 16:42 Dru mg of (AZITHromycin 500 mg, NS 0.9% 250 ml) Route: IVPB; Infused Over: 1 hrs; ic1 Site: left antecubital; Delivery: Primary tubing; Disposition Summary: 11/05/21 15:47 Hospitalization Ordered Hospitalization Status: Inpatient Admission va2 Provider: John Logan Location: Telemetry/MedSurg (observation) ma2 Condition: Stable ma2 Problem: new ma2 Symptoms: are unchanged ma2 Bed/Room Type: Standard [facility] Room Assignment: 219(11/05/21 17:13) iw Diagnosis - Hypoxemia ma2 - Other pneumonia, unspecified organism ma2 - Acute pulmonary edema ma2 Forms: - Medication Reconciliation Form ma2 - SBAR form ma2 Signatures: Dispatcher [employer] Gabrielle Oviedo RN RN iw Mayte Acosta MD MD ma2 Samira Echeverria RN RN ap3 Josephine Iglesias RN RN jg9 Creggett, Iesha, RN RN ic1 Corrections: (The following items were deleted from the chart) 17:13 15:47 ma2 iw
[2021-11-05] MEDS ORDERED: ONDANSETRON 4 MG/2 ML VIAL IV PRN (16:42)
[2021-11-05] MEDS ORDERED: ACETAMINOPHEN 500 MG TAB PO PRN (16:42)
--- NOTE | 2021-11-05 16:59 | P.HP ---
Certification for Inpatient Patient admitted to: Observation With expected LOS: <2 Midnights Practitioner: I am a practitioner with admitting privileges, knowledge of patient current condition, hospital course, and medical plan of care. Services: Services provided to patient in accordance with Admission requirements found in Title 42 Section 412.3 of the Code of Federal Regulations Patient History Date of Service: 11/05/21 Reason for admission: Hypoxia, CHF exacerbation, possible pneumonia History of Present Illness: 76-year-old male, PMH: CAD s/p CABG, A. fib s/p ablation (not on anticoagulation), hypertension, aortic stenosis, Martinez's palsy, BPH, and pulmonary fibrosis Presents to ED due to 1 day of progressively worsening shortness of breath, found to be hypoxic to 86% at his pain doctor's office this morning. Patient underwent his first pain injection on 11/03, had an episode of loss of consciousness in the recovery room secondary to hypotension and explained to him that it was likely from the pain medication. He was transferred to [facility] due to lack of beds at [place]. There he was told that he was dehydrated and given redoing of IV fluids and his Lasix was held. Patient's daughter is at the bedside and states patient has had approximate 7-8 pound weight gain over the last few days. Denies any recent fever, no chills, no cough, no nausea/vomiting, no dysuria, no diarrhea. Work-up in the ED notable for elevated BNP, chest x-ray with bilateral opacities, possible pneumonia versus pulmonary edema. Patient was given a dose of Rocephin and azithromycin, and IV Lasix. At the time of my exam, patient reported breathing more comfortably already. Allergies No Known Allergies Allergy (Verified 01/16/21 15:36) Home Medications: Trazodone HCl [Desyrel] 200 mg PO BEDTIME 03/21/16 Venlafaxine HCl [Venlafaxine HCl ER] 150 mg PO BID 03/21/16 Hydrocodone 7.5/APAP 325 [[place] 7.5/325 mg*] 1 tab PO BID PRN 04/15/19 Atorvastatin Calcium [Lipitor*] 1 tab PO DAILY 11/27/19 Omeprazole [Prilosec] 20 mg PO DAILY 11/27/19 Aspirin Chewable [Aspirin Chewable*] 81 mg PO DAILY #90 tab.chew 11/28/19 Folic Acid 1 mg PO DAILY #90 tablet 11/28/19 Sennosides [Senna] 1 tab PO DAILY 12/07/19 Wheat Dextrin [Benefiber] 1 packet PO DAILY 12/07/19 bisacodyL [Dulcolax*] 1 tab PO DAILY 12/07/19 Ensure High Protein 237 ml PO BID can 12/09/19 Furosemide [Lasix] 40 mg PO DAILY #30 tablet 12/09/19 Potassium Chloride 20 meq PO DAILY #30 tablet.er 12/09/19 Cyanocobalamin (Vitamin B-12) [Vitamin B12] 500 mcg PO DAILY 01/16/21 Ferrous Gluconate 324 mg PO DAILY 01/16/21 Gabapentin 300 mg PO BID 01/16/21 Lisinopril [Zestril] 2.5 mg PO DAILY 01/16/21 Metformin HCl [Glucophage] 500 mg PO DAILY 01/16/21 - Past Medical/Surgical History Diabetic: Yes -: [place] -: bells palsy -: NIDDM -: HTN -: depression -: anxiety -: neuropathy -: dislocation l shoulder -: fracture r collar bone -: AFIB -: CAD -: bilateral knee replacement -: l ankle surgery -: l wrist surgery -: tonsillectomy -: r hand carpal tunnel surgery -: double bypass -: broken nose bridge - Family History Mother -: Diabetes Brother -: Heart disease, Diabetes Sister -: Heart disease, Diabetes - Social History Smoking Status: Never smoker Alcohol use: Yes CD- Drugs: No Caffeine use: No Place of Residence: Home Review of Systems 10-point ROS is otherwise unremarkable Physical Examination - Physical Exam General: Alert, In no apparent distress, Oriented x3 HEENT: Mucous membr. moist/pink, Sclerae nonicteric Respiratory: Diminished (At bases bilaterally), Crackles/rales (Mild at bases), Other (Nonlabored on 1 L nasal cannula) Cardiovascular: Regular rate/rhythm, Edema (Trace bilateral pedal edema), Systolic murmur (IV/) Gastrointestinal: Soft and benign, Non-distended, No tenderness Musculoskeletal: No tenderness Integumentary: No rashes, No significant lesion Neurological: Normal speech, Normal affect - Studies Laboratory Data (last 24 hrs) 11/05/21 14:36: PT 11.7, INR 1.02 11/05/21 14:36: WBC 9.60, Hgb 11.6 L, Hct 34.3 L, Plt Count 118 L 11/05/21 14:36: Sodium 137, Potassium 3.8, BUN 18, Creatinine 1.01, Glucose 131 H, Total Bilirubin 0.6, AST 29, ALT 22, Alkaline Phosphatase 77 Assessment and Plan - Advance Directives Does patient have a Living Will: Yes Does patient have a Durable POA for Healthcare: No Physician Review Additional Text: Problem list Acute hypoxemic respiratory failure secondary to acute on chronic CHF exacerbation Possible bacterial pneumonia CAD s/p CABG Hypertension Aortic stenosis Martinez's palsy Chronic pain Pulmonary fibrosis Patient with improvement of his dyspnea after dose of Lasix Continue IV Lasix 40 mg twice daily, patient's home dose is 40 mg p.o. daily Received Rocephin and azithromycin in ED, will continue for now No leukocytosis, afebrile, CXR reported possible pneumonia Given recent hospitalization, immobilization, and procedure, will obtain CTA chest to rule out PE, further evaluate pulmonary opacities Confirm home medications, restart as appropriate Patient seems to be improving already VTE: Lovenox Code: Full Dispo: Anticipate DC home tomorrow Time Spent Managing Pts Care (In Minutes): 60
--- NOTE | 2021-11-05 18:27 | RAD REPORT ---
EXAM DESCRIPTION: CT - Chest Angio - 11/05/2021 6:00 pm CLINICAL HISTORY: hypoxia, r/o PE, eval opacities COMPARISON: Chest For Pe Angio dated 12/07/2019; Chest Single View dated 11/05/2021; Abdomen Pelvis Wo Contrast dated 06/14/2020 TECHNIQUE: Dynamically enhanced 3 mm thick images of the chest were obtained during administration o f approximately 150mL Isovue 370 IV contrast. Coronal and oblique MIP reconstruction images were gene rated and reviewed. Exam utilizes a protocol to evaluate the pulmonary arterial tree. All CT scans are performed using dose optimization technique as appropriate and may include automated exposure control or mA/KV adjustment according to patient size. FINDINGS: No pulmonary emboli are identified. The aorta as imaged shows no acute or suspicious finding. No pericardial thickening or effusion. Faheem nary artery and cardiac valve annulus calcifications are present. Sternotomy wires are in place. CABG surgical changes are evident. Scattered ground-glass opacities are present in the right upper lobe, right middle lobe and the base of the left lower lobe. A 3.6 centimeter oval focal masslike consolidation is present in the posterio r gutter on the right. Trace left pleural effusion is present. Small right pleural effusion is presen t. There is no pneumothorax or pleural based mass. No mediastinal or hilar suspicious masses. No chest wall masses or abnormal axillary lymphadenopathy. IMPRESSION: No pulmonary emboli identified. Focal masslike consolidation in the posterior gutter on the right is probably focal infiltrative proc ess. This can be monitored on subsequent imaging. Focal atelectasis or more aggressive mass lesion le sser in likelihood. Scattered ground-glass opacities could be focal pneumonia or alveolar edema. Ground-glass opacities a re not in the classic COVID-19 pattern. Small right-sided and minimal left-sided pleural effusion.
[2021-11-05 19:32] VITALS: BMI 31.4
[2021-11-05] MEDS ORDERED: FUROSEMIDE 40 MG/4 ML VIAL IV SCH (20:00)
[2021-11-05] MEDS ORDERED: TRAZODONE 50 MG TABLET PO PRN (23:01)
[2021-11-06 05:23] LABS: Absolute Lymphocytes (CBC) 0.6 K/uL (0.7-4.9); Lymphocytes % 7.1 % (15.3-44.8); MPV 10.3 fL (7.6-11.3); RBC Red Blood Cell Count 3.29 M/uL (4.33-5.43)
--- NOTE | 2021-11-06 06:33 | P.PN ---
Date of Service: 11/06/21
[2021-11-06] MEDS ORDERED: ASPIRIN 81 MG CHEWABLE TABLET PO SCH (09:00)
[2021-11-06] MEDS ORDERED: ENOXAPARIN 40 MG/0.4 ML SQ SCH (09:00)
[2021-11-06] MEDS ORDERED: PNEUMOCOCCAL VACCINE 0.5 ML IMVAC ONE (09:00)
[2021-11-06] MEDS ORDERED: INFLUENZA VACCINE (for 6+ mo) 0.5 ML DOSE IMVAC ONE (09:00)
[2021-11-06] MEDS ORDERED: CEFTRIAXONE 1,000 MG in NA CHLORIDE 0.9% 50 ML IVPB SCH (09:00)
[2021-11-06] MEDS ORDERED: FOLIC ACID 1 MG TABLET PO SCH (09:00)
[2021-11-06] MEDS ORDERED: AZITHROMYCIN IV 500 MG in NA CHLORIDE 0.9% 250 ML IVPB SCH (09:00)
[2021-11-06] MEDS: GABAPENTIN 400 MG CAP PO SCH ×2 (09:23→14:36)
[2021-11-06 09:48] VITALS: O2SAT 95
[2021-11-06] MEDS ORDERED: FUROSEMIDE 40 MG TABLET PO SCH (10:00)
--- NOTE | 2021-11-06 10:53 | RAD REPORT ---
EXAM DESCRIPTION: [place] Single View11/06/2021 10:43 am CLINICAL HISTORY: Chest pain COMPARISON: November 05, 2021 FINDINGS: Right basilar lung opacities without significant change. Refer to the prior CT chest repor t for recommendation Left lung appears clear of acute infiltrate. Heart is moderately enlarged. Postsurgical changes involve the chest. Small pleural effusions
--- NOTE | 2021-11-06 12:23 | P.CNS ---
Date of Consult: 11/06/21 Reason for Consult: Right-sided pleural effusion and a lung mass Chief Complaint: Hypoxia, CHF exacerbation, possible pneumonia History of Present Illness: Patient is 76 years of patient is 76 years of age with a history of metabolic syndrome he was found to be hypoxic apparently developed problems after his back pain injection the loss of consciousness hypotension hypoxemia also lost some weight denies any fever chills chest pain Allergies No Known Allergies Allergy (Verified 01/16/21 15:36) Home Medications: Trazodone HCl [Desyrel] 200 mg PO BEDTIME 03/21/16 Venlafaxine HCl [Venlafaxine HCl ER] 150 mg PO BEDTIME 03/21/16 Hydrocodone 7.5/APAP 325 [[place] 7.5/325 mg*] 1 tab PO TID 04/15/19 Atorvastatin Calcium [Lipitor*] 1 tab PO DAILY 11/27/19 Omeprazole [Prilosec] 20 mg PO BID 11/27/19 Aspirin Chewable [Aspirin Chewable*] 81 mg PO DAILY #90 tab.chew 11/28/19 Folic Acid 1 mg PO DAILY #90 tablet 11/28/19 Furosemide [Lasix] 40 mg PO DAILY #30 tablet 12/09/19 Potassium Chloride 20 meq PO DAILY #30 tablet.er 12/09/19 Ferrous Gluconate 324 mg PO BID 01/16/21 Gabapentin 400 mg PO TID 01/16/21 Lisinopril [Zestril] 2.5 mg PO DAILY 01/16/21 Cyclobenzaprine [Flexeril*] 10 mg PO Q8HR PRN 11/05/21 Docusate Sodium 200 mg PO BEDTIME 11/05/21 Doxazosin Mesylate 4 mg PO BEDTIME 11/05/21 Hydrocodone Bit/Acetaminophen [Hydrocodon-Acetaminoph 7.5-325] 7.5 mg PO TID 11/05/21 Vit B12/Levomefolate/Vit B6/B2 [l-Methyl-Mc Tablet] 500 mg PO DAILY 11/05/21 - Past Medical/Surgical History Diabetic: No -: [place] -: bells palsy -: CAD -: HTN -: depression -: anxiety -: neuropathy -: dislocation l shoulder -: fracture r collar bone -: AFIB -: CAD -: bilateral knee replacement -: l ankle surgery -: l wrist surgery -: tonsillectomy -: r hand carpal tunnel surgery -: double bypass -: broken nose bridge - Family History Mother Medical History: Diabetes Brother Medical History: Heart disease Sister Medical History: Heart disease - Social History Smoking Status: Former smoker Alcohol use: Yes CD- Drugs: No Caffeine use: Yes Place of Residence: Home Review of Systems 10-point ROS is otherwise unremarkable General: Weakness Respiratory: Shortness of Breath Physical Examination Temp Pulse Resp BP Pulse Ox 96.8 F 100 H 20 101/60 95 11/06/21 08:00 11/06/21 08:00 11/06/21 08:00 11/06/21 08:00 11/06/21 08:00 General: Alert, In no apparent distress, Oriented x3 Neck: Supple Respiratory: Clear to auscultation bilaterally, Diminished Cardiovascular: No edema, Regular rate/rhythm Gastrointestinal: Normal bowel sounds, Soft and benign Laboratory Data (last 24 hrs) 11/05/21 14:36: PT 11.7, INR 1.02 11/05/21 14:36: WBC 9.60, Hgb 11.6 L, Hct 34.3 L, Plt Count 118 L 11/05/21 14:36: Sodium 137, Potassium 3.8, BUN 18, Creatinine 1.01, Glucose 131 H, Magnesium 2.0, Total Bilirubin 0.6, AST 29, ALT 22, Alkaline Phosphatase 77 - Problems (1) Mass of right lung Current Visit: Yes Status: Acute Plan: Patient is [id number] patient is 76 years of age admitted after having problems developed hypotension hypoxemia after the back injection he was found to have a small right-sided pleural effusion with a lung mass no prior history of malignancy he does not smoke needs to be followed up it could be rounded atelectasis/if this mass persists after CAT scan in a month we will consider a biopsy patient's blood pressure has never been high/oxygenation satisfactory plan to discharge follow-up with me in a month DC antibiotic/patient has been exposed to asbestos before may have rounded atelectasis and pleural disease
[2021-11-06] MEDS ORDERED: FUROSEMIDE 40 MG TABLET PO ONE (14:37)
--- NOTE | 2021-11-06 15:25 | P.DS ---
Admission Date: 11/05/21 Discharge Date: 11/06/21 Disposition: ROUTINE DISCHARGE Discharge Condition: GOOD Reason for Admission: Hypoxia, CHF exacerbation, possible pneumonia Consultations: Pulmonology - Dr. Hamilton Procedures: CTA chest (11/05): FINDINGS: No pulmonary emboli are identified. The aorta as imaged shows no acute or suspicious finding. No pericardial thickening or effusion. Coronary artery and cardiac valve annulus calcifications are present. Sternotomy wires are in place. CABG surgical changes are evident. Scattered ground-glass opacities are present in the right upper lobe, right middle lobe and the base of the left lower lobe. A 3.6 centimeter oval focal masslike consolidation is present in the posterior gutter on the right. Trace left pleural effusion is present. Small right pleural effusion is present. There is no pneumothorax or pleural based mass. No mediastinal or hilar suspicious masses. No chest wall masses or abnormal axillary lymphadenopathy. IMPRESSION: No pulmonary emboli identified. Focal masslike consolidation in the posterior gutter on the right is probably focal infiltrative process. This can be monitored on subsequent imaging. Focal atelectasis or more aggressive mass lesion lesser in likelihood. Scattered ground-glass opacities could be focal pneumonia or alveolar edema. Ground-glass opacities are not in the classic COVID-19 pattern. Small right-sided and minimal left-sided pleural effusion. Problem list Acute hypoxemic respiratory failure secondary to acute on chronic CHF exacerbation Right lower lobe masslike opacification, rounded atelectasis versus mass CAD s/p CABG Hypertension Aortic stenosis Martinez's palsy Chronic pain Pulmonary fibrosis Brief History of Present Illness: 76-year-old male, PMH: CAD s/p CABG, A. fib s/p ablation (not on anticoagulation), hypertension, aortic stenosis, Martinez's palsy, BPH, and pulmonary fibrosis Presents to ED due to 1 day of progressively worsening shortness of breath, found to be hypoxic to 86% at his pain doctor's office this morning. Patient underwent his first pain injection on 11/03, had an episode of loss of consciousness in the recovery room secondary to hypotension and explained to him that it was likely from the pain medication. He was transferred to [facility] due to lack of beds at [place]. There he was told that he was dehydrated and given redoing of IV fluids and his Lasix was held. Patient's daughter is at the bedside and states patient has had approximate 7-8 pound weight gain over the last few days. Denies any recent fever, no chills, no cough, no nausea/vomiting, no dysuria, no diarrhea. Work-up in the ED notable for elevated BNP, chest x-ray with bilateral opacities, possible pneumonia versus pulmonary edema. Patient was given a dose of Rocephin and azithromycin, and IV Lasix. At the time of my exam, patient reported breathing more comfortably already. Hospital Course: Patient was found to have small pleural effusions, right > left. A masslike consolidation was noted in the right lower lung as well on CT scan. No evidence of pulmonary embolism. Patient was treated empirically for possible pneumonia. Pulmonology was consulted, reviewed imaging, and felt this was more likely to be rounded atelectasis. Recommended discontinuation of antibiotics - patient was afebrile, negative procalcitonin, no leukocytosis. Patient received IV lasix and diuresed well, > 2L with improvement of respirations and no longer requiring oxygen. His breathing remained stable throughout the day of discharge on room air at rest and with ambulation. Discharged home to resume home medications as previously prescribed. Follow up with Dr. Hamilton in a few weeks. Plan for CT scan of chest to evaluate the masslike consolidation in ~1 month. If findings persist, may need biopsy. Follow up with PCP in 1-2 weeks. Vital Signs/Physical Exam: Temp Pulse Resp BP Pulse Ox 97.5 F 97 H 18 104/58 L 100 11/06/21 12:00 11/06/21 12:00 11/06/21 12:00 11/06/21 12:00 11/06/21 12:00 General: Alert, In no apparent distress, Oriented x3 HEENT: Sclerae nonicteric Respiratory: Clear to auscultation bilaterally, Other (Nonlabored respirations on room air) Cardiovascular: No edema, Regular rate/rhythm Gastrointestinal: Soft and benign, Non-distended, No tenderness Integumentary: No rashes, No significant lesion Neurological: Normal speech, Normal affect Laboratory Data at Discharge: WBC 8.90 K/uL (4.3-10.9) 11/06/21 04:43 Hgb 11.1 g/dL (13.6-17.9) L 11/06/21 04:43 Hct 33.0 % (39.6-49.0) L 11/06/21 04:43 Plt Count 119 K/uL (152-406) L 11/06/21 04:43 PT 11.7 SECONDS (9.5-12.5) 11/05/21 14:36 INR 1.02 11/05/21 14:36 Sodium 138 mmol/L (136-145) 11/06/21 04:43 Potassium 4.0 mmol/L (3.5-5.1) 11/06/21 04:43 BUN 16 mg/dL (7-18) 11/06/21 04:43 Creatinine 0.96 mg/dL (0.55-1.3) 11/06/21 04:43 Glucose 106 mg/dL (74-106) 11/06/21 04:43 Magnesium 2.0 11/05/21 14:36 Total Bilirubin 0.6 mg/dL (0.2-1.0) 11/05/21 14:36 AST 29 U/L (15-37) 11/05/21 14:36 ALT 22 U/L (12-78) 11/05/21 14:36 Alkaline Phosphatase 77 U/L (45-117) 11/05/21 14:36 Home Medications: Trazodone HCl [Desyrel] 200 mg PO BEDTIME 03/21/16 Venlafaxine HCl [Venlafaxine HCl ER] 150 mg PO BEDTIME 03/21/16 Hydrocodone 7.5/APAP 325 [[place] 7.5/325 mg*] 1 tab PO TID 04/15/19 Atorvastatin Calcium [Lipitor*] 1 tab PO DAILY 11/27/19 Omeprazole [Prilosec] 20 mg PO BID 11/27/19 Aspirin Chewable [Aspirin Chewable*] 81 mg PO DAILY #90 tab.chew 11/28/19 Folic Acid 1 mg PO DAILY #90 tablet 11/28/19 Furosemide [Lasix] 40 mg PO DAILY #30 tablet 12/09/19 Potassium Chloride 20 meq PO DAILY #30 tablet.er 12/09/19 Ferrous Gluconate 324 mg PO BID 01/16/21 Gabapentin 400 mg PO TID 01/16/21 Lisinopril [Zestril] 2.5 mg PO DAILY 01/16/21 Cyclobenzaprine [Flexeril*] 10 mg PO Q8HR PRN 11/05/21 Docusate Sodium 200 mg PO BEDTIME 11/05/21 Doxazosin Mesylate 4 mg PO BEDTIME 11/05/21 Hydrocodone Bit/Acetaminophen [Hydrocodon-Acetaminoph 7.5-325] 7.5 mg PO TID 11/05/21 Vit B12/Levomefolate/Vit B6/B2 [l-Methyl-Mc Tablet] 500 mg PO DAILY 11/05/21 Physician Discharge Instructions: Patient was found to have small pleural effusions, right > left. A masslike consolidation was noted in the right lower lung as well on CT scan. No evidence of pulmonary embolism. Patient was treated empirically for possible pneumonia. Pulmonology was consulted, reviewed imaging, and felt this was more likely to be rounded atelectasis. Recommended discontinuation of antibiotics - patient was afebrile, negative procalcitonin, no leukocytosis. Patient received IV lasix and diuresed well, > 2L with improvement of respirations and no longer requiring oxygen. His breathing remained stable throughout the day of discharge on room air at rest and with ambulation. Discharged home to resume home medications as previously prescribed. Follow up with Dr. Hamilton in a few weeks. Plan for CT scan of chest to evaluate the masslike consolidation in ~1 month. If findings persist, may need biopsy. Follow up with PCP in 1-2 weeks. Diet: AHA Activity: Ad rosalba Followup: Unknown,U [Primary Care Provider] - Time spent managing pt's care (in minutes): 45
[2021-11-06 16:10] LABS: Magnesium 1.9
[2021-11-06 16:16] VITALS: BP 103/62; TEMP 97.4
== END 2021-11-06 17:47 | disposition home or self-care (01) ==
LOC: ER 12:13 → ERHOLD 16:52 → 2ND 18:40
PROVIDERS: ADMIT Hospitalist; ATTEND Hospitalist
DX: J96.01 Acute respiratory failure with hypoxia (principal); I11.0 Hypertensive heart disease with heart failure; I50.9 Heart failure, unspecified; I25.10 Atherosclerotic heart disease of native coronary artery without angina pectoris; I35.0 Nonrheumatic aortic (valve) stenosis; G51.0 Bell's palsy; E11.40 Type 2 diabetes mellitus with diabetic neuropathy, unspecified; G89.29 Other chronic pain; R91.8 Other nonspecific abnormal finding of lung field; J84.10 Pulmonary fibrosis, unspecified; I48.91 Unspecified atrial fibrillation; E88.81 Metabolic syndrome and other insulin resistance; N40.0 Benign prostatic hyperplasia without lower urinary tract symptoms; I25.2 Old myocardial infarction; F32.A Depression, unspecified; F41.9 Anxiety disorder, unspecified; Z79.82 Long term (current) use of aspirin; Z95.1 Presence of aortocoronary bypass graft; Z96.653 Presence of artificial knee joint, bilateral; Z87.891 Personal history of nicotine dependence; Z83.3 Family history of diabetes mellitus; Z82.49 Family history of ischemic heart disease and other diseases of the circulatory system
CPT/HCPCS: 96365; 85025 ×2; 80048 ×2; 36415 ×2; 83735 ×2; 85610; 80076; 84484; 84145; 83880; 71275; 71045 ×2; 94760; 96375; 99285; U0003; Q9967; J1940 ×2; J0456 ×2; J1650; J7050 ×2; G0378 ×3